=== PATIENT | female | born 1975 | race Caucasian/White ===

== ENCOUNTER 2025-04-11 15:06 | Outpatient (CLI) | payer MEDICAID, SELFPAY ==
--- OUTSIDE RECORDS SUMMARY | 2025-02-14 13:47 | XMS_ITS | Encounter Summary ---
Author Organization [employer] Address [address] [place] [address] Care Team Providers Care Senior Program Manager Name Role Phone Ann Pizano APRN Primary Care Provider [phone]- [phone] Reason for Referral * Other (Routine) - Closed Specialty Diagnoses / Procedures Referred By Contac t Referred To Contact Pulmonology Diagnoses Chronic cough Dyspnea on exertion Procedures Pulmonary Function Testing Adela Watson MD [address] [address] Phone: tel: fax: [facility] [address] [place] [phone] Phone: tel: fax: Referral ID Status Reason Start Date Expiration Date Visits Re quested Visits Authorized [id number] Closed 11/23/2024 11/23/2025 1 1 Reason for Visit * Other (Routine) - Closed Specialty Diagnoses / Procedures Referred By Contac t Referred To Contact Pulmonology Diagnoses Chronic cough Dyspnea on exertion Procedures Pulmonary Function Testing Adela Watson MD [address] [address] Phone: tel: fax: [facility] [address] [place] [phone] Phone: tel: fax: Referral ID Status Reason Start Date Expiration Date Visits Re quested Visits Authorized [id number] Closed 11/23/2024 11/23/2025 1 1 Encounter Details Date Type Department Care Team (Medhat perry Contact Info) Description 02/14/2025 1:47 PM EDT - 02/14/2025 11:59 PM EDT Hospital Encounter [facility] [address] [place] [address] Adela Watson MD [address] [facility] [address] [place] [address] Chronic cough; Dyspnea on exertion Discharge Disposition: Home or Self Care Social History Tobacco Use Types Packs/Day Years Used Date Smoking Tobacco: Every Day Cigarettes 0.5 15 Smokeless Tobacco: Never Alcohol Use Standard Drinks/Week Comments Never 0 (1 standard drink = 0.6 oz pur e alcohol) caffeine use PHQ-2 Answer Date Recorded Patient Health Questionnaire-2 Score 0 01/21/2025 Interpersonal Safety Answer Date Record ed Family or friends hurt you Not on file 11/04 Family or friends insult you Not on file Family or friends threaten you Not on file 0 11/04/2023 Family or friends scream or curse at you Not on file 11/04/2023 Housing Stability Answer Date Recorded Living situation today Not on file Living situation problems Not on file 2023 Family and Community Support Answer Olman e Recorded Help with Day to Day Activities Not on file 11/04/2023 Feeling Lonely or Isolated Not on file 11/04 Educational Attainment Answer Date Cornelius rded Speak language other than Lao at home Not on file 11/04/2023 Want help with school or training Not on file 11/04/2023 Depression Answer Date Recorded PHQ-2 Risk Not on file 11/04/2023 Disabilities Answer Date Recorded Difficulty concentrating Not on file 024 Difficulty doing errands alone Not on file 0 11/04/2023 Substance Use Answer Date Recorded Used prescription meds for non-medical reasons N ot on file 11/04/2023 Used illegal drugs past 12 months Not on file 11/04/2023 Comments No Sex and Gender Information Value Date Recorded Sex Assigned at Not on file Legal Sex Female 1:32 PM CDT Gender Identity Not on file Sexual Orientation Not on file documented as of this encounter Medications at Time of Discharge abatacept (Orencia ClickJect) 125 mg/mL AtIn Inject 125 mg subcutaneously once a week Rheumatoid doctor. 2 cholecalciferol (VITAMIN D3) 125 mcg (5,000 unit) capsuleIndications: Vitamin D deficiency, unspecified TAKE 1 CAPSULE BY MOUTH TWICE A DAY 60 capsule 5 5 cyanocobalamin 1,000 mcg/mL injectionIndication s:Deficiency of other specified B group vitamins INJECT 1 ML DIRECTED ONCE A MONTH 3 mL 5 dilTIAZem (CARDIZEM CD) 180 MG 24 hr capsuleIndications: Essential (primary) hypertension TAKE 1 CAPSULE BY MOUTH EVERY DAY 90 capsule 3 5 fluticasone propionate (FLONASE) 50 mcg/actuation nasal sprayIndications:Ac ekwok pharyngitis, unspecified 1 spray by each nostril route daily. 48 mL 2 5 folic acid (FOLVITE) 1 MG tablet Take 1 tablet (1 mg total) by mouth daily. 90 tablet 5 nitroglycerin (NITROSTAT) 0.4 MG SL tabletIndications:C hest pain, unspecified type PUT 1 PILL UNDER TONGUE EVERY 5MIN NEEDED FOR CHEST PAIN.NO MORE THAN 3 DOSES IN 15MIN.CALL 911 IF PAIN UNRELIEVED 5MIN AFTER 1ST DOSE. 50 tablet 11 5 pantoprazole (PROTONIX) 40 MG tabletIndications:G astroesophageal reflux disease, unspecified whether esophagitis present Take 1 tablet (40 mg total) by mouth daily. 180 tablet 3 4 Senna Plus 8.6-50 mg per tabletIndications:C hronic constipation Take 1 tablet by mouth 2 (two) times daily as needed for Constipation (May reduce dose as needed. Goal to have soft BM at least every other day). 60 tablet 5 4 loratadine (CLARITIN) 10 mg tabletIndications:E ncounter for general adult medical examination without abnormal findings TAKE 1 TABLET BY MOUTH TWICE A DAY 60 tablet 5 4 03/06/20 25 montelukast (SINGULAIR) 10 mg tabletIndications:E ncounter for general adult medical examination without abnormal findings TAKE 1 TABLET BY MOUTH EVERY DAY AT NIGHT 90 tablet 5 03/06/20 25 oxybutynin (DITROPAN-XL) 10 MG 24 hr tabletIndications:S tress incontinence Take 1 tablet (10 mg total) by mouth nightly. 30 tablet 2 5 02/16/20 25 rosuvastatin (CRESTOR) 20 MG tabletIndications:O ther hyperlipidemia TAKE 1 TABLET (20 MG TOTAL) BY MOUTH IN THE MORNING FOR 90 DAYS. 90 tablet 3 4 03/07/20 25 documented as of this encounter Miscellaneous Notes * Result Encounter Note - Adela Watson MD - 02/14/2025 2:00 PM EDT Noted, patient has appointment scheduled and results can be reviewed at the visit. documented in this encounter Plan of Treatment Upcoming Encounters Date Type Department Care Team (Late st Contact Info) Description 07/22/2025 1:00 PM EDT Appointment [facility] CT Imaging [address] [place] [phone] Adela Watson MD [address] [place] [phone] 07/24/2025 10:30 AM EDT Office Visit [facility] - [facility] [address] [place] [address] Ann Pizano APRN [address] [place] [address] 07/26/2025 1:30 PM EDT Office Visit [facility] Pulm & Critical Care Medicine [address] [place] [address] [address] [place] [address] Adela Watson MD [address] [facility] [address] [place] [phone] 07/29/2025 9:00 AM EDT Appointment [facility] Breast Imaging [address] [place] [address] 04/15/2026 9:30 AM EDT Office Visit [facility] Gastroenterology [address] [place] [address] Rex Stoll MD [address] [facility] [address] [place] [address] documented as of this encounter Procedures Procedure Name Priority Date/Time Associated Diagnosis Comments [id number] PFT Routine 02/14/2025 2:41 PM EDT Chronic cough Dyspnea on exertion documented in this encounter Results * Pulmonary Function Testing (02/14/2025 2:41 PM EDT) Anatomical Region Laterality Modality Other Narrative 02/14/2025 6:31 PM EDT Images from the original result were not included. Normal PFT results Adela Watson MD PFT ORDERABLES Final Result documented in this encounter Visit Diagnoses Diagnosis Chronic cough Cough Dyspnea on exertion Other dyspnea and respiratory abnormality documented in this encounter Administered Medications Inactive Administered Medications - up to 3 most recent administrations Medication Order MAR Action Action Date Dose Rate Site albuterol 2.5 mg /3 mL (0.083 %) nebulizer solution 2.5 mg 2.5 mg Once, nebulization, On Tue02/14/25 at 1430, For 1 dose, RESPIRATORY THERAPY TREATMENT , What is the respiratory therapy Modality? Small volume Nebulization Given 02/14/2025 2:15 PM EDT 2.5 mg albuterol 2.5 mg /3 mL (0.083 %) nebulizer solution Starting on Tue02/14/25 at 1356, For 1 dose, Created by cabinet override documented in this encounter Care Teams Senior Program Manager Relationship Specialty Start Date End Date Ann Pizano APRN [address] [place] [address] PCP - General Family Medicine 01/11/25 documented as of this encounter
--- OUTSIDE RECORDS SUMMARY | 2025-02-28 14:30 | XMS_ITS | Encounter Summary ---
Author Organization [employer] Address [address] [place] [address] Care Team Providers Care Patient Support Partner Name Role Phone Ann Pizano APRN Primary Care Provider [phone]- [phone] Reason for Visit * Reason Comments Follow-up Encounter Details Date Type Department Care Team (Late st Contact Info) Description 02/28/2025 2:30 PM EDT Office Visit [facility] Pulm & Critical Care Medicine [address] [place] [address] [place] [address] [place] [address] [place], [place] [phone] Pulmonary nodule (Primary Dx); Chronic cough; Dyspnea on exertion; Abnormal chest CT; DEBORA (obstructive sleep apnea); Overweight; Tobacco dependence due to cigarettes Social History Tobacco Use Types Packs/Day Years [...] Date Cornelius rded Speak language other than Turkish at home Not on file 11/04/2023 Want [...] on file documented as of this encounter Last Filed Vital Signs Vital Sign Reading Time Taken Comments Blood Pressure 126/74 02/28/2025 2:26 PM EDT Pulse 67 02/28/2025 2:26 PM EDT Temperature - - Respiratory Rate - - Oxygen Saturation 97% 02/28/2025 2:26 PM EDT ra Inhaled Oxygen Concentration - - Weight 72.1 kg (159 lb) 02/28/2025 2:26 PM EDT Height 162.6 cm (5' 4 ) 02/28/2025 2:26 PM EDT Body Mass Index 27.29 02/28/2025 2:26 PM EDT documented in this encounter Progress Notes * Adela Watson MD - 02/28/2025 2:30 PM EDT Huong Garcia is 49 y.o. year old female presents today for follow up for Chief Complaint Patient presents with Follow-up Chronic respiratory diseases: -Cough -Lung Nodule -Obstructive sleep apnea using CPAP Smoking history: Active cigarette smoker for over 20 years. She smokes 1/2 to 1 PPD Respiratory medications: None PFTs: PFTs 02/14/2025: Normal spirometry. Normal lung volumes Radiologic studies: CT Chest ordered Other medical problems: HPI: Routine follow up today for PFT results She is complaining of intermittent cough that is rarely productive. No shortness of breath, fever, chills or hemoptysis Current Outpatient Medications Medication Instructions cholecalciferol (VITAMIN D3) 125 mcg (5,000 unit) capsule TAKE 1 CAPSULE BY MOUTH TWICE A DAY cyanocobalamin 1,000 mcg/mL injection INJECT 1 ML DIRECTED ONCE A MONTH dilTIAZem (CARDIZEM CD) 180 MG 24 hr capsule TAKE 1 CAPSULE BY MOUTH EVERY DAY fluticasone propionate (FLONASE) 50 mcg/actuation nasal spray 1 spray, each nostril, Daily folic acid (FOLVITE) 1 mg, oral, Daily loratadine (CLARITIN) 10 mg tablet TAKE 1 TABLET BY MOUTH TWICE A DAY montelukast (SINGULAIR) 10 mg, oral, Every Night nitroglycerin (NITROSTAT) 0.4 MG SL tablet PUT 1 PILL UNDER TONGUE EVERY 5MIN NEEDED FOR CHEST PAIN.NO MORE THAN 3 DOSES IN 15MIN.CALL 911 IF PAIN UNRELIEVED 5MIN AFTER 1ST DOSE. Orencia ClickJect 125 mg, Weekly oxybutynin (DITROPAN-XL) 10 mg, oral, Every Night pantoprazole (PROTONIX) 40 mg, oral, Daily rosuvastatin (CRESTOR) 20 MG tablet TAKE 1 TABLET (20 MG TOTAL) BY MOUTH IN THE MORNING FOR 90 DAYS. Senna Plus 8.6-50 mg per tablet Take 1 tablet by mouth 2 (two) times daily as needed for Constipation (May reduce dose as needed. Goal to have soft BM at least every other day). Allergies Allergen Reactions Propranolol Itching Cephalexin Rash Sulfa (Sulfonamide Antibiotics) Rash Patients medications, allergies, social, medical and surgical history were obtained from medical records. Past Medical History: Diagnosis Date Allergic rhinitis 11/13/2020 CPAP (continuous positive airway pressure) dependence Gastroesophageal reflux disease 05/18/2021 Hyperlipidemia Hypertension RLS (restless legs syndrome) Sleep apnea 08/28/2022 Urinary incontinence Vitamin B12 deficiency Vitamin D deficiency Past Surgical History: Procedure Laterality Date COLONOSCOPY,POLYPECTOMY N/A 03/08/2024 Procedure: COLONOSCOPY, WITH POLYPECTOMY; Surgeon: Rex Stoll MD; Location: [facility]; Service: Gastroenterology; Laterality: N/A; DILATION AND CURETTAGE OF UTERUS KNEE SURGERY Left SINUS SURGERY SPINAL CORD STIMULATOR IMPLANT 04/30/2024 UPPER ENDOSCOPY,BIOPSY N/A 03/08/2024 Procedure: ENDOSCOPY, UPPER GI TRACT, WITH BIOPSY; Surgeon: Rex Stoll MD; Location: [facility]; Service: Gastroenterology; Laterality: N/A; Social History Socioeconomic History Marital status: Single Spouse name: Not on file Number of children: Not on file Years of education: Not on file Highest education level: Not on file Occupational History Not on file Tobacco Use Smoking status: Every Day Current packs/day: 0.50 Average packs/day: 0.5 packs/day for 15.0 years (7.5 ttl pk-yrs) Types: Cigarettes Smokeless tobacco: Never Vaping Use Vaping status: Never Used Substance and Sexual Activity Alcohol use: Never Comment: caffeine use Drug use: Never Sexual activity: Never Other Topics Concern Not on file Social History Narrative Not on file Social Drivers of Health Financial Resource Strain: Not on file Food Insecurity: Not on file Transportation Needs: Not on file Physical Activity: Not on file Stress: Not on file Social Connections: Low Risk (11/04/2023) Family and Community Support Help with Day to Day Activities: Not on file Feeling Lonely or Isolated: Not on file Intimate Partner Violence: Unknown (07/29/2023) Received from [facility] Abuse Screen Unsafe at Home or Work/School: Not on file Feels Threatened by Someone?: Not on file Does Anyone Keep You from Contacting Others or Doint Things Outside the Home?: Not on file Physical Sign of Abuse Present: Not on file Housing Stability: Low Risk (11/04/2023) Housing Stability Living situation today: Not on file Living situation problems: Not on file Family History Problem Relation Name Age of Onset Anemia Mother Sienna Luis Arthritis Mother Sienna Luis Hypertension Mother Sienna Luis Arthritis Father Earl Garcia Jr Hyperlipidemia Father Earl Garcia Jr Hypertension Father Earl Garcia Jr Arthritis Paternal Grandmother Bridget Yazmin Garcia Asthma Paternal Grandmother Bridget Yazmin Garcia Hyperlipidemia Paternal Grandmother Bridget Yazmin Garcia Hypertension Paternal Grandmother Bridget Yazmin Garcia Osteoporosis Paternal Grandmother Bridget Yazmin Garcia Heart attack Paternal Grandmother Bridget Yazmin Garcia Heart disease Paternal Grandmother Bridget Yazmin Garcia Arthritis Paternal Grandfather Earl Garcia Sr Stroke Paternal Grandfather Earl Garcia Sr Hyperlipidemia Paternal Grandfather Earl Garcia Sr Hypertension Paternal Grandfather Earl Garcia Sr Febrile seizures Paternal Grandfather Earl Garcia Sr Heart attack Paternal Grandfather Earl Garcia Sr Heart disease Paternal Grandfather Earl Garcia Sr Arthritis Maternal Grandmother Maxine Au Asthma Maternal Grandmother Maxine Au COPD Maternal Grandmother Maxine Au Hyperlipidemia Maternal Grandmother Maxine Au Hypertension Maternal Grandmother Maxine Au Osteoporosis Maternal Grandmother Maxine Au Heart disease Maternal Grandmother Maxine Au Stroke Maternal Grandfather Daron Au Hypertension Maternal Grandfather Daron Au Heart attack Maternal Grandfather Daron Au Heart disease Maternal Grandfather Daron Au Hyperlipidemia Brother Hypertension Brother Immunization History Administered Date(s) Administered COVID-19 mRNA (PF)(LNP-S BIVALENT) (L[place] Cap) 12YR+ (PFIZER)([id number] 07/23/2021 Covid-19 Vaccine MRNA (PF) 12yr+ ([facility])([id number]) 12/20/2020, 01/13/2021, 07/23/2021 Hepatitis A 11/21/2018, 08/20/2019 Influenza TIV (IM) 06/28/2022 Pneumococcal Conjugate (Prevnar) 13-Valent 08/20/2019 Tdap 05/25/2019 REVIEW OF SYSTEMS: Complete 12 point ROS non-contributory except complaints described in HPI or other sections of thisnote. PHYSICAL EXAM: VITAL SIGNS: BP 126/74 Pulse 67 Ht 1.626 m (5' 4 ) Wt 72.1 kg (159 lb) SpO2 97% Comment: ra BMI 27.29 kg/m?? Physical Exam Constitutional: General: She is not in acute distress. Appearance: Normal appearance. HENT: Head: Normocephalic and atraumatic. Nose: Nose normal. Eyes: Extraocular Movements: Extraocular movements intact. Cardiovascular: Rate and Rhythm: Normal rate. Pulses: Normal pulses. Pulmonary: Effort: Pulmonary effort is normal. No respiratory distress. Breath sounds: Normal breath sounds. No wheezing or rales. Abdominal: General: Bowel sounds are normal. Musculoskeletal: General: Normal range of motion. Cervical back: Normal range of motion. Skin: General: Skin is warm and dry. Neurological: General: No focal deficit present. Mental Status: She is oriented to person, place, and time. Psychiatric: Mood and Affect: Mood normal. Behavior: Behavior normal. Imaging: No results found for this or any previous visit. No results found for this or any previous visit. PFT's: Results for orders placed during the hospital encounter of 02/14/25 Pulmonary Function Testing Narrative Images from the original result were not included. Normal PFT results ECHO: Echo Results (last 7 days) No results found for the last 168 hours. Assessment: Diagnoses and all orders for this visit: Pulmonary nodule Chronic cough Dyspnea on exertion Abnormal chest CT DEBORA (obstructive sleep apnea) Overweight Tobacco dependence due to cigarettes Plan: -Lung nodule Incidental finding of subcentimeter left lung nodule 5 [address] in size on CT scan of abdomen in July 2024. A follow-up CT scan of the chest was ordered and was approved by insurance to be done in July 2025. Pending Discussed with patient at length and she understands the plan -Chronic cough with phlegm could be due to chronic bronchitis/smoking PFTs results were discussed with patient. No evidence of obstructive or restrictive defect. She can use albuterol inhaler as needed for cough Recommend annual influenza and COVID-19 vaccinations Avoid smoking Avoid ill contacts and allergens Regular physical activity -Tobacco use Smoking cessation counseling was done. Patient was counseled on the harms of smoking, including increased risk of lung disease, worsening of respiratory symptoms, cardiovascular disease and cancer. Spent more than 3 minutes discussing risks of smoking and smoking cessation. -Obstructive sleep apnea Using CPAP Advised regular exercises and stay active. The above assessment and plan was discussed in detail with patient. Patient verbalized understanding and agreement of plan. The medical records were reviewed including lab results, reports and imaging studies. Chest imaging were reviewed independent of the radiologist report. Medication side effects reviewed. Return in about 6 months (around 08/31/2025) for CT chest results. or sooner if needed Caraon disclaimer: Part of this encounter note is an electronic rehab nurse/translation of spoken language to printed text. The electronic translation of spoken language may permit erroneous, or at times, nonsensicalwords or phrases to be inadvertently transcribed; Although I have reviewed the note for such errors, some may still exist. Electronically signed by Adela Watson MD, 2:34 PM, 02/28/2025 documented in this encounter Plan of Treatment Upcoming Encounters Date Type Department Care Team (Late st Contact Info) Description 07/22/2025 1:00 PM EDT Appointment [facility] CT Imaging [address] [place] [address] Adela Watson MD [address] [place] [address] [address] 07/24/2025 10:30 AM EDT Office Visit [facility] Primary Care - [facility] [address] [place] [address] Ann Pizano APRN [address] [place] [address] 07/26/2025 1:30 PM EDT Office Visit [facility] Pulm & Critical Care Medicine [address] [place] [address] [address] Adela Watson MD [address] [facility] [place] [address] [address] 07/29/2025 9:00 AM EDT Appointment [facility] Breast Imaging [address] [place] [address] 04/15/2026 9:30 AM EDT Office Visit [facility] Gastroenterology [address] [place] [address] Rex Stoll MD [address] [facility] [address] [place] [address] documented as of this encounter Visit Diagnoses Diagnosis Pulmonary nodule- Primary Other diseases of lung, not elsewhere classified Chronic cough Cough Dyspnea on exertion Other dyspnea and respiratory abnormality Abnormal chest CT Nonspecific (abnormal) findings on radiological and other examination of other intrathoracic organs DEBORA (obstructive sleep apnea) Obstructive sleep apnea (adult) (pediatric) Overweight Tobacco dependence due to cigarettes documented in this encounter Care Teams Patient Support Partner Relationship Specialty Start Date End Date Ann Pizano APRN [address] [place] [address] PCP - General Family Medicine 01/11/25 documented as of this encounter
--- OUTSIDE RECORDS SUMMARY | 2025-04-09 09:15 | XMS_ITS | Encounter Summary ---
Author Organization [employer] Address [address] [place] [address] Care Team Providers Care Director Content Marketing Name Role Phone Ann Pizano APRN Primary Care Provider +1- [phone] Reason for Visit * Reason Comments Follow-up Patient here for a 6 month f/u and doing good Encounter Details Date Type Department Care Team (Late st Contact Info) Description 04/09/2025 9:15 AM EDT Office Visit [facility] Gastroenterology [address] [place] [address] Rex Stoll MD [address] [facility] [address] [place] [address] Fatty liver (Primary Dx); Folate deficiency; Vitamin D deficiency; Lung nodule Social History Tobacco Use Types Packs/Day Years [...] Date Cornelius rded Speak language other than Vietnamese at home Not on file 11/04/2023 Want [...] Sign Reading Time Taken Comments Blood Pressure 123/81 04/09/2025 9:24 AM EDT Pulse 65 04/09/2025 9:24 AM EDT Temperature - - Respiratory Rate - - Oxygen Saturation 93% 04/09/2025 9:24 AM EDT Inhaled Oxygen Concentration - - Weight 71.2 kg (157 lb) 04/09/2025 9:24 AM EDT Height 162.6 cm (5' 4 ) 04/09/2025 9:24 AM EDT Body Mass Index 26.95 04/09/2025 9:24 AM EDT documented in this encounter Progress Notes * Rex Stoll MD - 04/09/2025 9:15 AM EDT Gastroenterology Follow up Subjective: Huong Garcia is a 50 y.o. female. Presents at clinic for follow up. Pt reports she is doing well. No current GI problems. Labs reviewed with pt. Will have pt return in 1 year with LFTs and Fibrosis score prior to visit. Encouraged ptto stop smoking. Pt agrees with POC Chief Complaint Patient presents with Follow-up Patient here for a 6 month f/u and doing good Allergies Allergen Reactions Propranolol Itching Cephalexin Rash Sulfa (Sulfonamide Antibiotics) Rash Current Outpatient Medications: abatacept (Orencia ClickJect) 125 mg/mL AtIn, Inject 125 mg subcutaneously once a week Rheumatoid doctor., Disp: , Rfl: cholecalciferol (VITAMIN D3) 125 mcg (5,000 unit) capsule, TAKE 1 CAPSULE BY MOUTH TWICE A DAY, Disp: 60 capsule, Rfl: 5 cyanocobalamin 1,000 mcg/mL injection, INJECT 1 ML DIRECTED ONCE A MONTH, Disp: 3 mL, Rfl: 0 dilTIAZem (CARDIZEM CD) 180 MG 24 hr capsule, TAKE 1 CAPSULE BY MOUTH EVERY DAY, Disp: 90 capsule, Rfl: 3 fluticasone propionate (FLONASE) 50 mcg/actuation nasal spray, 1 spray by each nostril route daily., Disp: 48 mL, Rfl: 2 folic acid (FOLVITE) 1 MG tablet, Take 1 tablet (1 mg total) by mouth daily., Disp: 90 tablet, Rfl:0 loratadine (CLARITIN) 10 mg tablet, TAKE 1 TABLET BY MOUTH TWICE A DAY, Disp: 60 tablet, Rfl: 5 montelukast (SINGULAIR) 10 mg tablet, TAKE 1 TABLET BY MOUTH EVERY DAY AT NIGHT, Disp: 90 tablet, Rfl: 0 nitroglycerin (NITROSTAT) 0.4 MG SL tablet, PUT 1 PILL UNDER TONGUE EVERY 5MIN NEEDED FOR CHEST PAIN.NO MORE THAN 3 DOSES IN 15MIN.CALL 911 IF PAIN UNRELIEVED 5MIN AFTER 1ST DOSE., Disp: 50 tablet, Rfl: 11 oxybutynin (DITROPAN-XL) 10 MG 24 hr tablet, Take 1 tablet (10 mg total) by mouth nightly., Disp: 30 tablet, Rfl: 6 pantoprazole (PROTONIX) 40 MG tablet, Take 1 tablet (40 mg total) by mouth daily., Disp: 180 tablet, Rfl: 3 rosuvastatin (CRESTOR) 20 MG tablet, TAKE 1 TABLET BY MOUTH EVERY DAY IN THE MORNING, Disp: 90 tablet, Rfl: 3 Senna Plus 8.6-50 mg per tablet, Take 1 tablet by mouth 2 (two) times daily as needed for Constipation (May reduce dose as needed. Goal to have soft BM at least every other day)., Disp: 60 tablet, Rfl: 5 Past Medical History: Diagnosis Date Allergic rhinitis 11/13/2020 CPAP (continuous positive airway pressure) dependence Gastroesophageal reflux disease 05/18/2021 Hyperlipidemia Hypertension RLS (restless legs syndrome) Sleep apnea 08/28/2022 Urinary incontinence Vitamin B12 deficiency Vitamin D deficiency Past Surgical History: Procedure Laterality Date COLONOSCOPY,POLYPECTOMY N/A 03/08/2024 Procedure: COLONOSCOPY, WITH POLYPECTOMY; Surgeon: Rex Stoll MD; Location: [facility]; Service: Gastroenterology; Laterality: N/A; DILATION AND CURETTAGE OF UTERUS KNEE SURGERY Left SINUS SURGERY SPINAL CORD STIMULATOR IMPLANT 04/30/2024 UPPER ENDOSCOPY,BIOPSY N/A 03/08/2024 Procedure: ENDOSCOPY, UPPER GI TRACT, WITH BIOPSY; Surgeon: Rex Stoll MD; Location: [facility]; Service: Gastroenterology; Laterality: N/A; Family History Problem Relation Name Age of Onset Anemia Mother Sienna Sparks [place] Arthritis Mother Sienna Luis Hypertension Mother Sienna Sparks [place] Arthritis Father Earl Garcia Jr Hyperlipidemia Father [...] Grandfather Daron Au Hyperlipidemia Brother Hypertension Brother Social History Tobacco Use Smoking status: Every Day Current packs/day: 0.50 Average packs/day: 0.5 packs/day for 15.0 years (7.5 ttl pk-yrs) Types: Cigarettes Smokeless tobacco: Never Substance Use Topics Alcohol use: Never Comment: caffeine use Review of Systems All other systems reviewed and are negative. Objective: BP 123/81 (BP Location: Right arm, Cuff Size: Adult) Pulse 65 Ht 1.626 m (5' 4 ) Wt 71.2 kg (157 lb) SpO2 93% BMI 26.95 kg/m?? Physical Exam Vitals and nursing note reviewed. Constitutional: Appearance: Normal appearance. Cardiovascular: Rate and Rhythm: Normal rate and regular rhythm. Pulmonary: Effort: Pulmonary effort is normal. Breath sounds: No wheezing. Abdominal: General: Bowel sounds are normal. There is no distension. Palpations: Abdomen is soft. Neurological: Mental Status: She is alert. Assessment 1. Lung nodule 2.Fatty Liver 3. Folate deficiency 4. Vit D deficiency Plan: RTC 1 year with LFT's and Fibrosis score Encouraged smoking cessation Encouraged regular physical activity/ healthy diet Avoid NSAIDS Patient instructions given. By signing my name below, ICarmen LPN attest that this documentation has been prepared under the direction and in the presence of Rex Stoll MD. Electronically Signed: Carmen Hand LPN, Scribe. 04/09/25. 9:41 AM. Carmen Hand LPN Scribing for Rex Stoll MD I, Rex Stoll MD, have read and agree with the documentation that has been completed regardingthis visit. By signing this record, I attest that the documentation was completed in my physical presence and is an accurate record of the encounter documented in this encounter Plan of Treatment Upcoming Encounters Date Type Department Care Team (Late st Contact Info) Description 07/22/2025 1:00 PM EDT Appointment [facility] CT Imaging [address] [place] [address] Adela Watson MD [address] [facility] [address] [place] [address] 07/24/2025 10:30 AM EDT Office Visit [facility] Primary Care - [facility] [address] [place] [address] Ann Pizano APRN [address] [place] [address] 07/26/2025 1:30 PM EDT Office Visit [facility] Pulm & Critical Care Medicine [address] [address] Adela Watson MD [address] [place] [address] [place] [address] 07/29/2025 9:00 AM EDT Appointment [facility] Breast Imaging [address] [place] [address] 04/15/2026 9:30 AM EDT Office Visit [facility] Gastroenterology [address] [place] [address] Rex Stoll MD [address] [facility] [address] [place] [address] Scheduled Orders Name Type Priority Associated Diagnoses Orde r Schedule Hepatic function panel Lab Routine Fatty liver Folate deficiency Vitamin D deficiency Lung nodule Expected: 03/24/2026 (Approximate), Expires: 10/09/2026 GONZALEZ FibroSure(R) Plus Lab Routine Fatty liver Folate deficiency Vitamin D deficiency Lung nodule Expected: 03/24/2026 (Approximate), Expires: 10/09/2026 documented as of this encounter Visit Diagnoses Diagnosis Fatty liver- Primary Other chronic nonalcoholic liver disease Folate deficiency Other B-complex deficiencies Vitamin D deficiency Unspecified vitamin D deficiency Lung nodule Other diseases of lung, not elsewhere classified documented in this encounter Care Teams Director Content Marketing Relationship Specialty Start Date End Date Ann Pizano APRN [address] [place] [address] PCP - General Family Medicine 01/11/25 documented as of this encounter
--- NOTE | 2025-04-11 15:10 | XR_ITS ---
FINAL REPORT CLINICAL HISTORY: pain/swelling left wrist COMPARISON: None FINDINGS: LEFT WRIST THREE VIEW FINDINGS: Three views show a longitudinal lucency in the distal radius extending into the radiocarpal joint which may represent subacute fracture. CT correlation may be helpful. The joint is intact. The carpus is unremarkable. IMPRESSION: Indistinct longitudinal lucency, possible fracture. CT may be helpful. Reviewed, Interpreted and Dictated by Benedict Aguirre MD Transcribed by Kasey Egan Authenticated and [facility]
--- OUTSIDE RECORDS SUMMARY | 2025-04-11 15:10 | XMS_ITS | Encounter Summary ---
Author Organization [employer] Address [address] [place] [address] Care Team Providers Care Convention Worker Name Role Phone Kalin Rob MD Primary Care Provider [phone] Ann Pizano APRN Primary Care Provider [phone]- [phone] Reason for Visit * Reason Onset Date Comments FYI 06/26/2024 Encounter Details Date Type Department Care Team (Late st Contact Info) Description 06/26/2024 Telephone [facility] Primary Care - [facility] [address] [place] [address] Kalin Rob MD [address] [place] [address] I Social History Tobacco Use Types Packs/Day Years Used Date Smoking Tobacco: Former Smokeless Tobacco: Never Alcohol Use Standard Drinks/Week Comments Never 0 (1 standard drink = 0.6 oz pur e alcohol) caffeine use PHQ-2 Answer Date Recorded Patient Health Questionnaire-2 Score 0 03/30/2024 Interpersonal Safety Answer Date Record ed Family [...] Date Cornelius rded Speak language other than Cameroonian at home Not on file 11/04/2023 Want [...] on file documented as of this encounter Miscellaneous Notes * Telephone Encounter - Sukhwinder Lopez - 06/26/2024 1:34 PM EDT Noted and Done. * Telephone Encounter - Luis Fernando Reno - 06/26/2024 1:22 PM EDT Next Visit: 10/18/2024 Last Visit: 03/30/2024 Kalin Rob MD Caller Message (please include as much detail as possible)? Patient called and stated her breast ultrasound Is on 07/25. She wanted to let you all know Is follow up action needed: No Explain: FYI Caller Name: Crystal Relation to patient: self Best Call Back OK to leave message on voicemail: documented in this encounter Plan of Treatment Upcoming Encounters Date Type Department Care Team (Late st Contact Info) Description 07/22/2025 1:00 PM EDT Appointment [facility] CT Imaging [address] [place] [address] Adela Watson MD [address] [place], [place] [address] [place] [address] 07/24/2025 10:30 AM EDT Office Visit [facility] Primary Care - [facility] [address] [place] [address] Ann Pizano APRN [address] [place] [address] 07/26/2025 1:30 PM EDT Office Visit [facility] Pulm & Critical Care Medicine [address] [facility] [address] [address] [place] [address] [place] [address] [place] [address] 07/29/2025 9:00 AM EDT Appointment [facility] Breast Imaging [address] [place] [address] 04/15/2026 9:30 AM EDT Office Visit [facility] Gastroenterology [address] [place] [address] Rex Stoll MD [address] [facility] [address] [place] [address] documented as of this encounter Visit Diagnoses Not on filedocumented in this encounter Care Teams Convention Worker Relationship Specialty Start Date End Date Kalin Rob MD PCP - General Family Medicine 10/27/22 12/28/24 Ann Pizano APRN [address] [place] [address] PCP - General Family Medicine 01/11/25 documented as of this encounter
--- OUTSIDE RECORDS SUMMARY | 2025-04-11 15:11 | XMS_ITS | Encounter Summary ---
Author Organization Healthcare Address [address] [place] [address] Care Team Providers Care Manager Bar Name Role Phone Kalin Rob MD Primary Care Provider [phone] Reason for Visit * Reason Onset Date Comments Med Refill 04/20/2023 Encounter Details Date Type Department Care Team (Late st Contact Info) Description 04/20/2023 Refill [facility] [address] [place] [phone] Agueda Ferrara L, CENTRIFUGAL DRIER OPERATOR [address] [place] [address] Seropositive rheumatoid arthritis of multiple sites (CMS/HCC) Social History Tobacco Use Types Packs/Day Years Used Date Smoking Tobacco: Former Cigarettes 1 25 1 7 - 2021 Smokeless Tobacco: Never Alcohol Use Standard Drinks/Week Comments No 0 (1 standard drink = 0.6 oz pur e alcohol) PHQ-2 Answer Date Recorded Patient Health Questionnaire-2 Score 4 11/23/2022 PHQ-9 Answer Date Recorded Patient Health Questionnaire-9 Score 16 11/23/2022 Comments No Sex and Gender Information Value Date Recorded Sex Assigned at Female 10/20/2021 12:58 PM EST Legal Sex Female 7:46 PM EDT Gender Identity Female 07/08/2021 10:24 PM EDT Sexual Orientation Not on file documented as of this encounter Miscellaneous Notes * Telephone Encounter - Kelsy Barahona - 04/20/2023 10:49 AM EDT Patient had 90 days supply filled on 03/24/2023. She should have enough until her appointment on 05/24/2023 documented in this encounter Plan of Treatment Not on file documented as of this encounter Visit Diagnoses Diagnosis Seropositive rheumatoid arthritis of multiple sites ([facility]) documented in this encounter Additional Health Concerns Assessment Noted Time PHQ-9 Depression Total Score: 16 023 1:39 PM EST A fall risk assessment has been complete d for the patient 11/23/2022 1:43 PM EST A Body Mass Index follow-up plan has been documented for the patient 11/23/2022 2:15 PM EST documented as of this encounter Care Teams Manager Bar Relationship Specialty Start Date End Date Kalin Rob MD [address] [place] [address] PCP - General 02/27/21 documented as of this encounter
--- OUTSIDE RECORDS SUMMARY | 2025-04-11 15:11 | XMS_ITS | Encounter Summary ---
Author Organization [employer] Address [address] [place] [address] Care Team Providers Care Mold Breaker Name Role Phone nAn Pizano APRN Primary Care Provider [phone]- [phone] Reason for Visit * Reason Comments Medication Refill Encounter Details Date Type Department Care Team (Late st Contact Info) Description 03/07/2025 Refill [facility] Cardiology - [place] [address] [place] [address] Jun Taylor MD [address] [facility] [address] [place] [address] Other hyperlipidemia Social History Tobacco Use Types Packs/Day Years [...] Date Cornelius rded Speak language other than Jordanian at home Not on file 11/04/2023 Want [...] on file documented as of this encounter Plan of Treatment Upcoming Encounters Date Type Department Care Team (Late st Contact Info) Description 07/22/2025 1:00 PM EDT Appointment [facility] CT Imaging [address] [place] [address] Adela Watson MD [address] [address] 07/24/2025 10:30 AM EDT Office Visit [facility] Primary Care - [facility] [address] [place] [address] Ann Pizano APRN [address] [place] [address] 07/26/2025 1:30 PM EDT Office Visit [facility] Pulm & Critical Care Medicine [address] [place] [address] [address] Adela Watson MD [address] [address] 07/29/2025 9:00 AM EDT Appointment [facility] Breast Imaging [address] [place] [address] 04/15/2026 9:30 AM EDT Office Visit [facility] Gastroenterology [address] [place] [address] Rex Stoll MD [address] [place] [address] documented as of this encounter Visit Diagnoses Diagnosis Other hyperlipidemia documented in this encounter Care Teams Mold Breaker Relationship Specialty Start Date End Date Ann Pizano APRN [address] [place] [address] PCP - General Family Medicine 01/11/25 documented as of this encounter
--- OUTSIDE RECORDS SUMMARY | 2025-04-11 15:11 | XMS_ITS | Encounter Summary ---
Author Organization [employer] Address [address] [place] [address] Care Team Providers Care Explosive Technician Name Role Phone Kalin Rob MD Primary Care Provider [phone] Ann Pizano APRN Primary Care Provider + [phone] Reason for Visit * Reason Comments Medication Refill Encounter Details Date Type Department Care Team (Late st Contact Info) Description 06/17/2023 Refill [facility] Primary Care - [facility] [address] [place] [address] Kalin Rob MD [address] [place] [address] Personal history of other diseases of the digestive system; Encounter for general adult medical examination without abnormal findings Social History Tobacco Use Types Packs/Day Years Used Date Smoking Tobacco: Some Days Cigarettes Smokeless Tobacco: Never Alcohol Use Standard Drinks/Week Comments Never 0 (1 standard drink = 0.6 oz pur e alcohol) caffeine use Comments Unknown Sex and Gender Information Value Date Recorded Sex Assigned at Not on file Legal Sex Female 1:32 PM CDT Gender Identity Not on file Sexual Orientation Not on file COVID-19 Exposure Response Date Recorded In the last 10 days, have yo u been in contact with someone who was confirmed or suspected to have Coronavirus/COVID-19? No / Unsure 05/23/2023 8:58 AM EDT documented as of this encounter Plan of Treatment Upcoming Encounters Date Type Department Care Team (Late st Contact Info) Description 07/22/2025 1:00 PM EDT Appointment [facility] CT Imaging [address] [place] [address] Adela Watson MD [address] [address] 07/24/2025 10:30 AM EDT Office Visit [facility] Primary Care - [facility] [address] [place] [address] Ann Pizano APRN [address] [place] [address] 07/26/2025 1:30 PM EDT Office Visit [facility] Pulm & Critical Care Medicine [address] [place] [address] Adela Watson MD [address] [address] 07/29/2025 9:00 AM EDT Appointment [facility] Breast Imaging [address] [place] [address] 04/15/2026 9:30 AM EDT Office Visit [facility] Gastroenterology [address] [place] [address] Rex Stoll MD 227 [facility] [address] [place] [address] documented as of this encounter Visit Diagnoses Diagnosis Personal history of other diseases of the digestive system Encounter for general adult medical examination without abnormal findings documented in this encounter Care Teams Explosive Technician Relationship Specialty Start Date End Date Kalin Rob MD PCP - General Family Medicine 10/27/22 12/28/24 Ann Pizano APRN [address] [place] [address] PCP - General Family Medicine 01/11/25 documented as of this encounter
--- OUTSIDE RECORDS SUMMARY | 2025-04-11 15:11 | XMS_ITS | Encounter Summary ---
Author Organization [employer] Address [address] [place] [address] Care Team Providers Care Team Leader Surgery Name Role Phone Ann Pizano APRN Primary Care Provider [phone]- [phone] Encounter Details Date Type Department Care Team (Latest Contact Info) Description 02/28/2025 Travel Social History Tobacco Use Types Packs/Day Years [...] Date Cornelius rded Speak language other than Welsh at home Not on file 11/04/2023 Want [...] Info) Description 07/22/2025 1:00 PM EDT Appointment [facility] CT Imaging [address] [place] [address] Adela Watson MD [address] [address] 07/24/2025 10:30 AM EDT Office Visit [facility] Primary Care - [facility] [address] [place] [address] Ann Pizano APRN [address] [place] [address] 07/26/2025 1:30 PM EDT Office Visit [facility] Pulm & Critical Care Medicine [address] [place] [address] [address] Adela Watson MD [address] [address] 07/29/2025 9:00 AM EDT Appointment [facility] Breast Imaging [address] [place] [address] 04/15/2026 9:30 AM EDT Office Visit [facility] Gastroenterology [address] [place] [address] Rex Stoll MD [address] [facility] [address] [place] [address] documented as of this encounter Visit Diagnoses Not on filedocumented in this encounter Care Teams Team Leader Surgery Relationship Specialty Start Date End Date Ann Pizano APRN [address] [place] [address] PCP - General Family Medicine 01/11/25 documented as of this encounter
--- OUTSIDE RECORDS SUMMARY | 2025-04-11 15:11 | XMS_ITS | Encounter Summary ---
Author Organization [employer] Address [address] [place] [address] Care Team Providers Care Solutions Executive Cloud Sales Name Role Phone Kalin Rob MD Primary Care Provider [phone] Ann Pizano APRN Primary Care Provider [phone]- [phone] Reason for Visit * Reason Onset Date Comments Medication Refill 11/17/2024 Encounter Details Date Type Department Care Team (Late st Contact Info) Description 11/17/2024 Refill [facility] Cardiology - [place] [address] [place] [phone] Jun Taylor MD [address] [facility] [address] [place] [address] Essential (primary) hypertension Social History Tobacco Use Types Packs/Day Years Used Date Smoking Tobacco: Former Smokeless Tobacco: Never Alcohol Use Standard Drinks/Week Comments Never 0 (1 standard drink = 0.6 oz pur e alcohol) caffeine use PHQ-2 Answer Date Recorded Patient Health Questionnaire-2 Score 0 10/18/2024 Interpersonal Safety Answer Date Record ed Family [...] Date Cornelius rded Speak language other than Surinamese at home Not on file 11/04/2023 Want [...] Info) Description 07/22/2025 1:00 PM EDT Appointment [facility] CT Imaging [address] [place] [address] Adela Watson MD [address] [address] 07/24/2025 10:30 AM EDT Office Visit [facility] Primary Care - [facility] [address] [place] [address] Ann Pizano APRN [address] [place] [address] 07/26/2025 1:30 PM EDT Office Visit [facility] Pulm & Critical Care Medicine [address] [place] [address] [address] Adela Watson MD [address] [place] [address] 07/29/2025 9:00 AM EDT Appointment [facility] Breast Imaging [address] [place] [address] 04/15/2026 9:30 AM EDT Office Visit [facility] Gastroenterology [address] [place] [address] Rex Stoll MD [address] [facility] [address] [place] [address] documented as of this encounter Visit Diagnoses Diagnosis Essential (primary) hypertension Unspecified essential hypertension documented in this encounter Care Teams Solutions Executive Cloud Sales Relationship Specialty Start Date End Date Kalin Rob MD PCP - General Family Medicine 10/27/22 12/28/24 Ann Pizano APRN [address] [place] [address] PCP - General Family Medicine 01/11/25 documented as of this encounter
--- OUTSIDE RECORDS SUMMARY | 2025-04-11 15:11 | XMS_ITS | Encounter Summary ---
Author Organization [employer] Address [address] [place] [address] Care Team Providers Care Operational Intelligence Officer Name Role Phone Ann Pizano APRN Primary Care Provider [phone]- [phone] Reason for Visit * Reason Comments Medication Refill Encounter Details Date Type Department Care Team (Late st Contact Info) Description 03/06/2025 Refill [facility] Primary Care - [facility] [address] [place] [address] Kalin Rob MD [address] [place] [address] Encounter for general adult medical examination without [...] Date Cornelius rded Speak language other than Citizen Of [place] at home Not on file 11/04/2023 Want [...] Info) Description 07/22/2025 1:00 PM EDT Appointment [facility] CT Imaging [address] [place] [address] Adela Watson MD [address] [place] [address] [address] 07/24/2025 10:30 AM EDT Office Visit [facility] Primary Care - [facility] [address] [place] [address] Ann Pizano APRN [address] [place] [address] 07/26/2025 1:30 PM EDT Office Visit [facility] Pulm & Critical Care Medicine [address] [place] [address] [address] Adela Watson MD [address] [place] [address] [address] 07/29/2025 9:00 AM EDT Appointment [facility] Breast Imaging [address] [place] [address] 04/15/2026 9:30 AM EDT Office Visit [facility] Gastroenterology [address] [place] [address] Rex Stoll MD [address] [place] [address] documented as of this encounter Visit Diagnoses Diagnosis Encounter for general adult medical examination without abnormal findings documented in this encounter Care Teams Operational Intelligence Officer Relationship Specialty Start Date End Date Ann Pizano, MANAGER MARKETING SALES [address] [place] [address] PCP - General Family Medicine 01/11/25 documented as of this encounter
--- OUTSIDE RECORDS SUMMARY | 2025-04-11 15:11 | XMS_ITS | Clinical Summary ---
Author Organization [facility] Address [address] [place] [address] Care Team Providers Care Pin Drafter Operator Name Role Phone Kalin Rob MD Primary Care Provider [phone] [phone] Allergies Active Allergy Reactions Criticality Noted Date Comments Cephalexin Unknown - Patient st ates they do not know rxn details,Rash Low 02/23/2021 Propranolol Itching Medium 10/27/2022 Sulfa Drugs Rash,Other - please document in the comment field Low 06/08/2021 Sulfacetamide Unknown - Patient st ates they do not know rxn details Low 11/28/2017 Medications Syringe/Needle, Disp, (B-D 3CC LUER-DIPIKA SYR 23GX1 ) 23G X 1 3 ML misc USE DIRECTED ONCE MONTHLY 1 Active cholecalciferol (Vitamin D-3) 125 MCG (5000 UT) capsule 7 Active cyanocobalamin (Vitamin B-12) 1000 MCG/ML injection 7 Active fluticasone (Flonase) 50 MCG/ACT nasal spray USE ONE SPRAY EACH SIDE OF NOSE 7 Active HYDROcodone-edgardo taminophen (Mcgrath) 5-325 MG tablet TAKE 1 TABLET BY MOUTH EVERY DAY NEEDED 1 Active loratadine (Claritin) 10 MG tablet TAKE 1 TABLET BY MOUTH TWICE A DAY 7 Active naloxone (Narcan) 4 mg/0.1 mL nasal spray DIRECTED EMERGENCY USE ONLY FOR OPIOID OVERDOSE NASALLY 1 DAY 0 Active omeprazole (PriLOSEC) [address] capsule TAKE ONE CAPSULE BY MOUTH DAILY 7 Active rosuvastatin (Crestor) 5 MG tablet 7 Active montelukast (Singulair) 10 MG tablet Take 1 tablet (10 mg) by mouth every night. 1 Active hydrOXYzine HCl (Atarax) 10 MG tablet Take 1 tablet (10 mg) by mouth 1 (one) time each day. 1 Active dilTIAZem CD (Cardizem CD) 180 MG 24 hr capsule Take 1 capsule (180 mg) by mouth 1 (one) time each day. 1 Active gabapentin (Neurontin) 800 MG tablet Take 1 tablet (800 mg) by mouth 3 (three) times a day. Active desvenlafaxine (Pristiq) 50 MG 24 hr tablet Take 3 tablets (150 mg) by mouth 1 (one) time each day. 2 Active chlorhexidine (Peridex) 0.12 % solution Use 0.5 mL in the mouth or throat 2 (two) times a day. 3 Active predniSONE (Deltasone) 5 MG tablet Take 3 tablets for 5 days, then take 2 tablets for 5 days, then take 1 tablet for 5 days. For use while on antibiotics 30 tablet 3 Active pyridoxine 50 MG tablet 3 Active leflunomide (Arava) 10 MG tabletIndicatio ns:Seropositive rheumatoid arthritis of multiple sites (CMS/HCC) Take 1 tablet (10 mg) by mouth 1 (one) time each day. 90 tablet 5 4 Active hydroxychloroqu ine (Plaquenil) 200 MG tabletIndicatio ns:Seropositive rheumatoid arthritis of multiple sites (CMS/HCC) Take 1 tablet (200 mg) by mouth 2 (two) times a day. 180 tablet 5 4 Active Abatacept (Orencia ClickJect) 125 MG/ML solution auto-injectorIn dications:Serop ositive rheumatoid arthritis of multiple sites (CMS/HCC) Inject 125 mg under the skin every 7 (seven) days. 4 mL 6 4 Active Active Problems Problem Noted Date Diagnosed Date High risk medication use 12/09/2021 Encounters Date Type Department Care Team Description 2025 Telephone [facility] [address] [place] [address] Batch, Yaniv Schuster, PharmD from Last 3 Months Immunizations Immunization Administration Dates Next Due Hep A, ped/adol, 2 dose 08/20/2019,11/21/2018 Influenza, injectable, MDCK, preservative free, quadrivalent 06/28/2022 Influenza, injectable, quadr ivalent, preservative free 07/23/2021,07/19/2018 Influenza, seasonal, injectable 08/20/2019,07/13 Influenza, seasonal, injecta ble, preservative free 07/14/2016 Pfizer-BioNTech COVID-19 Biv alent (Lamb Cap) 12+ years (coral-sucrose) 07/23/2021 Pfizer-BioNTech COVID-19 Vac cine (Purple Cap) 12+ 07/23/2021,01/13/2021,12/20/2020 Pneumococcal Conjugate PCV 13 08/20/2019 Tdap 05/25/2019 Family History Medical History Relation Name Comments Arthritis Father Earl Garcia Vision loss Father Earl Garcia Arthritis Maternal Grandmother Maxine Au Asthma Maternal Grandmother Maxine Au Hearing loss Maternal Grandmother Maxine Au Heart disease Maternal Grandmother Maxine Au Arthritis Mother Sienna Linvulle Autoimmune disease Mother Sienna Linvulle Diabetes Mother Sienna Linvulle Immunodeficiency Mother Sienna Linvulle Arthritis Other 1 Cardiac disorder Other 2 Other cancer Other 3 Arthritis Paternal Grandfather Earl Garcia Sr Heart disease Paternal Grandfather Earl Garcia Sr Stroke Paternal Grandfather Earl Garcia Sr Arthritis Paternal Grandmother Bridget Yazmin Garcia Heart disease Paternal Grandmother Bridget Garcia Vision loss Paternal Grandmother Bridget Garcia Relation Name Status Comments Father Earl Garcia Maternal Grandmother Maxine Au Mother Sienna Linvulle Other 1 Other 2 Other 3 Paternal Grandfather Earl Garcia Sr Paternal Grandmother Bridget Yazmin Garcia Social History Tobacco Use Types Packs/Day Years Used Date Smoking Tobacco: Former Cigarettes 1 25 0 10/17/1996 - 10/17/2021 Smokeless Tobacco: Never Tobacco Cessation:Counseling Given: Not Answered Alcohol Use Standard Drinks/Week Comments No 0 (1 standard drink = 0.6 oz pur e alcohol) PHQ-2 Answer Date Recorded Patient Health Questionnaire-2 Score 0 05/31/2024 PHQ-9 Answer Date Recorded Patient Health Questionnaire-9 Score 16 11/23/2022 PHQ-2A Answer Date Recorded Patient Health Questionnaire-2 Score 2 05/24/2023 Comments No Sex and Gender Information Value Date Recorded Sex Assigned at Female 10/20/2021 12:58 PM EST Legal Sex Female 7:46 PM EDT Gender Identity Female 07/08/2021 10:24 PM EDT Sexual Orientation Not on file Last Filed Vital Signs Vital Sign Reading Time Taken Comments Blood Pressure 125/82 05/31/2024 2:34 PM EDT Pulse 66 05/31/2024 2:34 PM EDT Temperature 36.6 C (97.9 F) 05/31/2024 2:34 PM EDT Respiratory Rate 16 05/31/2024 2:34 PM EDT Oxygen Saturation 96% 05/31/2024 2:34 PM EDT Inhaled Oxygen Concentration - - Weight 73.4 kg (161 lb 13.1 oz) 05/31/2024 2:34 PM EDT Height 162.6 cm (5' 4 ) 05/31/2024 2:34 PM EDT Body Mass Index 27.78 05/31/2024 2:34 PM EDT Plan of Treatment Health Maintenance Due Date Last Done Comments [facility]-HIV Screening 1975 [facility]-/Child/Adol SDOH Screenings 1975 [facility]- SDOH Screenings 1994 [facility]-Adult SDOH Screenings 1994 [facility]-Hepatitis B Vaccines (1 of 3 - 19+ 3-dose series) 1995 [facility]-Zoster Vaccines (1 of 2) 1995 [facility]-Pap Smear 08/07/2007 08/07/2004, 06/17, 02/16/2002 [facility]-Cervical Cancer Screening 08/07/2009 [facility]-HPV/Cotest 08/07/2009 08/07/2004, 06/17, 02/16/2002 CT Colonography 2021 Colonoscopy 2021 FIT-DNA 2021 FIT 2021 FOBT 2021 Sigmoidoscopy 2021 [facility]-Colorectal Cancer Screening 2021 RIS-YRASL-38 Vaccine ( season) 2024 07/23/2021, 07/23/2021, 01/13/2021, Additional history exists [facility]-Depression Screening 05/31/2025 05/31/2024, 04/2023 [facility]-Influenza Vaccine (Season Ended) 2025 06/28/2022, 07/23/2021, 08/20/2019, Additional history exists [facility]-DTaP,Tdap,and Td Vaccines (2 - Td or Tdap) 05/25/2029 05/25/2019 [facility]-Hepatitis A Vaccines Aged Out 08/20/2019, 02/2019 No longer eligible based on patient's age to complete this topic [facility]-Pneumococcal Vaccine: Pediatrics (0 to 5 Years) and At-Risk Patients (6 to 49 Years) Aged Out 08/20/2019 No longer eligible based on patient's age to complete this topic [facility]-Hepatitis C Screening Completed 04/01/2020, 09/2018 [facility]-Obesity Intervention Completed 024, 12/01/2023, 05/24/2023, Additional history exists HPV Vaccines Aged Out No longer eligi ble based on patient's age to complete this topic [facility]-HIB Vaccines Aged Out No longer e ligible based on patient's age to complete this topic [facility]-IPV Vaccines Aged Out No longer e ligible based on patient's age to complete this topic [facility]-Rotavirus Vaccines Aged Out No lo nger eligible based on patient's age to complete this topic Procedures Procedure Name Priority Date/Time Associated Diagnosis Comments HEPATITIS C ANTIBODY W/REFLEX TO HCV QUANT PCR Routine 04/01/2020 10:38 AM EDT CYTO DATA CONVERSION Routine 08/07/2004 12:00 AM EDT from Last 3 Months or Most Recently Relevant to Health Maintenance Results * Hepatitis C Antibody (04/01/2020 10:38 AM EDT) Hepatitis C Antibody NEGATIVE Reference Range: Negative [facility] 04/01/2020 10:3 8 AM EDT 04/01/2020 11:38 AM EDT Jennifer Loving MD LAB BLOOD ORDERABLES Final Result ROLAND * Cytology (08/07/2004 12:00 AM EDT) 08/07/2004 08/11/2004 1:0 5 PM EDT Narrative [facility]QUEST - 08/13/2004 12:55 PM EDT [facility] MR #: [id number] [facility] [place] [place] [address] 1975 (Age: 29) FW Collect Date: 08/07/2004 00:00 Receipt Date: 08/11/2004 13:05 Page 1 DEPARTMENT OF PATHOLOGY AND LABORATORY MEDICINE CYTOPATHOLOGY REPORT Email: [email or web address] [id number] ATTENDING MD/Practitioner: Jory Franks MD Service: PAT Location: [facility] Reported: 08/13/2004 12:55 Collected: 08/07/2004 00:00 INTERPRETATION THIN PREP (CERVICAL/VAGINAL): NEGATIVE FOR INTRAEPITHELIAL LESION OR MALIGNANCY. SATISFACTORY FOR EVALUATION; ENDOCERVICAL/ TRANSFORMATION ZONE COMPONENT PRESENT. Electronically Signed Out By PATRICK Hdz (ASCP) PATRICK Hdz (ASCP) Cervical cytology is a screening test primarily for squamous cancers and precursors and has associated false negative and positive results. New technologies such as liquid based sampling may decrease but will not eliminate all false negative results. Regular screening and follow-up of unexplained clinical signs and symptoms are recommended to minimize false negative results. Please see the ASCCP website (www.asccp.org) for followup recommendations. If HPV testing was requested, correlation with the results is suggested (please call Microbiology at [phone] for results). CLINICAL INFORMATION: Menstrual History: Cyclic Date of Last Menstrual Period: 07-10-04 SPECIMEN DESCRIPTION: A: THIN PREP (CERVICAL/VAGINAL) THIN PREP PROCESS CELLULAR ENHANCEMENT ICD: V76.2 CERVIX, SPECIAL SCREENING FOR MALIGNANT NEOPLASM F: A; RT IMAGE [id number], RT IMAGE 79464 <CR>, THIN SCRN 27187 SNOMED CODES: A; [id number] In cases where a pathologist has signed out the report, the service has been rendered in part by a resident. The signing pathologist has performed and is responsible for the reported pathologic evaluation. us Historical Provider MD LAB PATHOLOGY ORDERABLES Final Result [facility]QUEST from Last 3 Months or Most Recently Relevant to Health Maintenance [place] [address] [place] [address] MEDICAID Care Teams Pin Drafter Operator Relationship Specialty Start Date End Date Kalin Rob MD [address] [place] [address] PCP - General 02/27/21
--- OUTSIDE RECORDS SUMMARY | 2025-04-11 15:11 | XMS_ITS | Encounter Summary ---
Author Organization [employer] Address [address] [place] [address] Care Team Providers Care Terminal Operations Supervisor Name Role Phone Kalin Rob MD Primary Care Provider [phone] Ann Pizano APRN Primary Care Provider +- [phone] Reason for Visit * Reason Onset Date Comments Medication Refill 06/29/2023 Encounter Details Date Type Department Care Team (Late st Contact Info) Description 06/29/2023 Refill [facility] Primary Care - [facility] [address] [place] [address] Kalin Rob MD [address] [place] [address] Personal history of other diseases of the digestive system Social History Tobacco Use Types Packs/Day Years Used Date Smoking Tobacco: Some Days Cigarettes Smokeless Tobacco: Never Alcohol Use Standard Drinks/Week Comments Never 0 (1 standard drink = 0.6 oz pur e alcohol) caffeine use PHQ-2 Answer Date Recorded Patient Health Questionnaire-2 Score 0 06/30/2023 Comments Unknown Sex and Gender Information Value Date Recorded Sex Assigned at Not on file Legal Sex Female 1:32 PM CDT Gender Identity Not on file Sexual Orientation Not on file documented as of this encounter Plan of Treatment Upcoming Encounters Date Type Department Care Team (Late st Contact Info) Description 07/22/2025 1:00 PM EDT Appointment [facility] CT Imaging [address] [place] [address] Adela Watson MD [address] [place] [address] 07/24/2025 10:30 AM EDT Office Visit [facility] Primary Care - [facility] [address] [place] [address] Ann Pizano APRN [address] [place] [address] 07/26/2025 1:30 PM EDT Office Visit [facility] Pulm & Critical Care Medicine [address] [facility] [address] [address] Adela Watson MD [address] [place] [address] 07/29/2025 9:00 AM EDT Appointment [facility] Breast Imaging [address] [place] [address] 04/15/2026 9:30 AM EDT Office Visit [facility] Gastroenterology [address] [place] [address] Rex Stoll MD [address] [facility] [address] [place] [address] documented as of this encounter Visit Diagnoses Diagnosis Personal history of other diseases of the digestive system documented in this encounter Care Teams Terminal Operations Supervisor Relationship Specialty Start Date End Date Kalin Rob MD PCP - General Family Medicine 10/27/22 12/28/24 Ann Pizano APRN [address] [place] [address] PCP - General Family Medicine 01/11/25 documented as of this encounter
--- OUTSIDE RECORDS SUMMARY | 2025-04-11 15:11 | XMS_ITS | Encounter Summary ---
Author Organization [employer] Address [address] [place] [address] Care Team Providers Care Regional Facilities Manager Name Role Phone Kalin Rob MD Primary Care Provider [phone] Ann Pizano APRN Primary Care Provider + [phone] Reason for Visit * Reason Comments Medication Refill Encounter Details Date Type Department Care Team (Late st Contact Info) Description 05/20/2023 Refill [facility] Primary Care - [facility] [address] [place] [address] Kalin Rob MD [address] [place] [address] Personal history of other diseases [...] Info) Description 07/22/2025 1:[address] Imaging [address] [place] [address] Adela Watson MD [address] [address] 07/24/2025 10:30 AM EDT Office Visit [facility] Primary Care - [facility] [address] [place] [address] Ann Pizano APRN [address] [place] [address] 07/26/2025 1:30 PM EDT Office Visit [facility] Pulm & Critical Care Medicine [address] [place] [address] Adela Watson MD [address] [address] 07/29/2025 9:00 AM EDT Appointment Breast Imaging [address] [place] [address] 04/15/2026 9:30 AM EDT Office Visit [facility] Gastroenterology [address] [place] [address] Rex Stoll MD [address] [facility] [address] [place] [address] documented as of this encounter Visit Diagnoses Diagnosis Personal history of other diseases of the digestive system Encounter for general adult medical examination without abnormal findings documented in this encounter Care Teams Regional Facilities Manager Relationship Specialty Start Date End Date Kalin Rob MD PCP - General Family Medicine 10/27/22 12/28/24 Ann Pizano APRN [address] [place] [address] PCP - General Family Medicine 01/11/25 documented as of this encounter
--- OUTSIDE RECORDS SUMMARY | 2025-04-11 15:11 | XMS_ITS | Encounter Summary ---
Author Organization [employer] Address [address] [place] [address] Care Team Providers Care Library Consultant Name Role Phone Kalin Rob MD Primary Care Provider [phone] Ann Pizano APRN Primary Care Provider [phone]- [phone] Reason for Visit * Reason Onset Date Comments Advice Only 12/12/2024 Encounter Details Date Type Department Care Team (Late st Contact Info) Description 12/12/2024 Telephone [facility] Primary Care - [facility] [address] [place] [address] Kalin Rob MD [address] [place] [address] Advice Only Social History Tobacco Use Types Packs/Day Years [...] Date Cornelius rded Speak language other than Tanzanian at home Not on file 11/04/2023 Want [...] * Telephone Encounter - Sukhwinder Lopez - 12/13/2024 9:52 AM EST Called and advised patient that Dr Rob sent in mediation to pharmacy. ERY AIDE * Telephone Encounter - Sukhwinder Lopez - 12/12/2024 9:28 AM EST Called and spoke with patient. Patient advised that she took 2 home Covid test and both were negative. Patient has had a productive cough x 4 days. Asking for something to be called in to pharmacy. ERY AIDE * Telephone Encounter - Bot EST [employer] Lorene - 12/12/2024 8:54 AM EST FROM: Branden Guy CSN: TO: [facility] 7 CLINICAL STUDENT LIAISON OFFICER [[id number]] SUBJECT: Medical Advice/Question PROVIDER: KALIN ROB [[id number]] DEPARTMENT: [facility] [[id number]] ENCOUNTER REASON FOR CALL: ADVICE ONLY [[id number]] ENCOUNTER TYPE: Telephone PREFERRED PHARMACY? [id number] [place], [place] - [address] [facility] [address] [facility] [phone] REASON FOR CALL: Medical Advice for a non injury WHAT ARE YOUR SYMPTOMS? Cough and not able to eat. LIST SYMPTOMS WITH SIDE AND SITE (EX: SWELLING IN THE RIGHT KNEE): cough and not able to eat. DURATION YOU HAVE BEEN EXPERIENCING THE SYMPTOM: ~4 days IS THE SYMPTOM RELIEVED BY ANYTHING (E.G., NOTHING, REST, MEDICATION)? Not really MEDICATIONS TRIED? None SYMPTOM PREVIOUSLY DISCUSSED WITH PROVIDER? No APPOINTMENT OFFERED? Yes but patient declined appointment IF PATIENT DECLINED APPOINTMENT, EXPLAIN: no appointment available SHOULD THE SELECTED PHARMACY BE PATIENT'S DEFAULT? Yes ANY SCHOOL EXCUSE NOTE/WORK NOTE NEED? No WHAT IS THE PATIENT'S QUESTION FOR THE PROVIDER? Has productive cough yellow in color. No appointments available LAST VISIT: 2024-10-18 NEXT VISIT DATE IS NOT APPLICABLE: Yes MESSAGE PRIORITY: Routine CALLER'S NAME: Huong Garcia RELATION TO PATIENT: Self [1] PREFERRED LANGUAGE: Tanzanian BEST CALL BACK PHONE NUMBER: Mobile Phone: ([phone]) WHAT IS THE BEST WAY FOR THE OFFICE TO CONTACT YOU?: OK to leave message on voicemail ERY AIDE documented in this encounter Plan of Treatment Upcoming Encounters Date Type Department Care Team (Late st Contact Info) Description 07/22/2025 1:00 PM EDT Appointment [facility] CT Imaging [address] [place] [address] Adela Watson MD [address] [facility] [address] [place] [address] 07/24/2025 10:30 AM EDT Office Visit [facility] Primary Care - [facility] [address] [place] [address] Ann Pizano APRN [address] [place] [address] 07/26/2025 1:30 PM EDT Office Visit [facility] Pulm & Critical Care Medicine [address] [facility] [address] [address] Adela Watson MD [address] [facility] [address] [place] [address] 07/29/2025 9:00 AM EDT Appointment [facility] Breast Imaging [address] [place] [address] 04/15/2026 9:30 AM EDT Office Visit [facility] Gastroenterology [address] [place] [address] Rex Stoll MD 227 [facility] [address] [place] [address] documented as of this encounter Visit Diagnoses Not on filedocumented in this encounter Care Teams Library Consultant Relationship Specialty Start Date End Date Kalin Rob MD PCP - General Family Medicine 10/27/22 12/28/24 Ann Pizano APRN [address] [place] [address] PCP - General Family Medicine 01/11/25 documented as of this encounter
--- OUTSIDE RECORDS SUMMARY | 2025-04-11 15:11 | XMS_ITS | Encounter Summary ---
Author Organization [employer] Address [address] [place] [address] Care Team Providers Care Secondary Social Studies Teacher Name Role Phone Kalin Rob MD Primary Care Provider [phone] Ann Pizano APRN Primary Care Provider [phone]- [phone] Reason for Visit * Reason Onset Date Comments Medication Refill 12/17/2024 Encounter Details Date Type Department Care Team (Late st Contact Info) Description 12/17/2024 Telephone [facility] Primary Care - [facility] [address] [place] [address] Kalin Rob MD [address] [place] [address] Medication Refill Social History Tobacco Use Types Packs/Day Years [...] Date Cornelius rded Speak language other than East Timorese at home Not on file 11/04/2023 Want [...] encounter Miscellaneous Notes * Telephone Encounter - Bot EST [employer] Lorene - 12/17/2024 12:23 PM EST FROM: Suzie Barahona CSN: TO: [facility] 7 CLINICAL BANDMILL OPERATOR [[id number]] SUBJECT: Medication Related Request PROVIDER: KALIN ROB [[id number]] DEPARTMENT: [facility] [[id number]] ENCOUNTER REASON FOR CALL: MEDICATION REFILL [[id number]] ENCOUNTER TYPE: Telephone REASON FOR CALL: Refill request APPOINTMENT OFFERED? Yes LAST VISIT: 2024-10-18 NEXT VISIT: 2025-04-18 MESSAGE PRIORITY: Routine MEDICATION 1: MEDICATION TYPE: Controlled RX MEDICATION NAME: Promethazine dextromethorphan (Promethazine-DM) ORDERING PROVIDER: Kalin Rob MEDICATION DETAILS: Take 5 mLs by mouth 4 (four) times daily as needed for Cough for up to 7 days. PREFERRED PHARMACY? [id number] - [place], [place] - [address] [facility] [address] [facility] [phone] CALLER'S NAME: Huong Garcia RELATION TO PATIENT: Self [1] PREFERRED LANGUAGE: East Timorese BEST CALL BACK PHONE NUMBER: Home Phone: ([phone]) WHAT IS THE BEST WAY FOR THE OFFICE TO CONTACT YOU?: OK to leave message on voicemail NER AND PRESSER documented in this encounter Plan of Treatment Upcoming Encounters Date Type Department Care Team (Late st Contact Info) Description 07/22/2025 1:00 PM EDT Appointment [facility] CT Imaging [address] [place] [address] [facility] [address] 07/24/2025 10:30 AM EDT Office Visit [facility] Primary Care - [facility] [address] [place] [address] Ann Pizano APRN [address] [place] [address] 07/26/2025 1:30 PM EDT Office Visit [facility] Pulm & Critical Care Medicine [address] [facility] [address] [address] Adela [facility] [phone] 07/29/2025 9:00 AM EDT Appointment [facility] Breast Imaging [address] [place] [address] 04/15/2026 9:30 AM EDT Office Visit [facility] Gastroenterology [address] [place] [address] Rex Stoll MD [address] [facility] [address] [place] [address] documented as of this encounter Visit Diagnoses Not on filedocumented in this encounter Care Teams Secondary Social Studies Teacher Relationship Specialty Start Date End Date Kalin Rob MD PCP - General Family Medicine 10/27/22 12/28/24 Ann Pizano APRN [address] [place] [address] PCP - General Family Medicine 01/11/25 documented as of this encounter
--- OUTSIDE RECORDS SUMMARY | 2025-04-11 15:11 | XMS_ITS | Encounter Summary ---
Author Organization [facility] Address [address] [place] [address] Care Team Providers Care Technical Solutions Engineer Name Role Phone Ann Pizano APRN Primary Care Provider [phone]- [phone] Reason for Visit * Reason Onset Date Comments Medication Refill 02/15/2025 Encounter Details Date Type Department Care Team (Late st Contact Info) Description 02/15/2025 Refill [facility] Urology - [address] [address] Kevin Pena MD [address] [phone] Stress incontinence Social History Tobacco Use Types Packs/Day Years [...] Date Cornelius rded Speak language other than Syriac at home Not on file 11/04/2023 Want [...] encounter Miscellaneous Notes * Telephone Encounter - Huong Arellano - 02/15/2025 11:13 AM EDT Refill oxybutynin documented in this encounter Plan of Treatment Upcoming Encounters Date Type Department Care Team (Late st Contact Info) Description 07/22/2025 1:00 PM EDT Appointment [facility] CT Imaging [address] [place] [address] Adela Watson MD [address] [place] [address] [address] 07/24/2025 10:30 AM EDT Office Visit [facility] Primary Care - [facility] [address] [place] [address] Ann Pizano APRN [address] [place] [address] 07/26/2025 1:30 PM EDT Office Visit [facility] Pulm & Critical Care Medicine [address] [place] [address] [place] [address] Adela Watson MD [address] [place] [address] [address] [place] [address] 07/29/2025 9:00 AM EDT Appointment [facility] Breast Imaging [address] [place] [address] 04/15/2026 9:30 AM EDT Office Visit [facility] Gastroenterology [address] [place] [address] Rex Stoll MD [address] [facility] [address] [place] [address] documented as of this encounter Visit Diagnoses Diagnosis Stress incontinence Female stress incontinence documented in this encounter Care Teams Technical Solutions Engineer Relationship Specialty Start Date End Date Ann Pizano APRN [address] [place] [address] PCP - General Family Medicine 01/11/25 documented as of this encounter
--- OUTSIDE RECORDS SUMMARY | 2025-04-11 15:11 | XMS_ITS | Encounter Summary ---
Author Organization [facility] [employer] Address [address] [place] [address] Care Team Providers Care Shirt Turner Name Role Phone Kalin Rob MD Primary Care Provider [phone] Ann Pizano APRN Primary Care Provider + [phone] Reason for Visit * Reason Comments Medication Refill Encounter Details Date Type Department Care Team (Late st Contact Info) Description 06/28/2023 Refill [facility] Primary Care - [facility] [address] [place] [address] Kalin Rob MD 40 [place] [address] Personal history of other diseases [...] Info) Description 07/22/2025 1:00 PM EDT Appointment [facility] CT Imaging [address] [place] [address] Adela Watson MD [address] [facility] [address] [address] 07/24/2025 10:30 AM EDT Office Visit [facility] Primary Care - [facility] [address] [place] [address] Ann Pizano APRN [address] [place] [address] 07/26/2025 1:30 PM EDT Office Visit [facility] Pulm & Critical Care Medicine [address] [facility] [address] [address] Adela Watson MD [address] [facility] [address] [address] 07/29/2025 9:00 AM EDT Appointment [facility] Breast Imaging [address] [place] [address] 04/15/2026 9:30 AM EDT Office Visit [facility] Gastroenterology [address] [place] [address] Rex Stoll MD 227 [facility] [address] [place] [address] documented as of this encounter Visit Diagnoses Diagnosis Personal history of other diseases of the digestive system Encounter for general adult medical examination without abnormal findings documented in this encounter Care Teams Shirt Turner Relationship Specialty Start Date End Date Kalin Rob MD PCP - General Family Medicine 10/27/22 12/28/24 Ann Pizano, AMISH [address] [place] [address] PCP - General Family Medicine 01/11/25 documented as of this encounter
--- OUTSIDE RECORDS SUMMARY | 2025-04-11 15:11 | XMS_ITS | Encounter Summary ---
Author Organization [employer] [facility] [employer] Address [address] [place] [address] Care Team Providers Care Dairy Nutrition Consultant Name Role Phone Ann Pziano APRN Primary Care Provider [phone]- [phone] Reason for Visit * Reason Comments Medication Refill Encounter Details Date Type Department Care Team (Late st Contact Info) Description 02/10/2025 Refill [facility] Primary Care - [facility] [address] [place] [address] Kalin Rob MD [address] [place] [address] Vitamin D deficiency, unspecified Social History Tobacco Use Types Packs/Day Years [...] Date Cornelius rded Speak language other than South African at home Not on file 11/04/2023 Want [...] Info) Description 07/22/2025 1:00 PM EDT Appointment [facility] CT Imaging [address] [place] [address] Adela Watson MD [address] [address] 07/24/2025 10:30 AM EDT Office Visit [facility] Primary Care - [facility] [address] [place] [address] Ann Pizano APRN [address] [place] [address] 07/26/2025 1:30 PM EDT Office Visit [facility] Pulm & Critical Care Medicine [address] [place] [address] [place] [address] Adela Watson MD [address] [address] [address] 07/29/2025 9:00 AM EDT Appointment [facility] Breast Imaging [address] [place] [address] 04/15/2026 9:30 AM EDT Office Visit [facility] Gastroenterology [address] [place] [address] Rex Stoll MD [address] [place] [address] documented as of this encounter Visit Diagnoses Diagnosis Vitamin D deficiency, unspecified documented in this encounter Care Teams Dairy Nutrition Consultant Relationship Specialty Start Date End Date Ann Pizano APRN [address] [place] [address] PCP - General Family Medicine 01/11/25 documented as of this encounter
--- OUTSIDE RECORDS SUMMARY | 2025-04-11 15:11 | XMS_ITS | Encounter Summary ---
Author Organization [facility] Address [address] [place] [address] Care Team Providers Care Tumor Registrar Name Role Phone Kalin Rob MD Primary Care Provider [phone] Encounter Details Date Type Department Care Team (Late st Contact Info) Description 2025 Telephone [facility] [address] [place] [address] Yaniv Patel PharmD Social History Tobacco Use Types Packs/Day Years Used Date Smoking Tobacco: Former Cigarettes 1 25 0 10/17/1996 - 10/17/2021 Smokeless Tobacco: Never Alcohol Use Standard Drinks/Week [...] encounter Miscellaneous Notes * Telephone Encounter - Yaniv Patel PharmD - 2025 9:28 AM EDT [facility] Specialty Medication Follow Up Care Plan Huong Garcia is a 50 y.o. female assessed via phone for continuation of drug therapy Orencia for diagnosis RA. Therapeutic Category: Rheumatoid Arthritis Chart Review Allergies: Propranolol, Cephalexin, Sulfa drugs, and Sulfacetamide Current Outpatient Medications Medication Instructions chlorhexidine (Peridex) 0.12 % solution 0.5 mL, Mouth/Throat, 2 times daily cholecalciferol (Vitamin D-3) 125 MCG (5000 UT) capsule No dose, route, or frequency recorded. cyanocobalamin (Vitamin B-12) 1000 MCG/ML injection No dose, route, or frequency recorded. desvenlafaxine (PRISTIQ) 150 mg, Oral, ZZ Daily RT dilTIAZem CD (Cardizem CD) 180 MG 24 hr capsule 1 capsule, Oral, Daily fluticasone (Flonase) 50 MCG/ACT nasal spray USE ONE SPRAY EACH SIDE OF NOSE gabapentin (NEURONTIN) 800 mg, Oral, 3 times daily HYDROcodone-acetaminophen (Jeanerette) 5-325 MG tablet TAKE 1 TABLET BY MOUTH EVERY DAY NEEDED hydroxychloroquine (PLAQUENIL) 200 mg, Oral, 2 times daily hydrOXYzine HCl (Atarax) 10 MG tablet 1 tablet, Oral, Daily leflunomide (ARAVA) 10 mg, Oral, Daily loratadine (Claritin) 10 MG tablet TAKE 1 TABLET BY MOUTH TWICE A DAY montelukast (Singulair) 10 MG tablet 1 tablet, Oral, Nightly naloxone (Narcan) 4 mg/0.1 mL nasal spray DIRECTED EMERGENCY USE ONLY FOR OPIOID OVERDOSE NASALLY 1 DAY omeprazole (PriLOSEC) [address] capsule TAKE ONE CAPSULE BY MOUTH DAILY Orencia ClickJect 125 mg, Subcutaneous, Every 7 days predniSONE (Deltasone) 5 MG tablet Take 3 tablets for 5 days, then take 2 tablets for 5 days, then take 1 tablet for 5 days. For use while on antibiotics pyridoxine 50 MG tablet rosuvastatin (Crestor) 5 MG tablet No dose, route, or frequency recorded. Syringe/Needle, Disp, (B-D 3CC LUER-DIPIKA SYR 23GX1 ) 23G X 1 3 ML misc USE DIRECTED ONCE MONTHLY Problem List[1] Immunization History Administered Date(s) Administered Hep A, ped/adol, 2 dose 11/21/2018, 08/20/2019 Influenza, injectable, MDCK, preservative free, quadrivalent 06/28/2022 Influenza, injectable, quadrivalent, preservative free 07/19/2018, 07/23/2021 Influenza, seasonal, injectable 07/13/2016, 08/20/2019 Influenza, seasonal, injectable, preservative free 07/14/2016 Pfizer-BioNTech COVID-19 Bivalent (Lamb Cap) 12+ years (coral-sucrose) 07/23/2021 Pfizer-BioNTech COVID-19 Vaccine (Purple Cap) 12+ 12/20/2020, 01/13/2021, 07/23/2021 Pneumococcal Conjugate PCV 13 08/20/2019 Tdap 05/25/2019 Selected lab results: Lab Results Component Value Date WBC 5.81 04/15/2022 HGB 15.3 04/15/2022 HCT 45.3 (H) 04/15/2022 PLT 275 04/15/2022 , Lab Results Component Value Date NA 134 (L) 04/15/2022 K 4.4 04/15/2022 CL 97 04/15/2022 CREATININE 0.88 04/15/2022 BUN 10 04/15/2022 GLUCOSE 93 04/15/2022 CALCIUM 10.7 (H) 04/15/2022 CO2 25 04/15/2022 , Lab Results Component Value Date ALBUMIN 5.0 07/20/2022 ALKPHOS 99 07/20/2022 ALT 18 07/20/2022 AST 17 07/20/2022 BILITOT 0.5 07/20/2022 , Lab Results Component Value Date QUANTIFERON Negative 04/15/2022 , Lab Results Component Value Date HEPBCAB NEGATIVE Reference Value: Negative 04/01/2020 HEPBSAG NEGATIVE Reference Value: Negative 04/01/2020 HEPBSAB 11/28/2017 0.06 NEGATIVE Antibodies to HBsAg are less than 8 International Units/L which indicate they are not detected or are below the protective level for immunity. , and Lab Results Component Value Date CRP 2.4 09/26/2020 SEDRATE 29 (H) 09/26/2020 Patient profile review for changes in Medications, Allergies, Conditions, Vaccinations? Reviewed - no changes Medication reconciliation - review all current medications including prescriptions, PTC, herbals, and supplements with the patient? Completed Is this an infusion therapy? No Patient is treatment: Experienced: Previous therapies include Enbrel, Humira, Kevzara, Xeljanz, Hydroxychloroquine, Leflunomide, Methotrexate Reasons for previous treatment failure MTX (12/04-02/01 D/C due to oral sores) ADA (05/03-03/2019; shorten to Q1wk in 12/05) ETN (04/04-11/2019) Xeljanz (12/2019- 01/16) LEF (02/01-current) Plaquenil (07/2020- current) Kevzara (02/04- 04/07) Orencia (04/07-current) Does patient have an active infection? None Drug Review Patient drug therapy initiated: Orencia Is the patient taking concomitant therapy for this disease? No Drug assessment : is this the appropriate drug/dose/route/frequency/duration? Yes Drug utilization review Drug-disease precautions: No clinically significant issues identified Drug-drug interactions: No clinically significant issues identified Drug-patient precautions: No clinically significant issues identified Adherence summary: What percent of doses did the patient miss in the past 4 weeks? One missed dose due to being busy and forgetting. Therapeutic benefit summary: Patient is achieving benefit Patient's therapy is appropriate to: Continue Education and Counseling Medication specific education provided: Patient was offered counseling of their specialty medication and declined education. Monitoring Questions Patient reported outcomes: Do you feel comfortable administering your medication and following the treatment plan as prescribed? Yes If therapy is injectable, does patient require further injection training? No How would you rate your pain on average? (0 = no pain, 10 = worst pain imaginable) 3 On a scale from 1 to 10, with 10 being very well and 1 being very poor, how are you feeling overall? 5 PREVIOUS quality of life: 4 How satisfied are you with the ongoing education and counseling you receive regarding your health condition, on a scale of 1 to 5, with 5 being completely satisfied and 1 being dissatisfied? CURRENT patient management score: 5-Completely Satisfied PREVIOUS patient management score: 5-Completely Satisfied Patient Management Assessment scores must be reviewed by a clinician with each Care Plan. Scores of2 or lower must be documented in a Clinical Intervention Care Plan. Missed doses: Have you missed a dose in the last 4 weeks? Yes: Patient was busy and missed a dose Patient reported response to therapy In regards to your condition, how are you feeling compared to the last time we spoke? Better Disease symptoms assessment Has the patient been seen for planned or unplanned healthcare visit in the last 4 weeks? No Has the patient missed any days from work, school, or planned activities in the past 4 weeks due totheir disease? No Care Plan Questions Goal(s) of therapy: Improving or maintaining quality of life, Control signs and symptoms of disease, Slow or prevent progression of disease, and Reduce disability and/or long-term complications Strategies to achieve goal(s) of therapy: Adhere to plan of care (drug therapy) and Comply to follow up appointments Identified barrier(s) to care/intervention problem type: No problems identified (No barriers to care or risks associated with medication storage and handling identified) Outcome of Clinical Intervention: Intervention not needed Outcomes of previous adverse events/side effects: None Current adverse events/side effects patient is experiencing: No adverse events/side effects Counseled patient on selected side effects: Deferred Summary/Plan Pharmacist reviewed the plan of care in regards to specialty medication Orencia for diagnosis of Rheumatoid Arthritis. Patient will continue therapy.. Anticipated filling pharmacy is: Specialty Pharmacy and location of administration will be patient's home Plan/Patient specific needs: Patient reports doing well on Orencia, appropriate to continue. Patient/caregiver participated in the development and agreed to the plan of care. Patient/caregiverhad no additional questions or concerns for the care team. Patient/caregiver voiced understanding of the goals with the regimen and agreed to attend follow up appointments to assess progress toward their goal. The plan of care will be reviewed at least annually, or more often if there is a need. The patient agrees with all elements of the care plan: Yes Yaniv Patel PharmD 2025 9:28 AM [1] Patient Active Problem List Diagnosis High risk medication use documented in this encounter Plan of Treatment Not on file documented as of this encounter Visit Diagnoses Not on filedocumented in this encounter Additional Health Concerns Assessment Noted Time PHQ-9 Depression Total Score: 16 023 1:39 PM EST A fall risk assessment has been complete d for the patient 05/31/2024 2:37 PM EDT A Body Mass Index follow-up plan has been documented for the patient 05/31/2024 3:02 PM EDT documented as of this encounter Care Teams Tumor Registrar Relationship Specialty Start Date End Date Kalin Rob MD [address] [place] [address] PCP - General 02/27/21 documented as of this encounter
--- OUTSIDE RECORDS SUMMARY | 2025-04-11 15:12 | XMS_ITS | Encounter Summary ---
Author Organization [employer] [facility] [employer] Address [address] [place] [address] Care Team Providers Care Aircraft Engine Mechanic Supervisor Name Role Phone Kalin Rob MD Primary Care Provider [phone] Ann Pizano APRN Primary Care Provider + [phone] Encounter Details Date Type Department Care Team (Late st Contact Info) Description 03/04/2021 Transcribed Document [facility] Family Medicine [address] [place] [address] ProviderJean-Pierre MD [address], [place] [address] Social History Tobacco Use Types Packs/Day Years Used Date Smoking Tobacco: Never Assessed Comments Unknown Sex and Gender Information Value Date Recorded Sex Assigned at Not on file Legal Sex Female 1:32 PM CDT Gender Identity Not on file Sexual Orientation Not on file documented as of this encounter Miscellaneous Notes * Cerner Conversion Note - Jean-Pierre ProviderMD - 03/04/2021 10:03 AM CDT [facility] Summary Primary Physician: KASEY MONROE MD-FERCHO Finalized Date/Time: 03/04/21 13:19:31 Pt. Name: HUONG GARCIA MARU /Sex: 1975 Female Med Rec #: [id number] Physician: KASEY MONROE MD-FERCHO Financial #: [id number] Pt. Type: O Room/Bed: Admit/Disch: 03/04/21 07:25:00 - Institution: [facility] Case Times Entry 1 In PACU II 03/04/21 12:06:00 Ready for PACU II 03/04/21 12:44:00 Discharge Discharge from PACU 03/04/21 12:44:00 II Last Modified By: RAINER WILLINGAHM 03/04/21 13:19:29 Finalized By: RAINER WILLINGHAM Document Signatures Signed By: RAINER WILLINGHAM 03/04/21 13:19 documented in this encounter Plan of Treatment Upcoming Encounters Date Type Department Care Team (Late st Contact Info) Description 07/22/2025 1:00 PM EDT Appointment [facility] CT Imaging [address] [place] [address] Adela Watson MD 1401 [facility] [address] [address] 07/24/2025 10:30 AM EDT Office Visit [facility] Primary Care - [facility] [address] [place] [address] Ann Pizano APRN [address] [place] [address] 07/26/2025 1:30 PM EDT Office Visit [facility] Pulm & Critical Care Medicine [address] [place] [address] [address] [place] [address] [place] [address] [address] 07/29/2025 9:00 AM EDT Appointment [facility] Breast Imaging [address] [place] [address] 04/15/2026 9:30 AM EDT Office Visit [facility] Gastroenterology [address] [place] [address] Rex Stoll MD [address] [facility] [address] [place] [address] documented as of this encounter Visit Diagnoses Not on filedocumented in this encounter Care Teams Aircraft Engine Mechanic Supervisor Relationship Specialty Start Date End Date Kalin Rob MD PCP - General Family Medicine 10/27/22 12/28/24 Ann Pizano APRN [address] [place] [address] PCP - General Family Medicine 01/11/25 documented as of this encounter
--- OUTSIDE RECORDS SUMMARY | 2025-04-11 15:12 | XMS_ITS | Referral Summary ---
Author Organization [employer] Address [address] [place] [address] Care Team Providers Care Field Service Coordinator Name Role Phone Ann Pizano APRN Primary Care Provider [phone]- [phone] Encounters Date Type Department Care Team Description 04/09/2025 9:15 AM EDT Office Visit [facility] Gastroenterology [address] [place] [address] Rex Stoll MD Fatty liver (Primary Dx); Folate deficiency; Vitamin D deficiency; Lung nodule 03/07/2025 Refill [facility] Cardiology - [address] [address] Jun Taylor MD Other hyperlipidemia 03/06/2025 Refill [facility] Primary Care - [address] [address] Kalin Rob MD Encounter for general adult medical examination without abnormal findings 02/28/2025 Travel 02/28/2025 2:30 PM EDT Office Visit [facility] Pulm & Critical Care Medicine [address] [place] [address] [address] Adela Watson MD Pulmonary nodule (Primary Dx); Chronic cough; Dyspnea on exertion; Abnormal chest CT; DEBORA (obstructive sleep apnea); Overweight; Tobacco dependence due to cigarettes 02/15/2025 Refill [facility] Urology - [address], [address] [place] [address] Kevin Pena MD Stress incontinence 02/14/2025 1:47 PM EDT - 02/14/2025 11:59 PM EDT Hospital Encounter [facility] Pulmonary Lab [address] [place] [address] Adela Watson MD Chronic cough; Dyspnea on exertion Discharge Disposition: Home or Self Care 02/13/2025 Travel 02/10/[address] [address] Kalin Rob MD Vitamin D deficiency, unspecified 02/04/2025 Telephone [facility] Pulm & Critical Care Medicine [address] [place] [address] [address] Ruth Aburto CMA Appointment 01/29/2025 Orders Only [address] [address] Sukhwinder Lopez 01/29/2025 Orders Only [address] [address] Sukhwinder Lopez 01/24/[address] [address] Kalin Rob MD Deficiency of other specified B group vitamins 01/23/2025 Travel 01/23/2025 2:45 PM EDT Lab Patient Walk-In [facility] Lab [address] [place] [address] Primary hypertension (Primary Dx) 01/21/2025 10:00 AM EDT Office Visit [address] [address] Ann Pizano APRN Fatty liver (Primary Dx); Vitamin D deficiency, unspecified; Gastroesophageal reflux disease; Deficiency of other specified B group vitamins; Rheumatoid arthritis in remission (HCC); Gastroesophageal reflux disease without esophagitis; DEBORA (obstructive sleep apnea); Fatigue 01/17/2025 8:30 AM EDT Procedure Visit [facility] Urology - [address], [facility] [address] [place] [address] Kevin Pena MD Stress incontinence (Primary Dx); Urethral hypermobility; Mixed incontinence; Urinary frequency; Pulmonary nodule from Last 3 Months Allergies Active Allergy Reactions Criticality Noted Date Comments Cephalexin Rash Low 10/27/2022 Propranolol Itching Medium 10/27/2022 Sulfa (Sulfonamide Antibiotics) Rash Low 05/18 Medications abatacept (Orencia ClickJect) 125 mg/mL AtIn Inject 125 mg subcutaneously once a week Rheumatoid doctor. 04/15/20 22 Active pantoprazole (PROTONIX) 40 MG tabletIndications :Gastroesophageal reflux disease, unspecified whether esophagitis present Take 1 tablet (40 mg total) by mouth daily. 180 tablet 3 04/05/20 24 Active Senna Plus 8.6-50 mg per tabletIndications :Chronic constipation Take 1 tablet by mouth 2 (two) times daily as needed for Constipation (May reduce dose as needed. Goal to have soft BM at least every other day). 60 tablet 5 07/11/20 24 Active dilTIAZem (CARDIZEM CD) 180 MG 24 hr capsuleIndication s:Essential (primary) hypertension TAKE 1 CAPSULE BY MOUTH EVERY DAY 90 capsule 3 11/19/19 25 Active nitroglycerin (NITROSTAT) 0.4 MG SL tabletIndications :Chest pain, unspecified type PUT 1 PILL UNDER TONGUE EVERY 5MIN NEEDED FOR CHEST PAIN.NO MORE THAN 3 DOSES IN 15MIN.CALL 911 IF PAIN UNRELIEVED 5MIN AFTER 1ST DOSE. 50 tablet 11 11/19/19 25 Active fluticasone propionate (FLONASE) 50 mcg/actuation nasal sprayIndications: Acute pharyngitis, unspecified 1 spray by each nostril route daily. 48 mL 2 11/19/19 25 Active cyanocobalamin 1,000 mcg/mL injectionIndicati ons:Deficiency of other specified B group vitamins INJECT 1 ML DIRECTED ONCE A MONTH 3 mL 01/29/20 25 Active folic acid (FOLVITE) 1 MG tablet Take 1 tablet (1 mg total) by mouth daily. 90 tablet 01/30/20 25 Active cholecalciferol (VITAMIN D3) 125 mcg (5,000 unit) capsuleIndication s:Vitamin D deficiency, unspecified TAKE 1 CAPSULE BY MOUTH TWICE A DAY 60 capsule 5 02/12/20 25 Active oxybutynin (DITROPAN-XL) 10 MG 24 hr tabletIndications :Stress incontinence Take 1 tablet (10 mg total) by mouth nightly. 30 tablet 6 02/16/20 25 026 Active loratadine (CLARITIN) 10 mg tabletIndications :Encounter for general adult medical examination without abnormal findings TAKE 1 TABLET BY MOUTH TWICE A DAY 60 tablet 5 03/06/20 25 Active montelukast (SINGULAIR) 10 mg tabletIndications :Encounter for general adult medical examination without abnormal findings TAKE 1 TABLET BY MOUTH EVERY DAY AT NIGHT 90 tablet 03/06/20 25 Active rosuvastatin (CRESTOR) 20 MG tabletIndications :Other hyperlipidemia TAKE 1 TABLET BY MOUTH EVERY DAY IN THE MORNING 90 tablet 3 03/07/20 25 Active albuterol 90 mcg/actuation inhaler Inhale 2 puffs by mouth every 6 (six) hours as needed for wheezing for up to 30 days. 1 Inhaler 5 02/29/20 25 025 Active Problems Problem Noted Date Diagnosed Date Encounter for screening colonoscopy 01/09/2024 CPAP (continuous positive airway pressure) depen dence 03/16/2023 Hypercholesteremia 03/15/2023 Hyperlipidemia 03/15/2023 Hypertension 09/21/2021 Anemia 05/18/2021 Anxiety 05/18/2021 Cobalamin deficiency 05/18/2021 Depressive disorder 05/18/2021 Gastroesophageal reflux disease 05/18/2021 Arthritis 05/18/2021 Vitamin D deficiency 05/18/2021 Hordeolum externum 02/04/2021 Allergic rhinitis 11/13/2020 Syncope 11/13/2020 Chest pain 08/18/2020 Abnormal electrocardiography 08/18/2020 Palpitations 07/16/2020 Tachycardia 07/16/2020 Restless legs syndrome 07/10/2020 Paresthesia 02/29/2020 Pain of lumbar spine 09/19/2019 Acute pharyngitis 09/04/2019 Immunizations Name Administration Dates Next Due COVID-19 mRNA (PF)(LNP-S BIV ALENT) (Lamb Cap) 12YR+ (PFIZER)(FPT514 07/23/2021 Covid-19 Vaccine MRNA (PF) 1 2yr+ (Skeed/ScaleMP)([id number]) 01/13/2021,12/20/2020 Hepatitis A 08/20/2019,11/21/2018 Influenza TIV (IM) 06/28/2022 Pneumococcal Conjugate (Prevnar) 13-Valent 08/20 Tdap 05/25/2019 Social History Tobacco Use Types Packs/Day Years Used Date Smoking Tobacco: Every Day Cigarettes 0.5 15 Smokeless Tobacco: Never Tobacco Cessation:Ready to Q uit: No Alcohol Use Standard Drinks/Week Comments Never 0 [...] Date Cornelius rded Speak language other than Niuean at home Not on file 11/04/2023 Want [...] on file Sexual Orientation Not on file Last Filed Vital Signs Vital Sign Reading Time Taken Comments Blood Pressure 123/81 04/09/2025 9:24 AM EDT Pulse 65 04/09/2025 9:24 AM EDT Temperature 37.1 C (98.7 F) 04/16/2024 1:28 PM EDT Respiratory Rate 16 04/16/2024 1:28 PM EDT Oxygen Saturation 93% 04/09/2025 9:24 AM EDT Inhaled Oxygen Concentration - - Weight 71.2 kg (157 lb) 04/09/2025 9:24 AM EDT Height 162.6 cm (5' 4 ) 04/09/2025 9:24 AM EDT Body Mass Index 26.95 04/09/2025 9:24 AM EDT Plan of Treatment Upcoming Encounters Date Type Department Care Team (Late st Contact Info) Description 07/22/2025 1:00 PM EDT Appointment [facility] CT Imaging [address] [place] [address] Adela Watson MD [address] [address] 07/24/2025 10:30 AM EDT Office Visit [facility] Primary Care - [facility] [address] [place] [address] Ann Pizano APRN [address] [place] [address] 07/26/2025 1:30 PM EDT Office Visit [facility] Pulm & Critical Care Medicine [address] [place] [address] [address] Adela Watson MD [address] [facility] [address] [address] 07/29/2025 9:00 AM EDT Appointment [facility] Breast Imaging [address] [place] [address] 04/15/2026 9:30 AM EDT Office Visit [facility] Gastroenterology [address] [place] [address] Rex Stoll MD [address] [facility] [address] [place] [address] Procedures Procedure Name Priority Date/Time Associated Diagnosis Comments FS_MODEL_IP PFT Routine 02/14/2025 2:41 PM EDT Chronic cough Dyspnea on exertion FOLATE, SERUM Routine 01/23/2025 2:26 PM EDT Primary hypertension VITAMIN B12 Routine 01/23/2025 2:26 PM EDT Primary hypertension CBC W/ AUTO DIFF Routine 01/23/2025 2:26 PM EDT Primary hypertension T4, FREE Routine 01/23/2025 2:26 PM EDT Primary hypertension TSH Routine 01/23/2025 2:26 PM EDT Primary hypertension COMPREHENSIVE METABOLIC PANEL Routine 01/23/2025 2:26 PM EDT Gastroesophageal reflux disease without esophagitis VITAMIN D, 25-HYDROXY Routine 01/23/2025 2:26 PM EDT Vitamin D deficiency, unspecified MAGNESIUM Routine 01/23/2025 2:26 PM EDT Gastroesophageal reflux disease without esophagitis CYSTOSCOPY Routine 01/17/2025 8:20 AM EDT Stress incontinence LIPID PANEL Routine 10/18/2024 11:56 AM EST Fatty liver MM DIGITAL MAMMO SCREEN WITH NIXON BILATERAL Routine 06/19/2024 1:17 PM EDT Breast screening Encounter for screening mammogram for malignant neoplasm of breast HEPATITIS PANEL, ACUTE Routine 07/07/2023 12:10 PM EDT Hypertension, unspecified type HM COLONOSCOPY Routine 10/16/2019 from Last 3 Months or Most Recently Relevant to Health Maintenance Results * Pulmonary Function Testing (02/14/2025 2:41 PM EDT) Anatomical Region Laterality Modality Other Narrative 02/14/2025 6:31 PM EDT Images from the original result were not included. Normal PFT results Adela Watson MD PFT ORDERABLES Final Result * (ABNORMAL) CBC with automated diff (01/23/2025 2:26 PM EDT) WBC 7.8 4.8 - 10.8 K/ L 01/23/2025 2:40 PM EDT [facility] RBC 4.78 3.50 - 5.20 M/ L 01/23/2025 2:40 PM EDT [facility] Hemoglobin 15.4 11.7 - 15.8 GM/DL 01/23/2025 2:40 PM EDT [facility] Hematocrit 44.7 35.0 - 47.0 % 01/23/2025 2:40 PM EDT [facility] MCV 94 81 - 101 fL 01/23/2025 2:40 PM EDT [facility] MCH 32.2 27.0 - 34.0 pg 01/23/2025 2:40 PM EDT [facility] MCHC 34.5 32.0 - 36.0 GM/DL 01/23/2025 2:40 PM EDT [facility] RDW 13.1 11.5 - 14.5 % 01/23/2025 2:40 PM EDT [facility] Platelets 281 150 - 400 K/CU MM 01/23/2025 2:40 PM EDT [facility] MPV 9.8 9.4 - 12.4 fL 01/23/2025 2:40 PM EDT [facility] Nucleated Red Blood Cell 0.0 0 - 0.2 % 01/23/2025 2:40 PM EDT [facility] % Neutros 56 37 - 80 % 01/23/2025 2:40 PM EDT [facility] % Lymphs 37 10 - 50 % 01/23/2025 2:40 PM EDT [facility] % Monos 4(L) 5 - 13 % 01/23/2025 2:40 PM EDT [facility] % Eos 3 0 - 7 % 01/23/2025 2:40 PM EDT [facility] % Baso 1 0 - 3 % 01/23/2025 2:40 PM EDT [facility] NRBC Absolute <0.01 0 - 0.012 K/ul 01/23/2025 2:40 PM EDT [facility] # Neutros 4.35 2.00 - 6.90 K/ L 01/23/2025 2:40 PM EDT [facility] # Lymphs 2.85 0.60 - 3.40 K/ L 01/23/2025 2:40 PM EDT [facility] # Monos 0.29 0.00 - 0.90 K/ L 01/23/2025 2:40 PM EDT [facility] # Eos 0.21 0.00 - 0.70 K/ L 01/23/2025 2:40 PM EDT [facility] # Baso 0.04 0.00 - 0.20 K/ L 01/23/2025 2:40 PM EDT [facility] Immature Granulocytes-Re lative 0.10 % 01/23/2025 2:40 PM EDT [facility] # IG 0.01(H) 0.00 - 0.00 K/uL 01/23/2025 2:40 PM EDT [facility] Blood Venipuncture / Unknown 01/23/2025 2:26 PM EDT 01/23/2025 2:30 PM EDT Narrative [facility] - 01/23/2025 2:40 PM EDT When CBC w/ Auto Diff is ordered the lab will add a Manual Differential as a quality check at no additional charge if: Lymphocytes greater than seventy five percent with normal or increased WBC Monocytes greater than Fifteen percent Basophil greater than four percent Bands >10% or several immature myeloids are seen on scan Blast? Flag noted Atypical Lymph flag noted Ann Pizano APRN LAB BLOOD ORDERABLES Final Result [facility] [address] [place] [address] * (ABNORMAL) Vitamin D, 25-Hydroxy (01/23/2025 2:26 PM EDT) [facility] Vitamin D 25-Hydroxy 29.5(L) 30 - 100, >100 Toxic ng/mL 01/23/2025 4:13 PM EDT [facility] Blood Venipuncture / Unknown 01/23/2025 2:26 PM EDT 01/23/2025 2:30 PM EDT Ann Pizano APRN LAB BLOOD ORDERABLES Final Result Performing Organization Address [facility]/ZIP Co de Phone Number [facility] [address] [place] [address] * TSH (01/23/2025 2:26 PM EDT) [facility] TSH 1.349 0.360 - 3.740 uIU/mL 01/23/2025 3:26 PM EDT [facility] Blood Venipuncture / Unknown 01/23/2025 2:26 PM EDT 01/23/2025 2:30 PM EDT Ann Harinder [employer]INTER OPERATOR LAB BLOOD ORDERABLES Final Result Performing Organization Address City/[facility]/ZIP Co de Phone Number [facility] [address] [place] [address] * T4, free (01/23/2025 2:26 PM EDT) [facility] Free T4 0.88 0.76 - 1.46 ng/dL 01/23/2025 3:26 PM EDT [facility] Blood Venipuncture / Unknown 01/23/2025 2:26 PM EDT 01/23/2025 2:30 PM EDT Ann Pizano APRN LAB BLOOD ORDERABLES Final Result [facility] [address] [place] [address] * Magnesium (01/23/2025 2:26 PM EDT) Magnesium 2.2 1.8 - 2.4 mg/dL 01/23/2025 3:26 PM EDT [facility] Blood Venipuncture / Unknown 01/23/2025 2:26 PM EDT 01/23/2025 2:30 PM EDT Ann Pizano APRN LAB BLOOD ORDERABLES Final Result Performing Organization Address [facility]/ZIP Co de Phone Number [facility] [address] [place] [address] * (ABNORMAL) Folate, Serum (01/23/2025 2:26 PM EDT) Folate 6.5(L) 8.6 - 58.9 ng/mL 01/23/2025 4:24 PM EDT [facility] Blood Venipuncture / Unknown 01/23/2025 2:26 PM EDT 01/23/2025 2:30 PM EDT Ann Harinder [employer] PRINTER OPERATOR LAB BLOOD ORDERABLES Final Result Performing Organization Address City/[facility]/ZIP Co de Phone Number [facility] [address] [place] [address] * Vitamin B12 (01/23/2025 2:26 PM EDT) Vitamin B12 372 193 - 986 pg/mL 01/23/2025 4:24 PM EDT [facility] Blood Venipuncture / Unknown 01/23/2025 2:26 PM EDT 01/23/2025 2:30 PM EDT Ann Pizano APRN LAB BLOOD ORDERABLES Final Result [facility] [address] [place] [address], [facility] [phone] * (ABNORMAL) Comprehensive metabolic panel (01/23/2025 2:26 PM EDT) Sodium 135(L) 136 - 145 meq/L 01/23/2025 3:26 PM EDT [facility] Potassium 3.7 3.5 - 5.1 meq/L 01/23/2025 3:26 PM EDT [facility] Chloride 102 98 - 107 meq/L 01/23/2025 3:26 PM EDT [facility] CO2 27 21 - 32 meq/L 01/23/2025 3:26 PM EDT [facility] Calcium 9.4 8.5 - 10.1 mg/dL 01/23/2025 3:26 PM EDT [facility] Glucose 149(H) 70 - 99 mg/dL 01/23/2025 3:26 PM EDT [facility] BUN 9 7 - 18 mg/dL 01/23/2025 3:26 PM EDT [facility] Creatinine 0.98 0.55 - 1.10 mg/dL 01/23/2025 3:26 PM EDT [facility] BUN/Creatinine 9 01/23/2025 3:26 PM EDT [facility] Albumin 4.4 3.4 - 5.0 g/dL 01/23/2025 3:26 PM EDT [facility] Alkaline Phosphatase 102 46 - 116 U/L 01/23/2025 3:26 PM EDT [facility] ALT 48 12 - 78 U/L 01/23/2025 3:26 PM EDT [facility] AST 30 15 - 37 U/L 01/23/2025 3:26 PM EDT [facility] Total Bilirubin 0.9 0.2 - 1.0 mg/dL 01/23/2025 3:26 PM EDT [facility] Protein, Total 8.3(H) 6.4 - 8.2 gm/dL 01/23/2025 3:26 PM EDT [facility] Anion Gap 10(L) 11 - 22 01/23/2025 3:26 PM EDT [facility] A/G Ratio 1.1 01/23/2025 3:26 PM EDT [facility] Globulin 3.9 g/dL 01/23/2025 3:26 PM EDT [facility] Osmolality Calc 271.6 mOsm/kg 3:26 PM EDT [facility] eGFR (mL/min/1.73m2) >60 >=60 mL/min/1.7 3m2 01/23/2025 3:26 PM EDT [facility] Comment:ESTIMATED GFR IS NOT ACCURATE CREATININE CLEARANCE IN PREDICTING GLOMERULAR FILTRATION RATE. ESTIMATED GFR IS NOT APPLICABLE FOR DIALYSIS PATIENTS. Blood Venipuncture / Unknown 01/23/2025 2:26 PM EDT 01/23/2025 2:30 PM EDT us Ann Pizano [employer] WHITE PRINTER OPERATOR LAB BLOOD ORDERABLES Final Result [facility] [address] [place] [address] * CYSTOSCOPY (01/17/2025 8:20 AM EDT) Narrative Kevin Pena MD - 01/17/2025 8:20 AM EDT Kevin Pena MD 01/17/2025 9:16 AM Cystoscopy Date/Time: 01/17/2025 8:20 AM Performed by: Kevin Pena MD Authorized by: Kevin Pena MD Preparation: Patient was prepped and draped in the usual sterile fashion. Local anesthesia used: yes Anesthesia: Local anesthesia used: yes Sedation: Patient sedated: no Patient tolerance: patient tolerated the procedure well with no immediate complications Kevin Pena MD PROCEDURE ORDERABLES Final Re sult * (ABNORMAL) Lipid panel (10/18/2024 11:56 AM EST) Triglycerides 398(H) 15 - 150 mg/dL 10/18/2024 12:51 PM EST [facility] Cholesterol 303(H) 50 - 200 mg/dL 10/18/2024 12:51 PM EST [facility] Comment: 200 to 239 mg/dL = Moderate (borderline) >239 mg/dL = High HDL Cholesterol 34(L) 40 - 60 mg/dL 10/18/2024 12:51 PM [facility] Comment: >=60 mg/dL = Desirable <40 mg/dL = Increased Risk All other components are listed individually or are calculations VLDL Cholesterol 79.6 mg/dL 10/18/19 25 12:51 PM [facility] Cholesterol/HDL ratio 8.9 10/18/2024 12:51 PM [facility] LDl/HDL Ratio 6 10/18/2024 12:51 PM [facility] RISK COMP 9 10/18/2024 12:51 PM [facility] LDL Cholesterol, Calculated 189 mg/dL 10/18/2024 12:51 PM [facility] Blood Venipuncture / Unknown 10/18/2024 11:56 AM EST 10/18/2024 12:05 PM EST us Kalin Rob MD LAB BLOOD ORDERABLES Final Result [facility] [address] [phone] * (ABNORMAL) MM digital mammo screen with nixon bilateral (06/19/2024 1:17 PM EDT) Anatomical Region Laterality Modality Breast Bilateral Mammography 06/23/2024 10:4 2 AM EDT Impressions 06/23/2024 10:50 AM EDT FINAL IMPRESSION: ACR BI-RADS 0: Incomplete: Needs additional imaging evaluation. This report will serve as the order for the imaging studies. RECOMMENDATIONS: Bilateral Limited breast ultrasound. A letter including results and recommendations was sent to the patient. Density notification was provided to patients with type 3 or 4 breast tissue pattern. Patient information entered into a reminder system with a target due date for the next mammogram. At our facility, a citizen [place] marker is positioned over a visible skin lesion and a linear marker is used to indicate a scar. A triangular marker is placed on a self reported palpable finding. Note: Mammography does not detect approximately 10-15% of breast cancers. An annual clinical breast exam by the patient's breast care physician and regular monthly self breast exams by the patient are integral parts of breast cancer screening, in addition to annual mammography. A normal mammogram does not completely exclude the presence of breast cancer, especially if there is an abnormal finding on physical exam. When clinically indicated, a biopsy should not be deferred because of a normal mammogram report. cc: Narrative 06/23/2024 10:50 AM EDT PROCEDURE: Bilateral digital screening mammogram with tomosynthesis. REASON FOR EXAM: Routine screening. FAMILY HISTORY: There is no family history of breast cancer. COMPARISON STUDY: [id number] from [facility] FINDINGS: Craniocaudal and mediolateral oblique images of both breasts were obtained in 2D, C-view, and 3D modes. The breast tissue is heterogeneously dense, which may obscure small masses. Low density circumscribed masses measuring up to 5 mm developed in both breasts. Two are located in the right upper outer quadrant, one in the left upper outer quadrant and the last in the left lower inner quadrant. Fibrocystic changes are suspected. Ultrasound is needed for confirmation. There is no evidence of a spiculated mass, architectural distortion, or suspicious calcifications on either side. This examination was reviewed with the benefit of computer-aided detection (CAD). Ann Pizano APRN [facility] ORDERABLES Final Result * Hepatitis panel, acute (07/07/2023 12:10 PM EDT) Hep A IgM Nonreactive Nonreactive, Equivocal 07/08/2023 1:[address] [facility] Hep B C IgM Nonreactive Nonreactive 07/08/2023 1:[address] [facility] Hepatitis B surface antigen Nonreactive Nonreactive, Equivocal 07/08/2023 1:[address] [facility] Hepatitis C Ab Nonreactive Nonreactive, Equivocal 07/08/2023 1:[address] [facility] Blood Venipuncture / Unknown 07/07/2023 12:10 PM EDT 07/07/2023 12:38 PM EDT [facility] - 07/08/2023 1:50 AM EDT Hepatitis A Antibody IgM: (a) A negative test result does not exclude the possibility of exposure to the hepatitis A virus. (b) This test can be used to determine if a patient has or recently had an acute or asymptomatic hepatitis A infection. (c) A reactive result does not exclude co-infection by another hepatitis virus. Biotin supplements can cause clinically significant incorrect lab results. The FDA has seen an increase in the number of adverse events related to biotin interference with lab tests. Hepatitis B Core Antibody IgM: A reactive anti-HBc IgM result does not exclude co-infection by another hepatitis virus. Biotin supplements can cause clinically significant incorrect lab results. The FDA has seen an increase in the number of adverse events related to biotin interference with lab tests. Hepatitis B Surface Antibody Qual: This test does not differentiate between a vaccine induced immune response and an immune response induced by infection with HBV. Individuals that have received blood component therapies, (e.g. whole blood, plasma, immunoglobulin) administered during the previous 3 to 6 months may have a false reactive anti HBs due to passive transfer of anti HBs. A positive anti HBs result does not exclude co infection by another hepatitis virus. Biotin supplements can cause clinically significant incorrect lab results. The FDA has seen an increase in the number of adverse events related to biotin interference with lab tests. Hepatitis B Surface Antigen: This test may not detect all HBV mutants. If acute or chronic HBV infection is suspected and this test is non-reactive other HBV markers should be tested. Biotin supplements can cause clinically significant incorrect lab results. The FDA has seen an increase in the number of adverse events related to biotin interference with lab tests. Hepatitis C Antibody: A negative test result does not exclude the possibility of exposure to the hepatitis C virus and a reactive result does not exclude co-infection by another hepatitis virus. Biotin supplements can cause clinically significant incorrect lab results. The FDA has seen an increase in the number of adverse events related to biotin interference with lab tests. Kalin Rob MD LAB BLOOD ORDERABLES Final Result [facility] [address] [place] [address], [facility] [phone] * HM COLONOSCOPY (10/16/2019) us Historical Provider HEALTH MAINTENANCE Final Result from Last 3 Months or Most Recently Relevant to Health Maintenance Insurance [facility] Care Teams Field Service Coordinator Relationship Specialty Start Date End Date Ann Pizano APRN [address] [place] [address] PCP - General Family Medicine 01/11/25
--- OUTSIDE RECORDS SUMMARY | 2025-04-11 15:12 | XMS_ITS | Encounter Summary ---
Author Organization [employer] Address [address] [place] [address] Care Team Providers Care Flexographic Press Set Up Operator Name Role Phone Kalin Rob MD Primary Care Provider [phone] Ann Pizano APRN Primary Care Provider + [phone] Encounter Details Date Type Department Care Team (Late st Contact Info) Description 03/04/2021 Transcribed Document [facility] [address] [place] [address] ProviderJean-Pierre MD [address], [place] [id number] Social History Tobacco Use Types Packs/Day Years [...] 03/04/2021 10:03 AM CDT [facility] Main OR PreOp Summary Primary Physician: KASEY MONROE MD-FERCHO Finalized Date/Time: 03/04/21 11:56:38 Pt. Name: HUONG GARCIA MARU /Sex: 1975 Female Med Rec #: [id number] Physician: KASEY MONROE MD-FERCHO Financial #: [id number] Pt. 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: [id number] Modifier: [email or web address] <+> 1 Patient Out of Preop Finalized By: CHARLEY HAMM Document Signatures Signed By: CHARLEY HAMM 03/04/21 11:56 Electronically signed by Babatunde [place] [employer]version Ict Customer Support Officer Cerner at 02/04/2023 8:34 AM CDT documented in this encounter Plan of Treatment Upcoming Encounters Date Type Department Care Team (Late st Contact Info) Description 07/22/2025 1:00 PM EDT Appointment [facility] CT Imaging [address] [place] [address] Adela Watson MD [address] [place] [address] [address] 07/24/2025 10:30 AM EDT Office Visit [facility] Primary Care - [facility] [address] [place] [address] Ann Pizano APRN [address] [place] [address] 07/26/2025 1:30 PM EDT Office Visit [facility] Pulm & Critical Care Medicine [address] [place] [address] [address] Adela Watson MD [address] [place] [address] [address] 07/29/2025 9:00 AM EDT Appointment [facility] Breast Imaging [address] [place] [address] 04/15/2026 9:30 AM EDT Office Visit [facility] Gastroenterology [address] [place] [address] Rex Stoll MD [address] [place] [address] documented as of this encounter Visit Diagnoses Not on filedocumented in this encounter Care Teams Flexographic Press Set Up Operator Relationship Specialty Start Date End Date Kalin Rob MD PCP - General Family Medicine 10/27/22 12/28/24 Ann Pizano APRN [address] [place] [id number] PCP - General Family Medicine 01/11/25 documented as of this encounter
--- OUTSIDE RECORDS SUMMARY | 2025-04-11 15:12 | XMS_ITS | Encounter Summary ---
Author Organization [employer] Address [address] [place] [address] Care Team Providers Care Electrophonic Engineer Name Role Phone Kalin Rob MD Primary Care Provider [phone] Ann Pizano APRN Primary Care Provider [phone] Encounter Details Date Type Department Care Team (Late st Contact Info) Description 03/04/2021 Transcribed Document [facility] [place] [address] [place] [address] ProviderJean-Pierre MD [address], [place] [id number] Social History Tobacco Use Types Packs/Day Years Used Date Smoking Tobacco: Never Assessed Comments Unknown Sex and Gender Information Value Date Recorded Sex Assigned at Not on file Legal Sex Female 1:32 PM CDT Gender Identity Not on file Sexual Orientation Not on file documented as of this encounter Miscellaneous Notes * Cerner Conversion Note - Jean-Pierre ProviderMD - 03/04/2021 12:17 [place] [address] ANDREAS GARCIA :1975 Visit Time:03/04/2021 What to do next Your Diagnosis Chronic sinusitis, unspecified, Chronic sinusitis, unspecified Instructions From Your Care Team Begin saline nasal rinses on Tuesday in the morning, do this 3 times a day. use a nettipot or [facility] Sinus Rinse Complete current course of Clindamycin resume tomorrow Hydrocodone has been escribed to your pharmacy of choice, you may take this at 4:15 PM Keep head of bed elevated for 1 week use Ice pack to face/eyes as needed for pain Use Afrin soaked cottonball as needed for bleeding Do not blow nose for 1 week, then may gently blow nose the next week Sneeze with mouth open Place a small amount of antibiotic ointment to both nostrils twice a day for one week(bacitracin, polysporin, or neosporin) Discharge Follow Up Instructions: F/U in office next Tue or .Discharge home per routine anesthesia protocol. Diet: Begin with clears, then advance as tolerated., Discharge Diet: Resume usual diet as tolerated Follow-Up Appointments Follow Up with KASEY MONROE MD-FERCHO When Comments Call for an appointment for Tuesday or of next week Where: [address] [place] [address]- Medications What How Much When Instructions Next Dose acetaminophen-hydrocodone (acetaminophen-HYDROcodone 325 mg-5 mg oral tablet) 1 Tablet(s) Oral Two Times A Day as needed for for pain acetaminophen-hydrocodone (Blue 5 mg-325 mg oral tablet) 1 Tablet(s) Oral Every 4 Hours as needed for for pain Pickup at [facility]/pharmacy #[id number] cholecalciferol (Vitamin D3 5000 units oral capsule) 1 Capsule(s) Oral Two Times A Day with food clindamycin 300 Milligram(s) Oral Three Times A Day cyanocobalamin (cyanocobalamin 1000 mcg/ mL injectable solution) 1 Milliliter(s) IntraMuscular Once a month DULoxetine 60 Milligram(s) Oral Two Times A Day fluticasone nasal (fluticasone 50 mcg/ inh nasal spray) 1 [place](s) Nasal Two Times A Day gabapentin (gabapentin 800 mg oral tablet) 1 Tablet(s) Oral Every Day hydroxychloroquine (hydroxychloroquine 200 mg oral tablet) 1 Tablet(s) Oral Two Times A Day hydrOXYzine (hydrOXYzine hydrochloride 25 mg oral tablet) 1 Tablet(s) Oral Two Times A Day as needed for as needed for anxiety leflunomide (leflunomide 20 mg oral tablet) 1 Tablet(s) Oral Every Day loratadine (Claritin) 10 Milligram(s) Oral Two Times A Day montelukast (montelukast 10 mg oral tablet) 1 Tablet(s) Oral Every Day omeprazole 20 Milligram(s) Oral Every Day predniSONE (predniSONE 20 mg oral tablet) 1 Tablet(s) Oral Every Day rosuvastatin (rosuvastatin 5 mg oral tablet) 1 Tablet(s) Oral Every Day sarilumab (Kevzara 200 mg/ 1.14 mL subcutaneous solution) 200 Milligram(s) SubCutaneous Every Two Weeks Pharmacy Information [facility]/pharmacy #[id number]: [address] [place] [id number] [phone] Take your medications faithfully. Do NOT skip medication. Do NOT stop taking medications without the direction of a physician. Carry a list of your medications with you at all times, and take this medication list with you to your first follow up visit. Report any side effects. Avoid herbal remedies unless discussed with your physician. As part of your treatment plan, your physician may have prescribed a limited course of a controlled substance. This medication may be given to help people with moderate or severe pain or for other medical conditions, but there are risks involved with treatment. Common side effects may include nausea, constipation, drowsiness, sweating, itching, dry mouth, and rash. More serious side effects may include cognitive and motor impairment, like problems with thinking, concentrating, alertness, and movement (e.g. slowed reflexes), and driving and operating heavy machinery can be dangerous. It is important for you to talk to your physician if you have these side effects or questions. These controlled substances can produce physical dependence and be habit-forming if taken for an extended period of time, which means that the body has gotten used to them and may experience withdrawal symptoms if they are abruptly stopped. Withdrawal symptoms can include runny nose, sweating, goose bumps, diarrhea, abdominal cramping, rapid heartbeat, difficulty sleeping, and nervousness. Please dispose of unused and medications per pharmacy guidance. Education Materials General Anesthesia, Adult, Care After This sheet gives you information about how to care for yourself after your procedure. Your health care provider may also give you more specific instructions. If you have problems or questions, contact your health care provider. What can I expect after the procedure? After the procedure, the following side effects are common: ??? Pain or discomfort at the IV site. ??? Nausea. ??? Vomiting. ??? Sore throat. ??? Trouble concentrating. ??? Feeling cold or chills. ??? Weak or tired. ??? Sleepiness and fatigue. ??? Soreness and body aches. These side effects can affect parts of the body that were not involved in surgery. Follow these instructions at home: For at least 24 hours after the procedure: ??? Have a responsible adult stay with you. It is important to have someone help care for you until you are awake and alert. ??? Rest as needed. ??? Do not: ? Participate in activities in which you could fall or become injured. ? Drive. ? Use heavy machinery. ? Drink alcohol. ? Take sleeping pills or medicines that cause drowsiness. ? Make important decisions or sign legal documents. ? Take care of children on your own. Eating and drinking ??? Follow any instructions from your health care provider about eating or drinking restrictions. ??? When you feel hungry, start by eating small amounts of foods that are soft and easy to digest (bland), such as toast. Gradually return to your regular diet. ??? Drink enough fluid to keep your urine pale yellow. ??? If you vomit, rehydrate by drinking water, juice, or clear broth. General instructions ??? If you have sleep apnea, surgery and certain medicines can increase your risk for breathing problems. Follow instructions from your health care provider about wearing your sleep device: ? Anytime you are sleeping, including during daytime naps. ? While taking prescription pain medicines, sleeping medicines, or medicines that make you drowsy. ??? Return to your normal activities as told by your health care provider. Ask your health care provider what activities are safe for you. ??? Take hxtr-qwy-sfokqlm and prescription medicines only as told by your health care provider. ??? If you smoke, do not smoke without supervision. ??? Keep all follow-up visits as told by your health care provider. This is important. Contact a health care provider if: ??? You have nausea or vomiting that does not get better with medicine. ??? You cannot eat or drink without vomiting. ??? You have pain that does not get better with medicine. ??? You are unable to pass urine. ??? You develop a skin rash. ??? You have a fever. ??? You have redness around your IV site that gets worse. Get help right away if: ??? You have difficulty breathing. ??? You have chest pain. ??? You have blood in your urine or stool, or you vomit blood. Summary ??? After the procedure, it is common to have a sore throat or nausea. It is also common to feel tired. ??? Have a responsible adult stay with you for the first 24 hours after general anesthesia. It is important to have someone help care for you until you are awake and alert. ??? When you feel hungry, start by eating small amounts of foods that are soft and easy to digest (bland), such as toast. Gradually return to your regular diet. ??? Drink enough fluid to keep your urine pale yellow. ??? Return to your normal activities as told by your health care provider. Ask your health care provider what activities are safe for you. This information is not intended to replace advice given to you by your health care provider. Make sure you discuss any questions you have with your health care provider. Document Revised: 10/06/2018 Document Reviewed: 05/19/2018 [employer] Patient Education ?? 2020 [employer]. Sinus Endoscopy, Care After This sheet gives you information about how to care for yourself after your procedure. Your health care provider may also give you more specific instructions. If you have problems or questions, contact your health care provider. What can I expect after the procedure? After the procedure, it is common to have: ??? Temporary discomfort in the sinus area. ??? Minor bleeding. ??? Minor irritation or damage to the lining of the nose, mouth, and throat (mucous membranes). Depending on any treatments performed during your procedure, you may also have: ??? Sinus discomfort. ??? Headache. ??? Nasal stuffiness (congestion). ??? Nasal drainage. ??? Dry nasal passages. Follow these instructions at home: Medicines ??? Take or use zlag-wfd-htohijq and prescription medicines only as told by your health care provider. ??? If you were prescribed an antibiotic medicine, use it as told by your health care provider. Do not stop using the antibiotic even if your condition improves. ??? Use nasal sprays and nasal rinses as told by your health care provider. General instructions ??? Avoid blowing your nose and sneezing. ??? Do not use any products that contain nicotine or tobacco, such as cigarettes and e-cigarettes. If you need help quitting, ask your health care provider. ??? Keep your head raised (elevated) for the first few nights after surgery, or as directed by your healthcare provider. This helps to decrease inflammation. ??? Return to your normal activities as told by your health care provider. Ask your health care provider what activities are safe for you. ??? Keep all follow-up visits as told by your health care provider. This is important. Contact a health care provider if: ??? You have pain or discomfort that does not get better with qwzm-yzb-wpbeocw medicine. ??? You have a fever. ??? You have more clear fluid or blood coming from your nose. ??? You have pus or a bad smell coming from your nose. ??? You have nausea and vomiting. Get help right away if: ??? You have bleeding from the nose that does not stop. ??? You have changes in your vision. ??? You cannot stop vomiting. Summary ??? After a sinus endoscopy, it is common to have temporary discomfort in the sinus area. ??? If you were prescribed an antibiotic medicine, use it as told by your health care provider. Do not stop using the antibiotic even if you start to feel better. ??? Do not use any products that contain nicotine or tobacco, such as cigarettes and e-cigarettes. If you need help quitting, ask your health care provider. This information is not intended to replace advice given to you by your health care provider. Make sure you discuss any questions you have with your health care provider. Document Revised: 01/25/2020 Document Reviewed: 02/17/2018 [employer] Patient Education ?? 2020 [employer] acetaminophen and hydrocodone (a SEET a MIN oh fen and lulu droe KOE done) Hycet, Lorcet, Blue, Verdrocet, Vicodin, Xodol, Zamicet What is the most important information I should know about acetaminophen and hydrocodone? MISUSE OF OPIOID MEDICINE CAN CAUSE ADDICTION, OVERDOSE, OR . Keep the medication in a place where others cannot get to it. Taking opioid medicine during may cause life-threatening withdrawal symptoms in the . Fatal side effects can occur if you use opioid medicine with alcohol, or with other drugs that cause drowsiness or slow your breathing. Stop taking this medicine and call your doctor right away if you have skin redness or a rash that spreads and causes blistering and peeling. What is acetaminophen and hydrocodone? Acetaminophen and hydrocodone is a combination medicine used to relieve moderate to severe pain. Acetaminophen and hydrocodone contains an opioid medicine, and may be habit-forming. Acetaminophen and hydrocodone may also be used for purposes not listed in this medication guide. What should I discuss with my healthcare provider before taking acetaminophen and hydrocodone? You should not use this medicine if you are allergic to acetaminophen or hydrocodone, or if you have: ?? severe asthma or breathing problems; or ?? a blockage in your stomach or intestines. Tell your doctor if you have ever had: ?? breathing problems, sleep apnea (breathing stops during sleep); ?? liver disease; ?? a drug or alcohol addiction; ?? kidney disease; ?? a head injury or seizures; ?? urination problems; or ?? problems with your thyroid, pancreas, or gallbladder. If you use opioid medicine while you are , your baby could become dependent on the drug. This can cause life-threatening withdrawal symptoms in the baby after it is born. Babies born dependent on opioids may need medical treatment for several weeks. Ask a doctor before using opioid medicine if you are . Tell your doctor if you notice severe drowsiness or slow breathing in the nursing baby. How should I take acetaminophen and hydrocodone? Follow all directions on your prescription label. Never take this medicine in larger amounts, or for longer than prescribed. An overdose can damage your liver or cause . Tell your doctor if you feel an increased urge to use more of this medicine. Never share this medicine with another person, especially someone with a history of drug abuse or addiction. MISUSE CAN CAUSE ADDICTION, OVERDOSE, OR . Keep the medicine in a place where others cannot get to it. Selling or giving away this medicine is against the law. Measure liquid medicine carefully. Use the dosing syringe provided, or use a medicine dose-measuring device (not a kitchen spoon). If you need surgery or medical tests, tell the doctor ahead of time that you are using this medicine. You should not stop using this medicine suddenly. Follow your doctor's instructions about tapering your dose. Store at room temperature away from moisture and heat. Keep track of your medicine. You should be aware if anyone is using it improperly or without a prescription. Do not keep leftover opioid medication. Just one dose can cause in someone using this medicine accidentally or improperly. Ask your pharmacist where to locate a drug take-back disposal program. If there is no take-back program, flush the unused medicine down the toilet. What happens if I miss a dose? Since this medicine is used for pain, you are not likely to miss a dose. Skip any missed dose if it is almost time for your next dose. Do not use two doses at one time. What happens if I overdose? Seek emergency medical attention or call the Poison Help line at . An overdose of this medicine can be fatal, especially in a child or other person using the medicine without a prescription. Overdose symptoms may include nausea, vomiting, sweating, severe drowsiness, pinpoint pupils, slow breathing, or no breathing. Your doctor may recommend you get naloxone (a medicine to reverse an opioid overdose) and keep it with you at all times. A person caring for you can give the naloxone if you stop breathing or don't wake up. Your caregiver must still get emergency medical help and may need to perform CPR (cardiopulmonary resuscitation) on you while waiting for help to arrive. Anyone can buy naloxone from a pharmacy or local health department. Make sure any person caring for you knows where you keep naloxone and how to use it. What should I avoid while taking acetaminophen and hydrocodone? Avoid driving or operating machinery until you know how this medicine will affect you. Dizziness or drowsiness can cause falls, accidents, or severe injuries. Do not drink alcohol. Dangerous side effects or could occur. Ask a doctor or pharmacist before using any other medicine that may contain acetaminophen (sometimes abbreviated as APAP). Taking certain medications together can lead to a fatal overdose. What are the possible side effects of acetaminophen and hydrocodone? Get emergency medical help if you have signs of an allergic reaction: hives; difficulty breathing; swelling of your face, lips, tongue, or throat. Opioid medicine can slow or stop your breathing, and may occur. A person caring for you should give naloxone and/or seek emergency medical attention if you have slow breathing with long pauses, blue colored lips, or if you are hard to wake up. In rare cases, acetaminophen may cause a severe skin reaction that can be fatal. This could occur even if you have taken acetaminophen in the past and had no reaction. Stop taking this medicine and call your doctor right away if you have skin redness or a rash that spreads and causes blistering and peeling. Call your doctor at once if you have: ?? noisy breathing, sighing, shallow breathing, breathing that stops; ?? a light-headed feeling, like you might pass out; ?? liver problems--nausea, upper stomach pain, tiredness, loss of appetite, dark urine, maura-colored stools, jaundice (yellowing of the skin or eyes); ?? low cortisol levels-- nausea, vomiting, loss of appetite, dizziness, worsening tiredness or weakness; o ?? high levels of serotonin in the body--agitation, hallucinations, fever, sweating, shivering, fast heart rate, muscle stiffness, twitching, loss of coordination, nausea, vomiting, diarrhea. Serious breathing problems may be more likely in older adults and in those who are debilitated or have wasting syndrome or chronic breathing disorders. Common side effects include: ?? dizziness, drowsiness, feeling tired; ?? nausea, vomiting, stomach pain; ?? constipation; or ?? headache. This is not a complete list of side effects and others may occur. Call your doctor for medical advice about side effects. You may report side effects to FDA at 6-383-LCQ-8256. What other drugs will affect acetaminophen and hydrocodone? You may have breathing problems or withdrawal symptoms if you start or stop taking certain other medicines. Tell your doctor if you also use an antibiotic, antifungal medication, heart or blood pressure medication, seizure medication, or medicine to treat HIV or hepatitis C. Opioid medication can interact with many other drugs and cause dangerous side effects or . Be sure your doctor knows if you also use: ?? cold or allergy medicines, bronchodilator asthma/COPD medication, or a diuretic ('water pill'); ?? medicines for motion sickness, irritable bowel syndrome, or overactive bladder; ?? other opioids--opioid pain medicine or prescription cough medicine; ?? a sedative like Valium--diazepam, alprazolam, lorazepam, Xanax, Klonopin, Versed, and others; ?? drugs that make you sleepy or slow your breathing--a sleeping pill, muscle relaxer, medicine to treat mood disorders or mental illness; ?? drugs that affect serotonin levels in your body--a stimulant, or medicine for depression, Parkinson's disease, migraine headaches, serious infections, or nausea and vomiting. This list is not complete. Other drugs may affect acetaminophen and hydrocodone, including prescription and nier-phx-delypof medicines, vitamins, and herbal products. Not all possible interactions are listed here. Where can I get more information? Your doctor or pharmacist can provide more information about acetaminophen and hydrocodone. Remember, keep this and all other medicines out of the reach of children, never share your medicines with others, and use this medication only for the indication prescribed. Every effort has been made to ensure that the information provided by [employer] is accurate, up-to-date, and complete, but no guarantee is made to that effect. Drug information contained herein may be time sensitive. [employer] information has been compiled for use by healthcare practitioners and consumers in the [place] and therefore [employer] does not warrant that uses outside of the [place] are appropriate, unless specifically indicated otherwise. [employer] drug information does not endorse drugs, diagnose patients or recommend therapy. [employer] drug information is an informational resource designed to assist licensed healthcare practitioners in caring for their patients and/or to serve consumers viewing this service as a supplement to, and not a substitute for, the expertise, skill, knowledge and judgment of healthcare practitioners. The absence of a warning for a given drug or drug combination in no way should be construed to indicate that the drug or drug combination is safe, effective or appropriate for any given patient. [employer] does not assume any responsibility for any aspect of healthcare administered with the aid of information [employer] provides. The information contained herein is not intended to cover all possible uses, directions, precautions, warnings, drug interactions, allergic reactions, or adverse effects. If you have questions about the drugs you are taking, check with your doctor, nurse or pharmacist. Copyright 4110-2531 [employer] Version: 16.03. Revision Date: 11/18/2020. Emergency Awareness and Preventative Care STROKE is an EMERGENCY Every Minute Counts Act FAST and Check for these signs: FACE Does the face look uneven? ARM Does one arm drift down? SPEECH Does their speech sound strange? TIME Call at any sign of stroke Stroke Risk Factors Atrial Fibrillation (irregular heartbeat) Diabetes Family history of stroke Heart Disease Heavy alcohol use High Blood Pressure High Cholesterol Physical inactivity and obesity Smoking Cigarette Smoking The facts are clear, cigarette smoking will shorten your life. Smoking can cause many illnesses along the way. As a healthcare provider, we recommend that you stop smoking. Assistance with quitting is available by contacting 3-120-DSJR-NOW. This is a free resource providing counseling, support, and referral. Or you may contact your personal physician. [employer] Suicide Prevention Lifeline: The National Suicide Prevention Lifeline is a national network of local crisis centers that provides free and confidential emotional support to people in suicidal crisis or emotional distress 24 hours a day, 7 days a week. Don't Wait! Stop a Heart Attack Before it Starts What is a heart attack? A heart attack is damage or to a part of the heart from severely decreased or lack of blood flow to the heart. Over time, arteries can become narrow from the buildup of fat and cholesterol, which is called plaque. The plaque can rupture causing a blood clot to form. When the blood clot forms, the artery can become severely narrowed or completely blocked, causing a heart attack. Heart attack is the leading cause of in the [place]. 85% of muscle damage occurs within the first 2 hours. Delay in the recognition of heart attack symptoms increases the chances of . Know the early symptoms of a heart attack: Nausea Feeling of fullness in chest Jaw Pain Pain that travels down one or both arms Fatigue/being tired Anxiety Back Pain Chest pressure, squeezing, or discomfort Shortness of breath Sweating, or a cold sweat Feeling of impending doom There are unusual signs of a heart attack, too! Women, the elderly, and diabetics may present with atypical symptoms: Fainting/dizziness Weakness Confusion Risk Factors for a Heart Attack Some heart disease risk factors, such as age and family history, cannot be changed. Others, like smoking and lack of exercise, can be changed. Smoking High Cholesterol High Blood Pressure Family History Obesity Age Gender (Males are at higher risk) Lack of Exercise Diabetes Diet Stress Excessive Alcohol Intake If you or someone you know is experiencing the signs and symptoms of a heart attack, DON???T DELAY. Call immediately and seek help. If someone collapses, perform CPR! Do not attempt to drive if you are having symptoms of heart attack. Hands-Only CPR Why Hands-Only CPR? Hands-Only CPR has been shown to be as effective as conventional CPR for cardiac arrests that occur outside of a hospital. Survival depends on immediately receiving CPR from someone nearby. How do you perform Hands-Only CPR? There are two easy steps: Call if you see a teen or adult collapse Push hard and fast in the center of the chest at a beat of 100 beats per minute. Save a life! 4 WAYS TO GET AHEAD OF SEPSIS SEPSIS is a MEDICAL EMERGENCY. Time matters! Infections put you and your family at risk for a life-threatening condition called sepsis. Sepsis is the body's extreme response to an infection. It is life-threatening, and without timely treatment, sepsis can rapidly lead to tissue damage, organ failure, and . Sepsis happens when an infection you already have-in your skin, lungs, urinary tract or somewhere else-triggers a chain reaction throughout your body. 1 PREVENT INFECTIONS Take good care of chronic conditions. Talk to your doctor about getting the recommended vaccines. 2 PRACTICE GOOD HYGIENE Wash your hands frequently. Keep cuts or open sores clean and covered until they are healed. 3 KNOW THE SYMPTOMS Confusion or disorientation Shortness of breath High heart rate Fever, shivering, or feeling very cold Extreme pain or discomfort Clammy or sweaty skin 4 ACT FAST Get medical care IMMEDIATELY if you suspect sepsis or if you have an infection that is not getting better or is getting worse. To learn more about sepsis and how to prevent infections, visit www.cdc.gov/sepsis. Test Results Laboratory or Other Results This Visit (last charted value for your 03/04/2021 visit) Microbiology 03/02/2021 3:00 PM SARS-CoV-2 (COVID19 PCR): Negative Endocrinology 03/04/2021 8:50 AM HCG Urine Qualitative: Negative Patient Name:ANDREAS GARCIA I have received this information and was given the opportunity to ask questions. Patient/Creative Perfumer Name: Patient/Creative Perfumer Signature: Relationship to Patient: Clinician/Hospital Creative Perfumer Signature: Date: documented in this encounter Plan of Treatment Upcoming Encounters Date Type Department Care Team (Late st Contact Info) Description 07/22/2025 1:00 PM EDT Appointment [facility] CT Imaging [address] [place] [address] Adela Watson MD [address] [place] [address] 07/24/2025 10:30 AM EDT Office Visit [facility] Primary Care - [facility] [address] [place] [address] Ann Pizano APRN [address] [place] [address] 07/26/2025 1:30 PM EDT Office Visit [facility] Pulm & Critical Care Medicine [address] [place] [address] [address] Adela Watson MD [address] [facility] [address] [place] [address] 07/29/2025 9:00 AM EDT Appointment [facility] Breast Imaging [address] [place] [address] 04/15/2026 9:30 AM EDT Office Visit [facility] Gastroenterology [address] [place] [address] Rex Stoll MD [address] [facility] [address] [place] [address] documented as of this encounter Visit Diagnoses Not on filedocumented in this encounter Care Teams Electrophonic Engineer Relationship Specialty Start Date End Date Kalin Rob MD PCP - General Family Medicine 10/27/22 12/28/24 Ann Pizano APRN [address] [place] [address] PCP - General Family Medicine 01/11/25 documented as of this encounter
--- OUTSIDE RECORDS SUMMARY | 2025-04-11 15:12 | XMS_ITS | Encounter Summary ---
Author Organization [employer] Address [address] [place] [address] Care Team Providers Care Outbound Sales Agent Name Role Phone Kalin Rob MD Primary Care Provider [phone] Ann Pizano APRN Primary Care Provider + [phone] Encounter Details Date Type Department Care Team (Late st Contact Info) Description 03/04/2021 Transcribed Document [facility] Family Medicine [address] [place] [address] ProviderJean-Pierre MD [address], [place] [id number] Social History Tobacco Use Types Packs/Day Years [...] 03/04/2021 10:03 AM CDT [facility] Main OR IntraOp Summary Primary Physician: KASEY MONROE MD-FERCHO Finalized Date/Time: 03/04/21 11:30:06 Pt. Name: ANDREAS GARCIA MARU /Sex: 1975 Female Med Rec #: [id number] Physician: KASEY MONROE MD-FERCHO Financial #: [id number] Pt. Type: O Room/Bed: Admit/Disch: 03/04/21 07:25:00 - Institution: [facility] Case Attendance Entry 1 Entry 2 Entry 3 Case Attendee KASEY MONROE MD-GERARD DUMONT NA Bruner, Kristen D, RN Role Performed Surgeon/Proceduralist, BLUE LEATHER SETTER/Nurse Account Coordinator Tail Edger, First First Time In 03/04/21 09:49:00 03/04/21 09:49:00 03/04/21 09:49:00 Time Out 03/04/21 11:29:00 03/04/21 11:29:00 03/04/21 11:29:00 Procedure Sinus Surgery Sinus Surgery Sinus Surgery Endoscopic Septoplasty Endoscopic Septoplasty Endoscopic Septoplasty Tur(Bilateral) Tur(Bilateral) Tur(Bilateral) Other Attendee Superficial Wound Closed By: Last Modified By: Promise Trevino, RN Promise Trevino, RN Promise Trevino, RN 03/04/21 11:30:01 03/04/21 11:30:01 03/04/21 11:30:01 Entry 4 Entry 5 Case Attendee Marian Peoples, OTHER, ATTENDEE Skidder Role Performed Scrub, First Student Time In 03/04/21 09:49:00 03/04/21 09:49:00 Time Out 03/04/21 11:29:00 03/04/21 11:29:00 Procedure Sinus Surgery Sinus Surgery Endoscopic Septoplasty Endoscopic Septoplasty Tur(Bilateral) Tur(Bilateral) Other Attendee [facility] STUDENT Superficial Wound Closed By: Last Modified By: Promise Trevino, Promise Beebe, RN 03/04/21 11:30:01 03/04/21 11:30:01 [facility] IntraOp Case Attendance Audit 03/04/21 11:30:01 Security Agent: [id number] Modifier: [id number] <+> Time Out 1 <*> Procedure Sinus Surgery Endoscopic Septoplasty Tur(Bilateral) 2 <+> Time In 2 <+> Time Out 2 <*> Procedure Sinus Surgery Endoscopic Septoplasty Tur(Bilateral) 3 <+> Time In 3 <+> Time Out 3 <*> Procedure Sinus Surgery Endoscopic Septoplasty Tur(Bilateral) 4 <+> Time In 4 <+> Time Out 4 <*> Procedure Sinus Surgery Endoscopic Septoplasty Tur(Bilateral) 5 <+> Time In 5 <+> Time Out 5 <*> Procedure Sinus Surgery Endoscopic Septoplasty Tur(Bilateral) [facility] IntraOp Case Times Entry 1 Patient In Room Time 03/04/21 09:49:00 Out Room Time 03/04/21 11:29:00 Anesthesia Start Time 03/04/21 09:49:00 Stop Time 03/04/21 11:29:00 Anesthesia Ready 03/04/21 09:49:00 Surgery / Procedure Times Start Time 03/04/21 10:03:00 Stop Time 03/04/21 11:23:00 Last Modified By: Promise Trevino RN 03/04/21 11:30:00 [facility] IntraOp Case Times Audit 03/04/21 11:30:00 Security Agent: [id number] Modifier: [id number] <+> 1 Out Room Time <+> 1 Stop Time 03/04/21 11:29:35 Security Agent: [id number] Modifier: [id number] <+> 1 Stop Time 03/04/21 10:44:43 Security Agent: [id number] Modifier: [id number] <+> 1 Start Time [facility] IntraOp Communication Entry 1 Communication To Family/Significant other Comment ATTEMPTED TO CALL START- PHONE WENT STRAIGHT TO VOICEMAIL Communication By Promise Trevino RN Date and Time 03/04/21 10:17:00 Last Modified By: Promise Trevino RN 03/04/21 10:17:54 [facility] IntraOp Counts Verification Entry 1 Procedure Sinus Surgery Endoscopic Septoplasty Tur(Bilateral) Count Info Count Type Sponge, Sharps, Miscellaneous Counts Verification Baseline/pre-procedure Sequence Count Results Not Applicable Counts Performed By Count Performed By Marian Peoples, (Scrub) Skidder Count Performed By Promise Trevino, RN (RN) Last Modified By: Promise Trevino RN 03/04/21 10:16:51 [facility] IntraOp Counts Final Entry 1 Procedure Sinus Surgery Endoscopic Septoplasty Tur(Bilateral) Final Count Info Count Type Sponge, Sharps, Miscellaneous Counts Verification Skin Closure/end of Sequence procedure Count Results Correct, surgeon notified Counts Performed By Count Performed By Marian Peoples, (Scrub) Skidder Count Performed By Promise Trevino, RN (RN) Last Modified By: Promise Trevino RN 03/04/21 11:23:37 [facility] IntraOp Cultures and Spec Summary Entry 1 Cultrures and Specimens Specimen Ordered: Yes Test(s) Routine/Path-Lab Requested/Final Disposition Last Modified By: Promise Trevino RN 03/04/21 10:17:31 [facility] IntraOp Departure from OR Entry 1 Integumentary Assessment Integumentary WDL Assessment WDL Transfer/Handoff Transfer to PACU Phase I Handoff Method Bedside/Face to face Post-op Transport Stretcher/Gurney Via Patient Transport Promise Trevino, RN Accompanied by Last Modified By: Promise Trevino RN 03/04/21 10:17:59 [facility] IntraOp Dressing and Packing Entry 1 Type Dressing Location BILATERAL SINUS Wound Packing Type Other Applied By KASEY MONROE MD-FERCHO Other Comments BACITRACIN OINTMENT ON NASOPORE; XEROGEL Last Modified By: Promise Trevino RN 03/04/21 10:18:05 [facility] IntraOp Fire Risk Assessment Entry 1 Fire Info Surgical Site or 1- Yes Incision Above the Xyphoid Open O2 Source 0- No (Mask or Cannula) Available Ignition 1- Yes (ESU, Laser, Light Source) Fire Risk 2 Assessment Score Fire Score Fire Risk Yes Assessment Complete Fire Risk Promise Trevino interviewing clerk Verified By Fire Risk 03/04/21 09:49:00 Assessment Verified Date/Time Fire Risk High Risk Protocol Yes Implemented Standard Fire Yes Safety Precautions Followed Last Modified By: Promise Trevino RN 03/04/21 10:18:10 [facility] IntraOp General Case Seed Trucker 1 Case Information OR OR 10 [facility] Case Level 1 Room Verified Yes Wound Class II - Clean-Contaminated Specialty ENT Surgery Anesthesia Type General ASA Class 2 Diagnosis Preop Diagnosis CHRONIC SINUSITIS; HYPERTROPHY OF NASAL TURBINATES Postop Same As Preop No Postop Diagnosis SEE MD POSTOP NOTE Last Modified By: Promies Trevino RN 03/04/21 10:19:02 [facility] IntraOp Intraoperative Assessment Entry 1 Handoff Method Bedside/Face to face Valid History / Yes Physical in Chart Preoperative Yes Checklist Reviewed/Evaluated Allergies Reviewed Yes Patient is Latex No Sensitive Isolation Not applicable Precautions Noted Level of WDL Consciousness (WDL = Alert, Oriented to Person, Place, and Time) Skin Assessment Yes Verified Present Upon IVs Arrival to OR Last Modified By: Promise Trevino RN 03/04/21 10:19:57 [facility] IntraOp Intraoperative Equipment Entry 1 Type Monitoring Equipment Equipment Goldie Suction System ID Number [id number] Setting HIGH Intraop Monitoring Electrocardiogram Three lead placement (ECG) Electrode Placement Blood Pressure Non-Invasive BP Device Source Blood Pressure Arm, right upper Location Pulse Oximeter Hand, left Probe Site Antiembolic Devices Antiembolic Devices Sequential compression device, knee high Antiembolic Device Bilateral Location Scopes Photo/Video Documentation Photo Yes Video No Last Modified By: Promise Trevino, MIRA 03/04/21 10:20:16 [facility] IntraOp Medication Admin Entry 1 Entry 2 Entry 3 Medication/Irrigant lidocaine 1% w/ epinephrine 1mg/ml amp Afrin 0.05% nasal spray epinephrine 1:100,000 - [id number] 15ml - [id number] 30ml vial - [id number] Combo Med List Time Administered Route of LOCAL TOPICAL ON SPONGES TOPICAL Administration Dose Dose 5 15 Unit of Measure ml ml ml Volume Administered By KASEY MONROE MD-FRECHOKASEY ORTEZ MD-FERCHOKASEY ORTEZ MD-FERCHO Procedure Irrigation Irrigant Volume In Irrigant Volume Out Last Modified By: Promise Trevino, RN Promise Trevino, RN Promise Trevino RN 03/04/21 10:22:19 03/04/21 10:22:19 03/04/21 10:22:19 Entry 4 Medication/Irrigant Bacitracin 15Gm ointment - [id number] Combo Med List Time Administered Route of TOPICAL Administration Dose Dose 15 Unit of Measure gram Volume Administered By KASEY MONROE MD-FERCHO Procedure Irrigation Irrigant Volume In Irrigant Volume Out Last Modified By: Promise Trevino, MIRA 03/04/21 10:22:19 [facility] IntraOp Patient Positioning Entry 1 Procedure Sinus Surgery Endoscopic Septoplasty Tur(Bilateral) Body Position Supine Left Arm Position Resting at side Right Arm Position Resting at side Left Leg Position Uncrossed, parallel Right Leg Position Uncrossed, parallel Feet Uncrossed Yes Pressure Points Yes Checked Positioning Devices Head Rest, Pillows, Safety Strap, Thighs Device Position HEAD ON ANNA HEADREST. ARMS ADDUCTED TO SIDES PILLOW UNDER KNEES Positioned By Promise Trevino, RN, GERARD HARRIS NA, KASEY MONROE MD-FERCHO Position Verified Positioning Yes Verified by Anesthesia Positioning Yes Verified by Surgeon Last Modified By: Promise Trevino RN 03/04/21 10:22:29 [facility] IntraOp Sign In Entry 1 Patient, Site, Yes Procedure Identified Surgical Consent Yes Confirmed Relevant Surgical Yes Documents Available Surgical Site N/A Marked by person performing procedure Anesthesia Machine Yes Check Completed Medication Checks Yes Completed Allergies Yes Airway Difficult Yes Airway/Aspiration Risk Difficult Yes Airway/Aspiration Intervention Equipment Available Blood Loss Risk No Blood Loss Yes Intervention Equipment Prepared and Ready Blood Identifiers Not applicable Verified Per Policy Hypothermia Risk Yes Warming Measures Yes Taken Last Modified By: Promise Trevino RN 03/04/21 10:22:34 [facility] Intra Op Sign Out Entry 1 RN Confirmation Surgical Yes Procedure(s) Identified Instrument, Sponge Yes and Sharps Counts Correct/Documented Equipment Problems N/A Documented Specimen Labeled Yes Correctly Urinary Catheter N/A Documented in IView Rivers Patient Yes Recovery Concerns Reviewed with Anesthesia Provider, Surgeon and RN Rivers Patient Yes Management Concerns Reviewed with Anesthesia Provider, Surgeon and RN Safety Checklist Yes Elements Complete? RN Sign Out Promise Trevino RN Signature RN Sign Out 03/04/21 11:29:00 Signature Date/Time Plan of Care Outcome - Fire Risk OUTCOME STATEMENT: Goal met Patient is free from injury related to surgical fire Plan of Care Outcome - Pt Positioning OUTCOME STATEMENT: Goal met Absence of signs and symptoms of positioning injury. Plan of Care Outcome - Skin Prep OUTCOME STATEMENT: Goal met Intraoperative care is consistent with measures to prevent infection Plan of Care Outcome - Xray/Images OUTCOME STATEMENT: N/A Absence of observable signs or symptoms of radiation injury Plan of Care Outcome - Counts OUTCOME STATEMENT: Goal met Absence of signs and symptoms of injury related to extraneous objects Last Modified By: Promise Trevino RN 03/04/21 11:29:41 [facility] Intra Op Sign Out Audit 03/04/21 11:29:41 Security Agent: [id number] Modifier: [id number] <+> 1 RN Sign Out Signature Date/Time [facility] IntraOp Surgical Procedures Entry 1 Procedure Sinus Surgery Endoscopic Septoplasty Turbinectomy Modifiers Bilateral Additional FUNCTIONAL ENDOSCOPIC Procedure SINUS SURGERY WITH Description SEPTOPLASTY AND BILATERAL INFERIOR TURBINATE REDUCTION Primary Procedure Yes Primary Surgeon KASEY MONROE MD-FERCHO Start 03/04/21 10:03:00 Stop 03/04/21 11:23:00 Anesthesia Type General Specialty ENT Surgery Wound Class II - Clean-Contaminated Last Modified By: Promise Trevino RN 03/04/21 11:29:36 [facility] IntraOp Surgical Procedures Audit 03/04/21 11:29:36 Security Agent: [id number] Modifier: [id number] <+> 1 Start <+> 1 Stop [facility] IntraOp Time Out Entry 1 Procedure to be Sinus Surgery Performed Endoscopic Septoplasty Tur(Bilateral) Time Out Time Out Pause Time 03/04/21 10:02:00 All activity Yes suspended (unless life threatening emergency) Team Verbally Correct patient Confirms Information identity, Correct side and site are marked, Consent form is present and accurate, Agreement on the procedure to be done, Correct patient position, Relevant images/results properly labeled/appropriately displayed, Confirm antibiotics have been administered, Confirm prosthesis/implant/devic e is present, Performed in location of procedure after prepped/draped Antibiotic Yes Prophylaxis Administered Or In Progress Within the Last 60 Minutes Beta Lester N/A Administered Venous Yes Thromboembolism Prophylaxis Required Anticipated Critical Events Surgeon None expected Anesthesia Provider None expected Nursing Assures Sterility of instruments, Implant Availability Essential Imaging Yes Labeled and Displayed Last Modified By: Promise Trevino RN 03/04/21 10:23:23 Case Comments <None> Finalized By: Promise Trevino, RN Document Signatures Signed By: Promise Trevino RN 03/04/21 11:30 Electronically signed by [facility] Conversion Power Mule Operator Cerner at 02/04/2023 8:34 AM CDT documented in this encounter Plan of Treatment Upcoming Encounters Date Type Department Care Team (Late st Contact Info) Description 07/22/2025 1:00 PM EDT Appointment [facility] CT Imaging [address] [place] [address] Adela Watson MD [address] [address] [place] [address] 07/24/2025 10:30 AM EDT Office Visit [facility] Primary Care - [facility] [address] [place] [address] Ann Pizano APRN [address] [place] [address] 07/26/2025 1:30 PM EDT Office Visit [facility] Pulm & Critical Care Medicine [address] [facility] [address] [place] [address] Adela Watson MD [address] [facility] [address] [place] [address] 07/29/2025 9:00 AM EDT Appointment [facility] Breast Imaging [address] [place] [address] 04/15/2026 9:30 AM EDT Office Visit [facility] Gastroenterology [address] [place] [address] Rex Stoll MD [address] [place] [address] documented as of this encounter Visit Diagnoses Not on filedocumented in this encounter Care Teams Outbound Sales Agent Relationship Specialty Start Date End Date Kalin Rob MD PCP - General Family Medicine 10/27/22 12/28/24 Ann Pizano APRN [address] [place] [address] PCP - General Family Medicine 01/11/25 documented as of this encounter
--- OUTSIDE RECORDS SUMMARY | 2025-04-11 15:12 | XMS_ITS | Encounter Summary ---
Author Organization [email or web address] Address [address] [place] [address] Care Team Providers Care Armhole Baster Jumpbasting Name Role Phone Kalin Rob MD Primary Care Provider [phone] Ann Pizano APRN Primary Care Provider + [phone] Encounter Details Date Type Department Care Team (Late st Contact Info) Description 03/04/2021 Transcribed Document [facility] [place] [facility] [place] [address] Jean-Pierre Lovett MD [address], [place] [id number] Social History Tobacco Use Types Packs/Day Years Used Date Smoking Tobacco: Never Assessed Comments Unknown Sex and Gender Information Value Date Recorded Sex Assigned at Not on file Legal Sex Female 1:32 PM CDT Gender Identity Not on file Sexual Orientation Not on file documented as of this encounter Miscellaneous Notes * Cerner Conversion Note - Jean-Pierre Lovett MD - 03/04/2021 11:52 AM CDT Patient Education Materials Follows: Sinus Endoscopy, Care After This sheet gives [...] at home: Medicines ??? Take or use skeb-mal-obwrtcj and prescription medicines only as told by [...] discomfort that does not get better with xtuc-pga-myvonvy medicine. ??? You have a fever. ??? [...] provider. Document Revised: 01/25/2020 Document Reviewed: 02/17/2018 [employer] Patient Education ? 2019 [employer]. Pharmacology General Anesthesia, Adult, Care After This sheet [...] activities are safe for you. ??? Take mlhl-rmk-khocszj and prescription medicines only as told by [...] provider. Document Revised: 10/06/2018 Document Reviewed: 05/19/2018 [employer] Patient Education ? 2019 [employer] documented in this encounter Plan of Treatment Upcoming Encounters Date Type Department Care Team (Late st Contact Info) Description 07/22/2025 1:00 PM EDT Appointment [facility] CT Imaging [address] [place] [address] Adela Watson MD [address] [facility] [address] [place] [address] 07/24/2025 10:30 AM EDT Office Visit [facility] Primary Care - [facility] [address] [place] [address] Ann Pizano APRN [address] [place] [address] 07/26/2025 1:30 PM EDT Office Visit [facility] Pulm & Critical Care Medicine [address] [facility] [address] [place] [address] Adela Watson MD [address] [facility] [address] [place] [address] 07/29/2025 9:00 AM EDT Appointment [facility] Breast Imaging [address] [place] [address] 04/15/2026 9:30 AM EDT Office Visit [facility] Gastroenterology [address] [place] [address] Rex Stoll MD [address] [place] [address] documented as of this encounter Visit Diagnoses Not on filedocumented in this encounter Care Teams Armhole Baster Jumpbasting Relationship Specialty Start Date End Date Kalin Rob MD PCP - General Family Medicine 10/27/22 12/28/24 Ann Pizano, AMISH [address] [place] [address] PCP - General Family Medicine 01/11/25 documented as of this encounter
--- OUTSIDE RECORDS SUMMARY | 2025-04-11 15:12 | XMS_ITS | Encounter Summary ---
Author Organization [employer] Address [address] [place] [address] Care Team Providers Care Historical Society Director Name Role Phone Ann Pizano APRN Primary Care Provider [phone] Encounter Details Date Type Department Care Team (Latest Contact Info) Description 02/13/2025 Travel Social History Tobacco Use Types Packs/Day [...] Date Cornelius rded Speak language other than Faroese at home Not on file 11/04/2023 Want [...] Appointment [facility] CT Imaging [address] [place] [address] Adela Watson MD [address] [address] 07/24/2025 10:30 AM EDT Office Visit [facility] Primary Care - [facility] [address] [place] [address] Ann Pizano APRN [address] [place] [address] 07/26/2025 1:30 PM EDT Office Visit [facility] Pulm & Critical Care Medicine [address] [place] [address] [address] Adela Watson MD [address] [address] 07/29/2025 9:00 AM EDT Appointment [facility] Breast Imaging [address] [place] [address] 04/15/2026 9:30 AM EDT Office Visit [facility] Gastroenterology [address] [place] [address] Rex Stoll MD [address] [facility] [address] [place] [address] documented as of this encounter Visit Diagnoses Not on filedocumented in this encounter Care Teams Historical Society Director Relationship Specialty Start Date End Date Ann Pizano APRN [address] [place] [address] PCP - General Family Medicine 01/11/25 documented as of this encounter
--- OUTSIDE RECORDS SUMMARY | 2025-04-11 15:14 | XMS_ITS | Encounter Summary ---
Author Organization [employer] Address [address] [place] [address] Care Team Providers Care Soa Engineer Name Role Phone Kalin Rob MD Primary Care Provider [phone] Ann Pizano APRN Primary Care Provider [phone] Reason for Visit * Reason Comments Med Change Request Encounter Details Date Type Department Care Team (Late st Contact Info) Description 04/05/2024 [facility] Gastroenterology [address] [place] [address] Rex Stoll MD [address] [place] [address] Gastroesophageal reflux disease, unspecified whether esophagitis present Social History Tobacco Use Types Packs/Day Years [...] Date Cornelius rded Speak language other than Slovenian at home Not on file 11/04/2023 Want [...] Info) Description 07/22/2025 1:00 PM EDT Appointment [facility] CT Imaging [address] [place] [address] [place] [address] [place] [address] [address] 07/24/2025 10:30 AM EDT Office Visit [facility] Primary Care - [facility] [address] [place] [address] Ann Pizano APRN [address] [place] [address] 07/26/2025 1:30 PM EDT Office Visit [facility] Pulm & Critical Care Medicine [address] [facility] [address] [place] [address] [place] [address] [place] [address] Rd [address] [address] 07/29/2025 9:00 AM EDT Appointment [facility] Breast Imaging [address] [place] [address] 04/15/2026 9:30 AM EDT Office Visit [facility] Gastroenterology [address] [place] [address] Rex Stoll MD [address] [facility] [address] [place] [address] documented as of this encounter Visit Diagnoses Diagnosis Gastroesophageal reflux disease, unspecified whether esophagitis present documented in this encounter Care Teams Soa Engineer Relationship Specialty Start Date End Date Kalin Rob MD PCP - General Family Medicine 10/27/22 12/28/24 Ann Pizano APRN [address] [place] [address] PCP - General Family Medicine 01/11/25 documented as of this encounter
--- OUTSIDE RECORDS SUMMARY | 2025-04-11 15:14 | XMS_ITS | Encounter Summary ---
Author Organization [employer] Address [address] [place] [address] Care Team Providers Care Teaseler Name Role Phone Kalin Rob MD Primary Care Provider [phone] Ann Pizano APRN Primary Care Provider +- [phone] Encounter Details Date Type Department Care Team (Late st Contact Info) Description 03/04/[address] [facility] Family Medicine [facility] [place] [address] Jean-Pierre Lovett MD [address] [place], [place] [address] Social History Tobacco Use Types Packs/Day Years Used Date Smoking Tobacco: Never Assessed Comments Unknown Sex and Gender Information Value Date Recorded Sex Assigned at Not on file Legal Sex Female 1:32 PM CDT Gender Identity Not on file Sexual Orientation Not on file documented as of this encounter Miscellaneous Notes * Cerner Conversion Note - Jean-Pierre Lovett MD - 03/04/2021 11:46 AM CDT DATE OF PROCEDURE: 03/04/2021 SURGEON: Chandana Bah MD PREOPERATIVE DIAGNOSES: 1. Recurrent/chronic rhinosinusitis, bilateral. 2. Nasal septal deviation. 3. Bilateral inferior turbinate hypertrophy. POSTOPERATIVE DIAGNOSES: 1. Recurrent/chronic rhinosinusitis, bilateral. 2. Nasal septal deviation. 3. Bilateral inferior turbinate hypertrophy. PROCEDURES PERFORMED: 1. Bilateral endoscopic frontal sinus surgery and total ethmoidectomy, CPT code #95222-90. 2. Nasal septoplasty, CPT code #87393-63. 3. Bilateral endoscopic maxillary antrostomy with removal of tissue, CPT code #80285-97, 51. 4. Bilateral endoscopic sphenoid sinus surgery, CPT code #11880-38, 51. 5. Bilateral inferior turbinate reduction, CPT code #83284-57, 51. 6. Image-guided, navigation-assisted surgery, CPT code #12022-65. ANESTHESIA: General. COMPLICATIONS: None immediate. ESTIMATED BLOOD LOSS: 25 to 50 mL. SPECIMENS: Bilateral sinus contents and septal contents sent to pathology. OPERATIVE FINDINGS: A septal spur on the left posteriorly causing over 90% obstruction. A high septal deflection on the right causing 50% obstruction at the level of the middle turbinate. Moderate bilateral inferior turbinate hypertrophy. Litq-hb-ktgqinbw diffuse sinus inflammation with thick mucosal inflammation and mucoid secretions, particularly worse in the anterior ethmoids and frontal recess. No spinal fluid leak or orbital injury. INDICATIONS: The patient is a 45-year-old female, who has had chronic and recurrent sinus infections and disease for many years. She has been treated with repeated courses of antibiotics as well as allergy treatments with no benefit. She was seen and evaluated in the ENT office and had a complete examination including a nasal endoscopy. CT scan of the sinuses was obtained, which showed diffuse sinus inflammation as well as an NSD and BITH. It was felt that sinonasal surgery was indicated. Due to the significant disease, it was felt that image guidance was also indicated. Risks and benefits explained and informed consent obtained. BRIEF OPERATIVE REPORT: Once informed consent was obtained, the patient was taken to the operating room by Anesthesia, maintained supine position, underwent general endotracheal anesthesia without complication. Following standard time-out, I began the procedure. She was prepped and draped in standard fashion. Afrin-coated cottonoid pledgets placed in left and right nasal cavity for 5 minutes. I then removed the pledgets and injected 6 mL of 1% lidocaine with 1:100,000 epinephrine into the lateral nasal wall and into the septum. I replaced the Afrin pledgets for another 5 minutes. I removed the pledgets and began the procedure. Prior to starting, I calibrated the patient to the recent CT scan of the sinuses using the [employer] navigation system. This was calibrated to 1 mm accuracy and confirmed at the level of the nasal tip in the middle turbinate on each side. It was used during the entirety of the case due to significant sinonasal inflammation and obstruction. I 1st performed a nasal septoplasty. A standard ki transfixation incision was placed in the left side of the septum with a 15 blade. I then elevated the mucoperichondrial flap from an anterior to posterior direction as well as inferiorly onto the nasal floor. I disarticulated the bone-cartilage junction and elevated the mucosa off the right side of the septum. I took down the deviated portions of bone and cartilage with Alvarez forceps. The bone spur in the posterior side on the left extended to space of the sphenoid sinus and this was taken down with thru-cutting instruments. I then repositioned the mucosal flaps, and the septum was in a good midline position. There was still some deflection on the right side, but the cartilage was very weak, and it was felt that further removal would cause an external deformity. I closed the incision with bacitracin-coated chromic suture and a quilting stitch was placed in the anterior septum with bacitracin-coated fast absorbable suture. I next performed bilateral endoscopic frontal sinus surgery and total ethmoidectomy. The left side was 1st addressed with a 0 degree telescope. The frontal sinus tract was evaluated using a 30-degree telescope. A [employer] 6 mm balloon was used to dilate the frontal recess with good confirmation in the frontal sinus cavity using image guidance. I then opened the frontal recess using frontal sinus forceps. I performed this on the right side as well. A total ethmoidectomy was then performed using the microdebrider. I opened the anterior ethmoids from an inferior to superior direction. The medial orbital wall was intact with no injury. The posterior ethmoids were then opened in an inferior to superior direction as well. Skull base was intact, where there was no spinal fluid leak. There was lhjj-ol-yvvinwmq mucosal inflammation, which was noted to be worse in the anterior ethmoid region. Mild bleeding controlled with Afrin-coated pledgets. I performed this on the opposite side with similar findings and results. I next performed bilateral endoscopic maxillary antrostomy with removal of tissue. The left side was 1st addressed with a 0 degree telescope. The uncinate process was taken down using the microdebrider from an inferior to superior direction. The natural maxillary antrum was then widely opened in all directions with the microdebrider. There were some thick mucoid secretions and polypoid mucosa removed with the microdebrider. I performed this on the right side with similar findings and results. I next performed bilateral endoscopic sphenoid sinus surgery. Using the 0 degree telescope, the natural sphenoid ostium was well visualized on the left. This was widely opened using the microdebrider in the medial and inferior direction. There were some minimal mucoid secretions, but no infection or polyp. I performed this on the right side with similar findings and results. Lastly, I performed bilateral inferior turbinate reduction. The left inferior turbinate was medialized with a Dermott elevator. Thru-cutting instruments were used to resect the inferior margin from anterior to posterior direction. The remaining turbinate was lateralized with the elevator. There was mild bleeding controlled with Afrin-coated pledgets. I performed this on the right side as well. At this point, this concluded the procedure. I used copious amounts of normal saline irrigation and suctioned the sinonasal cavities. I packed the ethmoid recess and the frontal recess with Xerogel. NasoPore was also placed in the ethmoid recess. NasoPore was placed along the septum on each side. Gastroesophageal contents were evacuated with an OG tube. The patient was turned to Anesthesia, where she was awakened and extubated. /[id number] Chandana Bah MD REW/AQ / REW / MODL /[id number] Electronically signed by Hugh Vegas Conversion Office Machine Service Supervisor Cerner at 02/04/2023 8:38 AM CDT documented in this encounter Plan of Treatment Upcoming Encounters Date Type Department Care Team (Late st Contact Info) Description 07/22/2025 1:00 PM EDT Appointment [facility] CT Imaging [address] [place] [address] Adela Watson MD [address] [facility] [address] [place] [address] 07/24/2025 10:30 AM EDT Office Visit [facility] Primary Care - [facility] [address] [place] [address] Ann Pizano APRN [address] [place] [address] 07/26/2025 1:30 PM EDT Office Visit [facility] Pulm & Critical Care Medicine [address] [facility] [address] [place] [address] Adela Watson MD [address] [facility] [address] [place] [address] 07/29/2025 9:00 AM EDT Appointment [facility] Breast Imaging [address] [place] [address] 04/15/2026 9:30 AM EDT Office Visit [facility] Gastroenterology [address] [place] [address] Rex Stoll MD [address] [place] [address] documented as of this encounter Visit Diagnoses Not on filedocumented in this encounter Care Teams Teaseler Relationship Specialty Start Date End Date Kalin Rob MD PCP - General Family Medicine 10/27/22 12/28/24 Ann Pizano APRN [address] [place] [address] PCP - General Family Medicine 01/11/25 documented as of this encounter
--- OUTSIDE RECORDS SUMMARY | 2025-04-11 15:14 | XMS_ITS | Encounter Summary ---
Author Organization [employer] Address [address] [place] [address] Care Team Providers Care Conservation Coordinator Name Role Phone Kalin Rob MD Primary Care Provider [phone] Ann Pizano APRN Primary Care Provider + [phone] Encounter Details Date Type Department Care Team (Late st Contact Info) Description 03/04/2021 Transcribed Document [facility] [place] [address] [place] [address] ProviderJean-Pierre MD [address] [place], [place] [address] Social History Tobacco Use Types Packs/Day Years Used Date Smoking Tobacco: Never Assessed Comments Unknown Sex and Gender Information Value Date Recorded Sex Assigned at Not on file Legal Sex Female 1:32 PM CDT Gender Identity Not on file Sexual Orientation Not on file documented as of this encounter Miscellaneous Notes * Cerner Conversion Note - Jean-Pierre ProviderMD - 03/04/2021 10:03 AM CDT [facility] [place] PAC[place] Summary Primary Physician: KASEY MONROE MD-FERCHO Finalized Date/Time: 03/04/21 12:02:45 Pt. Name: HUONG GARCIA MARU /Sex: 1975 Female Med Rec #: [id number] Physician: KASEY MONROE MD-FERCHO Financial #: [id number] Pt. Type: O Room/Bed: Admit/Disch: 03/04/21 07:25:00 - Institution: [facility] Main OR PACU Case Times Entry 1 In PACU I 03/04/21 11:32:00 Ready for PACU 03/04/21 12:02:00 Discharge Discharge from PACU 03/04/21 12:02:00 I Last Modified By: Kat Haley RN 03/04/21 12:02:41 [facility] Main OR PACU Case Times Audit 03/04/21 12:02:41 Merchandise Planning Manager: [email or web address] Modifier: [email or web address] <+> 1 Ready for PACU Discharge <+> 1 Discharge from PACU I Finalized By: Kat Haley, RN Document Signatures Signed By: Kat aHley RN 03/04/21 12:02 documented in this encounter Plan of Treatment Upcoming Encounters Date Type Department Care Team (Late st Contact Info) Description 07/22/2025 1:00 PM EDT Appointment [facility] CT Imaging [address] [place] [address] Adela Watson MD [address] [place] [address] [address] 07/24/2025 10:30 AM EDT Office Visit [facility] Primary Care - [facility] [address] [place] [address] Ann Pizano APRN [address] [place] [address] 07/26/2025 1:30 PM EDT Office Visit [facility] Pulm & Critical Care Medicine [address] [place] [address] [address] Adela Watson MD [address] [place] [address] [address] 07/29/2025 9:00 AM EDT Appointment [facility] Breast Imaging [address] [place] [address] 04/15/2026 9:30 AM EDT Office Visit [facility] Gastroenterology [address] [place] [address] Rex Stoll MD [address] [facility] [address] [place] [address] documented as of this encounter Visit Diagnoses Not on filedocumented in this encounter Care Teams Conservation Coordinator Relationship Specialty Start Date End Date Kalin Rob MD PCP - General Family Medicine 10/27/22 12/28/24 Ann Pizano APRN [address] [place] [id number] PCP - General Family Medicine 01/11/25 documented as of this encounter
--- OUTSIDE RECORDS SUMMARY | 2025-04-11 15:14 | XMS_ITS | Encounter Summary ---
Author Organization [employer] Address [address] [place] [address] Care Team Providers Care Weight Calculator Name Role Phone Kalin Rob MD Primary Care Provider [phone] Ann Pizano APRN Primary Care Provider + [phone] Encounter Details Date Type Department Care Team (Late st Contact Info) Description 03/04/2021 Transcribed Document [facility] Family Medicine [address] [place] [address] ProviderJean-Pierre MD [address] [place], [place] [address] Social History Tobacco Use Types Packs/Day Years Used Date Smoking Tobacco: Never Assessed Comments Unknown Sex and Gender Information Value Date Recorded Sex Assigned at Not on file Legal Sex Female 1:32 PM CDT Gender Identity Not on file Sexual Orientation Not on file documented as of this encounter Miscellaneous Notes * Cerner Conversion Note - Jean-Pierre ProviderMD - 03/04/2021 8:34 AM CDT PAT Adult Entered On: 03/04/2021 8:36 EDT Performed On: 03/04/2021 8:34 EDT by Lorena Rob RN Vital Measurements Temperature Source : Temporal artery scanning Temperature Mode : Fahrenheit Temperature, Fahrenheit : 97.8 Deg F Clinical Temperature, C : 36.6 Deg C Pulse Method : Pulse Oximetry Peripheral Pulse Rate : 76 bpm Pulse Rhythm : Regular Respiratory Rate : 16 Breaths/Min Blood Pressure Location : Arm, right upper Blood Pressure Source : Non-Invasive BP Device Blood Pressure Position : Sitting Systolic Blood Pressure : 151 mmHg (HI) Diastolic Blood Pressure : 71 mmHg Oxygen Saturation : 97 % Oxygen Therapy Mode : Room air Lorena Rob RN - 03/04/2021 9:08 EDT Pain Assessment Pain Assessment : Initial assessment Pain Scale Goal : 4 Pain Scale Used : 0-10 Scale Lorena Rob RN - 03/04/2021 9:08 EDT Height and Weight, Clinical Dosing Height Source : Stated Height Entry Format : [place] Height, Feet : 5 ft(Converted to: 152 cm, 60 Inch) Height, Inches : 4 Inch(Converted to: 0 ft 4 Inch, 10.16 cm) Clinical Height : 162.56 cm Weight Source : Standing scale Weight Entry Format : [place] Clinical Dosing Weight : 69.55 kg Weight, Pounds : 153 lb Body Surface Area (BSA) : 1.75 m2 Body Mass Index : 26.3 kg/m2 (HI) [place] Body Weight : 54 kg Lorena Rob RN - 03/04/2021 8:34 EDT Health Histories Smoking Status : 4 or less cigarettes(less than 1/4 pack)/day in last 30 days Smokeless Tobacco Status : Never Desires Tobacco Cessation Medication : No Reason for No Tobacco Cessation Medication : Refuses FDA approved medications Lorena Rob RN - 03/04/2021 8:34 EDT Social History (As Of: 03/04/2021 09:11:45 EDT) Tobacco: 4 or less cigarettes(less than 1/4 pack)/day in last 30 days Smoking Status. Never Smokeless Tobacco Status. None Smokeless Tobacco Use History. Years of Use: 20. Packs/Tins Daily: .25. Second Hand Smoke Exposure: No. (Last Updated: 03/04/2021 08:35:31 EDT by Lorena Rob RN) Alcohol: Alcohol Use History No. Use in Last 12 Months: No. (Last Updated: 03/04/2021 08:35:31 EDT by Lorena Rob RN) Substance Abuse: Drug Use Hx: No. Use in Last 12 Months: No. (Last Updated: 03/04/2021 08:35:31 EDT by Lorena Rob RN) Infectious Disease History Where are the test results? : In EMR Results Does patient have symptoms of COVID-19? : No COVID19 Screening : No Experiencing Infectious Disease Symptoms : No symptoms Physical contact outside [place] in the last 30 days : No Active Surveillance Screen Assessment : Patient does not meet any of above criteria Childhood Vaccinations Up to Date : N/A Exposure to Contagious Illness : No Tuberculosis Symptoms : None Lorena Rob RN - 03/04/2021 9:08 EDT Has the patient ever been tested for COVID-19? : Yes, Patient stated results Negative Where was the COVID-19 Testing completed? : [facility] Date of COVID-19 test known? : Yes Date of COVID-19 Test : 03/02/2021 EDT Infectious Disease History : Chicken pox/Shingles Lorena Rob RN - 03/04/2021 8:34 EDT COVID19 PreProcedure Screening Is this an Emergent or Add on Procedure? : No Date PreProcedure COVID-19 test known? : Yes Date of PreProcedure COVID-19 : 03/02/2021 EDT Has patient been isolated since the test : Yes Exposed to COVID19 symptoms since test? : No Lorena Rob RN - 03/04/2021 9:08 EDT Anesthesia/Transfusion History Family History of Anesthesia Reaction : No prior transfusion(s) Transfusion History : Prior anesthesia without reaction Family History of Anesthesia Reaction : None Lorena Rob RN - 03/04/2021 8:34 EDT Functional Assessment Functional ADL Evaluation Index EBN Bathing : Independent (2) Dressing : Independent (2) Toileting : Independent (2) Transferring Bed or Chair : Independent (2) Continence : Independent (2) Feeding : Independent (2) Lorena Rob RN - 03/04/2021 9:08 EDT ADL Index Score : 12 Lorena Rob RN - 03/04/2021 9:08 EDT Advance Directive Patient has Advance Directive *Q : No, patient refuses Advance Directive information Lorena Rob RN - 03/04/2021 9:08 EDT Spiritual/Cultural Needs Any Spiritual/Cultural Needs or Requests : No Lorena Rob RN - 03/04/2021 9:08 EDT [place] Suicide Severity Rating Scale (C-SSRS) CSSRS Past Month Wish to be : No CSSRS Past Month Suicidal Thoughts : No CSSRS Lifetime Suicide Behavior : No Suicide Severity Rating Score : 0 Suicide Severity Rating : No Additional Care Required at this time Thoughts of Harming/Killing Others : No Lorena Rob RN - 03/04/2021 9:08 EDT Psychosocial History Do You Have a History of the Following? : Anxiety, Depression Currently in Unsafe Situation : No Lorena Rob RN - 03/04/2021 9:08 EDT Teaching/Learning Assessment Barriers To Learning : None evident Individuals Taught : Patient, Parent Readiness to Learn : Cooperative Baseline Knowledge of Topic : Good Readiness to Learn : Explanation Learning Style Preferences Patient : Printed materials, Verbal explanation Learning Style Preferences Family : Printed materials, Verbal explanation Lorena Rob RN - 03/04/2021 9:08 EDT General Info Preferred Name : Huong Arrived From : Home Mode of Arrival on Unit : Ambulatory Patient Arrival Date/Time : 03/04/2021 7:45 EDT Legal Guardian : Mother Want Family/Rep/Phys Notified of Admit : No Emergency Contact #2 : . Emergency Contact #2 Phone Number : . Emergency Contact #2 Relationship : . Information Obtained From : Patient Preferred Communication Mode : Verbal Hydro Operator Needed : No Objects to Sharing Info w Family : No Currently Lactating : No Status : Patient denies Clinical Trials Participant *Q : None Lorena Rob RN - 03/04/2021 9:08 EDT Emergency Contact #1 : Sienna Smith Emergency Contact #1 Emergency Contact #1 Relationship : Mother Primary Language : Sinhala Communication Barrier : None Lorena Rob RN - 03/04/2021 8:34 EDT Gonzalo Scale Gonzalo Sensory Perception : No impairment Gonzalo Moisture : Rarely moist Gonzalo Activity : Walks frequently Gonzalo Mobility : No limitation Gonzalo Nutrition : Adequate Gonzalo Friction and Shear : No apparent problem Gonzalo Score : 22 Lorena Rob RN - 03/04/2021 9:08 EDT Sleep Apnea Risk Assmt Hx of Obstructive Sleep Apnea Diagnosis : No Snore Loudly : Yes Tired, Fatigued, or Sleepy During Day : No Observed Stopping Breathing During Sleep : No Have/Are Being Treated for Hypertension : No BMI Greater Than 35 kg/m2 : No Age over 50 Years Old : No Neck Circumference Greater Than 40 cm : No Gender Male : No STOP-BANG Sleep Apnea Risk Level Score : 1 Lorena Rob RN - 03/04/2021 9:08 EDT Pain Scale Intensity : 0 Lorena Rob RN - 03/04/2021 9:08 EDT Image 4 - Images currently included in the form version of this document have not been included in the text rendition version of the form. documented in this encounter Plan of Treatment Upcoming Encounters Date Type Department Care Team (Late st Contact Info) Description 07/22/2025 1:00 PM EDT Appointment [facility] CT Imaging [address] [place] [address] Adela Watson MD [address] [place] [address] 07/24/2025 10:30 AM EDT Office Visit [facility] Primary Care - [facility] [address] [place] [address] Ann Pizano APRN [address] [place] [address] 07/26/2025 1:30 PM EDT Office Visit [facility] Pulm & Critical Care Medicine [address] [place] [address] [address] Adela Watson MD [address] [place] [address] [address] 07/29/2025 9:00 AM EDT Appointment [facility] Breast Imaging [address] [place] [address] 04/15/2026 9:30 AM EDT Office Visit [facility] Gastroenterology [address] [place] [address] Rex Stoll MD [address] [place] [address] documented as of this encounter Visit Diagnoses Not on filedocumented in this encounter Care Teams Weight Calculator Relationship Specialty Start Date End Date Kalin Rob MD PCP - General Family Medicine 10/27/22 12/28/24 Ann Pizano APRN [address] [place] [address] PCP - General Family Medicine 01/11/25 documented as of this encounter
--- OUTSIDE RECORDS SUMMARY | 2025-04-11 15:14 | XMS_ITS | Encounter Summary ---
Author Organization [employer] Address [address] [place] [address] Care Team Providers Care Sports Attorney Name Role Phone Kalin Rob MD Primary Care Provider [phone] Ann Pizano APRN Primary Care Provider [phone]- [phone] Reason for Referral * Mammography (Routine) - Closed Specialty Diagnoses / Procedures Referred By Contjeffery t Referred To Contact Diagnoses Encounter for screening mammogram for malignant neoplasm of breast Procedures MM digital mammo screen bilateral Kalin Rob MD Phone: tel: fax: Referral ID Status Reason Start Date Expiration Date Visits Re quested Visits Authorized [id number] Closed 07/06/2022 01/02/2023 1 1 Encounter Details Date Type Department Care Team (Late st Contact Info) Description 07/06/2022 Outside Orders [facility] Central Scheduling [address] [place] [address] Kalin Rob MD [address] [place] [address] Encounter for screening mammogram for malignant neoplasm of breast (Primary Dx) Social History Tobacco Use Types Packs/Day Years [...] Info) Description 07/22/2025 1:00 PM EDT Appointment [facility] CT Imaging [address] [place] [address] Adela Watson MD [address] [address] 07/24/2025 10:30 AM EDT Office Visit [facility] Primary Care - [facility] [address] [place] [address] Ann Pizano APRN [address] [place] [address] 07/26/2025 1:30 PM EDT Office Visit [facility] Pulm & Critical Care Medicine 1401 [facility] [address] [address] Adela Watson MD 1401 [facility] [address] [address] 07/29/2025 9:00 AM EDT Appointment [facility] Breast Imaging [address] [place] [address] 04/15/2026 9:30 AM EDT Office Visit [facility] Gastroenterology [address] [place] [address] Rex Stoll MD 227 [facility] [address] [place] [address] Scheduled Orders Name Type Priority Associated Diagnoses Orde r Schedule MM digital mammo screen bilateral Imaging Routine Encounter for screening mammogram for malignant neoplasm of breast Expected: 07/06/2022, Expires: 07/06/2023 documented as of this encounter Visit Diagnoses Diagnosis Encounter for screening mammogram for malignant neoplasm of breast- Primary documented in this encounter Care Teams Sports Attorney Relationship Specialty Start Date End Date Kalin Rob MD PCP - General Family Medicine 10/27/22 12/28/24 Ann Pizano APRN [address] [place] [address] PCP - General Family Medicine 01/11/25 documented as of this encounter
== END 2025-04-11 23:59 | disposition home or self-care (01) ==
LOC: RAD 15:08
PROVIDERS: Visit Provider Nurse Practitioner
DX: R93.6 Abnormal findings on diagnostic imaging of limbs (principal); M79.89 Other specified soft tissue disorders; M25.532 Pain in left wrist
CPT/HCPCS: 73110

== ENCOUNTER 2025-04-30 14:37 | Outpatient (CLI) | payer MEDICAID, SELFPAY ==
--- OUTSIDE RECORDS SUMMARY | 2025-04-09 09:15 | XMS_ITS | Encounter Summary ---
Author Organization [employer] ([place], [place], [place], [place]) Address [address] [place] [address] Care Team Providers Care Corrugator Operator Name Role Phone Ann Pizano APRN Primary Care Provider [phone]- [phone] Reason for Visit * Reason Comments Follow-up Patient here for a 6 month f/u and doing good Encounter Details Date Type Department Care Team (Late st Contact Info) Description 04/09/2025 9:15 AM EDT Office Visit [facility] Gastroenterology [address] [place] [address] Rex Stoll MD [address] [place] [address] Fatty liver (Primary Dx); Folate deficiency; Vitamin D deficiency; Lung nodule Social History Tobacco Use Types Packs/Day Years Used Date Smoking Tobacco: Every Day Cigarettes 0.5 15 Smokeless Tobacco: Never Alcohol Use Standard Drinks/Week Comments Never 0 (1 standard drink = 0.6 oz pur e alcohol) caffeine use [facility] - Mental Health Answer Date Recorde d Little interest or pleasure in doing things Not at all 01/21/2025 Feeling down, depressed, or hopeless Not at all 01/21/2025 Feeling of Stress Not on file 01/21/2025 Family and Community Support Answer Olman e Recorded Help with Day to Day Activities Not on file 11/04/2023 Feeling Lonely or Isolated Not on file 11/04 Educational Attainment Answer Date Cornelius rded Speak language other than Emirati at home Not on file 11/04/2023 Want help with school or training Not on file 11/04/2023 Substance Use Answer Date Recorded Used [...] WITH POLYPECTOMY; Surgeon: Rex Stoll MD; Location: [facility]; Service: Gastroenterology; Laterality: N/A; DILATION AND CURETTAGE OF UTERUS KNEE SURGERY Left SINUS SURGERY SPINAL CORD STIMULATOR IMPLANT 04/30/2024 UPPER ENDOSCOPY,BIOPSY N/A 03/08/2024 Procedure: ENDOSCOPY, UPPER GI TRACT, WITH BIOPSY; Surgeon: Rex Stoll MD; Location: [facility]; Service: Gastroenterology; Laterality: N/A; Family History Problem Relation Name Age of Onset Anemia Mother Sienna [place] Arthritis Mother Sienna [place] Hypertension Mother Sienna [place] Arthritis Father Earl Garcia Jr Hyperlipidemia Father [...] instructions given. By signing my name below, I, Carmen Hand LPN attest that this documentation has been [...] Info) Description 07/22/2025 1:00 PM EDT Appointment [facility] CT Imaging [address] [place] [address] [facility] [id number] 07/24/2025 10:30 AM EDT Office Visit [facility] Primary Care - [facility] [address] [place] [address] Ann Pizano APRN [address] [place] [address] 07/26/2025 1:30 PM EDT Office Visit [facility] Pulm & Critical Care Medicine [address] [place] [address] [address] Adela Watson MD [address] [place] [address] 07/29/2025 9:00 AM EDT Appointment [facility] Breast Imaging [address] [place] [address] 04/15/2026 9:30 AM EDT Office Visit [facility] Gastroenterology [address] [place] [address] Rex Stoll MD [address] [place] [address] Scheduled Orders Name Type Priority Associated Diagnoses [...] classified documented in this encounter Care Teams Corrugator Operator Relationship Specialty Start Date End Date Ann Pizano APRN [address] [place] [address] PCP - General Family Medicine 01/11/25 documented as of this encounter
--- OUTSIDE RECORDS SUMMARY | 2025-04-30 14:39 | XMS_ITS | Encounter Summary ---
Author Organization [employer] ([place], [place], [place], [place]) Address [address] [place] [address] Care Team Providers Care Smog Technician Name Role Phone Kalin Rob MD Primary Care Provider [phone] Ann Pizano APRN Primary Care Provider +1- [phone] Reason for Visit * Reason Onset Date Comments FYI 06/26/2024 Encounter Details Date Type Department Care Team (Late st Contact Info) Description 06/26/2024 Telephone [facility] Primary Care - [facility] [address] [place] [address] Kalin Rob MD 40 [place] [address] FYI Social History Tobacco Use Types Packs/Day Years Used Date Smoking Tobacco: Former Smokeless Tobacco: Never Alcohol Use Standard Drinks/Week Comments Never 0 (1 standard drink = 0.6 oz pur e alcohol) caffeine use Family and Community Support Answer Olman e Recorded Help with Day to Day Activities Not on file 11/04/2023 Feeling Lonely or Isolated Not on file 11/04 Educational Attainment Answer Date Cornelius rded Speak language other than Swedish at home Not on file 11/04/2023 Want [...] Noted and Done. * Telephone Encounter - Corysilvano Rowdy - 06/26/2024 1:22 PM EDT Next Visit: [...] EDT Appointment [facility] CT Imaging [address] [place] [address] Adela Watson MD [address] [place] [address] 07/24/2025 10:30 AM EDT Office Visit [facility] Primary Care - [facility] [address] [place] [address] Ann Pizano APRN [address] [place] [address] 07/26/2025 1:30 PM EDT Office Visit [facility] Pulm & Critical Care Medicine [address] [place] [address] [address] Adela Watson MD 1401 [facility] [address] [place] [address] 07/29/2025 9:00 AM EDT Appointment [facility] Breast Imaging [address] [place] [address] 04/15/2026 9:30 AM EDT Office Visit [facility] Gastroenterology [address] [place] [address] eRx Stoll MD [address] [place] [address] documented as of this encounter Visit Diagnoses Not on filedocumented in this encounter Care Teams Smog Technician Relationship Specialty Start Date End Date Kalin Rob MD PCP - General Family Medicine 10/27/22 12/28/24 Ann Pizano APRN [address] [place] [address] PCP - General Family Medicine 01/11/25 documented as of this encounter
--- OUTSIDE RECORDS SUMMARY | 2025-04-30 14:39 | XMS_ITS | Encounter Summary ---
Author Organization [employer] ([place], [place], [place]) Address [address] [place] [address] Care Team Providers Care Roofing Contractor Name Role Phone Kalin Rob MD Primary Care Provider [phone] Ann Pizano APRN Primary Care Provider Reason for Visit * Reason Comments Medication Refill Encounter Details Date Type Department Care Team (Late st Contact Info) Description 05/20/2023 Refill [facility] Primary Care - [facility] 40 [place] [address] Kalin Rob MD 40 [place] [address] Personal history of other diseases [...] Info) Description 07/22/2025 1:00 PM EDT Appointment [facility] CT Imaging [address] [place] [address] Adela Watson MD [address] [address] 07/24/2025 10:30 AM EDT Office Visit [facility] Primary Care - [facility] [address] [place] [address] Ann Pizano APRN [address] [place] [address] 07/26/2025 1:30 PM EDT Office Visit [facility] Pulm & Critical Care Medicine [address] [place] [address] Adela Watson MD [address] [address] 07/29/2025 9:00 AM EDT Appointment [facility] Breast Imaging [address] [place] [address] 04/15/2026 9:30 AM EDT Office Visit [facility] Gastroenterology [address] [place] [address] Rex Stoll MD 227 [facility] [address] [place] [address] documented as of this encounter Visit Diagnoses Diagnosis Personal history of other diseases of the digestive system Encounter for general adult medical examination without abnormal findings documented in this encounter Care Teams Roofing Contractor Relationship Specialty Start Date End Date Kalin Rob MD PCP - General Family Medicine 10/27/22 12/28/24 Ann Pizano APRN [address] [place] [address] PCP - General Family Medicine 01/11/25 documented as of this encounter
--- OUTSIDE RECORDS SUMMARY | 2025-04-30 14:40 | XMS_ITS | Encounter Summary ---
Author Organization [employer] ([place], [place]) Address [address] [place] [address] Care Team Providers Care Ager Tender Name Role Phone Kalin Rob MD Primary Care Provider [phone] Ann Pizano APRN Primary Care Provider [phone]- [phone] Reason for Visit * Reason Onset Date Comments Medication Refill 11/17/2024 Encounter Details Date Type Department Care Team (Late st Contact Info) Description 11/17/2024 Refill [facility] Cardiology - [place] [address] [place] [address] Jun Taylor MD 227 [facility] [address] [place] [address] Essential (primary) hypertension Social History [...] Date Cornelius rded Speak language other than Bulgarian at home Not on file 11/04/2023 Want [...] Info) Description 07/22/2025 1:00 PM EDT Appointment [facility] CT Imaging [address] [place] [address] Adela Watson MD [address] [address] 07/24/2025 10:30 AM EDT Office Visit [facility] Primary Care - [facility] 40 [place] [address] Ann Pizano APRN [address] [place] [address] 07/26/2025 1:30 PM EDT Office Visit [facility] Pulm & Critical Care Medicine [address] [facility] [address] [address] Adela Watson MD [address] [address] 07/29/2025 9:00 AM EDT Appointment [facility] Breast Imaging [address] [place] [address] 04/15/2026 9:30 AM EDT Office Visit [facility] Gastroenterology [address] [place] [address] Rex Stoll MD 227 [facility] [address] [place] [address] documented as of this encounter Visit Diagnoses Diagnosis Essential (primary) hypertension Unspecified essential hypertension documented in this encounter Care Teams Ager Tender Relationship Specialty Start Date End Date Kalin Rob MD PCP - General Family Medicine 10/27/22 12/28/24 Ann Pizano, AMISH [address] [place] [address] PCP - General Family Medicine 01/11/25 documented as of this encounter
--- OUTSIDE RECORDS SUMMARY | 2025-04-30 14:40 | XMS_ITS | Encounter Summary ---
Author Organization [employer] ([place], [place], [place], [place]) Address [address] [place] [address] Care Team Providers Care Mud Tank Operator Name Role Phone Kalin Rob MD Primary Care Provider [phone] Ann Pizano APRN Primary Care Provider [phone]- [phone] Reason for Visit * Reason Onset Date Comments Advice Only 12/12/2024 Encounter Details Date Type Department Care Team (Late st Contact Info) Description 12/12/2024 Telephone [facility] Primary Care - [facility] [address] [place] [address] Kalin Rob MD [address] [place] [address] Advice Only Social History Tobacco [...] Date Cornelius rded Speak language other than Macanese at home Not on file 11/04/2023 Want [...] Miscellaneous Notes * Telephone Encounter - Sukhwinder Jessica - 12/13/2024 9:52 AM EST Called and advised patient that Dr Rob sent in mediation to pharmacy. E DRESSER * Telephone Encounter - Sukhwinder Jessica - 12/12/2024 9:28 AM EST Called and spoke with patient. Patient advised that she took 2 home Covid test and both were negative. Patient has had a productive cough x 4 days. Asking for something to be called in to pharmacy. E DRESSER * Telephone Encounter - Bot EST Oneconbecky Paulson - 12/12/2024 8:54 AM EST FROM: Branden Guy CSN: TO: [facility] [place] WELLNESS COORDINATOR [[id number]] SUBJECT: Medical Advice/Question PROVIDER: KALIN ROB [[id number]] DEPARTMENT: [facility] [[id number]] ENCOUNTER REASON FOR CALL: ADVICE ONLY [[id number]] ENCOUNTER TYPE: Telephone PREFERRED PHARMACY? [id number] - [place], [place] - [address] [place] [address] REASON FOR CALL: Medical Advice for a [...] RELATION TO PATIENT: Self [1] PREFERRED LANGUAGE: Macanese BEST CALL BACK PHONE NUMBER: Mobile Phone: ([phone]) WHAT IS THE BEST WAY FOR THE OFFICE TO CONTACT YOU?: OK to leave message on voicemail E DRESSER documented in this encounter Plan of Treatment Upcoming Encounters Date Type Department Care Team (Late st Contact Info) Description 07/22/2025 1:00 PM EDT Appointment [facility] CT Imaging [address] [place] [address] Adela Watson MD [address] [place] [address] 07/24/2025 10:30 AM EDT Office Visit [facility] Primary Care - [facility] [address] [place] [address] Ann Pizano APRN [address] [place] [address] 07/26/2025 1:30 PM EDT Office Visit [facility] Pulm & Critical Care Medicine [address] [place] [address] [place] [address] Adela Watson MD 1401 [facility] [address] [place] [address] 07/29/2025 9:00 AM EDT Appointment [facility] Breast Imaging [address] [place] [address] 04/15/2026 9:30 AM EDT Office Visit [facility] Gastroenterology [address] [place] [address] Rex Stoll MD [address] [facility] [address] [place] [address] documented as of this encounter Visit Diagnoses Not on filedocumented in this encounter Care Teams Mud Tank Operator Relationship Specialty Start Date End Date Kalin Rob MD PCP - General Family Medicine 10/27/22 12/28/24 Ann Pizano APRN [address] [place] [address] PCP - General Family Medicine 01/11/25 documented as of this encounter
--- OUTSIDE RECORDS SUMMARY | 2025-04-30 14:40 | XMS_ITS | Encounter Summary ---
Author Organization [employer] ([place], [place], [place], [place]) Address [address] [place] [address] Care Team Providers Care Hand Binder Cutter Name Role Phone Ann Pizano AMISH Primary Care Provider [phone]- [phone] Reason for Visit * Reason Comments Medication Refill Encounter Details Date Type Department Care Team (Late st Contact Info) Description 03/06/2025 Refill [facility] Primary Care - [employer] [address] [place] [address] Kalin Rob MD [address] [place] [address] Encounter for general adult medical examination without abnormal findings Social History Tobacco Use Types Packs/Day Years Used Date Smoking Tobacco: Every Day Cigarettes 0.5 15 Smokeless Tobacco: Never Alcohol Use Standard Drinks/Week Comments Never 0 (1 standard drink = 0.6 oz pur e alcohol) caffeine use [facility] - Mental Health Answer Date Recorde d [...] Date Cornelius rded Speak language other than Botswanan at home Not on file 11/04/2023 Want [...] Info) Description 07/22/2025 1:00 PM EDT Appointment [facility] CT Imaging [address] [place] [address] Adela Watson MD [address] [address] 07/24/2025 10:30 AM EDT Office Visit [facility] Primary Care - [facility] [address] [place] [address] Ann Pizano APRN [address] [place] [address] 07/26/2025 1:30 PM EDT Office Visit [facility] Pulm & Critical Care Medicine 1401 [facility] [address] [address] Adela Watson MD [address] [address] 07/29/2025 9:00 AM EDT Appointment [facility] Breast Imaging [address] [place] [address] 04/15/2026 9:30 AM EDT Office Visit [facility] Gastroenterology [address] [place] [address] Rex Stoll MD 227 [facility] [address] [place] [address] documented as of this encounter Visit Diagnoses Diagnosis Encounter for general adult medical examination without abnormal findings documented in this encounter Care Teams Hand Binder Cutter Relationship Specialty Start Date End Date Ann Pizano, AIR CONDITIONING UNIT ASSEMBLER [address] [place] [address] PCP - General Family Medicine 01/11/25 documented as of this encounter
--- OUTSIDE RECORDS SUMMARY | 2025-04-30 14:40 | XMS_ITS | Encounter Summary ---
Author Organization [employer] ([place], [place], [place], [place]) Address [address] [place] [address] Care Team Providers Care Rectification Printer Name Role Phone Kalin Rob MD Primary Care Provider [phone] Ann Pizano APRN Primary Care Provider Reason for Visit * Reason Comments Medication Refill Encounter Details Date Type Department Care Team (Late st Contact Info) Description 06/17/2023 Refill [facility] Primary Care - [facility] [address] [place] [address] Kalin Rob MD [address] [place] [address] Personal history of other diseases [...] Info) Description 07/22/2025 1:00 PM EDT Appointment [facility] CT Imaging [address] [place] [address] Adela Watson MD [address] [address] 07/24/2025 10:30 AM EDT Office Visit [facility] Primary Care - [facility] [address] [place] [address] Ann Pizano APRN [address] [place] [address] 07/26/2025 1:30 PM EDT Office Visit [facility] Pulm & Critical Care Medicine [address] [place] [address] Adela Watson MD [address] [address] 07/29/2025 9:00 AM EDT Appointment [facility] Breast Imaging [address] [place] [address] 04/15/2026 9:30 AM EDT Office Visit [facility] Gastroenterology [address] [place] [address] Rex Stoll MD 227 [facility] [address] [place] [address] documented as of this encounter Visit Diagnoses Diagnosis Personal history of other diseases of the digestive system Encounter for general adult medical examination without abnormal findings documented in this encounter Care Teams Rectification Printer Relationship Specialty Start Date End Date Kalin Rob MD PCP - General Family Medicine 10/27/22 12/28/24 Ann Pizano APRN [address] [place] [address] PCP - General Family Medicine 01/11/25 documented as of this encounter
--- OUTSIDE RECORDS SUMMARY | 2025-04-30 14:40 | XMS_ITS | Encounter Summary ---
Author Organization [employer] ([place], [place], [place], [place]) Address [address] [place] [address] Care Team Providers Care Platform Consultant Name Role Phone Ann Pizano APRN Primary Care Provider [phone]- [phone] Reason for Visit * Reason Comments Medication Refill Encounter Details Date Type Department Care Team (Late st Contact Info) Description 04/20/2025 Refill [facility] Primary Care - [employer] [address] [place] [address] Ann Pizano APRN [address] [place] [address] Deficiency of other specified B group vitamins Social History Tobacco Use Types Packs/Day Years Used Date Smoking Tobacco: Every Day Cigarettes 0.5 15 Smokeless Tobacco: Never Alcohol Use Standard Drinks/Week Comments Never 0 (1 standard drink = 0.6 oz pur e alcohol) caffeine use [facility] - Mental Health Answer Date Recorde d [...] rded Speak language other than Citizen [place] at home Not on file 11/04/2023 Want [...] Appointment [facility] CT Imaging [address] [place] [address] Adela Watson MD [address] [address] 07/24/2025 10:30 AM EDT Office Visit [facility] Primary Care - [facility] [address] [place] [address] Ann Pizano APRN [address] [place] [address] 07/26/2025 1:30 PM EDT Office Visit [facility] Pulm & Critical Care Medicine 1401 [facility] [address] [address] Adela Watson MD [address] [address] 07/29/2025 9:00 AM EDT Appointment [facility] Breast Imaging [address] [place] [address] 04/15/2026 9:30 AM EDT Office Visit [facility] Gastroenterology [address] [place] [address] Rex Stoll MD 227 [facility] [address] [place] [id number] documented as of this encounter Visit Diagnoses Diagnosis Deficiency of other specified B group vitamins documented in this encounter Care Teams Platform Consultant Relationship Specialty Start Date End Date Ann Pizano APRN [address] [place] [address] PCP - General Family Medicine 01/11/25 documented as of this encounter
--- OUTSIDE RECORDS SUMMARY | 2025-04-30 14:40 | XMS_ITS | Clinical Summary ---
Author Organization Healthcare Address [address] [place] [address] Care Team Providers Care Burglar Alarm Assembler Name Role Phone Kalin Rob MD Primary Care Provider [phone] [phone] Allergies Active Allergy Reactions Criticality Noted Date [...] SIDE OF NOSE 7 Active HYDROcodone-edgardo taminophen ([place]) 5-325 MG tablet TAKE 1 TABLET BY [...] Type Department Care Team Description 2025 Telephone [facility] [address] [place] [address] Batch, Yaniv Schuster, PharmD from [...] 2021 Sigmoidoscopy 2021 [facility]-Colorectal Cancer Screening 2021 OEN-AMFOW-60 Vaccine ( season) 2024 07/23/2021, 07/23/2021, 01/13/2021, Additional history exists [facility]-Depression Screening 05/31/2025 05/31/2024, 04/2023 [facility]-Influenza Vaccine (#1) 06/17/202506/28, 07/23/2021, 08/20/2019, Additional history exists [facility]-DTaP,Tdap,and Td [...] Narrative SUNQUEST - 08/13/2004 12:55 PM EDT [facility] MR #: [id number] [facility] [place] [address] 1975 (Age: 29) FW Collect Date: 08/07/2004 00:00 Receipt Date: 08/11/2004 13:05 Page 1 DEPARTMENT OF PATHOLOGY AND LABORATORY MEDICINE CYTOPATHOLOGY REPORT Email: [email or web address] ATTENDING MD/Practitioner: Jory Franks MD Service: PAT Location: [facility] Reported: 08/13/2004 12:55 Collected: 08/07/2004 00:00 [...] results is suggested (please call Microbiology at [phone] for results). CLINICAL INFORMATION: Menstrual History: Cyclic Date of Last Menstrual Period: 07-10-04 SPECIMEN DESCRIPTION: A: THIN PREP (CERVICAL/VAGINAL) THIN PREP PROCESS CELLULAR ENHANCEMENT ICD: V76.2 CERVIX, SPECIAL SCREENING FOR MALIGNANT NEOPLASM F: A; RT IMAGE [id number], RT IMAGE [id number] <CR>, THIN SCRN [id number] SNOMED CODES: A; [id number] In cases where a pathologist has signed out the report, the service has been rendered in part by a resident. The signing pathologist has performed and is responsible for the reported pathologic evaluation. us Historical Provider MD LAB PATHOLOGY ORDERABLES Final Result SUNQUEST from Last 3 Months or Most Recently Relevant to Health Maintenance [place] [address] [place] [address] MEDICAID Care Teams Burglar Alarm Assembler Relationship Specialty Start Date End Date Kalin Rob MD [address] [place] [address] PCP - General 02/27/21
--- OUTSIDE RECORDS SUMMARY | 2025-04-30 14:40 | XMS_ITS | Encounter Summary ---
Author Organization [facility] Address [address] [place] [address] Care Team Providers Care Experimental Machinist Name Role Phone Kalin Rob MD Primary Care Provider [phone] [phone] Encounter Details Date Type Department Care Team (Late st Contact Info) Description 2025 Telephone [facility] [address] [place] [address] Yaniv Patel PharmD Social History [...] Patel PharmD - 2025 9:28 AM EDT [facility] Specialty Medication Follow Up Care Plan Huong [...] 800 mg, Oral, 3 times daily HYDROcodone-acetaminophen ([place]) 5-325 MG tablet TAKE 1 TABLET BY [...] documented as of this encounter Care Teams Experimental Machinist Relationship Specialty Start Date End Date Kalin Rob MD [address] [place] [address] PCP - General 02/27/21 documented as of this encounter
--- OUTSIDE RECORDS SUMMARY | 2025-04-30 14:40 | XMS_ITS | Encounter Summary ---
Author Organization [employer] ([place], [place], [place], [place]) Address [address] [place] [address] Care Team Providers Care Education Department Chair Name Role Phone Ann Pizano APRN Primary Care Provider [phone] Reason for Visit * Reason Comments Medication Refill Encounter Details Date Type Department Care Team (Late st Contact Info) Description 04/27/2025 Refill [facility] Primary Care - [facility] [address] [place] [address] Ann Pizano APRN [address] [place] [address] Social History Tobacco Use Types Packs/Day Years Used Date Smoking Tobacco: Every Day Cigarettes 0.5 15 Smokeless Tobacco: Never Alcohol Use Standard Drinks/Week Comments Never 0 (1 standard drink = 0.6 oz pur e alcohol) caffeine use [facility] - [facility] Answer Date Recorde [...] Date Cornelius rded Speak language other than Solomon Islander at home Not on file 11/04/2023 Want [...] EDT Appointment [facility] CT Imaging [address] [place] [address] Adela Watson MD [address] [address] 07/24/2025 10:30 AM EDT Office Visit [facility] Primary Care - [facility] [address] [place] [address] Ann Pizano APRN [address] [place] [address] 07/26/2025 1:30 PM EDT Office Visit [facility] Pulm & Critical Care Medicine [address] [facility] [address] [address] Adela Watson MD [address] [address] 07/29/2025 9:00 AM EDT Appointment [facility] Breast Imaging [address] [place] [address] 04/15/2026 9:30 AM EDT Office Visit [facility] Gastroenterology [address] [place] [address] Rex Stoll MD 227 [facility] [address] [place], [place] [id number] documented as of this encounter Visit Diagnoses Not on filedocumented in this encounter Care Teams Education Department Chair Relationship Specialty Start Date End Date Ann Pizano, EMERGENCY ROOM TECHNICIAN [address] [place] [address] PCP - General Family Medicine 01/11/25 documented as of this encounter
--- OUTSIDE RECORDS SUMMARY | 2025-04-30 14:40 | XMS_ITS | Patient Health Record ---
Author Organization [facility] [place] Address [address] [place] [address] Care Team Providers Care Fan Mail Clerk Name Role Phone [facility] Primary Care Provider Reason For Referral No Information Plan Of Treatment No Information Insurance Providers Payer Name Payer Address Payer Phone Subscriber Number Group Number Insured Name Patient Relationship to Insured Coverage Start Date Coverage End Date [employer] Encounters [address] [facility] [place], [place] [address] [id number] Huong Garcia Self - patient is the insured
--- OUTSIDE RECORDS SUMMARY | 2025-04-30 14:40 | XMS_ITS | Encounter Summary ---
Author Organization Healthcare Address [address] [place] [address] Care Team Providers Care Line Person Name Role Phone Kalin Rob MD Primary Care Provider [phone] Reason for Visit * Reason Onset Date Comments Med Refill 04/20/2023 Encounter Details Date Type Department Care Team (Late st Contact Info) Description 04/20/2023 Refill [facility] [address] [place] [id number] Agueda Ferrara L, FIELD SUPPORT REP [address] [place] [address] Seropositive rheumatoid arthritis of multiple [...] Diagnosis Seropositive rheumatoid arthritis of multiple sites ([facility]) documented in this encounter Additional Health Concerns Assessment Noted Time PHQ-9 Depression Total Score: 16 023 1:39 PM EST A fall risk assessment has been complete d for the patient 11/23/2022 1:43 PM EST A Body Mass Index follow-up plan has been documented for the patient 11/23/2022 2:15 PM EST documented as of this encounter Care Teams Line Person Relationship Specialty Start Date End Date Kalin Rob MD [address] [place] [address] PCP - General 02/27/21 documented as of this encounter
--- OUTSIDE RECORDS SUMMARY | 2025-04-30 14:40 | XMS_ITS | Encounter Summary ---
Author Organization [employer] ([place], [place], [place], [place]) Address [address] [place] [address] Care Team Providers Care Imaging Administrator Name Role Phone Kalin Rob MD Primary Care Provider [phone] Ann Pizano APRN Primary Care Provider + [phone] Reason for Visit * Reason Comments Medication Refill Encounter Details Date Type Department Care Team (Late st Contact Info) Description 06/28/2023 Refill [facility] Primary Care - [facility] [address] [place] [address] Kalin Rob MD [address] [place] [address] Personal history of other diseases [...] Appointment [facility] CT Imaging [address] [place] [address] Adela Watson MD [address] [place] [address] 07/24/2025 10:30 AM EDT Office Visit [facility] Primary Care - [facility] [address] [place] [phone] Ann Pizano APRN [address] [place] [address] 07/26/2025 1:30 PM EDT Office Visit [facility] Pulm & Critical Care Medicine [address] [facility] [address] [address] Adela Watson MD [address] [facility] [address] [place] [address] 07/29/2025 9:00 AM EDT Appointment [facility] Breast Imaging [address] [place] [address] 04/15/2026 9:30 AM EDT Office Visit [facility] Gastroenterology [address] [place] [address] Rex Stoll MD [address] [facility] [address] [place] [address] documented as of this encounter Visit Diagnoses Diagnosis Personal history of other diseases of the digestive system Encounter for general adult medical examination without abnormal findings documented in this encounter Care Teams Imaging Administrator Relationship Specialty Start Date End Date Kalin Rob MD PCP - General Family Medicine 10/27/22 12/28/24 Ann Pizano, AMISH [address] [place] [address] PCP - General Family Medicine 01/11/25 documented as of this encounter
--- OUTSIDE RECORDS SUMMARY | 2025-04-30 14:40 | XMS_ITS | Encounter Summary ---
Author Organization [employer] ([place], [place], [place], [place]) Address [address] [place] [address] Care Team Providers Care Food Photographer Name Role Phone Kalin Rob MD Primary Care Provider [phone] Ann Pizano APRN Primary Care Provider [phone]- [phone] Reason for Visit * Reason Onset Date Comments Medication Refill 12/17/2024 Encounter Details Date Type Department Care Team (Late st Contact Info) Description 12/17/2024 Telephone [facility] Primary Care - [facility] [address] [place] [address] Kalin Rob MD [address] [place] [address] Medication Refill Social History Tobacco [...] Date Cornelius rded Speak language other than Cypriot at home Not on file 11/04/2023 Want [...] encounter Miscellaneous Notes * Telephone Encounter - Percy MOORE Olejose Paulson - 12/17/2024 12:23 PM EST FROM: Suzie Barahona CSN: TO: [facility] 7 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 Yes LAST VISIT: 2024-10-18 NEXT VISIT: 2025-04-18 MESSAGE PRIORITY: Routine MEDICATION 1: MEDICATION TYPE: Controlled RX MEDICATION NAME: Promethazine dextromethorphan (Promethazine-DM) ORDERING PROVIDER: Kalin Rob MEDICATION DETAILS: Take 5 mLs by mouth 4 (four) times daily as needed for Cough for up to 7 days. PREFERRED PHARMACY? 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 encounter Plan of Treatment Upcoming Encounters Date Type Department Care Team (Late st Contact Info) Description 07/22/2025 1:00 PM EDT Appointment [facility] CT Imaging [address] [place] [address] Adela Watson MD [address] [address] 07/24/2025 10:30 AM EDT Office Visit [facility] Primary Care - [facility] [address] [place] [address] Ann Pizano APRN [address] [place] [address] 07/26/2025 1:30 PM EDT Office Visit [facility] Pulm & Critical Care Medicine [address] [place] [address] [address] Adela Watson MD [address] [address] 07/29/2025 9:00 AM EDT Appointment [facility] Breast Imaging [address] [place] [address] 04/15/2026 9:30 AM EDT Office Visit [facility] Gastroenterology [address] [place] [address] Rex Stoll MD 227 [facility] [address] [place] [address] documented as of this encounter Visit Diagnoses Not on filedocumented in this encounter Care Teams Food Photographer Relationship Specialty Start Date End Date Kalin Rob MD PCP - General Family Medicine 10/27/22 12/28/24 Ann Pizano, AMISH [address] [place] [address] PCP - General Family Medicine 01/11/25 documented as of this encounter
--- OUTSIDE RECORDS SUMMARY | 2025-04-30 14:40 | XMS_ITS | Encounter Summary ---
Author Organization [employer] ([place], [place], [place], [place]) Address [address] [place] [address] Care Team Providers Care Entry Level Business Analyst Name Role Phone Ann Pizano APRN Primary Care Provider [phone]- [phone] Reason for Visit * Reason Comments Medication Refill Encounter Details Date Type Department Care Team (Late st Contact Info) Description 03/07/2025 Refill [facility] Cardiology - [facility] [address] [place] [address] Jun Taylor MD [address] [facility] [address] [place] [address] Other hyperlipidemia Social History Tobacco Use Types Packs/Day Years Used Date Smoking Tobacco: Every Day Cigarettes 0.5 15 Smokeless Tobacco: Never Alcohol Use Standard Drinks/Week Comments Never 0 (1 standard drink = 0.6 oz pur e alcohol) caffeine use [facility] - Mental Health Answer Date Recorde [...] Date Cornelius rded Speak language other than Maltese at home Not on file 11/04/2023 Want [...] 1:[address] Imaging [address] [place] [address] Adela Watson MD [address] [address] 07/24/2025 10:30 AM EDT Office Visit [facility] Primary Care - [facility] [address] [place] [address] Ann Pizano APRN [address] [place] [address] 07/26/2025 1:30 PM EDT Office Visit [facility] Pulm & Critical Care Medicine [address] [facility] [address] [address] Adela Watson MD [address] [address] 07/29/2025 9:00 AM EDT Appointment Breast Imaging [address] [place] [address] 04/15/2026 9:30 AM EDT Office Visit [facility] Gastroenterology [address] [place] [address] Rex Stoll MD [address] [facility] [address] [place], [place] [id number] documented as of this encounter Visit Diagnoses Diagnosis Other hyperlipidemia documented in this encounter Care Teams Entry Level Business Analyst Relationship Specialty Start Date End Date Ann Pizano, AUTOMOTIVE PARTS COUNTER ASSISTANT [address] [place] [address] PCP - General Family Medicine 01/11/25 documented as of this encounter
--- OUTSIDE RECORDS SUMMARY | 2025-04-30 14:40 | XMS_ITS | Data Portability ---
Author Organization [facility] [place] Address [address] [place] [address] Care Team Providers Care Operating Room Technician Name Role Phone JASIEL DAS Primary Care Provider Assessment No assessment recorded. Plan of Treatment Reminders Order Date Submit Date Provider Last Modified By Organization Details Last Modified Time Details Appointments None recorded. Lab drug confirmatio n, urine [address] [facility] (Lab Registration) , [address] [place] [address] [place], [address], 5 11:25:07 drug confirmatio n, urine [address] [facility] [address] [facility] (Lab Registration) , [address] [place] [address] [place], [address], 4 12:06:42 Referral None recorded. Procedures None recorded. Surgeries None recorded. Imaging None recorded. Medication Orders hydrocodone 7.5 mg-acetamin ophen 325 mg tablet [address] [facility] [id number], [address], [place], [address], 4 13:30:13 Movantik 25 mg tablet [address] [facility] [address] [facility] [id number], [address], [place], [address], 4 15:41:30 hydrocodone 7.5 mg-acetamin ophen 325 mg tablet 2023 024 [facility] [id number], [address], [place], [address], 4 15:28:12 hydrocodone 7.5 mg-acetamin ophen 325 mg tablet 2023 024 [facility] [id number], [address], [place], [address], 15:28:15 Patient TargetsNo targets recorded. Patient Instructions Encounter Date Encounter Id Patient Instructions Last Modified By Organization Details Last Modified Time 05/04/2024 [id number] Treatment plan: Interventions: As detailed above Rehabilitation: Encouraged activity, home exercise and stretching as tolerated Screenings/Behavio ral: ORT Score: Low Risk Score: 1 Date of ORT: 06/29/2022. UDS deferred today. Medications: Byron report was reviewed and appropriate prior to prescribing any controlled substances. Medications refilled for 0 months. We discussed safe use and storage of medications. Counseled patient to only take medications as prescribed, never to combine medications with other substances including sedatives and alcohol. Advised patient to never use pain medications from other sources without prior notification or approval and not to drive or operate equipment or machinery while taking medications. I have educated the patient on utilizing non-pharmacologic measures to alleviate pain such as heat, ice, rest, relaxation, repositioning, exercise, stretches, TENS unit and/or massage. Follow up in 1 week. An electronic signature was used to sign this document. Diego Segal PA-C A total of 25 minutes was spent on this encounter. In addition to the time spent examining, evaluating and counseling the patient, this includes time spent reviewing labs, previous notes/documentatio n and Byron reports, interpreting results, placing orders/referrals and documenting the encounter. Not available 05/04/2024 11:15:45 05/11/2024 [id number] Treatment plan: Interventions: As detailed above Rehabilitation: Encouraged activity, home exercise and stretching as tolerated Screenings/Behavio ral: ORT Score: Low Risk Score: 1 Date of ORT: 06/29/2022. UDS deferred today. Medications: Byron report was reviewed and appropriate prior to prescribing any controlled substances. Medications refilled for 0 months. We discussed safe use and storage of medications. Counseled patient to only take medications as prescribed, never to combine medications with other substances including sedatives and alcohol. Advised patient to never use pain medications from other sources without prior notification or approval and not to drive or operate equipment or machinery while taking medications. I have educated the patient on utilizing non-pharmacologic measures to alleviate pain such as heat, ice, rest, relaxation, repositioning, exercise, stretches, TENS unit and/or massage. Follow up in 1 month. An electronic signature was used to sign this document. Diego Segal PA-C A total of 25 minutes was spent on this encounter. In addition to the time spent examining, evaluating and counseling the patient, this includes time spent reviewing labs, previous notes/documentatio n and Byron reports, interpreting results, placing orders/referrals and documenting the encounter. Not available 05/11/2024 11:00:30 06/15/2024 [id number] Treatment plan: Interventions: As detailed above Rehabilitation: Encouraged activity, home exercise and stretching as tolerated Screenings/Behavio ral: ORT Score: Low Risk Score: 1 Date of ORT: 06/29/2022. UDS performed today to monitor compliance and deter misuse and diversion. Medications: Byron report was reviewed and appropriate prior to prescribing any controlled substances. Medications refilled for 2 months. We discussed safe use and storage of medications. Counseled patient to only take medications as prescribed, never to combine medications with other substances including sedatives and alcohol. Advised patient to never use pain medications from other sources without prior notification or approval and not to drive or operate equipment or machinery while taking medications. I have educated the patient on utilizing non-pharmacologic measures to alleviate pain such as heat, ice, rest, relaxation, repositioning, exercise, stretches, TENS unit and/or massage. Follow up in 2 months. An electronic signature was used to sign this document. Diego Segal PA-C A total of 35 minutes was spent on this encounter. In addition to the time spent examining, evaluating and counseling the patient, this includes time spent reviewing labs, previous notes/documentatio n and Byron reports, interpreting results, placing orders/referrals and documenting the encounter. Not available 06/15/2024 11:16:18 08/10/2024 [id number] Treatment plan: Interventions: As detailed above Rehabilitation: Encouraged activity, home exercise and stretching as tolerated Screenings/Behavio ral: ORT Score: Low Risk Score: 1 Date of ORT: 06/29/2022. UDS from previous visit was reviewed and appropriate. Medications: Byron report was reviewed and appropriate prior to prescribing any controlled substances. Medications refilled for 1 months. We discussed safe use and storage of medications. Counseled patient to only take medications as prescribed, never to combine medications with other substances including sedatives and alcohol. Advised patient to never use pain medications from other sources without prior notification or approval and not to drive or operate equipment or machinery while taking medications. I have educated the patient on utilizing non-pharmacologic measures to alleviate pain such as heat, ice, rest, relaxation, repositioning, exercise, stretches, TENS unit and/or massage. Follow up in 3 months. An electronic signature was used to sign this document. Diego Segal PA-C A total of 35 minutes was spent on this encounter. In addition to the time spent examining, evaluating and counseling the patient, this includes time spent reviewing labs, previous notes/documentatio n and Byron reports, interpreting results, placing orders/referrals and documenting the encounter. Not available 08/10/2024 10:42:50 11/01/2024 [id number] Treatment plan: Interventions: As detailed above Rehabilitation: Encouraged activity, home exercise and stretching as tolerated Screenings/Behavio ral: ORT Score: Low Risk Score: 1 Date of ORT: 06/29/2022. UDS performed today to monitor compliance and deter misuse and diversion. Medications: Byron report was reviewed and appropriate prior to prescribing any controlled substances. Medications refilled for 0 months. We discussed safe use and storage of medications. Counseled patient to only take medications as prescribed, never to combine medications with other substances including sedatives and alcohol. Advised patient to never use pain medications from other sources without prior notification or approval and not to drive or operate equipment or machinery while taking medications. I have educated the patient on utilizing non-pharmacologic measures to alleviate pain such as heat, ice, rest, relaxation, repositioning, exercise, stretches, TENS unit and/or massage. Follow up as needed. An electronic signature was used to sign this document. Diego Segal PA-C A total of 25 minutes was spent on this encounter. In addition to the time spent examining, evaluating and counseling the patient, this includes time spent reviewing labs, previous notes/documentatio marcus and Byron reports, interpreting results, placing orders/referrals and documenting the encounter. Not available 11/01/2024 11:16:05 Reason for Referral None Reported. Results Created Date Observation Date Name Description Value Unit Range Abnormal Flag Note LastModifiedBy Organization Detail LastModifiedTime 04/23/20 24 04/23/2024 CBC W/ AUTO DIFF WBC 6.21 K/uL 4.5-11 .5 Not Available [facility] ([facility]) [address] [place] [address] [place], [address], 04/23/2024 12:23:08 04/23/20 24 04/23/2024 CBC W/ AUTO DIFF RBC 4.70 M/uL 4.0-5. 4 Not Available [facility] ([facility]) [address] [place] [address] [place], [address], 04/23/2024 12:23:08 04/23/20 24 04/23/2024 CBC W/ AUTO DIFF HGB 15.1 g/dL 12.0-1 5.0 high Not Available [facility] ([facility]) [address] [place] [address] [place], [address], 04/23/2024 12:23:08 04/23/20 24 04/23/2024 CBC W/ AUTO DIFF HCT 44.3 % 35-49 Not Available [facility] ([facility]) [address] [place] [address] [place], [address], 04/23/2024 12:23:08 04/23/20 24 04/23/2024 CBC W/ AUTO DIFF MCV 94.3 fL 80.0-1 00.0 Not Available [facility] ([facility]) [address] [place] [address] [place], [address], 04/23/2024 12:23:08 04/23/20 24 04/23/2024 CBC W/ AUTO DIFF MCH 32.1 pg 26.0-3 2.0 high Not Available [facility] ([facility]) [address] [place] [address] [place], [address], 04/23/2024 12:23:08 04/23/20 24 04/23/2024 CBC W/ AUTO DIFF MCHC 34.1 g/dL 32.0-3 6.0 Not Available [facility] ([facility]) [address] [place] [address] [place], [address], 04/23/2024 12:23:08 04/23/20 24 04/23/2024 CBC W/ AUTO DIFF RDW 12.9 % 11.5-1 4.5 Not Available [facility] ([facility]) [address] [place] [address] [place], [address], 04/23/2024 12:23:08 04/23/20 24 04/23/2024 CBC W/ AUTO DIFF platelet count 271 K/uL 142-42 4 Not Available [facility] ([facility]) [address] [place] [address] [place], [address], 04/23/2024 12:23:08 04/23/20 24 04/23/2024 CBC W/ AUTO DIFF MPV 10.5 fL 6.8-10 .2 high Not Available [facility] ([facility]) [address] [place] [address] [place], [address], 04/23/2024 12:23:08 04/23/20 24 04/23/2024 CBC W/ AUTO DIFF neutrophil % 47.5 % 50-70 low Not Available [facility] ([facility]) [address] [place] [address] [place], [address], 04/23/2024 12:23:08 04/23/20 24 04/23/2024 CBC W/ AUTO DIFF lymphocyte % 40.4 % 18.0-4 2.0 Not Available [facility] ([facility]) [address] [place] [address] [place], [address], 04/23/2024 12:23:08 04/23/20 24 04/23/2024 CBC W/ AUTO DIFF monocyte % 9.5 % 2.0-11 .0 Not Available [facility] ([facility]) [address] [place] [address] [place], [address], 04/23/2024 12:23:08 04/23/20 24 04/23/2024 CBC W/ AUTO DIFF eosinophil % 1.6 % 1.0-3. 0 Not Available [facility] ([facility]) [address] [place] [address] [place], [address], 04/23/2024 12:23:08 04/23/20 24 04/23/2024 CBC W/ AUTO DIFF basophil % 0.8 % 0.0-2. 0 Not Available [facility] ([facility]) [address] [place] [address] [place], [address], 04/23/2024 12:23:08 04/23/20 24 04/23/2024 CBC W/ AUTO DIFF immature granulocytes % 0.2 % 0.0-0. 8 Not Available [facility] ([facility]) [address] [place] [address] [place], [address], 04/23/2024 12:23:08 04/23/20 24 04/23/2024 CBC W/ AUTO DIFF nucleated red blood cells % 0.0 % Not Available [facility] ([facility]) [address] [place] [address] [place], [address], 04/23/2024 12:23:08 04/23/20 24 04/23/2024 CBC W/ AUTO DIFF neutrophil # 2.95 K/uL Not Available [facility] ([facility]) [address] [place] [address] [place], [address], 04/23/2024 12:23:08 04/23/20 24 04/23/2024 CBC W/ AUTO DIFF lymphocyte # 2.51 K/uL Not Available [facility] ([facility]) [address] [place] [address] [place], [address], 04/23/2024 12:23:08 04/23/20 24 04/23/2024 CBC W/ AUTO DIFF monocyte # 0.59 K/uL Not Available [facility] ([facility]) [address] [facility] [place], [address], 04/23/2024 12:23:08 04/23/20 24 04/23/2024 CBC W/ AUTO DIFF eosinophil # 0.10 K/uL Not Available [facility] ([facility]) [address] [place] [address] [place], [address], 04/23/2024 12:23:08 04/23/20 24 04/23/2024 CBC W/ AUTO DIFF basophil # 0.05 K/uL Not Available [facility] ([facility]) [address] [place] [address] [place], [address], 04/23/2024 12:23:08 04/23/20 24 04/23/2024 CBC W/ AUTO DIFF immature gramulocytes # 0.01 K/uL Not Available [facility] ([facility]) [address] [place] [address] [place], [address], 04/23/2024 12:23:08 04/23/20 24 04/23/2024 CBC W/ AUTO DIFF nucleated red blood cells # 0.00 k/uL Not Available [facility] ([facility]) [address] [place] [address] [place], [address], 04/23/2024 12:23:08 04/23/20 24 04/23/2024 CBC W/ AUTO DIFF manual differential NO Not Available [facility] ([facility]) [address] [place] [address] [place], [address], 04/23/2024 12:23:08 04/23/20 24 04/23/2024 CBC W/ AUTO DIFF note Unles s other belle noted testi ng perfo [facility]med at: [facility] [address] [place] [address] Weston mireles MD Not Available [facility] ([facility]) [address] [place] [address] [place], [address], 04/23/2024 12:23:08 04/23/20 24 04/23/2024 HEMOG LOBIN A1C HGB A1C 5.5 % 4.3-6. 1 HEMOG LOBIN LEVEL S ARE RELAT ED TO MEAN BLOOD GLUCO SE LEVEL S DURIN G THE PRECE DING 2-3 MONTH S. REFER ENCE RANGE NON-D IABET IC PATIE NTS: 4.3 - 6.1 % DIABE TIC PATIE NTS: 6.2 % AND ABOVE Not Available [facility] ([facility]) [address] [place] [address] [place], [address], 04/23/2024 13:36:13 04/23/20 24 04/23/2024 HEMOG LOBIN A1C estimated average glucose(EAG) 111 mg/dL 77-128 Not Available [facility] ([facility]) [address] [place] [address] [place], [address], 04/23/2024 13:36:13 04/23/20 24 04/23/2024 HEMOG LOBIN A1C note Unles s other belle noted testi ng perfo rmed at: [facility] [address] [place] [address] Weston mireles MD Not Available [facility] ([facility]) [address] [place] [address] [place], [address], 04/23/2024 13:36:13 04/23/20 24 04/23/2024 COMP METAB OLIC PANEL sodium 140 mmol/ L 137-14 7 Not Available [facility] ([facility]) [address] [facility] [place], [address], 04/23/2024 14:49:46 04/23/20 24 04/23/2024 COMP METAB OLIC PANEL potassium 4.5 mmol/ L 3.5-5. 1 Not Available [facility]) [address] [facility] [place], [address], 04/23/2024 14:49:46 04/23/20 24 04/23/2024 COMP METAB OLIC PANEL chloride 100 mmol/ L 98-110 Not Available [facility]) [address] [place] [address] [place], [address], 04/23/2024 14:49:46 04/23/20 24 04/23/2024 COMP METAB OLIC PANEL carbon dioxide 28 mmol/ L 21-30 Not Available [facility] ([facility]) [address] [place] [address] [place], [address], 04/23/2024 14:49:46 04/23/20 24 04/23/2024 COMP METAB OLIC PANEL anion gap 12 mmol/ L 6-14 Not Available [facility] ([facility]) [address] [place] [address] [place], [address], 04/23/2024 14:49:46 04/23/20 24 04/23/2024 COMP METAB OLIC PANEL glucose 90 mg/dL 70-115 Not Available [facility] ([facility]) [address] [place] [address] [place], [address], 04/23/2024 14:49:46 04/23/20 24 04/23/2024 COMP METAB OLIC PANEL BUN 8 mg/dL 7-17 Not Available [facility] ([facility]) [address] [place] [address] [place], [address], 04/23/2024 14:49:46 04/23/20 24 04/23/2024 COMP METAB OLIC PANEL creatinine 0.8 mg/dL 0.5-1. 5 Not Available [facility] ([facility]) [address] [place] [address] [place], [address], 04/23/2024 14:49:46 04/23/20 24 04/23/2024 COMP METAB OLIC PANEL BUN/creatini ne ratio 10 ratio 10-20 Not Available [facility] ([facility]) [address] [place] [address] [place], [address], 04/23/2024 14:49:46 04/23/20 24 04/23/2024 COMP METAB OLIC PANEL glom filtration rate 91 mL/mi n >60- Not Available [facility] ([facility]) [address] [place] [address] [place], [address], 04/23/2024 14:49:46 04/23/20 24 04/23/2024 COMP METAB OLIC PANEL osmolality (calculated) 289 mosmo l/kg 275-30 1 OSMOL ALITY IS A CALCU LATIO N UTILI ZING THE SERUM /PLAS MA SODIU M, GLUCO SE AND UREA NITRO GEN (BUN) LEVEL S. FOR THE MOST ACCUR ATE RESUL T A MEASU RED SERUM OSMOL ALITY IS SUGGE STED. Not Available [facility] ([facility]) [address] [place] [address] [place], [address], 04/23/2024 14:49:46 04/23/20 24 04/23/2024 COMP METAB OLIC PANEL total protein 7.9 g/dL 6.2-8. 2 Not Available [facility] ([facility]) [address] [place] [address] [place], [address], 04/23/2024 14:49:46 04/23/20 24 04/23/2024 COMP METAB OLIC PANEL albumin 5.1 g/dL 3.5-5. 0 high Not Available [facility] ([facility]) [address] [place] [address] [place], [address], 04/23/2024 14:49:46 04/23/20 24 04/23/2024 COMP METAB OLIC PANEL calcium 10.1 mg/dL 8.5-10 .8 Not Available [facility]) [address] [place] [address] [place], [address], 04/23/2024 14:49:46 04/23/20 24 04/23/2024 COMP METAB OLIC PANEL bilirubin total 0.9 mg/dL 0.2-1. 3 Not Available [facility] ([facility]) [address] [place] [address] [place], [address], 04/23/2024 14:49:46 04/23/20 24 04/23/2024 COMP METAB OLIC PANEL AST (SGOT) 40 IU/L 14-36 high Not Available [facility] ([facility]) [address] [place] [address] [place], [address], 04/23/2024 14:49:46 04/23/20 24 04/23/2024 COMP METAB OLIC PANEL ALT (SGPT) 40 IU/L 0-35 high Pleas e note new refer ence inter elier for ALT. Due to a recen t manuf actur er metho dolog y mg e, the refer ence inter elier for ALT is lower effec tive February 05, 2021. Not Available [facility] ([facility]) [address] [place] [address] [place], [address], 04/23/2024 14:49:46 04/23/20 24 04/23/2024 COMP METAB OLIC PANEL alk phosphatase 101 IU/L 38-126 Not Available [facility] ([facility]) [address] [place] [address] [place], [address], 04/23/2024 14:49:46 04/23/20 24 04/23/2024 COMP METAB OLIC PANEL note Unles s other belle noted testi ng perfo rmed at: [facility] [address] [place] [address] Weston mireles MD Not Available [facility] ([facility]) [address] [place] [address] [place], [address], 04/23/2024 14:49:46 06/15/20 24 06/15/2024 COMPL IANCE DRUG FRANCES SIS, UR note Unles s other belle noted testi ng perfo rmed at: [facility] [address] [place] [address] Weston mireles MD Not Available [facility]) [address] [facility] [place], [address], 06/23/2024 16:15:30 06/15/20 24 06/23/2024 COMPL IANCE DRUG FRANCES SIS, UR summary FINAL ===== ===== ===== ===== ===== ===== ===== ===== ===== ===== ===== ===== ===== === TOXAS SURE COMP DRUG FRANCES SIS,U R ===== ===== ===== ===== ===== ===== ===== ===== ===== ===== ===== ===== ===== === Test Resul t Flag Uni ts Drug Prese nt [place] codon e 3273 ng/ mg creat [place] morph one 415 ng/ mg creat Dihyd rocod eine 388 ng/ mg creat Norhy droco done 1635 ng/ mg creat Sourc es of hydro codon e inclu de sched uled presc ripti on medic ation s. [place] morph one, dihyd rocod eine and norhy droco done are expec tha metab olite s of hydro codon e. [place] morph one and dihyd rocod eine are also avail able as sched uled presc ripti on medic ation s. Aceta minop hen PRESE NT ===== ===== ===== ===== ===== ===== ===== ===== ===== ===== ===== ===== ===== === Test Resul t Flag Units Ref Ra nge Creat inine 26 mg/dL >=20 ===== ===== ===== ===== ===== ===== ===== ===== ===== ===== ===== ===== ===== === Decla red Medic ation s: Medic ation list was not provi ded. ===== ===== ===== ===== ===== ===== ===== ===== ===== ===== ===== ===== ===== === For clini krunal consu ltati on, pleas e call [phone]. ===== ===== ===== ===== ===== ===== ===== ===== ===== ===== ===== ===== ===== === Not Available [facility]) [address] [place] [address] [place], [address], 06/23/2024 16:15:30 06/15/20 24 06/23/2024 COMPL IANCE DRUG FRANCES SIS, UR pdf . Perfo rmed at: [facility] [address] [facility] [place] [address] Lab Direc tor: Renetta navarro [facility] , Phone : [phone] Not Available [facility]) [address] [place] [address] [place], [address], 06/23/2024 16:15:30 11/01/19 25 11/01/2024 COMPL IANCE DRUG FRANCES SIS, UR note Unles s other belle noted testi ng perfo rmed at: [facility] [address] [place] [address] Weston mireles MD Not Available [facility]) [facility] [address], [place], [address], 11/09/2024 14:14:58 11/01/1911/09/2024 COMPL IANCE DRUG FRANCES SIS, UR summary FINAL ===== ===== ===== ===== ===== ===== ===== ===== ===== ===== ===== ===== ===== === TOXAS SURE COMP DRUG FRANCES SIS,U R ===== ===== ===== ===== ===== ===== ===== ===== ===== ===== ===== ===== ===== === Test Resul t Flag Uni ts NO DRUGS DETEC THA. ===== ===== ===== ===== ===== ===== ===== ===== ===== ===== ===== ===== ===== === Test Resul t Flag Units Ref Ra nge Creat inine 38 mg/dL >=20 ===== ===== ===== ===== ===== ===== ===== ===== ===== ===== ===== ===== ===== === Decla red Medic ation s: Medic ation list was not provi ded. ===== ===== ===== ===== ===== ===== ===== ===== ===== ===== ===== ===== ===== === For clini krunal consu ltati on, pleas e call [phone]. ===== ===== ===== ===== ===== ===== ===== ===== ===== ===== ===== ===== ===== === Not Available [facility]) [address] [place] [address] [place], [address], 11/09/2024 14:14:58 11/01/19 25 11/09/2024 COMPL IANCE DRUG FRANCES SIS, UR pdf . Perfo rmed at: [employer] [facility] [address] [place] [address] Lab Direc tor: Renetta navarro [facility] , Phone : [phone] Not Available [facility]) [address] [place] [address] [place], [address], 11/09/2024 14:14:58 Result Notes None recorded. Problems Name Problem SNOMED Code Status Onset Date Resolution Date Notes Provider Name and Address Organization Details Recorded Time Difficult y walking 240687767 Active 2020 Difficult y walking Whitney cook [place] - [facility] [place] [facility] [place] 2 11:01:04 Lumbar spondylos is 323086258 Active 2019 Whitney cook ELA[place] - [facility] [place] 2 11:05:33 Lumbar radiculop athy 368348601 Active 2020 Lumbar radiculop athy Whitney cook [place] - [facility] - [place] 2 11:05:30 Chronic pain 77856073 Active 2019 Whitney cook [place] - [facility] - [place] 2 11:00:47 Myofascia l pain 226733092 Active 2020 Whitney cook [place] - [facility] - [place] 2 11:05:37 Irritable bowel syndrome with diarrhea [id number] Active 2019 Irritable bowel syndrome with diarrhea E[place] Grove [facility] [place] 2 11:05:27 Taking high risk medicatio n [id number] 107 Active 2021 [place] [facility] [place] 2 16:08:19 Problem Notes None recorded. Procedures Surgical History Date Name Laterality Status Provider Name and Address Organization Details Recorded Time 05/17/20 22 Date of Last Pap Smear completed Whitney MENDEZ [facility] [place] 10/20/2022 13:48:23 10/17/19 22 Back Surgery completed Whitney MENDEZ [facility] [place] 08/23/2022 11:39:11 05/17/20 21 completed Whitney MENDEZ [facility] [place] 10/20/2022 13:48:23 Dilation and curettage completed Whitney HENRY VANESSA [facility] [place] 06/29/2022 11:08:02 implantation of permanent spinal cord stimulator completed Xiomara Carroll [facility]INE [facility] [place] 05/11/2024 10:33:17 Imaging Results None recorded. Procedure Notes None recorded. Medical Equipment None Reported. Allergies Allergen ID Allergen Name Allergen Category Reaction Reaction Severity Criticality Documentation Date Start Date Code Code System Note Provider Name and Address Organization Details Recorded Time 22575 Substance with sulfonami de structure and antibacte rial mechanism of action (substanc e) medicatio n Not available Not available Not available 07/22/2022 46081 [id number] SNOMED [place] [facility] [place] 2 16:06:13 Medications Name Sig Start Date Stop Date Status Note LastModified by Organization Details LastModified Time BD Luer-Jessica Syringe 3 mL 23 x 1 INJECT 1 SYRINGE INTRAMUSC ULARLY EVERY 7 DAYS active Not Available Not Available No t Available amoxicillin 500 mg capsule TAKE 1 CAPSULE BY MOUTH THREE TIMES A DAY 04/26 completed Not Available Not Available Not Available promethazin e-DM 6.25 mg-15 mg/5 mL oral syrup 02/26 completed Not Available Not Available Not Available prednisone 10 mg tablet 10/20 completed Not Available Not Available Not Available diltiazem ER 180 mg capsule,24 hr,extended release 1 capsule Orally Once a day for 30 day(s) 04/26 completed Not Available Not Available Not Available clindamycin HCl 300 mg capsule TAKE 1 CAPSULE BY MOUTH EVERY 8 HOURS FOR 7 DAYS 10/20 completed Not Available Not Available Not Available azithromyci n 250 mg tablet TAKE 2 TABLETS BY MOUTH TODAY, THEN TAKE 1 TABLET DAILY FOR 4 DAYS DIRECTED 02/26 completed Not Available Not Available Not Available ibuprofen 800 mg tablet TAKE 1 TABLET BY MOUTH TWICE A DAY WITH FOOD active Not Available Not Available No t Available diltiazem CD 180 mg capsule,ext ended release 24 hr TAKE 1 CAPSULE BY MOUTH EVERY DAY active Not Available Not Available No t Available Lidocaine Viscous 2 % mucosal solution APPLY A PEA SIZE AMOUNT TO AFFECTED AREA 4-6 TIMES A DAY FOR PAIN 02/26 completed Not Available Not Available Not Available hydrocodone 5 mg-acetamin ophen 325 mg tablet Take 1 tablet 4 times a day by oral route for 30 days. 02/26 completed Not Available Not Available Not Available meloxicam 15 mg tablet Take 1 tablet every day by oral route for 30 days. 05/10 completed Not Available Not Available Not Available prednisone 20 mg tablet TAKE 2 TABLETS BY MOUTH DAILY FOR 5 DAYS, THEN 1 TABLETS DAILY FOR 5 DAYS 02/26 completed Not Available Not Available Not Available gabapentin 400 mg capsule 1 {capsule} 3 times a day by oral route. 09/22 completed Not Available Not Available Not Available prednisone 5 mg tablet 02/26 completed Not Available Not Available Not Available diphenoxyla te-atropine 2.5 mg-0.025 mg tablet 1 tablet as needed Orally Four times a day for 30 days 11/15 completed Not Available Not Available Not Available leflunomide 10 mg tablet active Not Available Not Available Not Available leflunomide 20 mg tablet 1 tablet Orally Once a day for 30 day(s) active Not Available Not Available No t Available gabapentin 800 mg tablet TAKE 1 TABLET BY MOUTH THREE TIMES A DAY active Not Available Not Available No t Available hydrocodone 7.5 mg-acetamin ophen 325 mg tablet Take 1 tablet every day by oral route for 30 days. active Not Available Not Available No t Available pantoprazol e 40 mg tablet,delfin yed release TAKE 1 TABLET BY MOUTH EVERY DAY active Not Available Not Available No t Available erythromyci n 5 mg/gram (0.5 %) eye ointment 10/20 completed Not Available Not Available Not Available cyanocobala min (vit B-12) 1,000 mcg/mL injection solution INJECT 1 ML DIRECTED ONCE A MONTH active Not Available Not Available No t Available nitroglycer in 0.4 mg sublingual tablet PLEASE SEE ATTACHED FOR DETAILED DIRECTION S active Not Available Not Available No t Available pyridoxine (vitamin B6) 50 mg tablet TAKE 1 TABLET BY MOUTH EVERY DAY active Not Available Not Available No t Available omeprazole 20 mg capsule,del ayed release TAKE 1 CAPSULE BY MOUTH EVERY DAY 05/04 completed Not Available Not Available Not Available montelukast 10 mg tablet TAKE 1 TABLET BY MOUTH EVERY DAY AT NIGHT active Not Available Not Available No t Available mupirocin 2 % topical ointment 10/20 completed Not Available Not Available Not Available zolpidem 5 mg tablet 1 tablet at bedtime Orally Once a day 11/15 completed Not Available Not Available Not Available hydroxychlo roquine 200 mg tablet active Not Available Not Available No t Available levofloxaci n 500 mg tablet 04/26 completed Not Available Not Available Not Available methylpredn isolone 4 mg tablets in a dose pack TAKE 6 TABLETS ON DAY 1 DIRECTED ON PACKAGE AND DECREASE BY 1 TAB EACH DAY FOR A TOTAL OF 6 DAYS 02/26 completed Not Available Not Available Not Available propranolol 20 mg tablet 1 tablet on an empty stomach Orally Once a day for 30 day(s) 11/15 completed Not Available Not Available Not Available oxybutynin chloride 5 mg tablet 1 tablet Orally Twice a day for 30 day(s) 03/08 completed Not Available Not Available Not Available hydroxyzine HCl 10 mg tablet TAKE 1 TABLET BY MOUTH TWICE A DAY AT 9 AM AND 9 PM NEEDED FOR ANXIETY/P ANIC 03/08 completed Not Available Not Available Not Available fluticasone propionate 50 mcg/actuati on nasal spray,suspe nsion SPRAY 1 SPRAY INTO EACH NOSTRIL EVERY DAY active Not Available Not Available No t Available cholecalcif danyn (vitamin D3) 125 mcg (5,000 unit) capsule TAKE 1 CAPSULE BY MOUTH TWICE A DAY active Not Available Not Available No t Available loratadine 10 mg tablet TAKE 1 TABLET BY MOUTH TWICE A DAY active Not Available Not Available No t Available rosuvastati n 5 mg tablet 1 tablet Orally Once a day for 30 day(s) 04/26 completed Not Available Not Available Not Available rosuvastati n 20 mg tablet TAKE 1 TABLET (20 MG TOTAL) BY MOUTH IN THE MORNING FOR 90 DAYS. active Not Available Not Available No t Available DILT-XR 180 mg capsule, extended release TAKE 1 CAPSULE BY MOUTH EVERY DAY 02/26 completed Not Available Not Available Not Available duloxetine 60 mg capsule,del ayed release TAKE 2 CAPSULES BY MOUTH EVERY DAY 11/15 completed Not Available Not Available Not Available chlorhexidi ne gluconate 0.12 % mouthwash RINSE AND SPIT 15 ML'S TWICE DAILY AFTER BREAKFAST /BEFORE BEDTIME FOLLOWING BRUSHING AND FLOSSING 02/26 completed Not Available Not Available Not Available desvenlafax ine succinate ER 50 mg tablet,exte nded release 24 hr TAKE 1 TABLET BY MOUTH ONCE DAILY. TAKE WITH 100 MG TAB 11/15 completed Not Available Not Available Not Available desvenlafax ine succinate ER 100 mg tablet,exte nded release 24 hr TAKE 2 TABLETS BY MOUTH DAILY 03/08 completed Not Available Not Available Not Available Senexon-S 8.6 mg-50 mg tablet TAKE 1 TABLET BY MOUTH TWICE DAILY NEEDED FOR CONSTIPAT ION active Not Available Not Available No t Available pramipexole ER 1.5 mg tablet,exte nded release 24 hr 1 tablet Orally Once a day for 30 day(s) 03/08 completed Not Available Not Available Not Available sodium,pota ssium,mag sulfates 17.5 gram-3.13 gram-1.6 gram oral soln TAKE 177 MLS BY MOUTH 2 (TWO) TIMES DAILY FOR 1 DAY. 05/04 completed Not Available Not Available Not Available Antiseptic Skin Cleanser (chlorhexid ine) 4 % liquid SHOWER EACH DAY WITH SOLUTION FOR 5 DAYS BEGINNING 5 DAYS BEFORE SURGERY. 10/20 completed Not Available Not Available Not Available Viibryd 40 mg tablet 1 tablet with food Orally Once a day for 30 day(s) 10/20 completed Not Available Not Available Not Available Movantik 25 mg tablet Take 1 tablet every day by oral route for 30 days. 2023 active Not Available Not Available Not Avai lable Narcan 4 mg/actuatio n nasal spray 1 spray per nasal inhalatio n as directed for suspected opioid overdose. CALL 911 if used! 11/15 completed Not Available Not Available Not Available Orencia ClickJect 125 mg/mL subcutaneou s auto-inject or active Not Available Not Available Not Available Enbrel Mini 50 mg/mL (1 mL) subcutaneou s cartridge 10/20 completed Not Available Not Available Not Available Kevzara 150 mg/1.14 mL subcutaneou s pen injector 11/15 completed Not Available Not Available Not Available Vitals Date Recorded Body height Body mass index (BMI) Body weight Body temperature Heart rate Oxygen saturation Oxygen saturation in Arterial blood by Pulse oximetry Systolic And Diastolic Provider Name and Address Organization Details Last Updated DateTime 5 162.56 cm 28.8 kg/m2 07094.5 2 g 97.9 [degF] 72 /min 97 % 97 % 125/83 mm[Hg] [facility] [place] 5 10:48:14 Date Recorded Body height Body mass index (BMI) Body weight Body temperature Heart rate Oxygen saturation Oxygen saturation in Arterial blood by Pulse oximetry Systolic And Diastolic Provider Name and Address Organization Details Last Updated DateTime 4 162.56 cm 28.2 kg/m2 25419.5 9 g 97.3 [degF] 66 /min 97 % 97 % 118/81 mm[Hg] [facility] [place] 4 08:42:42 Date Recorded Body height Body mass index (BMI) Body weight Body temperature Heart rate Oxygen saturation Oxygen saturation in Arterial blood by Pulse oximetry Respiratory rate Systolic And Diastolic Provider Name and Address Organization Details Last Updated DateTime 4 162.56 cm 27.6 kg/m2 10172.3 7 g 96.3 [degF] 74 /min 97 % 97 % 18 /min 117/77 mm[Hg] Xiomara [facility] [place] 4 10:32:27 Date Recorded Body height Body mass index (BMI) Body weight Body temperature Oxygen saturation Oxygen saturation in Arterial blood by Pulse oximetry Systolic And Diastolic Provider Name and Address Organization Details Last Updated DateTime 4 162.56 cm 28.1 kg/m2 38324.4 3 g 97 [degF] 96 % 96 % 153/84 mm[Hg] Kamila Sinha [facility] [place] 4 11:10:17 Date Recorded Body height Body mass index (BMI) Body weight Body temperature Heart rate Oxygen saturation Oxygen saturation in Arterial blood by Pulse oximetry Systolic And Diastolic Provider Name and Address Organization Details Last Updated DateTime 4 162.56 cm 28.3 kg/m2 79848.0 2 g 97.5 [degF] 80 /min 96 % 96 % 129/83 mm[Hg] Lilly Moscoso [facility] [place] 4 10:27:54 Social History Question Answer Notes LastModified by [employer] Details LastModified Time Tobacco Smoking Status [facility] [place] 08/23/2022 11:39:11 Do You Have An Advance Directive? No Information not available 08/23/2022 Are You Blind Or Do You Have Difficulty Seeing? No Information not available 08/23/2022 What Was The Date Of Your Most Recent Tobacco Screening? 08/23/2022 Information not available 08/23/2022 Are You Passively Exposed To Smoke? Yes Information not available 08/23/2022 How Much Tobacco Do You Smoke? 1 PPD Information not available 08/23/2022 How Many Years Have You Smoked Tobacco? 24 Information not available 08/23/2022 Sex: Female Functional Status Question Answer Note LastModified by [facility] ion Details LastModified Time Do you use any illicit or recreational drugs? No Information not available 06/29/2022 What is your level of alcohol consumption? None Information not available 06/29/2022 Do you or have you ever used smokeless tobacco? Never used smokeless tobacco Information not available 08/23/2022 What is your exercise level? Occasional Information not available 08/23/2022 Mental Status Question Answer Note LastModified by Organization D etails LastModified Time Do you feel stressed (tense, restless, nervous, or anxious, or unable to sleep at night)? [id number] Information not available 08/23/2022 Family History Relationship Description Onset Age of this Age Resolved Age Notes LastModified by Organization Details LastModified Time Father No current problems or disability diagno sed with Hypert ension , Hyperl ipidem ia Not available 11/01/2024 10:40:20 Father Allergy pt. added direct ly (08/23) [email or web address]-13 Not available 08/23/2022 11:02:17 Father Hypercholest erolemia pt. added direct ly (08/23) API-13 Not available 08/23/2022 11:04:24 Father Hypertensive disorder pt. added direct ly (08/23) API-13 Not available 08/23/2022 11:04:44 Mother No current problems or disability diagno sed with Hypert ension , Hyperl ipidem ia Not available 11/01/2024 10:40:20 Mother Allergy pt. added direct ly (08/23) [email or web address]-13 Not available 08/23/2022 11:02:17 Mother Anemia pt. added direct ly (08/23) API-13 Not available 08/23/2022 11:02:24 Mother Disorder of endocrine system pt. added direct ly (08/23) API-13 Not available 08/23/2022 11:02:48 Mother Gastroesopha geal reflux disease pt. added direct ly (08/23) API-13 Not available 08/23/2022 11:03:11 Mother Hypercholest erolemia pt. added direct ly (08/23) API-13 Not available 08/23/2022 11:04:24 Mother Hypertensive disorder pt. added direct ly (08/23) API-13 Not available 08/23/2022 11:04:44 Mother Rheumatoid arthritis pt. added direct ly (08/23) API-13 Not available 08/23/2022 11:05:19 Mother Disorder of thyroid gland pt. added direct ly (08/23) API-13 Not available 08/23/2022 11:05:40 Brother No current problems or disability diagno sed with Hypert ension , Hyperl ipidem ia Not available 11/01/2024 10:40:20 Brother Allergy pt. added direct ly (08/23) API-13 Not available 08/23/2022 11:02:17 Brother Gastroesopha geal reflux disease pt. added direct ly (08/23) API-13 Not available 08/23/2022 11:03:11 Brother Hypercholest erolemia pt. added direct ly (08/23) API-13 Not available 08/23/2022 11:04:24 Brother Hypertensive disorder pt. added direct ly (08/23) API-13 Not available 08/23/2022 11:04:44 Maternal Grandmother Allergy pt. added direct ly (08/23) API-13 Not available 08/23/2022 11:02:17 Maternal Grandmother Chronic obstructive pulmonary disease pt. added direct ly (08/23) API-13 Not available 08/23/2022 11:02:40 Maternal Grandmother Gastroesopha geal reflux disease pt. added direct ly (08/23) API-13 Not available 08/23/2022 11:03:11 Maternal Grandmother Hearing loss pt. added direct ly (08/23) API-13 Not available 08/23/2022 11:03:24 Maternal Grandmother Heart disease pt. added direct ly (08/23) API-13 Not available 08/23/2022 11:04:06 Maternal Grandmother Hypercholest erolemia pt. added direct ly (08/23) API-13 Not available 08/23/2022 11:04:24 Maternal Grandmother Hypertensive disorder pt. added direct ly (08/23) API-13 Not available 08/23/2022 11:04:44 Maternal Grandmother Rheumatoid arthritis pt. added direct ly (08/23) API-13 Not available 08/23/2022 11:05:19 Maternal Grandmother Disorder of thyroid gland pt. added direct ly (08/23) API-13 Not available 08/23/2022 11:05:40 Paternal Grandmother Allergy pt. added direct ly (08/23) API-13 Not available 08/23/2022 11:02:17 Paternal Grandmother Hearing loss pt. added direct ly (08/23) API-13 Not available 08/23/2022 11:03:24 Paternal Grandmother Myocardial infarction pt. added direct ly (08/23) API-13 Not available 08/23/2022 11:03:47 Paternal Grandmother Heart disease pt. added direct ly (08/23) API-13 Not available 08/23/2022 11:04:06 Paternal Grandmother Hypercholest erolemia pt. added direct ly (08/23) API-13 Not available 08/23/2022 11:04:24 Paternal Grandmother Hypertensive disorder pt. added direct ly (08/23) API-13 Not available 08/23/2022 11:04:44 Paternal Grandfather Allergy pt. added direct ly (08/23) API-13 Not available 08/23/2022 11:02:17 Paternal Grandfather Hearing loss pt. added direct ly (08/23) API-13 Not available 08/23/2022 11:03:24 Paternal Grandfather Myocardial infarction pt. added direct ly (08/23) API-13 Not available 08/23/2022 11:03:47 Paternal Grandfather Heart disease pt. added direct ly (08/23) API-13 Not available 08/23/2022 11:04:06 Paternal Grandfather Hypercholest erolemia pt. added direct ly (08/23) API-13 Not available 08/23/2022 11:04:24 Paternal Grandfather Hypertensive disorder pt. added direct ly (08/23) API-13 Not available 08/23/2022 11:04:44 Maternal Grandfather Myocardial infarction pt. added direct ly (08/23) API-13 Not available 08/23/2022 11:03:47 Maternal Grandfather Heart disease pt. added direct ly (08/23) API-13 Not available 08/23/2022 11:04:06 Maternal Grandfather Hypercholest erolemia pt. added direct ly (08/23) API-13 Not available 08/23/2022 11:04:24 Maternal Grandfather Hypertensive disorder pt. added direct ly (08/23) API-13 Not available 08/23/2022 11:04:44 Medical History Condition Response Obstructive Sleep Apnea Y Autoimmune disease Y Arthritis Y Acid Reflux (GERD) Y High Cholesterol Y Rheumatoid Arthritis Y Anemia Y Back Problems Y Reflux/GERD Y Hypertension Y Gynecological History Statement/Question Response Abnormal Pap N 05/17/2021 Sexually Active? N Menses Monthly N Date of Last Pap Smear 05/17/2022 Current Control Method None Obstetrics History GPAL:G 0 P 0 0 0 0 Past Encounters Encounter ID Performer Location Encounter Start Date Encounter Closed Date Diagnosis/Indication Diagnosis SNOMED-CT Code Diagnosis ICD10 Code Diagnosis Note [id number] Milla Smith NP [facility] [address] [place] [address] 06/29/2022 10:15:32 06/29/2022 11:53:23 Taking high risk medication 2076200777 96883 Z79.899 [facility] # [id number] reviewed and appropriat e.Pain inventory reviewed and scanned into chart.CAGE : 0ORT: 1 LOW risk. Pill count: 12/11/2020 , 06/05/2021 , 01/11/2022 appropriat e No aberrant behaviors. Denies significan t psychiatri c or substance abuse history.De nies overdose.D enies history of addiction or rehabilita tion treatment. Denies legal issues with illegal or controlled substances . The FDA currently recommends that all patients on opiates have Narcan for emergency use in the case of an overdose. To be in compliance a narcan prescripti on has been provided to the patient. The patient has been educated on how to appropriat que use the reversal agent, and verbalizes understand ing that using Narcan would necessitat e being evaluated by emergency medical care. Discussed the risks versus benefits of utilizing medication s, including those that are controlled , for chronic pain management . Discussed potential side effects of the medication s being used. Advised patient to take medication s exactly as prescribed . Advised patient to not mix current medication s with illicit, controlled , depressant or sedative type medication s/substanc es as this could result in overdose and/or . Counselled on safe usage and storage. Advised that if there are questions or concerns regarding the medication or treatment plan to contact our office immediatel y. Controlled substance contract on file. Patient verbalizes understand ing Lumbar radiculopathy 128 M54.16 Most recent LESI at L5/S1 only gave benefit for 1 day. Continue current medication regimen Continue home exercise program Continue conservati ve treatments , to include: 1. OTC analgesics as appropriat e 2. Rest 3. Ice-Wrap ice pack in towel and apply to area for 20 minutes 3 times a day 4. Heat 5. OTC pain relieving creams/mus jey rubs Lumbar spondylosis 03116 0009 M47.816 Continue current medication regimen Continue home exercise program Continue conservati ve treatments , to include: 1. OTC analgesics as appropriat e 2. Rest 3. Ice-Wrap ice pack in towel and apply to area for 20 minutes 3 times a day 4. Heat 5. OTC pain relieving creams/mus jey rubs Myofascial pain 29530000 9 M79.18 Continue current medication regimen.St retch the affected area.Massa ge the affected area with your hands or a massage roller.Sta nd up and walk around.Avila ly heat or ice. Chronic pain 72219555 G8 9.29 Continue current medication regimen Continue home exercise program [id number] Milla Smith NP [facility] [address] [place], [place] [address] 07/22/2022 16:10:41 07/22/2022 17:54:26 Taking high risk medication [id number] 75120 Z91.89 Continue current medication regimen Continue current home exercise program Chronic pain 74140421 G8 9.29 Continue current medication regimen Continue current home exercise program Lumbar radiculopathy 128 M54.16 Most recent LESI at L5/S1 only gave benefit for 1 day. Continue current medication regimen Continue home exercise program Continue conservati ve treatments , to include: 1. OTC analgesics as appropriat e 2. Rest 3. Ice-Wrap ice pack in towel and apply to area for 20 minutes 3 times a day 4. Heat 5. OTC pain relieving creams/mus jey rubs Lumbar spondylosis 35334 0009 M47.816 Continue current medication regimen Continue home exercise program Continue conservati ve treatments , to include: 1. OTC analgesics as appropriat e 2. Rest 3. Ice-Wrap ice pack in towel and apply to area for 20 minutes 3 times a day 4. Heat 5. OTC pain relieving creams/mus jey rubs Myofascial pain 75736114 9 M79.18 Continue current medication regimen.St retch the affected area.Massa ge the affected area with your hands or a massage roller.Sta nd up and walk around.Avila ly heat or ice. Difficulty walking 70244 2002 R26.2 Continue current medication regimen Continue home exercise program [id number] [facility] [address] [place], [place] [address] 08/23/2022 11:10:54 08/23/2022 12:12:58 Lumbar radiculopathy 129447633 M54.16 Most recent LESI at L5/S1 only gave benefit for 1 day. Continue current medication regimen Continue home exercise program Continue conservati ve treatments , to include: 1. OTC analgesics as appropriat e 2. Rest 3. Ice-Wrap ice pack in towel and apply to area for 20 minutes 3 times a day 4. Heat 5. OTC pain relieving creams/mus jey rubs Lumbar spondylosis 35271 0009 M47.816 Continue current medication regimen Continue home exercise program Continue conservati ve treatments , to include: 1. OTC analgesics as appropriat e 2. Rest 3. Ice-Wrap ice pack in towel and apply to area for 20 minutes 3 times a day 4. Heat 5. OTC pain relieving creams/mus jey rubs Myofascial pain 26812614 9 M79.18 Continue current medication regimen.St retch the affected area.Massa ge the affected area with your hands or a massage roller.Sta nd up and walk around.Avila ly heat or ice. Taking hig h risk medication [id number] 05083 Z79.899 Continue current medication regimen Continue home exercise program Chronic pain 23733988 G8 9.29 Continue current medication regimen Continue home exercise program [id number] Milla Luis, CRUST SORTER [facility] [address] [place] [address] 09/23/2022 13:17:36 09/24/2022 10:35:25 Lumbar radiculopathy 936168945 M54.16 Most recent LESI at L5/S1 only gave benefit for 1 day. Stopped mobic-caus ing GI issues. Continue current medication regimenCon tinue home exercise programCon tinue conservati ve treatments , to include:1. OTC analgesics as appropriat e2. Rest3. Ice-Wrap ice pack in towel and apply to area for 20 minutes 3 times a day4. Heat5. OTC pain relieving creams/mus jey rubs Lumbar spondylosis 57282 0009 M47.816 Continue current medication regimen Continue home exercise program Continue conservati ve treatments , to include: 1. OTC analgesics as appropriat e 2. Rest 3. Ice-Wrap ice pack in towel and apply to area for 20 minutes 3 times a day 4. Heat 5. OTC pain relieving creams/mus jey rubs Myofascial pain 95402190 9 M79.18 Continue current medication regimen.St retch the affected area.Massa ge the affected area with your hands or a massage roller.Sta nd up and walk around.Avila ly heat or ice. Taking hig h risk medication [id number] 66382 Z79.899 Continue current medication regimen Continue home exercise program Chronic pain 29849896 G8 9.29 Continue current medication regimen Continue home exercise program [id number] [facility] [address] [place] [address] 10/20/2022 13:35:46 10/20/2022 14:23:39 Chronic pain 01987522 G89.29 Continue current medication regimen Continue home exercise program Lumbar radiculopathy 128 [id number] M54.16 Most recent LESI at L5/S1 only gave benefit for 1 day.Patien t interested in possibly pursuing spinal cord stimulator . Will have patient follow up with Dr. Mike to discuss. Continue current medication regimenCon tinue home exercise programCon tinue conservati ve treatments , to include:1. OTC analgesics as appropriat e2. Rest3. Ice-Wrap ice pack in towel and apply to area for 20 minutes 3 times a day4. Heat5. OTC pain relieving creams/mus jey rubs Lumbar spondylosis 56716 0009 M47.816 Continue current medication regimen Continue home exercise program Continue conservati ve treatments , to include: 1. OTC analgesics as appropriat e 2. Rest 3. Ice-Wrap ice pack in towel and apply to area for 20 minutes 3 times a day 4. Heat 5. OTC pain relieving creams/mus jey rubs Myofascial pain 12611701 9 M79.18 Continue current medication regimen.St retch the affected area.Massa ge the affected area with your hands or a massage roller.Sta nd up and walk around.Avila ly heat or ice. Taking hig h risk medication [id number] 26116 Z79.899 Continue current medication regimen Continue home exercise program [id number] Jc Mike MD [facility] [address] [place] [address] 11/16/2022 13:31:08 11/16/2022 14:42:34 Lumbar radiculopathy [id number] M54.16 Lumbar radiculiti sBilateral L5 S1 radiculiti sExaminati on history consistent with lumbar radiculiti s. Patient hashistory of lower back pain radiating down the legs bilaterall y,examinat ion has positive SLR, recent MRI of lumbar spine also supportsth e diagnosis. Patient has failed1 Conservati ve management for more than six months2 Oral opioids, hydrocodon e3 Topical diclofenac gel4 Gabapentin 5 NSAID6 Home physical therapy- For the last 4 months without much benefit7 Patient does not like to take long-term oral opioids. [facility] Right L4-L5 epidural steroid injection as soonas possible.M eanwhile treat the patient right oral opioids and membrane stabilizer s.if she does not benefit we might consider stimulator trial in the future. Chronic pain 36600502 G8 9.29 Continue current medication regimen Continue home exercise program Lumbar spondylosis 41065 0009 M47.816 Continue current medication regimenCon tinue home exercise programCon tinue conservati ve treatments , to include: Taking hig h risk medication [id number] 24812 Z79.899 Continue current medication regimen Continue home exercise program [id number] MD Jignesh [facility] [address] [place] [address] 01/13/2023 13:15:02 01/13/2023 14:09:40 Lumbar radiculopathy [id number] M54.16 Lumbar radiculiti sRight L5 S1 radiculiti sExaminati on history consistent with lumbar radiculiti s. Patient hashistory of lower back pain radiating down the legs bilaterall y,examinat ion has positive SLR, recent MRI of lumbar spine also supportsth e diagnosis. Patient has failed1 Conservati ve management for more than six months2 Oral opioids, hydrocodon e3 Topical diclofenac gel4 Gabapentin 5 NSAID6 Home physical therapy- For the last 3 months without much benefit , October 20 Patient does not like to take long-term oral opioids. Would like tracy Murray schedule a patient for Right L4-L5 epidural steroid injection as soonas possible.Raven walker treat the patient right oral opioids and membrane stabilizer s. if she does not benefit we might consider stimulator trial in the future. Chronic pain 19630592 G8 9.29 Continue current medication regimen Continue home exercise program Lumbar spondylosis 59212 0009 M47.816 Continue current medication regimenCon tinue home exercise programCon tinue conservati ve treatments , to include: Taking hig h risk medication [id number] 37239 Z79.899 Continue current medication regimen Continue home exercise program [id number] MD Jignesh [facility] [address] [place] [address] 03/08/2023 13:33:34 03/08/2023 14:36:47 Lumbar radiculopathy [id number] M54.16 Lumbar radiculiti sRight L5 S1 radiculiti s > Left lumbar radiculiti sExaminati on history consistent with lumbar radiculiti s. Patient hashistory of lower back pain radiating down the legs bilaterall y,examinat ion has positive SLR, recent MRI of lumbar spine also supportsth e diagnosis. Patient has failed1 Conservati ve management for more than six months2 Oral opioids, hydrocodon e3 Topical diclofenac gel4 Gabapentin 5 NSAID6 Home physical therapy- For the last 3 months without much benefit , October 20 Patient does not like to take long-term oral opioids. Would like tracy Murray schedule a patient for bilateral L4-L5 epidural steroid injection as soonas possible.Raven walker treat the patient right oral opioids and membrane stabilizer s. if she does not benefit we might consider stimulator trial in the future. Chronic pain 97335675 G8 9.29 Continue current medication regimen Continue home exercise program Lumbar spondylosis 85622 0009 M47.816 Continue current medication regimenCon tinue home exercise programCon tinue conservati ve treatments , to include: Taking hig h risk medication [id number] 95346 Z79.899 Continue current medication regimen Continue home exercise program Irritable bowel syndrome with diarrhea 927420212 K58.0 [id number] Jc Mike MD [facility] [address] [place] [address] 04/26/2023 15:34:24 04/26/2023 16:52:57 Lumbar radiculopathy 285144295 M54.16 Lumbar radiculiti sRight L5 S1 radiculiti s > Left lumbar radiculiti sExaminati on history consistent with lumbar radiculiti s. Patient hashistory of lower back pain radiating down the legs bilaterall y,examinat ion has positive SLR, recent MRI of lumbar spine also supportsth e diagnosis. Patient has failed1 Conservati ve management for more than six months2 Oral opioids, hydrocodon e3 Topical diclofenac gel4 Gabapentin 5 NSAID6 Home physical therapy- For the last 3 months without much benefit , October 20 Patient does not like to take long-term oral opioids. Would like tracy Murray schedule a patient for caudal epidural steroid injection as soonas possible.Raven walker treat the patient right oral opioids and membrane stabilizer s. if she does not benefit we might consider stimulator trial in the future.if no response we might consider spinal cord stimulator trial versus intratheca l pain pump Chronic pain 90359015 G8 9.29 Continue current medication regimen Continue home exercise program Lumbar spondylosis 62580 0009 M47.816 Continue current medication regimenCon tinue home exercise programCon tinue conservati ve treatments , to include: Taking hig h risk medication [id number] 35655 Z79.899 Continue current medication regimen Continue home exercise program Irritable bowel syndrome with diarrhea 008025608 K58.0 [id number] MD [facility] [address] [facility] [place] [address] 06/30/2023 13:25:50 06/30/2023 14:59:12 Lumbar radiculopathy 510401087 M54.16 Lumbar radiculiti sRight L5 S1 radiculiti s > Left lumbar radiculiti sExaminati on history consistent with lumbar radiculiti s. Patient hashistory of lower back pain radiating down the legs bilaterall y,examinat ion has positive SLR, recent MRI of lumbar spine also supportsth e diagnosis. Patient has failed1 Conservati ve management for more than six months2 Oral opioids, hydrocodon e3 Topical diclofenac gel4 Gabapentin 5 NSAID6 Home physical therapy- For the last 3 months without much benefit , October 20 Patient does not like to take long-term oral opioids. Would like toconsider interventi onsPatient has failed epidural steroid injection without long-term benefit.Gi joey her radicular pain, age, might be an ideal candidate for spinal cord stimulator trial.We will consider spinal cord stimulator trial with [employer]. Will refer the patient for psychologi krunal clearanceW ill refer the patient for psychologi krunal clearance for the stimulator and pump. Chronic pain 64332293 G8 9.29 Continue current medication regimenCon tinue home exercise program Lumbar spondylosis 48850 0009 M47.816 Continue current medication regimenCon tinue home exercise programCon tinue conservati ve treatments , to include: Long-term drug therapy [id number] Z79.891 Continue current medication regimenCon tinue home exercise program [id number] MD [facility] - [address] [facility] [address] [place] [address] 08/01/2023 13:37:06 08/01/2023 14:24:34 Lumbar radiculopathy 842147728 M54.16 Lumbar radiculiti sRight L5 S1 radiculiti s > Left lumbar radiculiti sExaminati on history consistent with lumbar radiculiti s. Patient hashistory of lower back pain radiating down the legs bilaterall y,examinat ion has positive SLR, recent MRI of lumbar spine also supportsth e diagnosis. Patient has failed1 Conservati ve management for more than six months2 Oral opioids, hydrocodon e3 Topical diclofenac gel4 Gabapentin 5 NSAID6 Home physical therapy- For the last 3 months without much benefit , October 20 Patient does not like to take long-term oral opioids. Would like toconsider interventi onsPatient has failed epidural steroid injection without long-term benefit.Gi joey her radicular pain, age, might be an ideal candidate for spinal cord stimulator trial.We will consider spinal cord stimulator trial with [employer]. patient was provided with the informatio n and literature of stimulator . Common complicati ons associated with spinal cord stimulator trial including bleeding, infection, risk of nerve injury, failed trial was explained to her at length. Chronic pain 10102307 G8 9.29 Continue current medication regimenCon tinue home exercise program Lumbar spondylosis 16376 0009 M47.816 Continue current medication regimenCon tinue home exercise programCon tinue conservati ve treatments , to include: Long-term drug therapy 955776560 Z79.891 Chronic opioid therapy: narcotic pain medication s is one of the number of treatment options for chronic pain patients and has been shown to be beneficial when used in conjugatio n with other treatment modalities . Narcotic pain medication s allow the patient with chronic pain to function and perform their activities of daily living, which may include, sleep, and physical activity like walking, sitting for prolonged, and to improve their overall quality of life. Narcotic pain medication s are known to have high abuse and addiction potential and have a narrow therapeuti c range. The goal of our treatment is to find the right balance of maximizing pain control and minimizing the adverse effects of narcotic use which including dependence , tolerance and addiction and other side effects. This was very clearly explained to the patient in detail. Significan t amount of time was spent explaining the uses, complicati ons, limitation s of the treatment. Her AST and ALT were elevated. Patient is on multiple medication s for her rheumatoid arthritis. She is awaiting ultrasound . She was encouraged to obtain a repeat liver functions shortly [id number] Jc Mike MD [facility] - [address] [place] [address] 08/22/2023 11:20:51 08/22/2023 12:55:24 Lumbar radiculopathy [id number] M54.16 Lumbar radiculiti sRight L5 S1 radiculiti s > Left lumbar radiculiti sExaminati on history consistent with lumbar radiculiti s. Patient hashistory of lower back pain radiating down the legs bilaterall y,examinat ion has positive SLR, recent MRI of lumbar spine also supportsth e diagnosis. Patient has failed1 Conservati ve management for more than six months2 Oral opioids, hydrocodon e3 Topical diclofenac gel4 Gabapentin 5 NSAID6 Home physical therapy- For the last 3 months without much benefit , October 20 Patient does not like to take long-term oral opioids. Would like toconsider interventi onsPatient has failed epidural steroid injection without long-term benefit.Gi joey her radicular pain, age, might be an ideal candidate for spinal cord stimulator trial.We will consider spinal cord stimulator trial with [employer]. patient was provided with the informatio n and literature of stimulator . Common complicati ons associated with spinal cord stimulator trial including bleeding, infection, risk of nerve injury, failed trial was explained to her at length. Chronic pain 28807292 G8 9.29 Continue current medication regimenCon tinue home exercise program Lumbar spondylosis 18246 0009 M47.816 Continue current medication regimenCon tinue home exercise programCon tinue conservati ve treatments , to include: Long-term drug therapy 898267697 Z79.891 Chronic opioid therapy: narcotic pain medication s is one of the number of treatment options for chronic pain patients and has been shown to be beneficial when used in conjugatio n with other treatment modalities . Narcotic pain medication s allow the patient with chronic pain to function and perform their activities of daily living, which may include, sleep, and physical activity like walking, sitting for prolonged, and to improve their overall quality of life. Narcotic pain medication s are known to have high abuse and addiction potential and have a narrow therapeuti c range. The goal of our treatment is to find the right balance of maximizing pain control and minimizing the adverse effects of narcotic use which including dependence , tolerance and addiction and other side effects. This was very clearly explained to the patient in detail. Significan t amount of time was spent explaining the uses, complicati ons, limitation s of the treatment. Her AST and ALT were elevated. Patient is on multiple medication s for her rheumatoid arthritis. She is awaiting ultrasound . She was encouraged to obtain a repeat liver functions shortly [id number] Jc Mike MD [facility] - [facility] [address] [place] [address] 11/11/2023 11:14:28 11/11/2023 12:05:22 Lumbar radiculopathy [id number] M54.16 Lumbar radiculiti sRight L5 S1 radiculiti s > Left lumbar radiculiti sExaminati on history consistent with lumbar radiculiti s. Patient hashistory of lower back pain radiating down the legs bilaterall y,examinat ion has positive SLR, recent MRI of lumbar spine also supportsth e diagnosis. Patient has failed1 Conservati ve management for more than six months2 Oral opioids, hydrocodon e3 Topical diclofenac gel4 Gabapentin 5 NSAID6 Home physical therapy- For the last 3 months without much benefit , October 20 Patient does not like to take long-term oral opioids. Would like toconsider interventi onsPatient has failed epidural steroid injection without long-term benefit.Gi joey her radicular pain, age, might be an ideal candidate for spinal cord stimulator trial.We will consider spinal cord stimulator trial with [employer]. patient was provided with the informatio n and literature of stimulator . Common complicati ons associated with spinal cord stimulator trial including bleeding, infection, risk of nerve injury, failed trial was explained to her at length.We will refer the patient back to Neurosurge ry for clearance for the stimulator . Patient was in fact referred to us by neurosurge on Dr. Pope in [facility]. Patient was last assessed by the Neurosurge ry in July 2022. Chronic pain 69210428 G8 9.29 Continue current medication regimenCon tinue home exercise program Lumbar spondylosis 64857 0009 M47.816 Continue current medication regimenCon tinue home exercise programCon tinue conservati ve treatments , to include: Long-term drug therapy 336725997 Z79.891 Chronic opioid therapy: narcotic pain medication s is one of the number of treatment options for chronic pain patients and has been shown to be beneficial when used in conjugatio n with other treatment modalities . Narcotic pain medication s allow the patient with chronic pain to function and perform their activities of daily living, which may include, sleep, and physical activity like walking, sitting for prolonged, and to improve their overall quality of life. Narcotic pain medication s are known to have high abuse and addiction potential and have a narrow therapeuti c range. The goal of our treatment is to find the right balance of maximizing pain control and minimizing the adverse effects of narcotic use which including dependence , tolerance and addiction and other side effects. This was very clearly explained to the patient in detail. Significan t amount of time was spent explaining the uses, complicati ons, limitation s of the treatment. Her AST and ALT were elevated. Patient is on multiple medication s for her rheumatoid arthritis. She is awaiting ultrasound . She was encouraged to obtain a repeat liver functions shortly [id number] Jc Mike MD [facility] - [address] [address] 01/06/2024 10:23:22 01/06/2024 10:48:58 Lumbar radiculopathy [id number] M54.16 Lumbar radiculiti sRight L5 S1 radiculiti s > Left lumbar radiculiti sExaminati on history consistent with lumbar radiculiti s. Patient hashistory of lower back pain radiating down the legs bilaterall y,examinat ion has positive SLR, recent MRI of lumbar spine also supportsth e diagnosis. Patient has failed1 Conservati ve management for more than six months2 Oral opioids, hydrocodon e3 Topical diclofenac gel4 Gabapentin 5 NSAID6 Home physical therapy- For the last 3 months without much benefit , October 20 Patient does not like to take long-term oral opioids. Would like toconsider interventi onsPatient has failed epidural steroid injection without long-term benefit.Gi joey her radicular pain, age, might be an ideal candidate for spinal cord stimulator trial.We will consider spinal cord stimulator trial with [employer]. patient was provided with the informatio n and literature of stimulator . Common complicati ons associated with spinal cord stimulator trial including bleeding, infection, risk of nerve injury, failed trial was explained to her at length.Connie fong had clearance from the neurosurge ry. Currently does not have any surgically reversible causes for her low back pain. Will consider spinal cord stimulator trial with about. Chronic pain 37234361 G8 9.29 Continue current medication regimenCon tinue home exercise program Lumbar spondylosis 61182 0009 M47.816 Continue current medication regimenCon tinue home exercise programCon tinue conservati ve treatments , to include: Long-term drug therapy 922159236 Z79.891 Chronic opioid therapy: narcotic pain medication s is one of the number of treatment options for chronic pain patients and has been shown to be beneficial when used in conjugatio n with other treatment modalities . Narcotic pain medication s allow the patient with chronic pain to function and perform their activities of daily living, which may include, sleep, and physical activity like walking, sitting for prolonged, and to improve their overall quality of life. Narcotic pain medication s are known to have high abuse and addiction potential and have a narrow therapeuti c range. The goal of our treatment is to find the right balance of maximizing pain control and minimizing the adverse effects of narcotic use which including dependence , tolerance and addiction and other side effects. This was very clearly explained to the patient in detail. Significan t amount of time was spent explaining the uses, complicati ons, limitation s of the treatment. Her AST and ALT were elevated. Patient is on multiple medication s for her rheumatoid arthritis. She is awaiting ultrasound . She was encouraged to obtain a repeat liver functions shortly [id number] Jc Mike MD [facility] - [address] [place] [address] 02/27/2024 09:16:31 02/27/2024 09:54:32 Lumbar radiculopathy 084555461 M54.16 Lumbar spondylosis 95749 0009 M47.816 Long-term drug therapy 531677088 Z79.891 Lumbar post-laminectomy syndrome 975493121 M96.1 - History of lumbar discectomy in 2019- Patient had SCS trial with [employer] on 02/22. Patient reports about 80% overall relief throughout the duration of the trial. Patient would like to proceed with SCS implantati on- Leads pulled during todays visit, patient tolerated well- The benefits, risks and limitation s of a SCS implantati on were discussed with the patient extensivel y including the risk of infection, bleeding, radiation exposure, nerve injury, etc.- Providing medication refills today Chronic pain syndrome 37 2706696 G89.4 [id number] MD [facility] - [address] [place] [address] 04/23/2024 09:50:00 04/23/2024 10:49:43 Pre-surgery evaluation 249241879 Z01.818 Patient was given Hibclens Foam Soap along with instructio ns on how to use. Patient was instructed to use this three days in a row before surgery on 04/30/24. Patient was given lab orders to be done today. Patient was advised to not remove the bandages after the surgery until he comes back for a post op visit in 5-7 days after surgery. Patient was instructed to not get the bandages wet. Patient was advised if he has any symptoms like fever, chills, redness, swelling, headaches or signs of infection to call the office [facility]. Patient acknowledg e and understand s all instructio ns. [id number] MD [facility] - [facility] [address] [place] [address] 05/04/2024 08:30:40 05/04/2024 09:21:28 Lumbar post-laminectomy syndrome 268905755 M96.1 - History of lumbar discectomy in 2019- Patient had SCS trial with [employer] on 02/22. Patient reported about 80% overall relief throughout the duration of the trial- Patient had SCS implant on 04/30/24, reports significan t relief from stimulator . [employer] rep was present today and provided programmin g for patient Lumbar radiculopathy 128 257587 M54.16 Lumbar spondylosis 27574 0009 M47.816 Chronic pain syndrome 37 1309614 G89.4 Long-term drug therapy 206438840 Z79.891 Postoperative visit 1832 06139 Z48.89 - Patient presents for postoperat maria e follow up visit today- Patient reports following postop instructio ns- Patient reports postoperat maria e pain has been manageable . Patient denies any fevers, redness/wa rmth/drain age at incision sites or other signs of infection- Dressings were removed, incisions were inspected and cleaned with ChloraPrep . Once dried, incisions were redressed. Extra dressings and Chloraprep was provided to patient should dressing become wet or soiled however patient was instructed to keep the incision site as clean and dry as possible.- Will follow up in one week for dressing change and staple removal [id number] [facility] - [address] [place] [address] 05/11/2024 10:19:55 05/11/2024 11:16:18 Postoperative visit 101601352 Z48.89 - Patient presents for postoperat maria e follow up visit today- Patient reports following postop instructio ns- Patient reports postoperat maria e pain has been manageable . Patient denies any fevers, redness/wa rmth/drain age at incision sites or other signs of infection- Dressings were removed, incisions were inspected and cleaned with ChloraPrep . Once dried, incisions were left uncovered. Patient was instructed they may leave the incision sites uncovered and may resume normal bathing, however recommend not soaking the incision and keeping sites as clean and dry as possible- Will follow up in one month for medication management follow up visit Lumbar post-laminectomy syndrome [id number] M96.1 - History of lumbar discectomy in 2019- Patient had SCS trial with Rodriguez on 02/22. Patient reported about 80% overall relief throughout the duration of the trial- Patient had SCS implant on 04/30/24, reports significan t relief from stimulator . [employer] rep was present today and provided programmin g for patient- Does not need medication refills today Lumbar radiculopathy 128 187016 M54.16 Lumbar spondylosis 90103 0009 M47.816 Chronic pain syndrome 37 8208881 G89.4 Long-term drug therapy [id number] Z79.555 [id number] MD [facility] - [facility] [address] [place] [address] 06/15/2024 10:56:40 06/15/2024 11:35:43 Lumbar post-laminectomy syndrome [id number] M96.1 - History of lumbar discectomy in 2019- Patient has tried the following conservati ve treatments with minimal improvemen ts: OTC analgesics , NSAIDs, muscle relaxers, physical therapy, home exercise plan (completed since 08/2023)- Patient reports the following activities are difficult to complete because of their pain: bending, prolonged sitting, lying down- Patient had SCS implant on 04/30/24, reports 80% ongoing relief- Patient has actually been able to reduce her pain medication to BID dosing. We will reduce her prescripti on today Lumbar radiculopathy 128 M54.16 Lumbar spondylosis 50833 0009 M47.816 Chronic pain syndrome 37 1129799 G89.4 Long-term current use of opiate analgesic drug [id number] 32396 Z79.891 Drug-induc ed constipation 05693685 K59.03 - Patient has tried multiple OTC medication s including miralax and senna without relief. Will trial [employer] Degenerati on of lumbar intervertebral disc 69135088 M51.36 [id number] Jc Mike MD [facility] - [address] [address] 08/10/2024 10:10:09 08/10/2024 10:40:03 Lumbar post-laminectomy syndrome 930098999 M96.1 - History of lumbar discectomy in 2019- Patient has tried the following conservati ve treatments with minimal improvemen ts: OTC analgesics , NSAIDs, muscle relaxers, physical therapy, home exercise plan (completed since 08/2023)- Patient reports the following activities are difficult to complete because of their pain: bending, prolonged sitting, lying down- Patient has had multiple procedures including LESI, LMBBs, RFA in the past with little benefit- Patient had SCS implant on 04/30/24, reports 80% ongoing relief- Patient has actually been able to reduce her pain medication to only taking PRN. Will further reduce to QD dosing and plan for a 3 months follow up. Patient is in agreement with treatment plan Lumbar radiculopathy 128 M54.16 Lumbar spondylosis 96162 0009 M47.816 Degenerati on of lumbar intervertebral disc 50359043 M51.362 Drug-induc ed constipation 80464155 K59.03 - Patient has tried multiple OTC medication s including miralax and senna without relief. Reports her PCP has been prescribin g medication for this, will defer treatment to them Chronic pain syndrome 37 4155267 G89.4 Long-term current use of opiate analgesic drug [id number] 15379 Z79.488 [id number] EMERY ESTRADA [facility] - [facility] [address] [place] [address] 11/01/2024 10:32:49 11/01/2024 11:28:00 Lumbar post-laminectomy syndrome [id number] M96.1 - History of lumbar discectomy in 2019- Patient has tried the following conservati ve treatments with minimal improvemen ts: OTC analgesics , NSAIDs, muscle relaxers, physical therapy, home exercise plan (completed since 08/2023)- Patient reports the following activities are difficult to complete because of their pain: bending, prolonged sitting, lying down- Patient has had multiple procedures including LESI, LMBBs, RFA in the past with little benefit- Patient had SCS implant on 04/30/24, reports 80% ongoing relief- Patient states she only needs to take her hydrocodon e as needed, does not need any refills today. States she would like to follow up as needed Lumbar radiculopathy 128 049755 M54.16 Lumbar spondylosis 83353 0009 M47.816 Degenerati on of lumbar intervertebral disc 67896424 M51.362 Drug-induc ed constipation 25083660 K59.03 - Patient has tried multiple OTC medication s including miralax and senna without relief. Reports her PCP has been prescribin g medication for this, will defer treatment to them Chronic pain syndrome 37 3809048 G89.4 Long-term current use of opiate analgesic drug [id number] 26891 Z79.891 Health Concerns Section Related Observation LastModified by Organization Detai ls LastModified Time None Recorded Concern Status LastModified by Organization Details LastModified Time None Recorded Advance Directives Directive N: Payers Insurance Date Sequence Insurance Name Policy Number Policy Garcia Covered Member ID Garcia Member ID Guarantor Name 11/12/2022 1 [employer] (PPO) [id number] Huong Garcia [id number] 11/09/2024 1 [employer] [place] (MEDICAID HMO) Huong Garcia [id number] Huong Garcia Notes Date Note Type Note Provider Name and Address Organization Details Recorded Time 05/04/2024 text/html Ms. Huong milligan is a 49-year-old female with a known longstanding history of degenerative disc disease, osteoarthritis, myofascial pain, lumbar diskectomy 2019, complaints of severe pain in the back radiating down the right leg. Has tried the following conservative therapies: OTC analgesics (tylenol), anti-inflammatories (naproxen), muscle relaxers, physical therapy, home exercise program, pain medications (tramadol, David, gabapentin), injections--LESI, LMB RFA in the past. Follow up Visit 02/27/24Ms. Garcia presents today for a post operative follow up visit. Patient had a SCS implant with Rodriguez on 04/30. Patient reports she is receiving significant relief from her stimulator. She denies any fever, chills or drainage from the incisions. Reports some mild itching and soreness around her incision sites. Reports following post op instructions. [employer] rep was present today and provided programming for patient.Procedural HistorySCS implantation 04/30/24 -SCS trial with Rodriguez - 80% reduction of painRight L4-S1 transforaminal epidural steroid injection January 2023 - helped right-sided leg pain about 70% for 6 weeks ImagingPrevious evaluations MRI lumbar spine without contrast 11/[id number], L2-3, L3-4, L4-5: No significant canal stenosis or neural foraminal narrowing; L5-S1 annular bulge; right paracentral disc protrusion with right S1 nerve root compromise and mild bilateral neural foraminal narrowing noted. X-ray lumbar spine from December 2021No evidence of fracture or dislocation. Mild disc space narrowing at L5-S1. Tiny disc osteophytes at L1-L2 and L2-L3. EMERY ESTRADA [address] [place] [address], [address], [place], [address], [facility] - [facility] - [place] & [place] 05/04/2024 11:15:51 05/11/2024 text/html Ms. Huong milligan is a 49-year-old female with a known longstanding history of degenerative disc disease, osteoarthritis, myofascial pain, lumbar diskectomy 2019, complaints of severe pain in the back radiating down the right leg. Has tried the following conservative therapies: OTC analgesics (tylenol), anti-inflammatories (naproxen), muscle relaxers, physical therapy, home exercise program, pain medications (tramadol, David, gabapentin), injections--LESI, LMB RFA in the past. Follow up Visit 05/11/24MsShahana Garcia presents today for a post operative follow up visit. Patient had a SCS implant with Rodriguez on 04/30. Patient reports she is receiving significant relief from her stimulator, states she has actually been taking less pain medication. She denies any fever, chills or drainage from the incisions. Reports some mild itching and soreness around her incision sites. Reports she is following post op instructions. Rodriguez was present today and provided programming for patient.Procedural HistorySCS implantation 04/30/24 -SCS trial with Rodriguez - 80% reduction of painRight L4-S1 transforaminal epidural steroid injection January 2023 - helped right-sided leg pain about 70% for 6 weeks ImagingPrevious evaluations MRI lumbar spine without contrast 11/[id number], L2-3, L3-4, L4-5: No significant canal stenosis or neural foraminal narrowing; L5-S1 annular bulge; right paracentral disc protrusion with right S1 nerve root compromise and mild bilateral neural foraminal narrowing noted. X-ray lumbar spine from December 2021No evidence of fracture or dislocation. Mild disc space narrowing at L5-S1. Tiny disc osteophytes at L1-L2 and L2-L3. EMERY ESTRADA [address] [place] [address], [address], [place], [address], [facility] - [facility] - [place] 05/11/2024 11:02:54 06/15/2024 text/html Ms. Huong milligan is a 48-year-old female with a known longstanding history of degenerative disc disease, osteoarthritis, myofascial pain, lumbar diskectomy 2018, complaints of severe pain in the back radiating down the right leg. Has tried the following conservative therapies: OTC analgesics (tylenol), anti-inflammatories (naproxen), muscle relaxers, physical therapy, home exercise program, pain medications (tramadol, David, gabapentin), injections--LESI, LMB RFA in the past. Follow up Visit 06/15/24Ms. Garcia presents today for a medication management follow up visit. Patient reports her primary complaints remain chronic low back and knee pain. She describes her low back pain as a constant dull, aching pain. Prior to her SCS she did have radiation of pain into the legs but this has improved. She reports numbness in the right foot. Patient reports her pain is aggravated with bending, prolonged sitting, lying down however reports these have all improved following the stimulator. Patient reports current medication regimen continues to provide adequate relief, she has actually been able to reduce her pain medication since getting the stimulator placed. Denies any related side effects including constipation or oversedation. They have no other new changes or concerns to report today.Procedural HistorySCS implantation 04/30/24 - 80% relief, ongoingSCS Trial w/ Rodriguez 02/23/24 - 80% reliefRight L4-S1 transforaminal epidural steroid injection January 2023 - helped right-sided leg pain about 70% for 6 weeks ImagingMRI lumbar spine without contrast 11/[id number], L2-3, L3-4, L4-5: No significant canal stenosis or neural foraminal narrowing; L5-S1 annular bulge; right paracentral disc protrusion with right S1 nerve root compromise and mild bilateral neural foraminal narrowing noted. X-ray lumbar spine from December 2021No evidence of fracture or dislocation. Mild disc space narrowing at L5-S1. Tiny disc osteophytes at L1-L2 and L2-L3. EMERY ESTRADA [address] [place] [address], [address], [place], [address], [facility] - [place] 06/15/2024 15:41:34 08/10/2024 text/html Ms. Huong milligan is a 49-year-old female with a known longstanding history of degenerative disc disease, osteoarthritis, myofascial pain, lumbar diskectomy 2018, complaints of severe pain in the back radiating down the right leg. Has tried the following conservative therapies: OTC analgesics (tylenol), anti-inflammatories (naproxen), muscle relaxers, physical therapy, home exercise program, pain medications (tramadol, David, gabapentin), injections- -LESI, LMBBs, RFA in the past. Follow up Visit 08/10/24Ms. Garcia presents today for a medication management follow up visit. Patient reports her primary complaints remain chronic low back pain. She describes her low back pain as a constant dull, aching pain. Prior to her SCS she did have radiation of pain into the legs but this has improved. She reports numbness in the right foot. Patient reports her pain is aggravated with bending, prolonged sitting, lying down however reports these have all improved following the stimulator. Patient reports current medication regimen continues to provide adequate relief, she has actually been able to reduce her pain medication to just taking as needed since getting the stimulator placed. She does have constipation that is managed by her PCP. She denies any other related side effects including dizziness or drowsiness. They have no other new changes or concerns to report today.Procedural HistorySCS implantation 04/30/24 - 80% relief, ongoingSCS Trial w/ Rodriguez 02/23/24 - 80% reliefRight L4-S1 transforaminal epidural steroid injection January 2023 - helped right-sided leg pain about 70% for 6 weeks ImagingMRI lumbar spine without contrast 11/[id number], L2-3, L3-4, L4-5: No significant canal stenosis or neural foraminal narrowing; L5-S1 annular bulge; right paracentral disc protrusion with right S1 nerve root compromise and mild bilateral neural foraminal narrowing noted. X-ray lumbar spine from December 2021No evidence of fracture or dislocation. Mild disc space narrowing at L5-S1. Tiny disc osteophytes at L1-L2 and L2-L3. EMEYR ESTRADA [address] [place] [address], [address], [place], [address], [facility] - [place] 08/10/2024 13:43:49 11/01/2024 text/html Ms. Huong milligan is a 49-year-old female with a known longstanding history of degenerative disc disease, osteoarthritis, myofascial pain, lumbar diskectomy 2018, complaints of severe pain in the back radiating down the right leg. Has tried the following conservative therapies: OTC analgesics (tylenol), anti-inflammatories (naproxen), muscle relaxers, physical therapy, home exercise program, pain medications (tramadol, David, gabapentin), injections- -LESI, LMBBs, RFA in the past. Follow up Visit 11/01/24Ms. Garcia presents today for a medication management follow up visit. Patient states she recently slipped and fell on ice, states this has been the only time recently she had to take her pain medication. States she also had to adjust her stimulator. Patient states she only needs to take her hydrocodone as needed, does not need any refills today. States she would like to follow up as needed. Patient reports her primary complaints remain chronic low back pain. She describes her low back pain as a constant dull, aching pain. Prior to her SCS she did have radiation of pain into the legs but this has improved. She reports numbness in the right foot. Patient reports her pain is aggravated with bending, prolonged sitting, lying down however reports these have all improved following the stimulator. She does have constipation that is managed by her PCP. She denies any other related side effects including dizziness or drowsiness. They have no other new changes or concerns to report today.Procedural HistorySCS implantation 04/30/24 - 80% relief, ongoingSCS Trial w/ Rodriguez 02/23/24 - 80% reliefRight L4-S1 transforaminal epidural steroid injection January 2023 - helped right-sided leg pain about 70% for 6 weeks ImagingMRI lumbar spine without contrast 11/[id number], L2-3, L3-4, L4-5: No significant canal stenosis or neural foraminal narrowing; L5-S1 annular bulge; right paracentral disc protrusion with right S1 nerve root compromise and mild bilateral neural foraminal narrowing noted. X-ray lumbar spine from December 2021No evidence of fracture or dislocation. Mild disc space narrowing at L5-S1. Tiny disc osteophytes at L1-L2 and L2-L3. EMERY ESTRADA [address] [place] [address], [address], [place], [address], [facility] - [place] 11/01/2024 11:18:01 OBGyn Episode No OBEpisode recorded.
--- OUTSIDE RECORDS SUMMARY | 2025-04-30 14:40 | XMS_ITS | Encounter Summary ---
Author Organization [employer] ([place], [place], [place], [place]) Address [address] [place] [address] Care Team Providers Care Service Or Work Dispatcher Name Role Phone Kalin Rob MD Primary Care Provider [phone] Ann Pizano APRN Primary Care Provider [phone] Reason for Visit * Reason Onset Date Comments Medication Refill 06/29/2023 Encounter Details Date Type Department Care Team (Late st Contact Info) Description 06/29/2023 Refill [facility] Primary Care - [facility] [address] [place] [address] Kalin Rob MD [address] [place] [address] Personal history of other diseases [...] Info) Description 07/22/2025 1:00 PM EDT Appointment [facility] Imaging [address] [place] [address] Adela Watson MD [address] [place] [address] 07/24/2025 10:30 AM EDT Office Visit [facility] Primary Care - [facility] [address] [place] [phone] Ann Pizano APRN [address] [place] [address] 07/26/2025 1:30 PM EDT Office Visit [facility] Pulm & Critical Care Medicine [address] [facility] [address] [address] Adela Watson MD [address] [address] 07/29/2025 9:00 AM EDT Appointment [facility] Breast Imaging [address] [place] [address] 04/15/2026 9:30 AM EDT Office Visit [facility] Gastroenterology [address] [place] [address] Rex Stoll MD [address] [facility] [address] [place] [address] documented as of this encounter Visit Diagnoses Diagnosis Personal history of other diseases of the digestive system documented in this encounter Care Teams Service Or Work Dispatcher Relationship Specialty Start Date End Date Kalin Rob MD PCP - General Family Medicine 10/27/22 12/28/24 Ann Pizano, AMISH [address] [place] [address] PCP - General Family Medicine 01/11/25 documented as of this encounter
--- OUTSIDE RECORDS SUMMARY | 2025-04-30 14:41 | XMS_ITS | Clinical Summary ---
Author Organization [employer] ([place], [place], [place], [place]) Address [address] [place] [address] Care Team Providers Care Shrimp Pond Laborer Name Role Phone Ann Pizano APRN Primary Care Provider [phone]- [phone] Allergies Active Allergy Reactions Criticality Noted Date Comments Cephalexin Rash Low 10/27/2022 Propranolol Itching Medium 10/27/2022 Sulfa (Sulfonamide Antibiotics) Rash Low 05/18 Medications abatacept (Orencia ClickJect) 125 mg/mL AtIn Inject 125 mg subcutaneously once a week Rheumatoid doctor. 022 Active dilTIAZem (CARDIZEM CD) 180 MG 24 hr capsuleIndicatio ns:Essential (primary) hypertension TAKE 1 CAPSULE BY MOUTH EVERY DAY 90 capsule 3 025 Active nitroglycerin (NITROSTAT) 0.4 MG SL tabletIndication s:Chest pain, unspecified type PUT 1 PILL UNDER TONGUE EVERY 5MIN NEEDED FOR CHEST PAIN.NO MORE THAN 3 DOSES IN 15MIN.CALL 911 IF PAIN UNRELIEVED 5MIN AFTER 1ST DOSE. 50 tablet 11 025 Active fluticasone propionate (FLONASE) 50 mcg/actuation nasal sprayIndications :Acute pharyngitis, unspecified 1 spray by each nostril route daily. 48 mL 2 025 Active cholecalciferol (VITAMIN D3) 125 mcg (5,000 unit) capsuleIndicatio ns:Vitamin D deficiency, unspecified TAKE 1 CAPSULE BY MOUTH TWICE A DAY 60 capsule 5 025 Active oxybutynin (DITROPAN-XL) 10 MG 24 hr tabletIndication s:Stress incontinence Take 1 tablet (10 mg total) by mouth nightly. 30 tablet 6 025 2025 Active loratadine (CLARITIN) 10 mg tabletIndication s:Encounter for general adult medical examination without abnormal findings TAKE 1 TABLET BY MOUTH TWICE A DAY 60 tablet 5 025 Active montelukast (SINGULAIR) 10 mg tabletIndication s:Encounter for general adult medical examination without abnormal findings TAKE 1 TABLET BY MOUTH EVERY DAY AT NIGHT 90 tablet 025 Active rosuvastatin (CRESTOR) 20 MG tabletIndication s:Other hyperlipidemia TAKE 1 TABLET BY MOUTH EVERY DAY IN THE MORNING 90 tablet 3 025 Active sennosides-docus ate sodium (Senexon-S) 8.6-50 mg per tabletIndication s:Chronic constipation TAKE 1 TABLET BY MOUTH TWICE DAILY NEEDED FOR CONSTIPATION 60 tablet 025 Active pantoprazole (PROTONIX) 40 MG tabletIndication s:Gastroesophage al reflux disease, unspecified whether esophagitis present Take 1 tablet (40 mg total) by mouth daily. 90 tablet 025 Active cyanocobalamin 1,000 mcg/mL injectionIndicat ions:Deficiency of other specified B group vitamins INJECT 1 ML DIRECTED ONCE A MONTH 3 mL 025 Active folic acid (FOLVITE) 1 MG tablet TAKE 1 TABLET BY MOUTH EVERY DAY 90 tablet 025 Active pantoprazole (PROTONIX) 40 MG tabletIndication s:Gastroesophage al reflux disease, unspecified whether esophagitis present Take 1 tablet (40 mg total) by mouth daily. 180 tablet 3 024 2024 Discontinued(R eorder) Senna Plus 8.6-50 mg per tabletIndication s:Chronic constipation Take 1 tablet by mouth 2 (two) times daily as needed for Constipation (May reduce dose as needed. Goal to have soft BM at least every other day). 60 tablet 5 024 2024 Discontinued cyanocobalamin 1,000 mcg/mL injectionIndicat ions:Deficiency of other specified B group vitamins INJECT 1 ML DIRECTED ONCE A MONTH 3 mL 025 2024 Discontinued folic acid (FOLVITE) 1 MG tablet Take 1 tablet (1 mg total) by mouth daily. 90 tablet 025 2024 Discontinued Active Problems Problem Noted Date Diagnosed Date Encounter for screening colonoscopy 01/09/2024 CPAP (continuous positive airway pressure) [facility] 03/16/2023 Hypercholesteremia 03/15/2023 Hyperlipidemia 03/15/2023 Hypertension 09/21/2021 Anemia 05/18/2021 Anxiety 05/18/2021 Cobalamin deficiency 05/18/2021 Depressive disorder 05/18/2021 Gastroesophageal reflux disease 05/18/2021 Arthritis 05/18/2021 Vitamin D deficiency 05/18/2021 Hordeolum externum 02/04/2021 Allergic rhinitis 11/13/2020 Syncope 11/13/2020 Chest pain 08/18/2020 Abnormal electrocardiography 08/18/2020 Palpitations 07/16/2020 Tachycardia 07/16/2020 Restless legs syndrome 07/10/2020 Paresthesia 02/29/2020 Pain of lumbar spine 09/19/2019 Acute pharyngitis 09/04/2019 Encounters Date Type Department Care Team Description 04/27/2025 Refill [facility] Primary Care - [facility] [address] [place] [address] Ann Pizano APRN 04/20/2025 Refill [facility] Primary Care - [address] [address] Ann Pizano APRN Deficiency of other specified B group vitamins 04/17/2025 Refill [facility] Gastroenterology [address] [place] [address] Rex Stoll MD Chronic constipation; Gastroesophageal reflux disease, unspecified whether esophagitis present 04/17/2025 Refill [facility] Gastroenterology [address] [place] [address] Lia Hobbs PA-C Gastroesophageal reflux disease, unspecified whether esophagitis present 04/09/2025 9:15 AM EDT Office Visit [facility] Gastroenterology [address] [place] [address] Rex Stoll MD Fatty liver (Primary Dx); Folate deficiency; Vitamin D deficiency; Lung nodule 03/07/2025 Refill [facility] Cardiology - [address] [address] Jun Taylor MD Other hyperlipidemia 03/06/2025 Refill [facility] Primary Care - [address] [address] Kalin Rob MD Encounter for general adult medical examination without abnormal findings 02/28/2025 2:30 PM EDT Office Visit [facility] Pulm & Critical Care Medicine [address] [place] [address] [address] Adela Watson MD Pulmonary nodule (Primary Dx); Chronic cough; Dyspnea on exertion; Abnormal chest CT; DEBORA (obstructive sleep apnea); Overweight; Tobacco dependence due to cigarettes 02/28/2025 Travel 02/15/2025 Refill [facility] Urology - [address], [address] [place] [address] Kevin Pena MD Stress incontinence 02/14/2025 1:47 PM EDT - 02/14/2025 11:59 PM EDT Hospital Encounter [facility] Pulmonary Lab [address] [place] [address] Adela Watson MD Chronic cough; Dyspnea on exertion Discharge Disposition: Home or Self Care 02/13/2025 Travel 02/10/2025 Refill [facility] Primary Care - [address] [address] Kalin Rob MD Vitamin D deficiency, unspecified 02/04/2025 Telephone [facility] Pulm & Critical Care Medicine [address] [place] [address] [address] [place] [address] Ruth Aburto CMA Appointment 01/29/2025 Orders Only [facility] Primary Care - [facility] [address] [place] [address] Sukhwinder Lopez 01/29/2025 Orders Only [facility] Primary Care - [facility] [address] [facility] [place] [address] Sukhwinder Lopez from Last 3 Months Immunizations Name Administration Dates Next Due COVID-19 mRNA (PF)(LNP-S BIV ALENT) (Lamb Cap) 12YR+ (PFIZER)([id number] 07/23/2021 Covid-19 Vaccine MRNA (PF) 1 2yr+ (Pfizer/BioNTech)([id number]) 01/13/2021,12/20/2020 Hepatitis A 08/20/2019,11/21/2018 Influenza TIV (IM) 06/28/2022 Pneumococcal Conjugate (Prevnar) 13-Valent 08/20 Tdap 05/25/2019 Family History Medical History Relation Name Comments Hyperlipidemia Brother Hypertension Brother Arthritis Father Earl Garcia Jr Hyperlipidemia Father Earl Garcia Jr Hypertension Father Earl Garcia Jr Heart attack Maternal Grandfather Daron Au Heart disease Maternal Grandfather Daron Au Hypertension Maternal Grandfather Daron Au Stroke Maternal Grandfather Daron Au Arthritis Maternal Grandmother Maxine Au Asthma Maternal Grandmother Maxine Au COPD Maternal Grandmother Maxine Au Heart disease Maternal Grandmother Maxine Au Hyperlipidemia Maternal Grandmother Maxine Au Hypertension Maternal Grandmother Maxine Au Osteoporosis Maternal Grandmother Maxine Au Anemia Mother Sienna Craigmont Arthritis Mother Sienna Craigmont Hypertension Mother Sienna Luis Arthritis Paternal Grandfather Earl Garcia Sr Febrile seizures Paternal Grandfather Earl Garcia Sr Heart attack Paternal Grandfather Earl Garcia Sr Heart disease Paternal Grandfather Earl Garcia Sr Hyperlipidemia Paternal Grandfather Earl Garcia Sr Hypertension Paternal Grandfather Earl Garcia Sr Stroke Paternal Grandfather Earl Garcia Sr Arthritis Paternal Grandmother Bridget Yazmin Garcia Asthma Paternal Grandmother Bridget Yazmin Garcia Heart attack Paternal Grandmother Bridget Yazmin Garcia Heart disease Paternal Grandmother Bridget Yazmin Garcia Hyperlipidemia Paternal Grandmother Bridget Yazmin Garcia Hypertension Paternal Grandmother Bridget Yazmin Garcia Osteoporosis Paternal Grandmother Bridget Yazmin Garcia Relation Name Status Comments Brother Alive Father Earl Garcia Jr Alive Maternal Grandfather Daron Au Maternal Grandmother Maxine Au Mother Sienna Craigmont Alive Paternal Grandfather Earl Garcia Sr Paternal Grandmother Bridget Garcia Social History Tobacco Use Types Packs/Day Years Used Date Smoking Tobacco: Every Day Cigarettes 0.5 15 Smokeless Tobacco: Never Tobacco Cessation:Ready to Q uit: No Alcohol Use Standard Drinks/Week Comments Never 0 (1 standard drink = 0.6 oz pur e alcohol) caffeine use C - Mental Health Answer Date Recorde d [...] Date Cornelius rded Speak language other than Frisian at home Not on file 11/04/2023 Want [...] Info) Description 07/22/2025 1:00 PM EDT Appointment [facility] CT Imaging [address] [place] [address] Adela Watson MD [address] [facility] [address] [address] 07/24/2025 10:30 AM EDT Office Visit [facility] Primary Care - [facility] [address] [place] [address] Ann Pizano APRN [address] [place] [address] 07/26/2025 1:30 PM EDT Office Visit [facility] Pulm & Critical Care Medicine [address] [facility] [address] [address] Adela Watson MD [address] [facility] [address] [address] 07/29/2025 9:00 AM EDT Appointment [facility] Breast Imaging [address] [place] [address] 04/15/2026 9:30 AM EDT Office Visit [facility] Gastroenterology [address] [place] [address] Rex Stoll MD [address] [facility] [address] [place] [address] Health Maintenance Due Date Last Done Comments CT Colonography 1975 FOBT/FIT 1975 Fit-DNA (Cologuard) 1975 Sigmoidoscopy 1975 HIV Screening 1991 Pap Smear 1997 Pneumococcal Vaccine: 0-49 Y ears (2 of 2 - PPSV23) 10/15/2019 08/20/2019 COVID-19 VACCINE (2023-2 5 season) 2024 07/23/2021, 07/23/2021, 01/13/2021, Additional history exists Influenza Vaccine (#1) 2025 06/28/2022, 2021 Tobacco Cessation Counseling and Screening (12+) 11/22/2025 11/22/2024 Statin - ASCVD Risk Prevention 03/07/2026 03/07/2025 Breast Cancer Screening 06/19/2026 06/19/2024 Lipid Panel 10/18/2027 10/18/2024, 12/15, 07/05/2023, Additional history exists DTAP/TDAP/TD VACCINES (2 - T d or Tdap) 05/25/2029 05/25/2019 Colonoscopy 03/08/2034 03/08/2024, 10/16/2019 Colorectal Cancer Screening 03/08/2034 Hepatitis C Screening Completed 07/07/2023 Procedures Procedure Name Priority Date/Time Associated Diagnosis Comments FS_MODEL_IP PFT Routine 02/14/2025 2:41 PM EDT Chronic cough Dyspnea on exertion LIPID PANEL Routine 10/18/2024 11:56 AM EST [...] MD PFT ORDERABLES Final Result * (ABNORMAL) Lipid panel (10/18/2024 11:56 AM EST) Triglycerides 398(H) 15 - 150 mg/dL 10/18/2024 12:51 PM EST [facility] Cholesterol 303(H) 50 - 200 mg/dL 10/18/2024 12:51 PM [facility] Comment: 200 to 239 mg/dL = Moderate (borderline) >239 mg/dL = High HDL Cholesterol 34(L) 40 - 60 mg/dL 10/18/2024 12:51 PM EST [facility] Comment: >=60 mg/dL = Desirable <40 mg/dL = Increased Risk All other components are listed individually or are calculations VLDL Cholesterol 79.6 mg/dL 10/18/19 12:51 PM EST [facility] Cholesterol/HDL ratio 8.9 10/18/2024 12:51 PM [facility] LDl/HDL Ratio 6 10/18/2024 12:51 PM [facility] RISK COMP 9 10/18/2024 12:51 PM [facility] LDL Cholesterol, Calculated 189 mg/dL 10/18/2024 12:51 PM [facility] Blood Venipuncture / Unknown 10/18/2024 11:56 AM EST 10/18/2024 12:05 PM EST Kalin Rob MD LAB BLOOD ORDERABLES Final Result Performing Organization Address City/State/[facility] Co de Phone Number [facility] [address] [place] [address] * (ABNORMAL) MM digital mammo screen with [...] the next mammogram. At our facility, a [place] marker is positioned over a visible skin [...] family history of breast cancer. COMPARISON STUDY: [id number] from [facility] FINDINGS: Craniocaudal and mediolateral oblique images of [...] of computer-aided detection (CAD). Ann Pizano APRN [facility] MAMMOGRAPHY ORDERABLES Final Result * Hepatitis panel, acute (07/07/2023 12:10 PM EDT) Hep A IgM Nonreactive Nonreactive, Equivocal 07/08/2023 1:50 AM EDT [facility] Hep B C IgM Nonreactive Nonreactive 07/08/2023 1:50 AM EDT [facility] Hepatitis B surface antigen Nonreactive Nonreactive, Equivocal 07/08/2023 1:50 AM EDT [facility] Hepatitis C Ab Nonreactive Nonreactive, Equivocal 07/08/2023 1:50 AM EDT [facility] Blood Venipuncture / Unknown 07/07/2023 12:10 PM EDT 07/07/2023 12:38 PM EDT Narrative [facility] - 07/08/2023 1:50 AM EDT Hepatitis [...] Rob MD LAB BLOOD ORDERABLES Final Result [facility] [address] [phone] * HM COLONOSCOPY (10/16/2019) us Historical Provider HEALTH MAINTENANCE Final Result from Last 3 Months or Most Recently Relevant to Health Maintenance Insurance [facility] Care Teams Shrimp Pond Laborer Relationship Specialty Start Date End Date Ann Pizano APRN [address] [place] [address] PCP - General Family Medicine 01/11/25
--- OUTSIDE RECORDS SUMMARY | 2025-04-30 14:41 | XMS_ITS | Encounter Summary ---
Author Organization [employer] ([place], [place], [place], [place]) Address [address] [place] [address] Care Team Providers Care Director Of Pulmonary Unit Name Role Phone Kalin Rob MD Primary Care Provider [phone] Ann Pizano APRN Primary Care Provider [phone]- [phone] Reason for Referral * Mammography (Routine) - Closed Specialty Diagnoses / Procedures Referred By Contac t Referred To Contact Diagnoses Encounter for screening mammogram for malignant neoplasm of breast Procedures MM digital mammo screen bilateral Kalin Rob MD Phone: tel: fax: Referral ID Status Reason Start Date Expiration Date Visits Re quested Visits Authorized [id number] Closed 07/06/2022 01/02/2023 1 1 Encounter Details Date Type Department Care Team (Late st Contact Info) Description 07/06/2022 Outside Orders [facility] Central Scheduling [address] [place] [address] Kalin Rob MD [address] [place] [address] Encounter for screening mammogram for [facility] Imaging [address] [place] [address] Adela Watson MD [address] [address] 07/24/2025 10:30 AM EDT Office Visit [facility] Primary Care - [facility] [address] [place] [address] Ann Pizano APRN [address] [place] [address] 07/26/2025 1:30 PM EDT Office Visit [facility] Pulm & Critical Care Medicine [address] [facility] [address] [address] Adela Watson MD [address] [address] 07/29/2025 9:00 AM EDT Appointment [facility] Breast Imaging [address] [place] [address] 04/15/2026 9:30 AM EDT Office Visit [facility] Gastroenterology [address] [place] [address] Rex Stoll MD [address] [address] Scheduled Orders Name Type Priority Associated Diagnoses Orde r Schedule MM digital mammo screen bilateral Imaging Routine Encounter for screening mammogram for malignant neoplasm of breast Expected: 07/06/2022, Expires: 07/06/2023 documented as of this encounter Visit Diagnoses Diagnosis Encounter for screening mammogram for malignant neoplasm of breast- Primary documented in this encounter Care Teams Director Of Pulmonary Unit Relationship Specialty Start Date End Date Kalin Rob MD PCP - General Family Medicine 10/27/22 12/28/24 Ann Pizano APRN [address] [place] [address] PCP - General Family Medicine 01/11/25 documented as of this encounter
--- OUTSIDE RECORDS SUMMARY | 2025-04-30 14:41 | XMS_ITS | Encounter Summary ---
Author Organization [employer] ([place], [place], [place], [place]) Address [address] [place] [address] Care Team Providers Care Sewing Machine Adjuster Name Role Phone Kalin Rob MD Primary Care Provider [phone] Ann Pizano APRN Primary Care Provider [phone]- [phone] Encounter Details Date Type Department Care Team (Late st Contact Info) Description 03/04/2021 Transcribed Document [facility] Family Medicine [address] [place] [address] ProviderJean-Pierre MD [address] [place] [id number] Social History Tobacco Use Types Packs/Day Years [...] 03/04/2021 10:03 AM CDT [facility] OR PACU Summary Primary Physician: KASEY MONROE MD-FERCHO Finalized Date/Time: 03/04/21 12:02:45 Pt. Name: HUONG GARCIA MARU /Sex: 1975 Female Med Rec #: [id number] Physician: KASEY MONROE MD-FERCHO Financial #: [id number] Pt. Type: O Room/Bed: Admit/Disch: 03/04/21 07:25:00 - Institution: [facility] OR PACU Case Times Entry 1 In PACU I 03/04/21 11:32:00 Ready for PACU 03/04/21 12:02:00 Discharge Discharge from PACU 03/04/21 12:02:00 I Last Modified By: Kat Haley RN 03/04/21 12:02:41 [facility] OR PACU Case Times Audit 03/04/21 12:02:41 Fisheries Diver: [email or web address] Modifier: [email or web address] <+> 1 Ready for PACU Discharge <+> 1 Discharge from PACU I Finalized By: Kat Haley, RN Document Signatures Signed By: Kat Haley RN 03/04/21 12:02 documented in this encounter Plan of Treatment Upcoming Encounters Date Type Department Care Team (Late st Contact Info) Description 07/22/2025 1:00 PM EDT Appointment [facility] CT Imaging [address] [place] [phone] Adela Watson MD [address] [place] [address] [address] 07/24/2025 10:30 AM EDT Office Visit [facility] Primary Care - [facility] [address] [place] [address] Ann Pizano APRN [address] [place] [address] 07/26/2025 1:30 PM EDT Office Visit [facility] Pulm & Critical Care Medicine [address] [place] [address] [address] Adela Watson MD [address] [phone] 07/29/2025 9:00 AM EDT Appointment [facility] Breast Imaging [address] [place] [address] 04/15/2026 9:30 AM EDT Office Visit [facility] Gastroenterology [address] [place] [address] Rex Stoll MD [address] [facility] [address] [place] [address] documented as of this encounter Visit Diagnoses Not on filedocumented in this encounter Care Teams Sewing Machine Adjuster Relationship Specialty Start Date End Date Kalin Rob MD PCP - General Family Medicine 10/27/22 12/28/24 Ann Pizano APRN [address] [place] [address] PCP - General Family Medicine 01/11/25 documented as of this encounter
--- OUTSIDE RECORDS SUMMARY | 2025-04-30 14:41 | XMS_ITS | Encounter Summary ---
Author Organization [employer] ([place], [place], [place], [place]) Address [address] [place] [address] Care Team Providers Care Rice Farmworker Name Role Phone Ann Pizano AMISH Primary Care Provider [phone] Reason for Visit * Reason Comments Medication Refill Encounter Details Date Type Department Care Team (Late st Contact Info) Description 04/17/2025 Refill [facility] Gastroenterology [address] [place] [address] Rex Stoll MD [address] [place] [address] Chronic constipation; Gastroesophageal reflux disease, unspecified whether esophagitis present Social History Tobacco Use Types Packs/Day Years Used Date Smoking Tobacco: Every Day Cigarettes 0.5 15 Smokeless Tobacco: Never Alcohol Use Standard Drinks/Week Comments Never 0 (1 standard drink = 0.6 oz pur e alcohol) caffeine use [facility] - Mental Health Answer Date [...] Date Cornelius rded Speak language other than Japanese at home Not on file 11/04/2023 Want [...] Info) Description 07/22/2025 1:00 PM EDT Appointment [facility] CT Imaging [address] [place] [address] Adela Watson MD [address] [address] 07/24/2025 10:30 AM EDT Office Visit [facility] Primary Care - [facility] [address] [place] [address] Ann Pizano APRN [address] [place] [address] 07/26/2025 1:30 PM EDT Office Visit [facility] Pulm & Critical Care Medicine [address] [facility] [address] [address] Adela Watson MD [address] [address] 07/29/2025 9:00 AM EDT Appointment [facility] Breast Imaging [address] [place] [address] 04/15/2026 9:30 AM EDT Office Visit [facility] Gastroenterology [address] [place] [address] Rex Stoll MD [address] [facility] [address] [place], [place] [phone] documented as of this encounter Visit Diagnoses Diagnosis Chronic constipation Unspecified constipation Gastroesophageal reflux disease, unspecified whether esophagitis present documented in this encounter Care Teams Rice Farmworker Relationship Specialty Start Date End Date Ann Pizano APRN [address] [place] [address] PCP - General Family Medicine 01/11/25 documented as of this encounter
--- OUTSIDE RECORDS SUMMARY | 2025-04-30 14:41 | XMS_ITS | Encounter Summary ---
Author Organization [employer] ([place], [place], [place], [place]) Address [address] [place] [address] Care Team Providers Care Mounter Flutes And Piccolos Name Role Phone Kalin Rob MD Primary Care Provider [phone] nAn Pizano APRN Primary Care Provider [phone]- [phone] Encounter Details Date Type Department Care Team (Late st Contact Info) Description 03/04/2021 Transcribed Document [facility] [place] [address] [place] [address] Jean-Pierre Lovett MD [address] [place] [address] 850481 Social History Tobacco Use Types Packs/Day Years [...] sinus surgery and total ethmoidectomy, CPT code #05840-32. 2. Nasal septoplasty, CPT code #03593-00. 3. Bilateral endoscopic maxillary antrostomy with removal of tissue, CPT code #23526-62, 51. 4. Bilateral endoscopic sphenoid sinus surgery, CPT code #03453-00, 51. 5. Bilateral inferior turbinate reduction, CPT code #61262-53, 51. 6. Image-guided, navigation-assisted surgery, CPT code #05458-89. ANESTHESIA: General. COMPLICATIONS: None immediate. ESTIMATED BLOOD LOSS: 25 to 50 mL. SPECIMENS: Bilateral sinus contents and septal contents sent to pathology. OPERATIVE FINDINGS: A septal spur on the left posteriorly causing over 90% obstruction. A high septal deflection on the right causing 50% obstruction at the level of the middle turbinate. Moderate bilateral inferior turbinate hypertrophy. Nlyu-mk-zifmsebt diffuse sinus inflammation with thick mucosal inflammation [...] CT scan of the sinuses using the [employer] navigation system. This was calibrated to 1 [...] was evaluated using a 30-degree telescope. A Flippstronic 6 mm balloon was used to dilate [...] was no spinal fluid leak. There was iple-yi-aybypnnd mucosal inflammation, which was noted to be [...] left inferior turbinate was medialized with a [place] elevator. Thru-cutting instruments were used to resect [...] Anesthesia, where she was awakened and extubated. /[id number] Chandana Bah MD REW/AQ / REW / MODL /[id number] documented in this encounter Plan of Treatment Upcoming Encounters Date Type Department Care Team (Late st Contact Info) Description 07/22/2025 1:00 PM EDT Appointment [facility] CT Imaging [address] [place] [address] Adela Watson MD [address] [facility] [address] [place] [address] 07/24/2025 10:30 AM EDT Office Visit [facility] Primary Care - [facility] [address] [place] [address] Ann Pizano APRN [address] [place] [address] 07/26/2025 1:30 PM EDT Office Visit [facility] Pulm & Critical Care Medicine 1401 [facility] [address] [address] Adela Watson MD 14[address] [facility] [place] [place] [address] 07/29/2025 9:00 AM EDT Appointment [facility] Breast Imaging [address] [place] [address] 04/15/2026 9:30 AM EDT Office Visit [facility] Gastroenterology [address] [place] [address] Rex Stoll MD [address] [place] [address] documented as of this encounter Visit Diagnoses Not on filedocumented in this encounter Care Teams Mounter Flutes And Piccolos Relationship Specialty Start Date End Date Kalin Rob MD PCP - General Family Medicine 10/27/22 12/28/24 Ann Pizano APRN [address] [place] [address] PCP - General Family Medicine 01/11/25 documented as of this encounter
--- OUTSIDE RECORDS SUMMARY | 2025-04-30 14:41 | XMS_ITS | Encounter Summary ---
Author Organization [employer] ([place], [place], [place], [place]) Address [address] [place] [address] Care Team Providers Care Telehealth Nurse Educator Name Role Phone Kalin Rob MD Primary Care Provider [phone] Ann Pizano APRN Primary Care Provider +- [phone] Encounter Details Date Type Department Care Team (Late st Contact Info) Description 03/04/2021 Transcribed Document [facility] [place] [address] [place] [address] ProviderJean-Pierre MD [address] [place] [address] [id number] Social History Tobacco Use Types Packs/Day Years [...] MARU /Sex: 1975 Female Med Rec #: [id number] Physician: KASEY MONROE MD-FERCHO Financial #: [id number] Pt. Type: O Room/Bed: Admit/Disch: 03/04/21 07:25:00 - Institution: [facility] PreOp Case Times Entry 1 In Preop 03/04/21 07:45:00 Ready for Holding n/a Room Patient Ready for 03/04/21 09:00:00 Surgery Patient Out of Preop 03/04/21 09:45:00 Patient Out of n/a Holding Room Last Modified By: CHARLEY HAMM 03/04/21 11:56:35 [facility] PreOp Case Times Audit 03/04/21 11:56:35 Clothing Consultant: [id number] Modifier: [id number] <+> 1 Patient Out of Preop Finalized By: CHARLEY HAMM Document Signatures Signed By: CHARLEY HAMM 03/04/21 11:56 documented in this encounter Plan of Treatment Upcoming Encounters Date Type Department Care Team (Late st Contact Info) Description 07/22/2025 1:00 PM EDT Appointment [facility] CT Imaging [address] [place] [address] Adela Watson MD [address] [place] [address] [address] 07/24/2025 10:30 AM EDT Office Visit [facility] Primary Care - [facility] [address] [place] [address] Ann Pizano APRN [address] [place] [address] 07/26/2025 1:30 PM EDT Office Visit [facility] Pulm & Critical Care Medicine [address] [place] [address] [address] Adela Watson MD [address] [place] [address] [address] 07/29/2025 9:00 AM EDT Appointment [facility] Breast Imaging [address] [place] [address] 04/15/2026 9:30 AM EDT Office Visit [facility] Gastroenterology [address] [place] [address] Rex Stoll MD [address] [facility] [address] [place] [address] documented as of this encounter Visit Diagnoses Not on filedocumented in this encounter Care Teams Telehealth Nurse Educator Relationship Specialty Start Date End Date Kalin Rob MD PCP - General Family Medicine 10/27/22 12/28/24 Ann Pizano APRN [address] [place] [id number] PCP - General Family Medicine 01/11/25 documented as of this encounter
--- OUTSIDE RECORDS SUMMARY | 2025-04-30 14:41 | XMS_ITS | Encounter Summary ---
Author Organization [employer] ([place], [place], [place], [place]) Address [address] [place] [address] Care Team Providers Care Internet Marketing Manager Name Role Phone Kalin Rob MD Primary Care Provider [phone] Ann Pizano APRN Primary Care Provider +- [phone] Encounter Details Date Type Department Care Team (Late st Contact Info) Description 03/04/2021 Transcribed Document [facility] [place] [facility] [place] [address] ProviderJean-Pierre MD [address] [place] [address] [id number] Social History Tobacco Use Types Packs/Day Years [...] MARU /Sex: 1975 Female Med Rec #: [id number] Physician: KASEY MONROE MD-FERCHO Financial #: [id number] Pt. Type: O Room/Bed: Admit/Disch: 03/04/21 07:25:00 - Institution: [facility] IntraOp Case Attendance Entry 1 Entry 2 Entry 3 Case Attendee KASEY MONROE MD-GERARD DUMONT, Promise Nguyen, RN Role Performed Surgeon/Proceduralist, FLAME HARDENING MACHINE OPERATOR/Nurse Plate Sensitizer Car Tracer, First First Time In 03/04/21 09:49:00 03/04/21 [...] 5 Case Attendee Marian Peoples, OTHER, ATTENDEE Patient Case Manager Role Performed Scrub, First Student Time In 03/04/21 09:49:00 03/04/21 09:49:00 Time Out 03/04/21 11:29:00 03/04/21 11:29:00 Procedure Sinus Surgery Sinus Surgery Endoscopic Septoplasty Endoscopic Septoplasty Tur(Bilateral) Tur(Bilateral) Other Attendee [facility] STUDENT Superficial Wound Closed By: Last Modified By: Promise Trevino, RN Promise Trevino, RN 03/04/21 11:30:01 03/04/21 11:30:01 [facility] IntraOp Case Attendance Audit 03/04/21 11:30:01 Continuous Mining Machine Lode Miner: [id number] Modifier: [id number] 1 <+> Time Out 1 <*> Procedure [...] [facility] IntraOp Case Times Audit 03/04/21 11:30:00 Continuous Mining Machine Lode Miner: [id number] Modifier: [id number] <+> 1 Out Room Time <+> 1 Stop Time 03/04/21 11:29:35 Continuous Mining Machine Lode Miner: [id number] Modifier: [id number] <+> 1 Stop Time 03/04/21 10:44:43 Continuous Mining Machine Lode Miner: [id number] Modifier: [id number] <+> 1 Start Time [facility] IntraOp Communication Entry 1 Communication To Family/Significant other Comment ATTEMPTED TO CALL START- PHONE WENT STRAIGHT TO VOICEMAIL Communication By Promise Trevino, MIRA Date and Time 03/04/21 10:17:00 Last Modified By: Promise Trevino RN 03/04/21 10:17:54 [facility] IntraOp Counts Verification Entry 1 Procedure Sinus Surgery Endoscopic Septoplasty Tur(Bilateral) Count Info Count Type Sponge, Sharps, Miscellaneous Counts Verification Baseline/pre-procedure Sequence Count Results Not Applicable Counts Performed By Count Performed By Marian Peoples, (Scrub) Patient Case Manager Count Performed By Promise Trevino, RN (RN) Last Modified By: Promise Trevino, RN 03/04/21 10:16:51 [facility] IntraOp Counts Final Entry 1 Procedure Sinus Surgery Endoscopic Septoplasty Tur(Bilateral) Final Count Info Count Type Sponge, Sharps, Miscellaneous Counts Verification Skin Closure/end of Sequence procedure Count Results Correct, surgeon notified Counts Performed By Count Performed By Marian Peoples, (Scrub) Patient Case Manager Count Performed By Promise Trevino, RN (RN) [...] Yes Assessment Complete Fire Risk Promise Trevino manager recovery Verified By Fire Risk 03/04/21 09:49:00 Assessment Verified Date/Time Fire Risk High Risk Protocol Yes Implemented Standard Fire Yes Safety Precautions Followed Last Modified By: Promise Trevino RN 03/04/21 10:18:10 [facility] IntraOp General Case Housekeeper Caregiver 1 Case Information OR OR 10 SJE Case Level 1 Room Verified Yes Wound Class II - Clean-Contaminated Specialty ENT Surgery Anesthesia Type General ASA Class 2 Diagnosis Preop Diagnosis CHRONIC SINUSITIS; HYPERTROPHY OF NASAL TURBINATES Postop Same As Preop No Postop Diagnosis SEE MD POSTOP NOTE Last Modified By: Promise Trevino RN 03/04/21 10:19:02 [facility] IntraOp Intraoperative [...] Yes Video No Last Modified By: Promise Trevino RN 03/04/21 10:20:16 [facility] IntraOp Medication Admin Entry 1 Entry 2 Entry 3 Medication/Irrigant lidocaine 1% w/ epinephrine 1mg/ml amp Afrin 0.05% nasal spray epinephrine 1:100,000 - [id number] 15ml - [id number] 30ml vial - [id number] Combo Med List Time Administered Route of LOCAL TOPICAL ON SPONGES TOPICAL Administration Dose Dose 5 15 Unit of Measure ml ml ml Volume Administered By KASEY MONROE MD-FERCHOKASEY ORTEZ MD-FERCHOKASEY ORTEZ MD-FERCHO Procedure Irrigation Irrigant Volume In Irrigant Volume Out Last Modified By: Promise Trevino, RN Promise Trevino, RN Promise Trevino, RN 03/04/21 10:22:19 03/04/21 10:22:19 03/04/21 10:22:19 Entry 4 Medication/Irrigant Bacitracin 15Gm ointment - [id number] Combo Med List Time Administered Route of TOPICAL Administration Dose Dose 15 Unit of Measure gram Volume Administered By KASEY MONROE MD-FERCHO Procedure Irrigation Irrigant Volume In Irrigant Volume Out Last Modified By: Promise Trevino RN 03/04/21 10:22:19 [facility] IntraOp Patient Positioning Entry [...] Intra Op Sign Out Audit 03/04/21 11:29:41 Continuous Mining Machine Lode Miner: [id number] Modifier: [id number] <+> 1 RN Sign Out Signature Date/Time [...] Modified By: Promise Trevino RN 03/04/21 11:29:36 [facility] IntraOp Surgical Procedures Audit 03/04/21 11:29:36 Continuous Mining Machine Lode Miner: [id number] Modifier: [id number] <+> 1 Start <+> 1 Stop SJE [...] RN 03/04/21 11:30 Electronically signed by [employer] [facility] [place] Conversion Manager Project Management Cerner at 02/04/2023 8:34 AM CDT documented in this encounter Plan of Treatment Upcoming Encounters Date Type Department Care Team (Late st Contact Info) Description 07/22/2025 1:00 PM EDT [facility]ointment [facility] CT Imaging [address] [place] [address] Adela Watson MD 1401 [facility] [address] [place] [address] 07/24/2025 10:30 AM EDT Office Visit [facility] Primary Care - [facility] [address] [place] [address] Ann Pizano APRN [address] [place] [address] 07/26/2025 1:30 PM EDT Office Visit [facility] Pulm & Critical Care Medicine 1401 [facility] [address] [place] [address] Adela Watson MD 1401 [facility] [address] [place] [address] 07/29/2025 9:00 AM EDT Appointment [facility] Breast Imaging [address] [place] [address] 04/15/2026 9:30 AM EDT Office Visit [facility] Gastroenterology [address] [place] [address] Rex Stoll MD [address] [facility] [address] [place] [address] documented as of this encounter Visit Diagnoses Not on filedocumented in this encounter Care Teams Internet Marketing Manager Relationship Specialty Start Date End Date Kalin Rob MD PCP - General Family Medicine 10/27/22 12/28/24 Ann Pizano APRN [address] [place] [address] PCP - General Family Medicine 01/11/25 documented as of this encounter
--- OUTSIDE RECORDS SUMMARY | 2025-04-30 14:41 | XMS_ITS | Encounter Summary ---
Author Organization [employer] ([place], [place], [place], [place]) Address [address] [place] [address] Care Team Providers Care Director Career Name Role Phone Kalin Rob MD Primary Care Provider [phone] Ann Pizano APRN Primary Care Provider +- [phone] Encounter Details Date Type Department Care Team (Late st Contact Info) Description 03/04/2021 Transcribed Document [facility] [place] Family [place] [facility] [place] [address] ProviderJean-Pierre MD [address] [place] [address] Social History Tobacco Use Types Packs/Day Years Used Date Smoking Tobacco: Never Assessed Comments Unknown Sex and Gender Information Value Date Recorded Sex Assigned at Not on file Legal Sex Female 1:32 PM CDT Gender Identity Not on file Sexual Orientation Not on file documented as of this encounter Miscellaneous Notes * Cerner Conversion Note - Jean-Pierre ProviderMD - 03/04/2021 12:17 PM CDT [address] [address] ANDREAS GARCIA :1975 Visit Time:03/04/2021 What to [...] for Tuesday or of next week Where: [address] [place] [address]- Medications What How Much When Instructions Next Dose acetaminophen-hydrocodone (acetaminophen-HYDROcodone 325 mg-5 mg oral tablet) 1 Tablet(s) Oral Two Times A Day as needed for for pain acetaminophen-hydrocodone ([place] 5 mg-325 mg oral tablet) 1 Tablet(s) Oral Every 4 Hours as needed for for pain Pickup at [facility]/pharmacy #[id number] cholecalciferol (Vitamin D3 5000 units oral capsule) 1 Capsule(s) Oral Two Times A Day with food clindamycin 300 Milligram(s) Oral Three Times A Day cyanocobalamin (cyanocobalamin 1000 mcg/ mL injectable solution) 1 Milliliter(s) IntraMuscular Once a month DULoxetine 60 Milligram(s) Oral Two Times A Day fluticasone nasal (fluticasone 50 mcg/ inh nasal spray) 1 [place](s) Nasal Two Times A Day gabapentin (gabapentin [...] Milligram(s) SubCutaneous Every Two Weeks Pharmacy Information [facility]/pharmacy #[id number]: [address] [place], [place] [phone] Take your medications faithfully. Do NOT skip [...] activities are safe for you. ??? Take ssuz-akj-ivohxin and prescription medicines only as told by [...] provider. Document Revised: 10/06/2018 Document Reviewed: 05/19/2018 [employer] Patient Education ?? 2020 [employer]. Sinus Endoscopy, Care After This sheet gives [...] at home: Medicines ??? Take or use qndn-ums-kblendp and prescription medicines only as told by [...] discomfort that does not get better with qcdo-nqt-arsbabd medicine. ??? You have a fever. ??? [...] provider. Document Revised: 01/25/2020 Document Reviewed: 02/17/2018 [employer] Patient Education ?? 2020 [employer]. acetaminophen and hydrocodone (a SEET a MIN oh fen and lulu droe KOE done) Hycet, Lorcet, [place], Verdrocet, Vicodin, Xodol, Zamicet What is the [...] may report side effects to FDA at 5-371-EFY-0509. What other drugs will affect acetaminophen and [...] affect acetaminophen and hydrocodone, including prescription and fixb-fnd-mgfpfjz medicines, vitamins, and herbal products. Not all [...] to ensure that the information provided by [employer]. ('[employer]') is accurate, up-to-date, and complete, but no guarantee is made to that effect. Drug information contained herein may be time sensitive. [employer] information has been compiled for use by healthcare practitioners and consumers in the [place] and therefore [employer] does not warrant that uses outside of the [place] are appropriate, unless specifically indicated otherwise. [employer] drug information does not endorse drugs, diagnose patients or recommend therapy. [employer] drug information is an informational resource designed [...] effective or appropriate for any given patient. [employer] does not assume any responsibility for any aspect of healthcare administered with the aid of information [employer] provides. The information contained herein is not intended to cover all possible uses, directions, precautions, warnings, drug interactions, allergic reactions, or adverse effects. If you have questions about the drugs you are taking, check with your doctor, nurse or pharmacist. Copyright 0671-2217 [employer]. Version: 16.03. Revision Date: 11/18/2020. Emergency Awareness [...] Assistance with quitting is available by contacting 1-308-KBUI-NOW. This is a free resource providing counseling, support, and referral. Or you may contact your personal physician. [employer] Suicide Prevention Lifeline: The National Suicide Prevention [...] was given the opportunity to ask questions. Patient/Therapist Occupational Name: Patient/Therapist Occupational Signature: Relationship to Patient: Clinician/Hospital Therapist Occupational Signature: Date: documented in this encounter Plan of Treatment Upcoming Encounters Date Type Department Care Team (Late st Contact Info) Description 07/22/2025 1:00 PM EDT Appointment [facility] CT Imaging [address] [place] [address] Adela Watson MD [address] [place] [address] 07/24/2025 10:30 AM EDT Office Visit [facility] Primary Care - [facility] [address] [place] [address] Ann Pizano APRN [address] [place] [address] 07/26/2025 1:30 PM EDT Office Visit [facility] Pulm & Critical Care Medicine [address] [place] [address] [address] [place] [address] Adela Watson MD [address] [facility] [place] [place] [address] 07/29/2025 9:00 AM EDT Appointment [facility] Breast Imaging [address] [place] [address] 04/15/2026 9:30 AM EDT Office Visit [facility] Gastroenterology [address] [place] [address] Rex Stoll MD [address] [facility] [address] [place] [address] documented as of this encounter Visit Diagnoses Not on filedocumented in this encounter Care Teams Director Career Relationship Specialty Start Date End Date Kalin Rob MD PCP - General Family Medicine 10/27/22 12/28/24 Ann Pizano APRN [address] [place] [address] PCP - General Family Medicine 01/11/25 documented as of this encounter
--- OUTSIDE RECORDS SUMMARY | 2025-04-30 14:41 | XMS_ITS | Encounter Summary ---
Author Organization [employer] ([place], [place], [place], [place]) Address [address] [place] [address] Care Team Providers Care Population Health Manager Name Role Phone Kalin Rob MD Primary Care Provider [phone] Ann Piznao APRN Primary Care Provider +- [phone] Encounter Details Date Type Department Care Team (Late st Contact Info) Description 03/04/2021 Transcribed Document [facility] [place] [address] [place] [address] ProviderJean-Pierre MD [address] [place] [address] [phone] Social History Tobacco Use Types Packs/Day Years [...] MARU /Sex: 1975 Female Med Rec #: [id number] Physician: KASEY MONROE MD-FERCHO Financial #: [id number] Pt. Type: O Room/Bed: Admit/Disch: 03/04/21 07:25:00 - Institution: [facility] PostOp Case Times Entry 1 In PACU II 03/04/21 12:06:00 Ready for PACU II 03/04/21 12:44:00 Discharge Discharge from PACU 03/04/21 12:44:00 II Last Modified By: RAINER WILLINGHAM 03/04/21 13:19:29 Finalized By: RAINER WILLINGHAM Document Signatures Signed By: RAINER WILLINGHAM 03/04/21 13:19 documented in this encounter Plan of Treatment Upcoming Encounters Date Type Department Care Team (Late st Contact Info) Description 07/22/2025 1:00 PM EDT Appointment [facility] CT Imaging [address] [place] [address] [place] [address] [place] [address] [address] 07/24/2025 10:30 AM EDT Office Visit [facility] Primary Care - [facility] [address] [place] [address] Ann Pizano APRN [address] [place] [address] 07/26/2025 1:30 PM EDT Office Visit [facility] Pulm & Critical Care Medicine [address] [place] [address] [address] [place] [address] [place] [address] [address] 07/29/2025 9:00 AM EDT Appointment [facility] Breast Imaging [address] [place] [address] 04/15/2026 9:30 AM EDT Office Visit [facility] Gastroenterology [address] [place] [address] Rex Stoll MD [address] [place] [address] documented as of this encounter Visit Diagnoses Not on filedocumented in this encounter Care Teams Population Health Manager Relationship Specialty Start Date End Date Kalin Rob MD PCP - General Family Medicine 10/27/22 12/28/24 Ann Pizano APRN [address] [place] [address] PCP - General Family Medicine 01/11/25 documented as of this encounter
--- OUTSIDE RECORDS SUMMARY | 2025-04-30 14:41 | XMS_ITS | Encounter Summary ---
Author Organization [employer] ([place], [place], [place], [place]) Address [address] [place] [address] Care Team Providers Care Transportation Security Officer Name Role Phone Ann Pizano AMISH Primary Care Provider +1- [phone] Reason for Visit * Reason Comments Medication Refill Encounter Details Date Type Department Care Team (Late st Contact Info) Description 04/17/2025 Refill [facility] Gastroenterology [address] [place] [address] Lia Hobbs PA-C 227 [facility] [address] [place] [address] Gastroesophageal reflux disease, unspecified whether esophagitis present Social History Tobacco Use Types Packs/Day Years Used Date Smoking Tobacco: Every Day Cigarettes 0.5 15 Smokeless Tobacco: Never Alcohol Use Standard Drinks/Week Comments Never 0 (1 standard drink = 0.6 oz pur e alcohol) caffeine use [facility] - Mental Health Answer Date Recorde [...] 07/22/2025 1:00 PM EDT Appointment [facility] CT Imaging [address] [place] [address] Adela Watson MD [address] [place] [address] [address] 07/24/2025 10:30 AM EDT Office Visit [facility] Primary Care - [facility] [address] [place] [address] Ann Pizano APRN [address] [place] [address] 07/26/2025 1:30 PM EDT Office Visit [facility] Pulm & Critical Care Medicine 1401 [facility] [address] [address] Adela Watson MD [address] [address] 07/29/2025 9:00 AM EDT Appointment [facility] Breast Imaging [address] [place] [address] 04/15/2026 9:30 AM EDT Office Visit [facility] Gastroenterology [address] [place] [address] Rex Stoll MD 227 [facility] [address] [place], [place] [phone] documented as of this encounter Visit Diagnoses Diagnosis Gastroesophageal reflux disease, unspecified whether esophagitis present documented in this encounter Care Teams Transportation Security Officer Relationship Specialty Start Date End Date Ann Pizano APRN [address] [place] [address] PCP - General Family Medicine 01/11/25 documented as of this encounter
--- OUTSIDE RECORDS SUMMARY | 2025-04-30 14:41 | XMS_ITS | Encounter Summary ---
Author Organization [employer] ([place], [place], [place], [place]) Address [address] [place] [address] Care Team Providers Care Cleaner And Trimmer Name Role Phone Kalin Rob MD Primary Care Provider [phone] Ann Pizano APRN Primary Care Provider +- [phone] Encounter Details Date Type Department Care Team (Late st Contact Info) Description 03/04/2021 Transcribed Document [facility] Family Medicine [address] [place] [address] Jean-Pierre Lovett MD [address] [place] [address] [id number] Social History Tobacco Use Types Packs/Day Years [...] at home: Medicines ??? Take or use xztw-bjp-skcmaym and prescription medicines only as told by [...] discomfort that does not get better with jjfc-ydq-rgkekpu medicine. ??? You have a fever. ??? [...] provider. Document Revised: 01/25/2020 Document Reviewed: 02/17/2018 [employer] Patient Education ? 2019 [employer]. Pharmacology General Anesthesia, Adult, Care After This [...] activities are safe for you. ??? Take fgqz-spy-jxfaocr and prescription medicines only as told by [...] provider. Document Revised: 10/06/2018 Document Reviewed: 05/19/2018 [employer] Patient Education ? 2019 [employer] documented in this encounter Plan of Treatment Upcoming Encounters Date Type Department Care Team (Late st Contact Info) Description 07/22/2025 1:00 PM EDT Appointment [facility] CT Imaging [address] [place] [address] Adela Watson MD [address] [place] [address] [place] [address] 07/24/2025 10:30 AM EDT Office Visit [facility] Primary Care - [facility] [address] [place] [address] Ann Pizano APRN [address] [place] [address] 07/26/2025 1:30 PM EDT Office Visit [facility] Pulm & Critical Care Medicine 1401 [facility] [address] [address] Adela Watson MD 1401 [facility] [address] [place] [address] 07/29/2025 9:00 AM EDT Appointment [facility] Breast Imaging [address] [place] [address] 04/15/2026 9:30 AM EDT Office Visit [facility] Gastroenterology [address] [place] [address] Rex Stoll MD [address] [facility] [address] [place] [address] documented as of this encounter Visit Diagnoses Not on filedocumented in this encounter Care Teams Cleaner And Trimmer Relationship Specialty Start Date End Date Kalin Rob MD PCP - General Family Medicine 10/27/22 12/28/24 Ann Pizano, C WEB DEVELOPER [address] [place] [address] PCP - General Family Medicine 01/11/25 documented as of this encounter
--- OUTSIDE RECORDS SUMMARY | 2025-04-30 14:41 | XMS_ITS | Encounter Summary ---
Author Organization [employer] ([place], [place], [place], [place]) Address [address] [place] [address] Care Team Providers Care District Agent Name Role Phone Kalin Rob MD Primary Care Provider [phone] Ann Pizano APRN Primary Care Provider +1- [phone] Encounter Details Date Type Department Care Team (Late st Contact Info) Description 03/04/2021 Transcribed Document [facility] Family Medicine [facility] [place] [address] ProviderJean-Pierre MD [address] [place] [address] [id number] Social History Tobacco Use Types Packs/Day Years [...] Source : Stated Height Entry Format : Kimball Height, Feet : 5 ft(Converted to: 152 cm, 60 Inch) Height, Inches : 4 Inch(Converted to: 0 ft 4 Inch, 10.16 cm) Clinical Height : 162.56 cm Weight Source : Standing scale Weight Entry Format : Kimball Clinical Dosing Weight : 69.55 kg Weight, Pounds : 153 lb Body Surface Area (BSA) : 1.75 m2 Body Mass Index : 26.3 kg/m2 (HI) [place] Body Weight : 54 kg Lorena Rob [...] Where was the COVID-19 Testing completed? : [facility] Date of COVID-19 test known? : Yes [...] Lorena Rob RN - 03/04/2021 9:08 EDT [place] Suicide Severity Rating Scale (C-SSRS) CSSRS Past [...] : Patient Preferred Communication Mode : Verbal Loop Sewer Needed : No Objects to Sharing Info w Family : No Currently Lactating : No Status : Patient denies Clinical Trials Participant *Q : None Lorena Rob RN - 03/04/2021 9:08 EDT Emergency Contact #1 : Sienna Smith Emergency Contact #1 Emergency Contact #1 Relationship : Mother Primary Language : Qatari Communication Barrier : None Lorena Rob RN - 03/04/2021 8:34 EDT Gonzalo Scale Gonzalo Sensory Perception : No impairment Gonzalo Moisture : Rarely moist Goznalo Activity : Walks frequently Gonzalo Mobility : [...] Appointment [facility] CT Imaging [address] [place] [address] Adela Watson MD [address] [place] [address] [address] 07/24/2025 10:30 AM EDT Office Visit [facility] Primary Care - [facility] 40 [place] [address] Ann Pizano APRN [address] [place] [address] 07/26/2025 1:30 PM EDT Office Visit [facility] Pulm & Critical Care Medicine [address] [place] [address] [place] [address] Adela Watson MD [address] [place] [address] [address] 07/29/2025 9:00 AM EDT Appointment [facility] Breast Imaging [address] [place] [address] 04/15/2026 9:30 AM EDT Office Visit [facility] Gastroenterology [address] [place] [address] Rex Stoll MD [address] [place] [address] documented as of this encounter Visit Diagnoses Not on filedocumented in this encounter Care Teams District Agent Relationship Specialty Start Date End Date Kalin Rob MD PCP - General Family Medicine 10/27/22 12/28/24 Ann Pizano APRN [address] [place] [address] PCP - General Family Medicine 01/11/25 documented as of this encounter
--- OUTSIDE RECORDS SUMMARY | 2025-04-30 14:41 | XMS_ITS | Referral Summary ---
Author Organization [employer] ([place], [place], [place], [place]) Address [address] [place] [address] Care Team Providers Care Pharmacy Clerk Name Role Phone Ann Pizano APRN Primary Care Provider +1- [phone] Encounters Date Type Department Care Team Description 04/27/2025 Refill [facility] Primary Care - [facility] [address] [place] [address] Ann Pizano APRN 04/20/2025 Refill [facility] Primary Care - [address] [address] Ann Pizano APRN Deficiency of other specified B group vitamins 04/17/2025 Refill [facility] Gastroenterology [address] [place] [address] Rex Stoll MD Chronic constipation; Gastroesophageal reflux disease, unspecified whether esophagitis present 04/17/2025 Refill [facility] Gastroenterology [address] [place] [address] Lia Hobbs PA-C Gastroesophageal reflux disease, unspecified whether esophagitis present 04/09/2025 9:15 AM EDT Office Visit [facility] Gastroenterology [address] [place] [address] Rex Stoll MD Fatty liver (Primary Dx); Folate deficiency; Vitamin D deficiency; Lung nodule 03/07/2025 Refill [facility] Cardiology - [address] [address] Jun Taylor MD Other hyperlipidemia 03/06/2025 Refill [facility] Care - [address] [address] Kalin Rob MD Encounter for general adult medical examination without abnormal findings 02/28/2025 Travel 02/28/2025 2:30 PM EDT Office Visit [facility] Pulm & Critical Care Medicine [address] [place] [address] Adela Watson MD Pulmonary nodule (Primary Dx); Chronic cough; Dyspnea on exertion; Abnormal chest CT; DEBORA (obstructive sleep apnea); Overweight; Tobacco dependence due to cigarettes 02/15/2025 Refill [facility] Urology - [facility] 227 [facility] [place] [address] Kevin Pena MD Stress incontinence 02/14/2025 1:47 PM EDT - 02/14/2025 11:59 PM EDT Hospital Encounter [facility] Pulmonary Lab [address] [place] [address] Adela Watson MD Chronic cough; Dyspnea on exertion Discharge Disposition: Home or Self Care 02/13/2025 Travel 02/10/2025 Refill [facility] - [address] [address] Kalin Rob MD Vitamin D deficiency, unspecified 02/04/2025 Telephone [facility] Pulm & Critical Care Medicine [address] [place] [address] [address] Ruth Aburto CMA Appointment 01/29/2025 Orders Only [facility] Care - [address] [address] Sukhwinder Lopez 01/29/2025 Orders Only [facility] Primary Care - [facility] [address] [place] [address] Sukhwinder Lopez from Last 3 Months Allergies Active Allergy [...] daily. 180 tablet 3 024 2024 Discontinued(R mykel) Senna Plus 8.6-50 mg per tabletIndication s:Chronic [...] mRNA (PF)(LNP-S BIV ALENT) (Lamb Cap) 12YR+ (PFIZER)([id number] 07/23/2021 Covid-19 Vaccine MRNA (PF) 1 2yr+ (Pfizer/BioNTech)([id number]) 01/13/2021,12/20/2020 Hepatitis A 08/20/2019,11/21/2018 Influenza TIV (IM) 06/28/2022 Pneumococcal Conjugate (Prevnar) 13-Valent 08/20 Tdap 05/25/2019 Social History Tobacco Use Types Packs/Day Years Used Date Smoking Tobacco: Every Day Cigarettes 0.5 15 Smokeless Tobacco: Never Tobacco Cessation:Ready to Q uit: No Alcohol Use Standard Drinks/Week Comments Never 0 (1 standard drink = 0.6 oz pur e alcohol) caffeine use [facility] - Mental Health Answer Date Recorde [...] Date Cornelius rded Speak language other than Kittitian at home Not on file 11/04/2023 Want [...] Info) Description 07/22/2025 1:00 PM EDT Appointment [facility] CT Imaging [address] [place] [address] Adela Watson MD [address] [address] 07/24/2025 10:30 AM EDT Office Visit [facility] Primary Care - [facility] [address] [place] [address] Ann Pizano APRN [address] [place] [address] 07/26/2025 1:30 PM EDT Office Visit [facility] Pulm & Critical Care Medicine [address] [place] [address] [address] Adela Watson MD [address] [address] 07/29/2025 9:00 AM EDT Appointment [facility] Breast Imaging [address] [place] [address] 04/15/2026 9:30 AM EDT Office Visit [facility] Gastroenterology [address] [place] [address] Rex Stoll MD 227 [facility] [address] [place] [address] Procedures Procedure Name Priority Date/Time Associated Diagnosis [...] - 150 mg/dL 10/18/2024 12:51 PM EST [facility] Cholesterol 303(H) 50 - 200 mg/dL 10/18/2024 12:51 PM EST [facility] Comment: 200 to 239 mg/dL = Moderate (borderline) >239 mg/dL = High HDL Cholesterol 34(L) 40 - 60 mg/dL 10/18/2024 12:51 PM EST [facility] Comment: >=60 mg/dL = Desirable <40 mg/dL = Increased Risk All other components are listed individually or are calculations VLDL Cholesterol 79.6 mg/dL 10/18/19 25 12:51 PM EST [facility] Cholesterol/HDL ratio 8.9 10/18/2024 12:51 PM EST [facility] LDl/HDL Ratio 6 10/18/2024 12:51 PM EST [facility] RISK COMP 9 10/18/2024 12:51 PM EST [facility] LDL Cholesterol, Calculated 189 mg/dL 10/18/2024 12:51 PM EST [facility] Blood Venipuncture / Unknown 10/18/2024 11:56 AM EST 10/18/2024 12:05 PM EST us Kalin Rob MD LAB BLOOD ORDERABLES Final Result [facility] [address] [place] [id number] [phone] * (ABNORMAL) MM digital mammo screen with [...] the next mammogram. At our facility, a gakona marker is positioned over a visible skin [...] family history of breast cancer. COMPARISON STUDY: [phone] from [facility] FINDINGS: Craniocaudal and mediolateral oblique images [...] of computer-aided detection (CAD). Ann Pizano APRN [facility] MAMMOGRAPHY ORDERABLES Final Result * Hepatitis panel, acute (07/07/2023 12:10 PM EDT) Hep A IgM Nonreactive Nonreactive, Equivocal 07/08/2023 1:[address] [facility] Hep B C IgM Nonreactive Nonreactive 07/08/2023 1:[address] [facility] Hepatitis B surface antigen Nonreactive Nonreactive, Equivocal 07/08/2023 1:[address] [facility] Hepatitis C Ab Nonreactive Nonreactive, Equivocal 07/08/2023 1:[address] [facility] Blood Venipuncture / Unknown 07/07/2023 12:10 PM EDT 07/07/2023 12:38 PM EDT [facility] - 07/08/2023 1:50 AM EDT Hepatitis [...] MD LAB BLOOD ORDERABLES Final Result [facility] [address] [phone] * HM COLONOSCOPY (10/16/2019) Historical Provider HEALTH MAINTENANCE Final Result from Last 3 Months or Most Recently Relevant to Health Maintenance Insurance [facility] Care Teams Pharmacy Clerk Relationship Specialty Start Date End Date Ann Pizano APRN [address] [place] [address] PCP - General Family Medicine 01/11/25
--- OUTSIDE RECORDS SUMMARY | 2025-04-30 14:41 | XMS_ITS | Encounter Summary ---
Author Organization [employer] ([place], [place], [place], [place]) Address [address] [place] [address] Care Team Providers Care Manager Quality Compliance Name Role Phone Kalin Rob MD Primary Care Provider [phone] Ann Pizano APRN Primary Care Provider +1- [phone] Reason for Visit * Reason Comments Med Change Request Encounter Details Date Type Department Care Team (Late st Contact Info) Description 04/05/2024 [facility] Gastroenterology [address] [place] [address] Rex Stoll MD [address] [facility] [address] [place] [address] Gastroesophageal reflux disease, unspecified whether [...] Date Cornelius rded Speak language other than Afghan at home Not on file 11/04/2023 Want [...] [facility] [address] [phone] Adela Watson MD [address] [place] [address] 07/24/2025 10:30 AM EDT Office Visit [facility] Primary Care - [facility] [address] [place] [address] Ann Pizano APRN [address] [place] [address] 07/26/2025 1:30 PM EDT Office Visit [facility] Pulm & Critical Care Medicine [address] [place] [address] [address] Adela Watson MD [address] [address] 07/29/2025 9:00 AM EDT Appointment [facility] Breast Imaging [address] [place] [address] 04/15/2026 9:30 AM EDT Office Visit [facility] Gastroenterology [address] [place] [address] Rex Stoll MD 227 [facility] [address] [place] [address] documented as of this encounter Visit Diagnoses Diagnosis Gastroesophageal reflux disease, unspecified whether esophagitis present documented in this encounter Care Teams Manager Quality Compliance Relationship Specialty Start Date End Date Kalin Rob MD PCP - General Family Medicine 10/27/22 12/28/24 Ann Pizano APRN [address] [place] [address] PCP - General Family Medicine 01/11/25 documented as of this encounter
--- NOTE | 2025-04-30 15:00 | CT_ITS ---
FINAL REPORT TECHNIQUE: Axial imaging of the left wrist was obtained without contrast. Reformatted images were also obtained and reviewed. This study was performed with techniques to keep radiation doses as low as reasonably achievable (ALARA). Individualized dose reduction techniques using automated exposure control or adjustment of mA and/or kV according to the patient's size were employed. CLINICAL HISTORY: left wrist fx COMPARISON: 04/11/2025 FINDINGS: There is a comminuted, buckle fracture involving the dorsal cortex of the radial epiphysis extending to the radiocarpal joint. There is up to 2 mm of displacement. No significant step-off is seen at the articular surface. Ulna and carpus are intact. IMPRESSION: Mildly displaced, comminuted fracture of the dorsal radial epiphysis with extension to the joint. Reviewed, Interpreted and Dictated by Benedict Aguirre MD Transcribed by Quita Gallegos Authenticated and [facility]
== END 2025-04-30 23:59 | disposition home or self-care (01) ==
LOC: RAD 14:37
PROVIDERS: Visit Provider Orthopaedic Surgery
DX: S52.522A Torus fracture of lower end of left radius, initial encounter for closed fracture
CPT/HCPCS: 73200

== ENCOUNTER 2025-05-27 09:11 | Outpatient (CLI) | payer MEDICAID, SELFPAY ==
--- NOTE | 2025-05-27 09:11 | XR_ITS ---
FINAL REPORT CLINICAL HISTORY: fx f/u COMPARISON: 04/11/[address] 04/30/2025 FINDINGS: LEFT WRIST Four views show a comminuted fracture with minimal displacement of the distal radius with extension into the radiocarpal joint. The appearance has not significantly changed from the prior CT scan. There is some sclerosis which would indicate early fracture healing. No further displacement is noted. The joint spaces otherwise appear normal. IMPRESSION: Healing distal radius fracture. Reviewed, Interpreted and Dictated by Benedict Aguirre MD Transcribed by Kasey Egan Authenticated and . [facility]
== END 2025-05-27 23:59 | disposition home or self-care (01) ==
LOC: RAD 09:11
PROVIDERS: Visit Provider Physician Assistant
DX: S52.502D Unspecified fracture of the lower end of left radius, subsequent encounter for closed fracture with routine healing (principal); X58.XXXD Exposure to other specified factors, subsequent encounter
CPT/HCPCS: 73110

== ENCOUNTER 2025-06-18 09:13 | Outpatient (CLI) | payer MEDICAID, SELFPAY ==
--- NOTE | 2025-06-18 09:15 | XR_ITS ---
PROCEDURE INFORMATION: Exam: XR Left Wrist Exam date and time: 06/18/2025 9:09 AM Age: 50 years old Clinical indication: Pain; Wrist; Additional info: Left wrist pain TECHNIQUE: Imaging protocol: Radiologic exam of the left wrist. Views: 3 or more views. COMPARISON: CR XR WRIST LT W SCAPHOID 05/27/2025 9:06 AM FINDINGS: Bones/joints: Redemonstration of a fracture deformity involving the distal radius with progressive healing and only vague residual sclerosis. No discrete fracture line. Mild residual irregularity of the dorsal cortex. No new fractures. Joint spaces are preserved. No significant arthritic change. Soft tissues: Mild soft tissue swelling. IMPRESSION: Distal radius fracture deformity with progressive healing.
--- OUTSIDE RECORDS SUMMARY | 2025-06-18 09:34 | XMS_ITS | Encounter Summary ---
Author Organization [employer] ([place], [place], [place], [place]) Address [address] [place] [address] Care Team Providers Care Telegraph Mechanic Name Role Phone Ann Pizano AMISH Primary Care Provider [phone]- [phone] Reason for Visit * Reason Comments Medication Refill Encounter Details Date Type Department Care Team (Late st Contact Info) Description 06/16/2025 Refill [facility] Gastroenterology [address] [place] [address] Rex Stoll MD [address] [place] [address] Chronic constipation Social History Tobacco Use Types Packs/Day Years Used Date Smoking Tobacco: Every Day Cigarettes 0.5 15 Smokeless Tobacco: Never Alcohol Use Standard Drinks/Week Comments Never 0 (1 standard drink = 0.6 oz pur e alcohol) caffeine use [facility] - Mental Health Answer Date Recorde [...] Date Cornelius rded Speak language other than Rwandan at home Not on file 11/04/2023 Want [...] [facility] CT Imaging [address] [place] [address] Adela Watson MD [address] [address] 07/24/2025 10:30 AM EDT Office Visit [facility] Primary Care - [facility] [address] [place] [address] Ann Pizano APRN [address] [place] [address] 07/26/2025 1:30 PM EDT Office Visit [facility] Pulm & Critical Care Medicine 1401 [facility] [address] [address] Adela Watson MD [address] [address] 07/29/2025 9:00 AM EDT Appointment [facility] Breast Imaging [address] [place] [address] 04/15/2026 9:30 AM EDT Office Visit [facility] Gastroenterology [address] [place] [address] Rex Stoll MD [address] [facility] [address] [place] [address] documented as of this encounter Visit Diagnoses Diagnosis Chronic constipation Unspecified constipation documented in this encounter Care Teams Telegraph Mechanic Relationship Specialty Start Date End Date Ann Pizano APRN [address] [place] [address] PCP - General Family Medicine 01/11/25 documented as of this encounter
--- OUTSIDE RECORDS SUMMARY | 2025-06-18 09:34 | XMS_ITS | Encounter Summary ---
Author Organization [employer] ([place], [place], [place], [place]) Address [address] [place] [address] Care Team Providers Care Franchise Broker Name Role Phone Kalin Rob MD Primary Care Provider [phone] Ann Pizano APRN Primary Care Provider +- [phone] Reason for Visit * Reason Onset Date Comments Medication Refill 06/29/2023 Encounter Details Date Type Department Care Team (Late st Contact Info) Description 06/29/2023 Refill [facility] Primary Care - [facility] [address] [place] [address] Kalin Rob MD [address] [place] [address] Personal history of other diseases [...] on file documented as of this encounter Functional Status documented as of this encounter Plan of Treatment Upcoming Encounters Date Type Department Care Team (Late st Contact Info) Description 07/22/2025 1:00 PM EDT Appointment [facility] Imaging [address] [place] [address] Adela Watson MD 1401 [facility] [address] [place] [address] 07/24/2025 10:30 AM EDT Office Visit [facility] Primary Care - [facility] [address] [place] [phone] Ann Pizano APRN [address] [place] [address] 07/26/2025 1:30 PM EDT Office Visit [facility] Pulm & Critical Care Medicine 1401 [facility] [address] [address] Adela Watson MD 1401 [facility] [address] [address] 07/29/2025 9:00 AM EDT Appointment [facility] Breast Imaging [address] [place] [address] 04/15/2026 9:30 AM EDT Office Visit [facility] Gastroenterology [address] [place] [address] Rex Stoll MD 227 [facility] [address] [place], [place] [id number] documented as of this encounter Visit Diagnoses Diagnosis Personal history of other diseases of the digestive system documented in this encounter Care Teams Franchise Broker Relationship Specialty Start Date End Date Kalin Rob MD PCP - General Family Medicine 10/27/22 12/28/24 Ann Pizano APRN [address] [place] [address] PCP - General Family Medicine 01/11/25 documented as of this encounter
--- OUTSIDE RECORDS SUMMARY | 2025-06-18 09:34 | XMS_ITS | Patient Health Record ---
Author Organization [facility] [place] Address [address] [place] [address] Care Team Providers Care Bean Snipper Name Role Phone [facility] Primary Care Provider [phone] Reason For Referral No Information Plan Of Treatment No Information Insurance Providers Payer Name Payer Address Payer Phone Subscriber Number Group Number Insured Name Patient Relationship to Insured Coverage Start Date Coverage End Date [employer] Encounters [address] [address] [facility] [place], [place] [address] [id number] Huong Garcia Self - patient is the insured
--- OUTSIDE RECORDS SUMMARY | 2025-06-18 09:34 | XMS_ITS | Clinical Summary ---
Author Organization Healthcare Address [address] [place] [address] Care Team Providers Care Job Site Superintendent Name Role Phone Pcp, No Primary Care Provider Unavailabl e Allergies Active Allergy Reactions Criticality Noted Date [...] SIDE OF NOSE 7 Active HYDROcodone-edgardo taminophen (Rochelle) 5-325 MG tablet TAKE 1 TABLET BY [...] Encounters Date Type Department Care Team Description 06/10/2025 Refill [facility] Medicine Specialties [address] [place] [address] Agueda Ferrara APRN Seropositive rheumatoid arthritis of multiple sites ([facility]) 05/31/2025 Refill [facility] Medicine Specialties [address], [address] [place] [address] Agueda Ferrara, SQL SERVER BI DEVELOPER Seropositive rheumatoid arthritis of multiple sites ([facility]) 2025 Telephone [facility] [address] [place] [address] Batch, Yaniv Schuster, PharmD from [...] Maternal Grandmother Maxine Au Arthritis Mother Sienna Linvdwaine Autoimmune disease Mother Sienna Linvdwaine Diabetes Mother Sienna Linvulle Immunodeficiency Mother Sienna Linvulle Arthritis Other 1 Cardiac disorder Other 2 Other cancer Other 3 Arthritis Paternal Grandfather Earl Garcia Sr Heart disease Paternal Grandfather Earl Garcia Sr Stroke Paternal Grandfather Earl Garcia Sr Arthritis Paternal Grandmother Bridget Yazmin Garcia Heart disease Paternal Grandmother Bridget Yazmin Garcia Vision loss Paternal Grandmother Bridget Yazmin Garcia Relation Name Status Comments Father Earl Garcia Maternal Grandmother Maxine Au Mother Sienna Weller Other 1 Other 2 Other 3 Paternal [...] 05/31/2024 2:34 PM EDT Plan of Treatment Upcoming Encounters Date Type Department Care Team (Late st Contact Info) Description 10/31/2025 3:20 PM EST Office Visit [facility] Medicine Specialties [address] [place] [address] Agueda Ferrara, SQL SERVER BI DEVELOPER [address] [place] [address] Health Maintenance Due Date Last Done Comments [facility]-HIV Screening 1975 [facility]-Infant/Child/Adol SDOH Screenings 1976 [facility]- SDOH Screenings 1994 [facility]-Adult SDOH Screenings 1994 [facility]-Hepatitis B Vaccines (1 of 3 - 19+ 3-dose series) 1995 [facility]-Zoster Vaccines (1 of 2) 1995 [facility]-Pap Smear 08/07/2007 08/07/2004, 06/17, 02/16/2002 [facility]-Cervical Cancer Screening 08/07/2009 [facility]-HPV/Cotest 08/07/2009 08/07/2004, 06/17, 02/16/2002 CT Colonography 2021 Colonoscopy 2021 FIT-DNA 2021 FIT 2021 FOBT 2021 Sigmoidoscopy 2021 [facility]-Colorectal Cancer Screening 2021 [id number] Vaccine ( season) 2024 07/23/2021, 07/23/2021, 01/13/2021, [...] Loving MD LAB BLOOD ORDERABLES Final Result [facility] * Cytology (08/07/2004 12:00 AM EDT) 08/07/2004 08/11/2004 1:0 5 PM EDT Narrative [facility] - 08/13/2004 12:55 PM EDT [facility] MR #: [id number] [facility] [place], [place] [address] 1975 (Age: 29) FW Collect Date: 08/07/2004 00:00 Receipt Date: 08/11/2004 13:05 Page 1 DEPARTMENT OF PATHOLOGY AND LABORATORY MEDICINE CYTOPATHOLOGY REPORT Email: [email or web address], [facility]–1983 [id number] ATTENDING MD/Practitioner: Jory Franks MD Service: PAT Location: LAB Reported: 08/13/2004 12:55 Collected: 08/07/2004 00:00 INTERPRETATION [...] results is suggested (please call Microbiology at [phone] for results). CLINICAL INFORMATION: Menstrual History: Cyclic Date of Last Menstrual Period: 07-10-04 SPECIMEN DESCRIPTION: A: THIN PREP (CERVICAL/VAGINAL) THIN PREP PROCESS CELLULAR ENHANCEMENT ICD: V76.2 CERVIX, SPECIAL SCREENING FOR MALIGNANT NEOPLASM F: A; RT IMAGE 12517, RT IMAGE 72219 <CR>, THIN SCRN 14844 SNOMED CODES: A; [id number] In cases where a pathologist has signed out the report, the service has been rendered in part by a resident. The signing pathologist has performed and is responsible for the reported pathologic evaluation. us Historical Provider LAB PATHOLOGY ORDERABLES Fin al Result [facility] from Last 3 Months or Most Recently Relevant to Health Maintenance Insurance [facility] MEDICAID Care Teams Job Site Superintendent Relationship Specialty Start Date End Date PcpRajwinder [address] [place] [address] PCP - General Family Medicine 06/11/25
--- OUTSIDE RECORDS SUMMARY | 2025-06-18 09:34 | XMS_ITS | Encounter Summary ---
Author Organization [employer] ([place], [place], [place], [place]) Address [address] [place] [address] Care Team Providers Care Dixonac Operator Name Role Phone Ann Pizano APRN Primary Care Provider [phone] Reason for Visit * Reason Comments Medication Refill Encounter Details Date Type Department Care Team (Late st Contact Info) Description 04/20/2025 Refill [facility] Primary Care - [facility] [address] [place] [address] Ann Pizano APRN [address] [place] [address] Deficiency of other specified B group vitamins Social History Tobacco Use Types Packs/Day Years Used Date Smoking Tobacco: Every Day Cigarettes 0.5 15 Smokeless Tobacco: Never Alcohol Use Standard Drinks/Week Comments Never 0 (1 standard drink = 0.6 oz pur e alcohol) caffeine use [facility] - Mental Health Answer Date Recorde [...] Date Cornelius rded Speak language other than Trinidadian at home Not on file 11/04/2023 Want [...] Info) Description 07/22/2025 1:00 PM EDT Appointment [facility] CT Imaging [address] [place] [address] Adela Watson MD [address] [address] 07/24/2025 10:30 AM EDT Office Visit [facility] Primary Care - [facility] [address] [place] [address] Ann Pizano APRN [address] [place] [address] 07/26/2025 1:30 PM EDT Office Visit [facility] Pulm & Critical Care Medicine [address] [facility] [address] [address] Adela Watson MD [address] [address] 07/29/2025 9:00 AM EDT Appointment [facility] Breast Imaging [address] [place] [address] 04/15/2026 9:30 AM EDT Office Visit [facility] Gastroenterology [address] [place] [address] Rex Stoll MD [address] [facility] [address] [place] [id number] documented as of this encounter Visit Diagnoses Diagnosis Deficiency of other specified B group vitamins documented in this encounter Care Teams Dixonac Operator Relationship Specialty Start Date End Date Ann Pizano APRN [address] [place] [address] PCP - General Family Medicine 01/11/25 documented as of this encounter
--- OUTSIDE RECORDS SUMMARY | 2025-06-18 09:34 | XMS_ITS | Encounter Summary ---
Author Organization [employer] ([place], [place], [place], [place]) Address [address] [place] [address] Care Team Providers Care Business Economist Name Role Phone Kalin Rob MD Primary Care Provider [phone] Ann Pizano APRN Primary Care Provider Reason for Visit * Reason Comments Medication Refill Encounter Details Date Type Department Care Team (Late st Contact Info) Description 05/20/2023 Refill [facility] Primary Care - [facility] [address] [place] [address] Kalin Rob MD [address] [place] [address] Personal history of other diseases [...] Appointment [facility] CT Imaging [address] [place] [address] Adela Watson MD [address] [address] 07/24/2025 10:30 AM EDT Office Visit [facility] Primary Care - [facility] [address] [place] [address] Ann Pizano APRN [address] [place] [address] 07/26/2025 1:30 PM EDT Office Visit [facility] Pulm & Critical Care Medicine [address] [place] [address] Adela Watson MD [address] [address] 07/29/2025 9:00 AM EDT Appointment [facility] Breast Imaging [address] [place] [address] 04/15/2026 9:30 AM EDT Office Visit [facility] Gastroenterology [address] [place] [address] Rex Stoll MD [address] [facility] [address] [place] [address] documented as of this encounter Visit Diagnoses Diagnosis Personal history of other diseases of the digestive system Encounter for general adult medical examination without abnormal findings documented in this encounter Care Teams Business Economist Relationship Specialty Start Date End Date Kalin Rob MD PCP - General Family Medicine 10/27/22 12/28/24 Ann Pizano APRN [address] [place] [address] PCP - General Family Medicine 01/11/25 documented as of this encounter
--- OUTSIDE RECORDS SUMMARY | 2025-06-18 09:34 | XMS_ITS | Encounter Summary ---
Author Organization Healthcare Address [address] [place] [address] Care Team Providers Care Inspector Machine Cut Glass Name Role Phone Kalin Rob MD Primary Care Provider [phone] Pcp, No Primary Care Provider Unavailabl e Reason for Visit * Reason Onset Date Comments Med Refill 06/10/2025 Encounter Details Date Type Department Care Team (Late st Contact Info) Description 06/10/2025 [facility]ill [facility] Medicine Special[facility] [address] [place] [address] Agueda Ferrara L, SIZER MACHINE [address] [place] [address] Seropositive rheumatoid arthritis of multiple sites (CMS/[facility]) Social History Tobacco Use Types Packs/Day Years [...] Description 10/31/2025 3:20 PM EST [facility] [address] [place] [address] Agueda Ferrara, AMISH [address] [place] [address] documented as of this encounter Visit Diagnoses Diagnosis Seropositive rheumatoid arthritis of multiple sites ([facility]) documented in this encounter Additional Health Concerns Assessment Noted Time PHQ-9 Depression Total Score: 16 023 1:39 PM EST A fall risk assessment has been complete d for the patient 05/31/2024 2:37 PM EDT A Body Mass Index follow-up plan has been documented for the patient 05/31/2024 3:02 PM EDT documented as of this encounter Care Teams Inspector Machine Cut Glass Relationship Specialty Start Date End Date Kalin Rob MD [address] [place] [address] PCP - General 02/27/21 06/10/25 [place] [address] PCP - General Family Medicine 06/11/25 documented as of this encounter
--- OUTSIDE RECORDS SUMMARY | 2025-06-18 09:34 | XMS_ITS | Clinical Summary ---
Author Organization [facility] Address [address] [place] [address] Care Team Providers Care Mechanical Maintenance Worker Name Role Phone Ann Pizano APRN Primary Care Provider [phone]- [phone] Allergies Active Allergy Reactions Criticality Noted Date Comments Cephalexin Unknown (See Comments) Low 02/23/2021 Propranolol Itching Medium 10/27/2022 Sulfa Antibiotics Rash Low 03/02/2022 Medications cyanocobalamin 1000 MCG/ML injection Inject 1 mL under the skin into the appropriate area as directed Every 28 (Twenty-Eight) Days. 2 Active loratadine (CLARITIN) 10 MG tablet Take 1 tablet by mouth 2 (Two) Times a Day. 2 Active montelukast (SINGULAIR) 10 MG tablet Take 1 tablet by mouth Every Night. Active vitamin D3 125 MCG (5000 UT) capsule capsule Take 1 capsule by mouth 2 (Two) Times a Day. Active Abatacept (Orencia ClickJect) 125 MG/ML solution auto-injector Inject 1 mL under the skin into the appropriate area as directed. 2 Active dilTIAZem CD (CARDIZEM CD) 180 MG 24 hr capsule Take 1 capsule by mouth Daily. 2 Active B-D 3CC LUER-DIPIKA SYR 23GX1 23G X 1 3 ML misc 2 Active rosuvastatin (CRESTOR) 20 MG tablet Take 1 tablet by mouth Daily. Active HYDROcodone-edgardo taminophen (NORCO) 7.5-325 MG per tablet 1 tablet. 4 Active nitroglycerin (NITROSTAT) 0.4 MG SL tablet 1 tablet. Please see attached for detailed directions Active ibuprofen (ADVIL,MOTRIN) 800 MG tablet Take 1 tablet by mouth 2 (Two) Times a Day With Meals. 4 Active fluticasone (FLONASE) 50 MCG/ACT nasal spray 1 spray by Each Nare route Daily. Active Senexon-S 8.6-50 MG per tablet TAKE 1 TABLET BY MOUTH TWICE DAILY NEEDED FOR CONSTIPATION Active pantoprazole (PROTONIX) 40 MG EC tablet Take 1 tablet by mouth Daily. Active oxybutynin XL (DITROPAN-XL) 10 MG 24 hr tablet Take 1 tablet by mouth Daily. 5 11/20/19 26 Active Ventolin HFA 108 (90 Base) MCG/ACT inhaler INHALE 2 PUFFS BY MOUTH EVERY 6 (SIX) HOURS NEEDED FOR WHEEZING FOR UP TO 30 DAYS. 5 Active folic acid (FOLVITE) 1 MG tablet Take 1 tablet by mouth Daily. 5 Active Active Problems Problem Noted Date Diagnosed Date Central sleep apnea 01/23/2025 Assessment & Plan (04/03/2025 4:07 PM EDT): Baseline AHI is 20. Increases to 28 in supine position. This was seen on a home sleep test in 2021. And this is moderate sleep apnea. He had a titration study and had the emergence of central sleep apneas. This is complex sleep and she had a trial on CPAP, BiPAP and BiPAP ST but did not fully correct on the night of that study. Her optimal setting was CPAP 8 cm that resulted in an AHI of 9. I have lowered her CPAP pressures to auto CPAP 5-8 cm. We also reviewed all of her risk factors for centrals and she has stopped medications such as Neurontin and Lortabs. CPAP download is reviewed showing good control and good compliance. Noted that her AHI is now within normal limits. She reports that her symptom of excessive daytime sleepiness has improved. She is sleeping somewhere between 7 and 8 hours most nights and she reports that she will nap 2 or 3 times per week. Discussed going back into the sleep lab for a BiPAP ST versus BiPAP ASV titration but unfortunately her father has had a stroke and she is now his primary caregiver. So she reports it is not a good time to go back to the sleep lab at this time Plan: Continue CPAP at the lower pressure 5-8cm Continue to avoid Neurontin and controlled substances as these may be contributing to her complex sleep If excessive daytime sleepiness worsens then she is to return and give consideration to an in-lab study for BiPAP ST versus BiPAP ASV in-lab titration If symptoms worsen then could give consideration to medication such as Provigil or Nuvigil but at this time the patient does not want to be on any habit-forming or controlled substances Assessment & Plan (01/23/2025 2:08 PM EDT): Baseline AHI is 20. Increases to 28 in supine sleep. This was seen on a home sleep test in 2021. This is moderate obstructive sleep apnea. Although on her last titration study, she had the emergence of central sleep apnea. This is complex sleep as CPAP, BiPAP or BiPAP ST did not fully correct her sleep apnea on the night of this study. Her optimal setting was CPAP 8 cm that resulted in an AHI of 9. I lowered her CPAP pressures to 6 to 9 cm and have reviewed a download showing her 30-day average AHI is still about 10. Noted on the day by day AHI that she has days with no sleep apnea and she has other days with more severe centrals. Long discussion with the patient at today's visit that I am completely unsure why she is having central sleep apneas. She is very rarely taking a narcotic medication for pain, she has stopped her gabapentin for restless leg, she has no history of alcohol use, no history of congestive heart failure or atrial fibrillation or stroke. She does follow with Dr. Velasquez neurologist for restless leg syndrome. Restless legs have been improved over the last 6 months. She does follow with the pain specialist Dr. Carbajal and has a spinal cord stimulator. I have called Dr. Carbajal for input as to the cause of her central sleep apnea. Dr. Carbajal's office was able to confer with her spinal cord stimulator access services representative who reports there is no connection with spinal cord stimulator and central sleep apneas. And Dr. Carbajal's office was able to also establish that she is very rarely taking [place] 7.5 mg as she has not needed pills. Patient verbalizes she takes [place] 7 about 2 times per month. Only for extreme pain. Plan: I will again lower her CPAP pressures. CPAP pressures to include 5 to 8 cm. Prescription sent to the DME of patient's choice for pressure adjustment and for PAP supplies. Collaborate with Dr. Velasquez who is the patient's neurologist for further evaluation of central sleep apnea. His input is greatly appreciated. She has a scheduled follow-up with him March 13, 2025. Consideration is given for referral to a sleep neurologist Dr. Gr at [facility] for further evaluation and treatment Consideration is given for a another night titration or BiPAP ST versus ASV titration to treat the centrals Follow-up in 2 months to review the download for control and compliance and evaluate her symptoms Other fatigue 10/31/2024 Assessment & Plan (10/31/2024 4:42 PM EST): She reports that she wakes up from sleeping 7 hours on CPAP and is still tired. She has recently completed labs at her PCP office CBC CMP and lipids. She is on statin for lipids otherwise labs were within normal limits. She has coexisting rheumatoid arthritis and a pain stimulator. She has hyperlipidemia on a statin. She has hypertension, she has fatty liver. She has had a history of vitamin D deficiency on vitamin D supplements. Discussed that her fatigue may be chronic fatigue related to the above discussed chronic disease processes Plan: Check an MSLT to rule out narcolepsy or idiopathic excessive daytime sleepiness Excessive daytime sleepiness 08/29/2024 Assessment & Plan (04/03/2025 4:05 PM EDT): See central sleep apnea for information Excessive daytime sleepiness is persistent but not worsening Reports that she is napping about 3 times per week and she is now using her CPAP for naps. She is aware that she is not to drive if she is sleepy. We discussed medication Provigil or Nuvigil but she is not interested in medications that are habit-forming or controlled substances. Plan follow-up in about 6 months or sooner if increased or worsening Assessment & Plan (01/23/2025 1:16 PM EDT): Her excessive daytime sleepiness is persistent on adjusted CPAP pressures. She is sleeping at least 8 hours a night with her CPAP on. She reports she is napping about 3 times per week and she is now napping with CPAP on also. Titration study is reviewed showing the emergence of central sleep apnea. This is his complex sleep. She is not driving at this time due to daytime sleepiness. She is encouraged to not drive or perform activities that require her to be fully awake such as driving or cooking or monitoring a child as she is having daytime sleepiness. She has been called for jury duty so I have given her an excuse for jury duty as she cannot see it for long hours as she will fall asleep. We did discuss a trial of Provigil or Nuvigil but she is not interested in medications that are habit-forming or controlled substances. I have lowered her pressures on her CPAP and I will see her back in 2 months for download to see if her AHI has continue to improve with lower pressures and how her symptom is. Assessment & Plan (12/13/2024 2:45 PM EST): Excessive daytime sleepiness is persistent Sleeping 7 hours at night with CPAP on. Napping daily 1 to 3 hours. She has increased her naps to CPAP use also. Titration study is reviewed showing the emergence of central sleep apnea. This is complex sleep. Central sleep apnea risk include narcotic pain medication but she reports that she is only taking this medication rarely. She has a spinal cord stimulator stimulator for her chronic back pain. Discussed this may be a risk factor for centrals. She denies any history of stroke, CHF, atrial fibrillation or alcohol use. She reports actually no alcohol use. She is not driving at this time due to daytime sleepiness. She is encouraged to continue not to drive, safety with activities that require her to be fully awake such as driving and cooking. Patient verbalized understanding. Plan: Increase CPAP use to include all hours of sleep plus naps I am giving consideration to a medication such as armodafinil or modafinil for her daytime sleepiness Again adjusting her CPAP pressures Short follow-up to reevaluate her evaluate her symptoms Assessment & Plan (10/31/2024 4:39 PM EST): She has had a persistent complaint of excessive daytime sleepiness that has been present for about 2 years and increasing over the last 1 year but became worse since July 3 months ago. Did discuss possible sleepy side effects of her medications. She is now taking antihistamines and leukotrying inhibitors at bedtime. She reports that she has not been taking her Neurontin because she did think that made her very sleepy. She also only uses as needed pain medications when absolutely necessary. She has a pain stimulator but she does not have narcotic pain pump. She reports her pain stimulator has been beneficial for pain control. She is sleeping 7 hours at night with her CPAP on. She is napping 1 to 3 hours every day with her CPAP on. CPAP download reflects 9 hours and 45 minutes of use per day. Titration study is reviewed in detail showing her sleep apnea is well-controlled on a CPAP 8 cm on the night of the study. Noted that central sleep apnea does not appear to be a problem. Plan: Titration on CPAP 8 cm and MSLT for further evaluation Instructed do not drive if having sleepiness. Patient verbalized understanding. Instructed that MSLT would be invalid if she had pain medicine that is controlled substance in her system. She reports she only uses as needed and does not have frequent or every day use of controlled substance. Advised no controlled substance 1 week prior to MSLT. If she had exacerbation of her RA pain then she is instructed to take her pain medications per her prescribers instructions and to simply reschedule her MSLT. She verbalized understanding. Follow-up after titration MSLT study to review the findings in about 6 weeks Assessment & Plan (08/29/2024 5:12 PM EST): Increased complaint of excessive daytime sleepiness. She reports she has had daytime sleepiness for about 2 years. Increasing over the last 1 year. But becoming worse over the last 1 month. She reports over the last 1 month that she is sleeping at night about 7 hours and then she is napping in the daytime 1 to 3 hours. Discussed medications with possible sleepiness side effect. She is encouraged to have a conversation with her prescribing providers and with her pharmacist as she has multiple medications with daytime sleepiness side effect that she is taking in the daytime. Encouraged to reji medications sleepiness side effects in the evenings. Continue CPAP therapy Plan: Titration study for further evaluation Instructed do not drive if having sleepiness. Patient verbalized understanding and reports that she has not been driving due to sleepiness. DEBORA (obstructive sleep apnea) 08/31/2023 Assessment & Plan (12/13/2024 2:50 PM EST): Baseline AHI is 20. Increases to 28 in supine sleep. This is moderate sleep apnea. Although on her last titration study she had the emergence of central sleep apnea. This is complex sleep as CPAP, BiPAP or BiPAP ST did not correct her sleep apnea on the night of this study. Her optimal setting was CPAP 8 cm that resulted in an AHI of 9. Lower pressures were not attempted on the night of this study. Plan: Lower and adjust her CPAP pressures 6 to 9 cm Prescription to DME of patient's choice for slight pressure adjustment Follow-up in 6 weeks to evaluate download AHI and symptom of excessive daytime sleepiness Consideration is given for referral to sleep neurologist for complex sleep with excessive daytime sleepiness Assessment & Plan (10/31/2024 4:28 PM EST): Baseline AHI is 20. Increases to 28 in supine position. This is moderate sleep apnea. She is on CPAP therapy. Download reviewed with excellent compliance and mildly elevated AHI but improved control. She had an in lab titration study and she had a full correction of her sleep apnea on CPAP 8 cm. She is currently on auto CPAP 8 to 12 cm as her pressure was slightly adjusted. She has had about a month on these pressures and she reports that the pressure adjustment has not improved her daytime sleepiness. She is benefiting from PAP therapy. We plan to continue PAP therapy. Prescription to DME of patient's choice for a another slight pressure adjustment to include 8 to 9 cm of CPAP Follow-up in about 6 weeks to evaluate download AHI and symptom of excessive daytime sleepiness Assessment & Plan (08/29/2024 2:56 PM EST): Baseline AHI is 20. AHI increases to 28 in supine sleep position. This is moderate sleep apnea. She is on CPAP therapy. Download is reviewed with mildly elevated AHI of 6 and good compliance. She is benefiting from PAP therapy. We plan to continue PAP therapy. She has a complaint of coexisting excessive daytime sleepiness and napping for up to 3 hours a day with 7 to 8 hours of sleep at night on CPAP. Plan: Prescription to DME of patient's choice for CPAP supplies In lab titration study for further evaluation and treatment due to having excessive daytime sleepiness on CPAP She is advised sleep apnea precautions and do not drive if sleepy Follow-up after study to review the findings Assessment & Plan (08/31/2023 3:55 PM EST): Baseline AHI is 20 that increases to 28 in supine sleep position. This is moderate sleep apnea. She is on CPAP therapy. Download is reviewed with good control and good compliance. She is benefiting from PAP therapy with plan to continue PAP therapy. Prescription for CPAP supplies to the DME of her choice. Plan follow-up in 1 year in the sleep clinic or sooner for any DEBORA or PAP concerns. HNP (herniated nucleus pulposus), lumbar 022 Encounters Date Type Department Care Team Description 04/03/2025 2:30 PM EDT Office Visit [facility] [address] [place] [address] Carlee Weiss APRN Central sleep apnea (Primary Dx); Excessive daytime sleepiness 04/03/2025 Travel from Last 3 Months Family History Medical History Relation Name Comments Depression Brother Medardo Garcia Hyperlipidemia Brother Medardokeith Garcia Arthritis Father Earl Garcia Jr. Hearing loss Father Earl Garcia Jr. Hyperlipidemia Father Earl Garcia Jr. Early Maternal Grandfather Daron Au Heart disease Maternal Grandfather Daron Au Arthritis Maternal Grandmother Maxine Au COPD Maternal Grandmother Maxine Au Hearing loss Maternal Grandmother Maxine Au Heart disease Maternal Grandmother Maxine Au Hyperlipidemia Maternal Grandmother Maxine Au Anxiety disorder Mother Sienna Leonard Arthritis Mother Sienna Leonard Diabetes Mother Sienna Leonard Heart disease Mother Sienna Leonard Hyperlipidemia Mother Sienna Leonard Arthritis Paternal Grandfather Earl Garcia Sr. Hearing loss Paternal Grandfather Earl Garcia Sr. Heart disease Paternal Grandfather Earl Garcia Sr. Hyperlipidemia Paternal Grandfather Earl Garcia Sr . Stroke Paternal Grandfather Earl Garcia Sr. Arthritis Paternal Grandmother Bridgetoj Garcia Hearing loss Paternal Grandmother Bridget Yazmin Garcia Heart disease Paternal Grandmother Bridgetoj Garcia Hyperlipidemia Paternal Grandmother Bridgetoj Garcia Relation Name Status Comments Brother Medardo Jose Father Earl Garcia Jr. Maternal Grandfather Daron Au Maternal Grandmother Maxine Au Mother Sienna Luis Paternal Grandfather Earl Garcia Sr. Paternal Grandmother Bridget Yazmin Garcia Social History Tobacco Use Types Packs/Day Years Used Date Smoking Tobacco: Former Cigarettes 0.5 20 0 10/2001 - 10/2021 Passive Smoke Exposure: Past Smokeless Tobacco: Never Alcohol Use Standard Drinks/Week Comments Never 0 (1 standard drink = 0.6 oz pur e alcohol) Comments No Sex and Gender Information Value Date Recorded Sex Assigned at Female 12/12/2024 8:03 AM EST Legal Sex Female 12:23 PM EDT Gender Identity Not on file Sexual Orientation Not on file Last Filed Vital Signs Vital Sign Reading Time Taken Comments Blood Pressure 130/86 04/03/2025 2:17 PM EDT Pulse 63 04/03/2025 2:17 PM EDT Temperature 36.2 C (97.1 F) 01/04/2024 12:47 PM EDT Respiratory Rate 16 03/04/2022 2:45 PM EDT Oxygen Saturation 97% 04/03/2025 2:17 PM EDT Inhaled Oxygen Concentration - - Weight 71.9 kg (158 lb 9.6 oz) 04/03/2025 2:17 P M EDT Height 162.6 cm (5' 4 ) 04/03/2025 2:17 PM EDT Body Mass Index 27.22 04/03/2025 2:17 PM EDT Plan of Treatment Upcoming Encounters Date Type Department Care Team (Late st Contact Info) Description 10/02/2025 12:30 PM EST Office Visit [facility] [address] [place] [address] Tara Lewis, CUFF TURNER MACHINE OPERATOR [address] [facility] [place] [address] Health Maintenance Due Date Last Done Comments Annual Gynecologic Pelvic and Breast Exam 1976 PAP SMEAR 1997 COLOGUARD 2021 COLON CANCER SCREENING [address] COLONOGRAPHY 2021 FECAL OCCULT BLOOD TEST 2021 FIT Testing (1 year) 2021 ANNUAL PHYSICAL 02/17/2022 COVID-19 Vaccine ( season) 2024 07/23/2021, 01/13/2021, 12/20/2020 INFLUENZA VACCINE 07/17/2025 06/28/2022, , 08/20/2019, Additional history exists MAMMOGRAM 06/19/2026 06/19/2024, 06/19/2024 TDAP/TD VACCINES (2 - Td or Tdap) 05/25/2029 05/25/2019 COLONOSCOPY 10/16/2029 10/16/2019 COLORECTAL CANCER SCREENING 10/16/2029 Pneumococcal Vaccine 0-49 Aged Out 08/20/2019 No longer eligible based on patient's age to complete this topic HEPATITIS C SCREENING Completed 04/01/2020 Medical Devices Implanted Type Area Soil Sampler Device Identifier Shelf Expiration Date Model / Serial / Lot Hemost Abs Surgifoam Sz100 8x12 10mm - [id number] Implanted:Qty : 1 on 03/04/2022 by David Pope MD at [facility] Implant N/A: Spine Lumbar [employer] 03/05/2022 1974 / / . Kt Seal Hemos Abs Floseal Matrx Fast/Prep 10ml - [id number] Implanted:Qty : 1 on 03/04/2022 by David Pope MD at [facility] Implant Right: Spine Lumbar [employer] 12/29/2023 [id number] / / [id number] Procedures Procedure Name Priority Date/Time Associated Diagnosis Comments SCANNED - PULMONARY RESULTS 04/03/2025 from Last 3 Months Results * Pulmonary Results Scan (04/03/2025) us Carlee Weiss CUFF TURNER MACHINE OPERATOR PFT ORDERABLES Final R esult from Last 3 Months Insurance MEDICAID Care Teams Mechanical Maintenance Worker Relationship Specialty Start Date End Date Ann Pizano APRN [address] [place] [address] PCP - General Nurse Practitioner 01/23/25
--- OUTSIDE RECORDS SUMMARY | 2025-06-18 09:34 | XMS_ITS | Encounter Summary ---
Author Organization [employer] ([place], [place], [place], [place]) Address [address] [place] [address] Care Team Providers Care Diamond Cutter Name Role Phone Ann Pizano APRN Primary Care Provider +1- [phone] Reason for Visit * Reason Comments Medication Refill Encounter Details Date Type Department Care Team (Late st Contact Info) Description 06/02/2025 Refill [facility] Primary Care - [employer] [address] [place] [address] Ann Pizano APRN [address] [place] [address] Encounter for general adult medical examination without abnormal findings Social History Tobacco Use Types Packs/Day Years Used Date Smoking Tobacco: Every Day Cigarettes 0.5 15 Smokeless Tobacco: Never Alcohol Use Standard Drinks/Week Comments Never 0 (1 standard drink = 0.6 oz pur e alcohol) caffeine use [facility] - Mental Health Answer Date [...] Info) Description 07/22/2025 1:00 PM EDT Appointment [facility] CT Imaging [address] [place] [address] Adela Watson MD [address] [address] 07/24/2025 10:30 AM EDT Office Visit [facility] Primary Care - [facility] [address] [place] [address] Ann Pizano APRN [address] [place] [address] 07/26/2025 1:30 PM EDT Office Visit [facility] Pulm & Critical Care Medicine [address] [facility] [address] [address] Adela Watson MD [address] [address] 07/29/2025 9:00 AM EDT Appointment [facility] Breast Imaging [address] [place] [address] 04/15/2026 9:30 AM EDT Office Visit [facility] Gastroenterology [address] [place] [address] Rex Stoll MD [address] [facility] [address] [place] [address] documented as of this encounter Visit Diagnoses Diagnosis Encounter for general adult medical examination without abnormal findings documented in this encounter Care Teams Diamond Cutter Relationship Specialty Start Date End Date Ann Pizano, AMISH [address] [place] [address] PCP - General Family Medicine 01/11/25 documented as of this encounter
--- OUTSIDE RECORDS SUMMARY | 2025-06-18 09:34 | XMS_ITS | Encounter Summary ---
Author Organization [employer] ([place], [place], [place], [place]) Address [address] [place] [address] Care Team Providers Care Cath Lab Manager Name Role Phone Kalin Rob MD Primary Care Provider [phone] Ann Pizano APRN Primary Care Provider +[phone]- [phone] Reason for Visit * Reason Onset Date Comments Medication Refill 12/17/2024 Encounter Details Date Type Department Care Team (Late st Contact Info) Description 12/17/2024 Telephone [facility] Primary Care - [facility] [address] [place] [address] Kalin Rob MD [address] [place] [address] Medication Refill Social History Tobacco [...] Date Cornelius rded Speak language other than Moldovan at home Not on file 11/04/2023 Want [...] PM EST FROM: Suzie Barahona CSN: TO: [facility] 7 CLINICAL [facility] AND G[facility] WELDER [[id number]] SUBJECT: Medication Related Request PROVIDER: KALIN ROB [[id number]] DEPARTMENT: [facility] [[id number]] ENCOUNTER REASON FOR CALL: MEDICATION REFILL [[id number]] ENCOUNTER TYPE: Telephone REASON FOR CALL: Refill request APPOINTMENT OFFERED? Yes LAST VISIT: 2024-10-18 NEXT VISIT: 2025-04-18 MESSAGE PRIORITY: Routine MEDICATION 1: MEDICATION TYPE: Controlled RX MEDICATION NAME: Promethazine dextromethorphan (Promethazine-DM) ORDERING PROVIDER: Kalin Rob MEDICATION DETAILS: Take 5 mLs by mouth 4 (four) times daily as needed for Cough for up to 7 days. PREFERRED PHARMACY? [id number] - [address] [phone] CALLER'S NAME: Huong Garcia RELATION TO PATIENT: Self [1] PREFERRED LANGUAGE: Moldovan BEST CALL BACK PHONE NUMBER: Home Phone: ([phone]) WHAT IS THE BEST WAY FOR THE OFFICE TO CONTACT YOU?: OK to leave message on voicemail ET TILE LAYER documented in this encounter Plan of Treatment Upcoming Encounters Date Type Department Care Team (Late st Contact Info) Description 07/22/2025 1:00 PM EDT Appointment [facility] CT Imaging [address] [place] [address] Adela Watson MD [address] [address] 07/24/2025 10:30 AM EDT Office Visit [facility] Primary Care - [facility] [address] [place] [address] Ann Pizano APRN [address] [place] [address] 07/26/2025 1:30 PM EDT Office Visit [facility] Pulm & Critical Care Medicine [address] [place] [address] [address] Adela Watson MD [address] [address] 07/29/2025 9:00 AM EDT Appointment [facility] Breast Imaging [address] [place] [address] 04/15/2026 9:30 AM EDT Office Visit [facility] Gastroenterology [address] [place] [address] Rex Stoll MD 227 [facility] [address] [place] [address] documented as of this encounter Visit Diagnoses Not on filedocumented in this encounter Care Teams Cath Lab Manager Relationship Specialty Start Date End Date Kalin Rob MD PCP - General Family Medicine 10/27/22 12/28/24 Ann Pizano, AMISH [address] [place] [address] PCP - General Family Medicine 01/11/25 documented as of this encounter
--- OUTSIDE RECORDS SUMMARY | 2025-06-18 09:34 | XMS_ITS | Encounter Summary ---
Author Organization [employer] ([place], [place], [place], [place]) Address [address] [place] [address] Care Team Providers Care Casework Supervisor Name Role Phone Ann Pizano APRN Primary Care Provider [phone]- [phone] Reason for Visit * Reason Comments Medication Refill Encounter Details Date Type Department Care Team (Late st Contact Info) Description 04/27/2025 Refill [facility] Primary Care - [facility] [address] [place] [address] Ann Pizano APRN [address] [place] [address] Social History Tobacco Use Types Packs/Day Years Used Date Smoking Tobacco: Every Day Cigarettes 0.5 15 Smokeless Tobacco: Never Alcohol Use Standard Drinks/Week Comments Never 0 (1 standard drink = 0.6 oz pur e alcohol) caffeine use [facility] - Mental Health Answer Date Recorde d [...] Date Cornelius rded Speak language other than Belgian at home Not on file 11/04/2023 Want [...] Info) Description 07/22/2025 1:00 PM EDT Appointment [facility] CT Imaging [address] [place] [address] Adela Watson MD [address] [address] 07/24/2025 10:30 AM EDT Office Visit [facility] Primary Care - [facility] [address] [place] [address] Ann Pizano APRN [address] [place] [address] 07/26/2025 1:30 PM EDT Office Visit [facility] Pulm & Critical Care Medicine 1401 [facility] [address] [address] Adela Watson MD [address] [address] 07/29/2025 9:00 AM EDT Appointment [facility] Breast Imaging [address] [place] [address] 04/15/2026 9:30 AM EDT Office Visit [facility] Gastroenterology [address] [place] [address] Rex Stoll MD 227 [facility] [address] [place], [place] [address] documented as of this encounter Visit Diagnoses Not on filedocumented in this encounter Care Teams Casework Supervisor Relationship Specialty Start Date End Date Ann Pizano, BIOLOGICAL AIDE [address] [place] [address] PCP - General Family Medicine 01/11/25 documented as of this encounter
--- OUTSIDE RECORDS SUMMARY | 2025-06-18 09:34 | XMS_ITS | Encounter Summary ---
Author Organization [employer] ([place], [place], [place], [place]) Address [address] [place] [address] Care Team Providers Care Cash Management Associate Name Role Phone Kalin Rob MD Primary Care Provider [phone] Ann Pizano APRN Primary Care Provider +- [phone] Encounter Details Date Type Department Care Team (Late st Contact Info) Description 03/04/2021 Transcribed Document [facility] Family Medicine [facility] [place] [address] ProviderJean-Pierre MD [address] [place] [id number] Social History Tobacco Use Types Packs/Day Years [...] MARU /Sex: 1975 Female Med Rec #: [id number] Physician: KASEY MONROE MD-FERCHO Financial #: [id number] Pt. Type: O Room/Bed: Admit/Disch: 03/04/21 07:25:00 - Institution: [facility] IntraOp Case Attendance Entry 1 Entry 2 Entry 3 Case Attendee KASEY MONROE MD-GERARD DUMONT, Promise Nguyen, RN Role Performed Surgeon/Proceduralist, CUSTOMS MANAGER/Nurse Scheduler Conveyor E Commerce Web Developer, First First Time In 03/04/21 09:49:00 03/04/21 [...] 5 Case Attendee Marian Peoples, OTHER, ATTENDEE Senior Buyer Planner Role Performed Scrub, First Student Time In 03/04/21 09:49:00 03/04/21 09:49:00 Time Out 03/04/21 11:29:00 03/04/21 11:29:00 Procedure Sinus Surgery Sinus Surgery Endoscopic Septoplasty Endoscopic Septoplasty Tur(Bilateral) Tur(Bilateral) Other Attendee [facility] STUDENT Superficial Wound Closed By: Last Modified By: Promise Trevino, RN Promise Trevino, RN 03/04/21 11:30:01 03/04/21 11:30:01 [facility] IntraOp Case Attendance Audit 03/04/21 11:30:01 Ski Lift Operator: [id number] Modifier: [id number] 1 <+> Time Out 1 <*> Procedure [...] [facility]JE IntraOp Case Times Audit 03/04/21 11:30:00 Ski Lift Operator: [id number] Modifier: [id number] <+> 1 Out Room Time <+> 1 Stop Time 03/04/21 11:29:35 Ski Lift Operator: [id number] Modifier: [id number] <+> 1 Stop Time 03/04/21 10:44:43 Ski Lift Operator: [id number] Modifier: [id number] <+> 1 Start Time SJE IntraOp Communication [...] By Count Performed By Marian Peoples, (Scrub) Senior Buyer Planner Count Performed By Promise Trevino, RN (RN) Last Modified By: Promise Trevino, RN 03/04/21 10:16:51 S[facility] IntraOp Counts Final Entry 1 Procedure Sinus Surgery Endoscopic Septoplasty Tur(Bilateral) Final Count Info Count Type Sponge, Sharps, Miscellaneous Counts Verification Skin Closure/end of Sequence procedure Count Results Correct, surgeon notified Counts Performed By Count Performed By Marian Peoples, (Scrub) Senior Buyer Planner Count Performed By Promise Trevino, RN (RN) [...] Yes Assessment Complete Fire Risk Promise Trevino team lead Verified By Fire Risk 03/04/21 09:49:00 Assessment Verified Date/Time Fire Risk High Risk Protocol Yes Implemented Standard Fire Yes Safety Precautions Followed Last Modified By: Promise Trevino RN 03/04/21 10:18:10 SJE IntraOp General Case Insurance Commissioner 1 Case Information OR OR 10 SJE [...] Afrin 0.05% nasal spray epinephrine 1:100,000 - [id number] 15ml - [id number] 30ml vial - [id number] Combo Med List Time Administered Route of [...] Entry 4 Medication/Irrigant Bacitracin 15Gm ointment - [id number] Combo Med List Time Administered Route of [...] Intra Op Sign Out Audit 03/04/21 11:29:41 Ski Lift Operator: [id number] Modifier: [id number] <+> 1 RN Sign Out Signature Date/Time [...] BRIAN IntraOp Surgical Procedures Audit 03/04/21 11:29:36 Ski Lift Operator: [id number] Modifier: [id number] <+> 1 Start <+> 1 Stop SJE [...] RN 03/04/21 11:30 Electronically signed by [facility] Conversion Slip Cover Maker Cerner at 02/04/2023 8:34 AM CDT documented in this encounter Plan of Treatment Upcoming Encounters Date Type Department Care Team (Late st Contact Info) Description 07/22/2025 1:00 PM EDT Appointment [facility] CT Imaging [address] [place] [address] Adela Watson MD 1401 [facility] [address] [place] [address] 07/24/2025 10:30 AM EDT Office Visit [facility] Primary Care - [facility] [address] [place] [address] Ann Pizano APRN [address] [place] [address] 07/26/2025 1:30 PM EDT Office Visit [facility] Pulm & Critical Care Medicine 1401 [facility] [address] [place] [address] Adela Watson MD [address] [facility] [address] [place] [address] 07/29/2025 9:00 AM EDT Appointment [facility] Breast Imaging [address] [place] [address] 04/15/2026 9:30 AM EDT Office Visit [facility] Gastroenterology [address] [place] [address] Rex Stoll MD [address] [facility] [address] [place] [address] documented as of this encounter Visit Diagnoses Not on filedocumented in this encounter Care Teams Cash Management Associate Relationship Specialty Start Date End Date Kalin Rob MD PCP - General Family Medicine 10/27/22 12/28/24 Ann Pizano APRN [address] [place] [address] PCP - General Family Medicine 01/11/25 documented as of this encounter
--- OUTSIDE RECORDS SUMMARY | 2025-06-18 09:34 | XMS_ITS | Encounter Summary ---
Author Organization [employer] ([place], [place], [place], [place]) Address [address] [place] [address] Care Team Providers Care Pipe Stripper Name Role Phone Kalin Rob MD Primary Care Provider [phone] Ann Pizano APRN Primary Care Provider + [phone] Reason for Visit * Reason Comments Medication Refill Encounter Details Date Type Department Care Team (Late st Contact Info) Description 06/28/2023 Refill [facility] Primary [facility] - [facility] [address] [place] [address] Kalin Rob MD [address] [place] [address] Personal history of other diseases [...] Info) Description 07/22/2025 1:00 PM EDT Appointment [facility] CT Imaging [address] [place] [address] Adela Watson MD [address] [facility] [address] [place] [address] 07/24/2025 10:30 AM EDT Office Visit [facility] Primary Care - [facility] [address] [place] [address] Ann Pizano APRN [address] [place] [address] 07/26/2025 1:30 PM EDT Office Visit [facility] Pulm & Critical Care Medicine 1401 [facility] [address] [address] Adela Watson MD [address] [facility] [address] [place] [address] 07/29/2025 9:00 AM EDT Appointment [facility] Breast Imaging [address] [place] [address] 04/15/2026 9:30 AM EDT Office Visit [facility] Gastroenterology [address] [place] [address] Rex Stoll MD 227 [facility] [address] [place], [place] [phone] documented as of this encounter Visit Diagnoses Diagnosis Personal history of other diseases of the digestive system Encounter for general adult medical examination without abnormal findings documented in this encounter Care Teams Pipe Stripper Relationship Specialty Start Date End Date Kalin Rob MD PCP - General Family Medicine 10/27/22 12/28/24 Ann Pizano, AMISH [address] [place] [address] PCP - General Family Medicine 01/11/25 documented as of this encounter
--- OUTSIDE RECORDS SUMMARY | 2025-06-18 09:34 | XMS_ITS | Encounter Summary ---
Author Organization [employer] ([place], [place], [place], [place]) Address [address] [place] [address] Care Team Providers Care Conditioner Tender Name Role Phone Ann Pizano AMISH Primary Care Provider [phone] Reason for Visit * Reason Comments Medication Refill Encounter Details Date Type Department Care Team (Late st Contact Info) Description 05/20/2025 Refill [facility] Gastroenterology [address] [place] [address] Rex Stoll MD [address] [place] [address] Chronic constipation Social History Tobacco Use Types Packs/Day Years Used Date Smoking Tobacco: Every Day Cigarettes 0.5 15 Smokeless Tobacco: Never Alcohol Use Standard Drinks/Week Comments Never 0 (1 standard drink = 0.6 oz pur e alcohol) caffeine use [facility] - Mental Health Answer Date Recorde [...] Date Cornelius rded Speak language other than Turkmen at home Not on file 11/04/2023 Want [...] Info) Description 07/22/2025 1:00 PM EDT Appointment [facility] CT Imaging [address] [place] [address] Adela Watson MD [address] [address] 07/24/2025 10:30 AM EDT Office Visit [facility] Primary Care - [facility] [address] [place] [address] Ann Pizano APRN [address] [place] [address] 07/26/2025 1:30 PM EDT Office Visit [facility] Pulm & Critical Care Medicine [address] [facility] [address] [address] Adela Watson MD [address] [address] 07/29/2025 9:00 AM EDT Appointment [facility] Breast Imaging [address] [place] [address] 04/15/2026 9:30 AM EDT Office Visit [facility] Gastroenterology [address] [place] [address] Rex Stoll MD 227 [facility] [address] [place] [address] documented as of this encounter Visit Diagnoses Diagnosis Chronic constipation Unspecified constipation documented in this encounter Care Teams Conditioner Tender Relationship Specialty Start Date End Date Ann Pizano APRN [address] [place] [address] PCP - General Family Medicine 01/11/25 documented as of this encounter
--- OUTSIDE RECORDS SUMMARY | 2025-06-18 09:34 | XMS_ITS | Encounter Summary ---
Author Organization [employer] ([place], [place], [place], [place]) Address [address] [place] [address] Care Team Providers Care Customer Service Officer Name Role Phone Kalin Rob MD Primary Care Provider [phone] Ann Pizano APRN Primary Care Provider +- [phone] Encounter Details Date Type Department Care Team (Late st Contact Info) Description 03/04/2021 Transcribed Document [facility] Family Medicine [address] [place] [address] Jean-Pierre Lovett MD [address] [place] [phone] Social History Tobacco Use Types Packs/Day Years [...] at home: Medicines ??? Take or use enso-tpl-fmmbaau and prescription medicines only as told by [...] discomfort that does not get better with cvbi-vcv-smbwsfz medicine. ??? You have a fever. ??? [...] provider. Document Revised: 01/25/2020 Document Reviewed: 02/17/2018 [employer] Patient Education ? 2019 [employer]. Pharmacology General Anesthesia, Adult, Care After This [...] activities are safe for you. ??? Take lfvr-wyp-rqhekmg and prescription medicines only as told by [...] provider. Document Revised: 10/06/2018 Document Reviewed: 05/19/2018 [employer] Patient Education ? 2019 [employer] documented in this encounter Plan of Treatment Upcoming Encounters Date Type Department Care Team (Late st Contact Info) Description 07/22/2025 1:00 PM EDT Appointment [facility] CT Imaging [address] [place] [address] Adela Watson MD 1401 [facility] [address] [place] [address] 07/24/2025 10:30 AM EDT Office Visit [facility] Primary Care - [facility] [address] [place] [address] Ann Pizano APRN [address] [place] [address] 07/26/2025 1:30 PM EDT Office Visit [facility] Pulm & Critical Care Medicine 1401 [facility] [address] [address] Adela Watson MD 1401 [facility] [address] [place] [address] 07/29/2025 9:00 AM EDT Appointment [facility] Breast Imaging [address] [place] [address] 04/15/2026 9:30 AM EDT Office Visit [facility] Gastroenterology [address] [place] [address] Rex Stoll MD [address] [facility] [address] [place] [address] documented as of this encounter Visit Diagnoses Not on filedocumented in this encounter Care Teams Customer Service Officer Relationship Specialty Start Date End Date Kalin Rob MD PCP - General Family Medicine 10/27/22 12/28/24 Ann Pizano, BULK FILLER [address] [place] [address] PCP - General Family Medicine 01/11/25 documented as of this encounter
--- OUTSIDE RECORDS SUMMARY | 2025-06-18 09:34 | XMS_ITS | Encounter Summary ---
Author Organization [employer] ([place], [place], [place], [place]) Address [address] [place] [address] Care Team Providers Care Consulting Services Associate Name Role Phone Kalin Rob MD Primary Care Provider [phone] Ann Pizano APRN Primary Care Provider +- [phone] Encounter Details Date Type Department Care Team (Late st Contact Info) Description 03/04/2021 Transcribed Document [facility] [place] [address] ProviderJean-Pierre MD [address] [place] [address] Social History Tobacco Use Types Packs/Day [...] Jean-Pierre ProviderMD - 03/04/2021 12:17 PM CDT [address] [address] ANDREAS GARCIA :1975 Visit Time:03/04/2021 [...] for Tuesday or of next week Where: [address] [place] [address]- Medications What How Much When Instructions Next Dose acetaminophen-hydrocodone (acetaminophen-HYDROcodone 325 mg-5 mg oral tablet) 1 Tablet(s) Oral Two Times A Day as needed for for pain acetaminophen-hydrocodone ([place]son 5 mg-325 mg oral tablet) 1 Tablet(s) Oral Every 4 Hours as needed for for pain Pickup at [facility]/pharmacy #[id number] cholecalciferol (Vitamin D3 5000 units oral capsule) 1 Capsule(s) Oral Two Times A Day with food clindamycin 300 Milligram(s) Oral Three Times A Day cyanocobalamin (cyanocobalamin 1000 mcg/ mL injectable solution) 1 Milliliter(s) IntraMuscular Once a month DULoxetine 60 Milligram(s) Oral Two Times A Day fluticasone nasal (fluticasone 50 mcg/ inh nasal spray) 1 Calvin(s) Nasal Two Times A Day gabapentin (gabapentin [...] Milligram(s) SubCutaneous Every Two Weeks Pharmacy Information [facility]/pharmacy #[id number]: [address] [place], [place] [phone] Take your medications faithfully. Do NOT skip [...] activities are safe for you. ??? Take gdpw-cqm-mixuqgt and prescription medicines only as told by [...] provider. Document Revised: 10/06/2018 Document Reviewed: 05/19/2018 [employer] Patient Education ?? 2020 [employer]. Sinus Endoscopy, Care After This sheet gives [...] at home: Medicines ??? Take or use zont-lsh-jwqvtbu and prescription medicines only as told by [...] discomfort that does not get better with cfuh-dky-jnpncoi medicine. ??? You have a fever. ??? [...] provider. Document Revised: 01/25/2020 Document Reviewed: 02/17/2018 [employer] Patient Education ?? 2020 [employer]. acetaminophen and hydrocodone (a SEET a MIN oh fen and lulu droe KOE done) Hycet, Lorcet, [place], Verdrocet, Vicodin, Xodol, Zamicet What is the [...] may report side effects to FDA at 8-071-JVX-5331. What other drugs will affect acetaminophen and [...] affect acetaminophen and hydrocodone, including prescription and vcvx-lhp-pxzdtjg medicines, vitamins, and herbal products. Not all [...] to ensure that the information provided by [employer]. ('[employer]') is accurate, up-to-date, and complete, but no guarantee is made to that effect. Drug information contained herein may be time sensitive. [employer] information has been compiled for use by healthcare practitioners and consumers in the [place] and therefore [employer] does not warrant that uses outside of the [place] are appropriate, unless specifically indicated otherwise. [employer] drug information does not endorse drugs, diagnose patients or recommend therapy. [employer] drug information is an informational resource designed [...] effective or appropriate for any given patient. [employer] does not assume any responsibility for any aspect of healthcare administered with the aid of information [employer] provides. The information contained herein is not intended to cover all possible uses, directions, precautions, warnings, drug interactions, allergic reactions, or adverse effects. If you have questions about the drugs you are taking, check with your doctor, nurse or pharmacist. Copyright 4613-6927 [employer]. Version: 16.03. Revision Date: 11/18/2020. Emergency Awareness [...] Assistance with quitting is available by contacting 0-851-CKJM-NOW. This is a free resource providing counseling, support, and referral. Or you may contact your personal physician. [employer] Suicide Prevention Lifeline: The National Suicide Prevention [...] was given the opportunity to ask questions. Patient/Drill Press Operator Name: Patient/Drill Press Operator Signature: Relationship to Patient: Clinician/Hospital Drill Press Operator Signature: Date: documented in this encounter Plan of Treatment Upcoming Encounters Date Type Department Care Team (Late st Contact Info) Description 07/22/2025 1:00 PM EDT Appointment [facility] CT Imaging [address] [place] [address] Adela Watson MD [address] [place] [address] 07/24/2025 10:30 AM EDT Office Visit [facility] Primary Care - [facility] [address] [place] [address] Ann Pizano APRN [address] [place] [address] 07/26/2025 1:30 PM EDT Office Visit [facility] Pulm & Critical Care Medicine [address] [place] [address] [address] [place] [address] Adela Watson MD 1401 [facility] [address] [place] [address] 07/29/2025 9:00 AM EDT Appointment [facility] Breast Imaging [address] [place] [address] 04/15/2026 9:30 AM EDT Office Visit [facility] Gastroenterology [address] [place] [address] Rex Stoll MD [address] [facility] [address] [place] [address] documented as of this encounter Visit Diagnoses Not on filedocumented in this encounter Care Teams Consulting Services Associate Relationship Specialty Start Date End Date Kalin Rob MD PCP - General Family Medicine 10/27/22 12/28/24 Ann Pizano APRN [address] [place] [address] PCP - General Family Medicine 01/11/25 documented as of this encounter
--- OUTSIDE RECORDS SUMMARY | 2025-06-18 09:34 | XMS_ITS | Encounter Summary ---
Author Organization [employer] ([place], [place], [place], [place]) Address [address] [place] [address] Care Team Providers Care Account Supervisor Name Role Phone Kalin Rob MD Primary Care Provider [phone] Ann Pizano APRN Primary Care Provider +- [phone] Encounter Details Date Type Department Care Team (Late st Contact Info) Description 03/04/2021 Transcribed Document [facility] Family Medicine [address] [place] [address] ProviderJean-Pierre MD [address] [place] [address] [id number] Social History Tobacco Use Types Packs/Day Years [...] MARU /Sex: 1975 Female Med Rec #: [id number] Physician: KASEY MONROE MD-FERCHO Financial #: [id number] Pt. Type: O Room/Bed: Admit/Disch: 03/04/21 07:25:00 [...] Info) Description 07/22/2025 1:00 PM EDT Appointment [facility] CT Imaging [address] [place] [address] [place] [address] [place] [address] [address] 07/24/2025 10:30 AM EDT Office Visit [facility] Primary Care - [facility] [address] [place] [address] Ann Pizano APRN [address] [place] [address] 07/26/2025 1:30 PM EDT Office Visit [facility] Pulm & Critical Care Medicine [address] [place] [address] [address] [place] [address] [place] [address] [address] 07/29/2025 9:00 AM EDT Appointment [facility] Breast Imaging [address] [place] [address] 04/15/2026 9:30 AM EDT Office Visit [facility] Gastroenterology [address] [place] [address] Rex Stoll MD [address] [place] [address] documented as of this encounter Visit Diagnoses Not on filedocumented in this encounter Care Teams Account Supervisor Relationship Specialty Start Date End Date Kalin Rob MD PCP - General Family Medicine 10/27/22 12/28/24 Ann Pizano APRN [address] [place] [address] PCP - General Family Medicine 01/11/25 documented as of this encounter
--- OUTSIDE RECORDS SUMMARY | 2025-06-18 09:34 | XMS_ITS | Encounter Summary ---
Author Organization [employer] ([place], [place], [place], [place]) Address [address] [place] [address] Care Team Providers Care Subject Scientific Research Name Role Phone Kalin Rob MD Primary Care Provider [phone] Ann Pizano APRN Primary Care Provider +1- [phone] Reason for Visit * Reason Onset Date Comments FYI 06/26/2024 Encounter Details Date Type Department Care Team (Late st Contact Info) Description 06/26/2024 Telephone [facility] Primary Care - [facility] [address] [place] [address] Kalin Rob MD [address] [place] [address] FYI Social History Tobacco Use [...] Date Cornelius rded Speak language other than Indonesian at home Not on file 11/04/2023 Want [...] Info) Description 07/22/2025 1:00 PM EDT Appointment [facility] CT Imaging [address] [place] [address] Adela Watson MD [address] [place] [address] 07/24/2025 10:30 AM EDT Office Visit [facility] Primary Care - [facility] [address] [place] [address] Ann Pizano APRN [address] [place] [address] 07/26/2025 1:30 PM EDT Office Visit [facility] Pulm & Critical Care Medicine [address] [place] [address] [address] Adela Watson MD [address] [facility] [address] [place] [address] 07/29/2025 9:00 AM EDT Appointment [facility] Breast Imaging [address] [place] [address] 04/15/2026 9:30 AM EDT Office Visit [facility] Gastroenterology [address] [place] [address] Rex Stoll MD [address] [place] [address] documented as of this encounter Visit Diagnoses Not on filedocumented in this encounter Care Teams Subject Scientific Research Relationship Specialty Start Date End Date Kalin Rob MD PCP - General Family Medicine 10/27/22 12/28/24 Ann Pizano APRN [address] [place] [address] PCP - General Family Medicine 01/11/25 documented as of this encounter
--- OUTSIDE RECORDS SUMMARY | 2025-06-18 09:34 | XMS_ITS | Encounter Summary ---
Author Organization [employer] ([place], [place], [place], [place]) Address [address] [place] [address] Care Team Providers Care Director Transportation Name Role Phone Kalin Rob MD Primary Care Provider [phone] Ann Pizano APRN Primary Care Provider +1- [phone] Reason for Visit * Reason Onset Date Comments Advice Only 12/12/2024 Encounter Details Date Type Department Care Team (Late st Contact Info) Description 12/12/2024 Telephone [facility] Primary Care - [facility] [address] [place] [address] Kalin Rob MD [address] [place] [address] Advice Only Social History Tobacco [...] Date Cornelius rded Speak language other than Marshallese at home Not on file 11/04/2023 Want [...] Dr Rob sent in mediation to pharmacy. 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 Patient advised that she took 2 home Covid test and both were negative. Patient has had a productive cough x 4 days. Asking for something to be called in to pharmacy. 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 7 CLINICAL SHIRT OPERATOR [[id number]] SUBJECT: Medical Advice/Question PROVIDER: KALIN ROB [[id number]] DEPARTMENT: [facility] [[id number]] ENCOUNTER REASON FOR CALL: ADVICE ONLY [[id number]] ENCOUNTER TYPE: Telephone PREFERRED PHARMACY? [id number] - [place], [place] - [address] [place] [address] REASON FOR CALL: Medical Advice for a [...] RELATION TO PATIENT: Self [1] PREFERRED LANGUAGE: Marshallese BEST CALL BACK PHONE NUMBER: Mobile Phone: ([phone]) WHAT IS THE BEST WAY FOR THE OFFICE TO CONTACT YOU?: OK to leave message on voicemail NICAL MANAGER [employer]ANT documented in this encounter Plan of Treatment Upcoming Encounters Date Type Department Care Team (Late st Contact Info) Description 07/22/2025 1:00 PM EDT Appointment [facility] CT Imaging [address] [place] [address] Adela Watson MD [address] [place] [address] 07/24/2025 10:30 AM EDT Office Visit [facility] Primary Care - [facility] [address] [place] [address] Ann Pizano APRN [address] [place] [address] 07/26/2025 1:30 PM EDT Office Visit [facility] Pulm & Critical Care Medicine [address] [place] [address] [place] [address] Adela Watson MD 1401 [facility] [address] [place] [address] 07/29/2025 9:00 AM EDT Appointment [facility] Breast Imaging [address] [place] [address] 04/15/2026 9:30 AM EDT Office Visit [facility] Gastroenterology [address] [place] [address] Rex Stoll MD [address] [facility] [address] [place] [address] documented as of this encounter Visit Diagnoses Not on filedocumented in this encounter Care Teams Director Transportation Relationship Specialty Start Date End Date Kalin Rob MD PCP - General Family Medicine 10/27/22 12/28/24 Ann Pizano APRN [address] [place] [address] PCP - General Family Medicine 01/11/25 documented as of this encounter
--- OUTSIDE RECORDS SUMMARY | 2025-06-18 09:34 | XMS_ITS | Encounter Summary ---
Author Organization [employer] ([place], [place], [place], [place]) Address [address] [place] [address] Care Team Providers Care Waste Disposal Attendant Name Role Phone Kalin Rob MD Primary Care Provider [phone] Ann Pizano APRN Primary Care Provider [phone]- [phone] Reason for Visit * Reason Onset Date Comments Medication Refill 11/17/2024 Encounter Details Date Type Department Care Team (Late st Contact Info) Description 11/17/2024 Refill [facility] Cardiology - [place] [address] [place] [address] Jun Taylor MD 227 [facility] [address] [place] [address] Essential (primary) hypertension Social History [...] Date Cornelius rded Speak language other than Austrian at home Not on file 11/04/2023 Want [...] EDT Appointment [facility] CT Imaging [address] [place] [address] Adela Watson MD [address] [address] 07/24/2025 10:30 AM EDT Office Visit [facility] Primary Care - [facility] [address] [place] [address] Ann Pizano APRN [address] [place] [address] 07/26/2025 1:30 PM EDT Office Visit [facility] Pulm & Critical Care Medicine 14[address] [facility] [address] [address] Adela Watson MD [address] [address] 07/29/2025 9:00 AM EDT Appointment [facility] Breast Imaging [address] [place] [address] 04/15/2026 9:30 AM EDT Office Visit [facility] Gastroenterology [address] [place] [address] Rex Stoll MD 227 [facility] [address] [place] [address] documented as of this encounter Visit Diagnoses Diagnosis Essential (primary) hypertension Unspecified essential hypertension documented in this encounter Care Teams Waste Disposal Attendant Relationship Specialty Start Date End Date Kalin Rob MD PCP - General Family Medicine 10/27/22 12/28/24 Ann Pizano, AMISH [address] [place] [address] PCP - General Family Medicine 01/11/25 documented as of this encounter
--- OUTSIDE RECORDS SUMMARY | 2025-06-18 09:34 | XMS_ITS | Encounter Summary ---
Author Organization [employer] ([place], [place], [place], [place]) Address [address] [place] [address] Care Team Providers Care Business Systems Developer Name Role Phone Kalin Rob MD Primary Care Provider [phone] Ann Pizano APRN Primary Care Provider Reason for Visit * Reason Comments Medication Refill Encounter Details Date Type Department Care Team (Late st Contact Info) Description 06/17/2023 Refill [facility] Primary Care - [facility] [address] [place] [address] Kalin Rob MD [address] [place] [address] Personal history of other diseases [...] Info) Description 07/22/2025 1:00 PM EDT Appointment [facility] CT Imaging [address] [place] [address] Adela Watson MD [address] [address] 07/24/2025 10:30 AM EDT Office Visit [facility] Primary Care - [facility] [address] [place] [address] Ann Pizano APRN [address] [place] [address] 07/26/2025 1:30 PM EDT Office Visit [facility] Pulm & Critical Care Medicine [address] [place] [address] Adela Watson MD [address] [address] 07/29/2025 9:00 AM EDT Appointment [facility] Breast Imaging [address] [place] [address] 04/15/2026 9:30 AM EDT Office Visit [facility] Gastroenterology [address] [place] [address] Rex Stoll MD 227 [facility] [address] [place] [address] documented as of this encounter Visit Diagnoses Diagnosis Personal history of other diseases of the digestive system Encounter for general adult medical examination without abnormal findings documented in this encounter Care Teams Business Systems Developer Relationship Specialty Start Date End Date Kalin Rob MD PCP - General Family Medicine 10/27/22 12/28/24 Ann Pizano APRN [address] [place] [address] PCP - General Family Medicine 01/11/25 documented as of this encounter
--- OUTSIDE RECORDS SUMMARY | 2025-06-18 09:34 | XMS_ITS | Referral Summary ---
Author Organization [employer] ([place], [place], [place], [place]) Address [address] [place] [address] Care Team Providers Care Assistant Dean Of Students Name Role Phone Ann Pizano APRN Primary Care Provider +1- [phone] Encounters Date Type Department Care Team Description 06/16/2025 [facility] Gastroenterology [address] [place] [address] Rex Stoll MD Chronic constipation 06/02/2025 [facility] Care [address] [address] Ann Pizano APRN Encounter for general adult medical examination without abnormal findings 05/20/2025 [facility] Gastroenterology [address] [place] [address] Rex Stoll MD Chronic constipation 04/27/2025 [facility] Care [facility] [address] [place] [address] Ann Pizano APRN 04/20/[address] [address] Ann Pizano APRN Deficiency of other specified B group vitamins 04/17/2025 [facility] Gastroenterology [address] [place] [address] Rex Stoll MD Chronic constipation; Gastroesophageal reflux disease, unspecified whether esophagitis present 04/17/2025 [facility] Gastroenterology [address] [place] [address] Lia Hobbs PA-C Gastroesophageal reflux disease, unspecified whether esophagitis present 04/09/2025 9:15 AM EDT Office Visit [facility] Gastroenterology [address] [place] [address] Rex Stoll MD Fatty liver (Primary Dx); Folate deficiency; Vitamin D deficiency; Lung nodule from Last 3 Months Allergies Active [...] 025 Active nitroglycerin (NITROSTAT) 0.4 MG SL tabletIndications [...] 025 2025 Active loratadine (CLARITIN) 10 mg tabletIndications :Encounter for general adult medical examination without abnormal findings TAKE 1 TABLET BY MOUTH TWICE A DAY 60 tablet 5 025 Active rosuvastatin (CRESTOR) 20 MG tabletIndications :Other hyperlipidemia TAKE 1 TABLET BY MOUTH EVERY DAY IN THE MORNING 90 tablet 3 025 Active pantoprazole (PROTONIX) 40 MG tabletIndications :Gastroesophageal reflux disease, unspecified whether esophagitis present Take 1 tablet (40 mg total) by mouth daily. 90 tablet 025 Active cyanocobalamin 1,000 mcg/mL injectionIndicati ons:Deficiency of other specified B group vitamins INJECT 1 ML DIRECTED ONCE A MONTH 3 mL 025 Active folic acid (FOLVITE) 1 MG tablet TAKE 1 TABLET BY MOUTH EVERY DAY 90 tablet 025 Active Senexon-S 8.6-50 mg per tabletIndications :Chronic constipation TAKE 1 TABLET BY MOUTH TWICE DAILY NEEDED FOR CONSTIPATION 60 tablet 025 Active montelukast (SINGULAIR) 10 mg tabletIndications :Encounter for general adult medical examination without abnormal findings TAKE 1 TABLET BY MOUTH EVERY DAY AT NIGHT 90 tablet 025 Active montelukast (SINGULAIR) 10 mg tabletIndications :Encounter for general adult medical examination without abnormal findings TAKE 1 TABLET BY MOUTH EVERY DAY AT NIGHT 90 tablet 025 2024 Discontinued sennosides-docusa te sodium (Senexon-S) 8.6-50 mg per tabletIndications :Chronic constipation TAKE 1 TABLET BY MOUTH TWICE DAILY NEEDED FOR CONSTIPATION 60 tablet 025 2024 Discontinued Active Problems Problem [...] mRNA (PF)(LNP-S BIV ALENT) (Lamb Cap) 12YR+ (PFIZER)([id number] 07/23/2021 Covid-19 Vaccine MRNA (PF) 1 2yr+ (Pfizer/BioNTech)([id number]) 01/13/2021,12/20/2020 Hepatitis A 08/20/2019,11/21/2018 Influenza TIV (IM) 06/28/2022 Pneumococcal Conjugate (Prevnar) 13-Valent 08/20 Tdap 05/25/2019 Social History Tobacco Use Types Packs/Day Years Used Date Smoking Tobacco: Every Day Cigarettes 0.5 15 Smokeless Tobacco: Never Tobacco Cessation:Ready to Q uit: No Alcohol Use Standard Drinks/Week Comments Never 0 (1 standard drink = 0.6 oz pur e alcohol) caffeine use [facility] - Mental Health Answer Date Recorde [...] Date Cornelius rded Speak language other than Andorran at home Not on file 11/04/2023 Want [...] Info) Description 07/22/2025 1:00 PM EDT Appointment [facility] CT Imaging [address] [place] [address] Adela Watson MD [address] [address] 07/24/2025 10:30 AM EDT Office Visit [facility] Primary Care - [facility] [address] [place] [address] Ann Pizano APRN [address] [place] [address] 07/26/2025 1:30 PM EDT Office Visit [facility] Pulm & Critical Care Medicine [address] [place] [address] [address] [place] [address] [place] [address] 07/29/2025 9:00 AM EDT Appointment [facility] Breast Imaging [address] [place] [address] 04/15/2026 9:30 AM EDT Office Visit [facility] Gastroenterology [address] [place] [address] Rex Stoll MD 227 [facility] [address] [place] [address] Procedures Procedure Name Priority Date/Time Associated Diagnosis Comments LIPID PANEL Routine 10/18/2024 11:56 AM EST Fatty liver MM DIGITAL MAMMO SCREEN WITH NIXON BILATERAL Routine 06/19/2024 1:17 PM EDT Breast screening Encounter for screening mammogram for malignant neoplasm of breast HEPATITIS PANEL, ACUTE Routine 07/07/2023 12:10 PM EDT Hypertension, unspecified type HM COLONOSCOPY Routine 10/16/2019 from Last 3 Months or Most Recently Relevant to Health Maintenance Results * (ABNORMAL) Lipid panel (10/18/2024 11:56 AM EST) Triglycerides 398(H) 15 - 150 mg/dL 10/18/2024 12:51 PM EST [facility] Cholesterol 303(H) 50 - 200 mg/dL 10/18/2024 12:51 PM [facility] Comment: 200 to 239 mg/dL = Moderate (borderline) >239 mg/dL = High HDL Cholesterol 34(L) 40 - 60 mg/dL 10/18/2024 12:51 PM EST [facility] Comment: >=60 mg/dL = Desirable <40 mg/dL = Increased Risk All other components are listed individually or are calculations VLDL Cholesterol 79.6 mg/dL 10/18/19 25 12:51 PM [facility] Cholesterol/HDL ratio 8.9 10/18/2024 12:51 PM [facility] LDl/HDL Ratio 6 10/18/2024 12:51 PM [facility] RISK COMP 9 10/18/2024 12:51 PM [facility] LDL Cholesterol, Calculated 189 mg/dL 10/18/2024 12:51 PM [facility] Blood Venipuncture / Unknown 10/18/2024 11:56 AM EST 10/18/2024 12:05 PM EST Kalin Rob MD LAB BLOOD ORDERABLES Final Result [facility] [address] [phone] * (ABNORMAL) MM digital mammo screen with [...] the next mammogram. At our facility, a [place] marker is positioned over a visible skin [...] family history of breast cancer. COMPARISON STUDY: [id number] from [facility] FINDINGS: Craniocaudal and mediolateral oblique images of [...] benefit of computer-aided detection (CAD). Ann Pizano HORSE GROOMER IM MAMMOGRAPHY ORDERABLES Final Result * Hepatitis panel, acute (07/07/2023 12:10 PM EDT) Hep A IgM Nonreactive Nonreactive, Equivocal 07/08/2023 1:50 AM EDT [facility] Hep B C IgM Nonreactive Nonreactive 07/08/2023 1:50 AM EDT [facility] Hepatitis B surface antigen Nonreactive Nonreactive, Equivocal 07/08/2023 1:50 AM EDT [facility] Hepatitis C Ab Nonreactive Nonreactive, Equivocal 07/08/2023 1:50 AM EDT [facility] Blood Venipuncture / Unknown 07/07/2023 12:10 PM EDT 07/07/2023 12:38 PM EDT Narrative [facility] - 07/08/2023 1:50 AM EDT [...] Rob MD LAB BLOOD ORDERABLES Final Result [facility] [address] [id number] [phone] * HM COLONOSCOPY (10/16/2019) Historical Provider HEALTH MAINTENANCE Final Result from Last 3 Months or Most Recently Relevant to Health Maintenance Insurance [facility] Care Teams Assistant Dean Of Students Relationship Specialty Start Date End Date Ann Pizano APRN [address] [place] [address] PCP - General Family Medicine 01/11/25
--- OUTSIDE RECORDS SUMMARY | 2025-06-18 09:34 | XMS_ITS | Encounter Summary ---
Author Organization Healthcare Address [address] [place] [address] Care Team Providers Care Research Study Assistant Name Role Phone Kalin Rob MD Primary Care Provider +1 -[phone] Pcp, No Primary Care Provider Unavailabl e Reason for Visit * Reason Onset Date Comments Med Refill 04/20/2023 Encounter Details Date Type Department Care Team (Late st Contact Info) Description 04/20/2023 Refill [facility] [address] [place] [address] Agueda Ferrara L, DATA ENTRY COORDINATOR [address] [place] [address] Seropositive rheumatoid arthritis of multiple sites ([facility]) Social History Tobacco Use Types Packs/Day Years [...] Description 10/31/2025 3:[address] PM EST [address] [facility] [address] [place] [address] Agueda Ferrara, DATA ENTRY COORDINATOR [address] [place] [address] documented as of this encounter Visit Diagnoses Diagnosis Seropositive rheumatoid arthritis of multiple sites ([facility]) documented in this encounter Additional Health Concerns Assessment Noted Time PHQ-9 Depression Total Score: 16 023 1:39 PM EST A fall risk assessment has been complete d for the patient 11/23/2022 1:43 PM EST A Body Mass Index follow-up plan has been documented for the patient 11/23/2022 2:15 PM EST documented as of this encounter Care Teams Research Study Assistant Relationship Specialty Start Date End Date Kalin Rob MD [address] [place] [address] PCP - General 02/27/21 06/10/25 Pcp, Rajwinder [address] [place] [address] PCP - General Family Medicine 06/11/25 documented as of this encounter
--- OUTSIDE RECORDS SUMMARY | 2025-06-18 09:34 | XMS_ITS | Encounter Summary ---
Author Organization [employer] ([place], [place], [place], [place]) Address [address] [place] [address] Care Team Providers Care Hot Shot Name Role Phone Kalin Rob MD Primary Care Provider [phone] Ann Pizano APRN Primary Care Provider +- [phone] Encounter Details Date Type Department Care Team (Late st Contact Info) Description 03/04/2021 Transcribed Document [facility] [place] [address] [place] [address] ProviderJean-Pierre MD [address] [place] [address] [id number] Social History Tobacco Use Types Packs/Day Years [...] MARU /Sex: 1975 Female Med Rec #: [id number] Physician: KASEY MONROE MD-FERCHO Financial #: [id number] Pt. Type: O Room/Bed: Admit/Disch: 03/04/21 07:25:00 - Institution: [facility] PreOp Case Times Entry 1 In Preop 03/04/21 07:45:00 Ready for Holding n/a Room Patient Ready for 03/04/21 09:00:00 Surgery Patient Out of Preop 03/04/21 09:45:00 Patient Out of n/a Holding Room Last Modified By: CHARLEY HAMM 03/04/21 11:56:35 [facility] PreOp Case Times Audit 03/04/21 11:56:35 Manager Route: [id number] Modifier: [email or web address] <+> 1 Patient Out of Preop Finalized By: CHARLEY HAMM Document Signatures Signed By: CHARLEY HAMM 03/04/21 11:56 documented in this encounter Plan of Treatment Upcoming Encounters Date Type Department Care Team (Late st Contact Info) Description 07/22/2025 1:00 PM EDT Appointment [facility] Imaging [address] [place] [address] Adela Watson MD [address] [address] 07/24/2025 10:30 AM EDT Office Visit [facility] Primary Care - [facility] [address] [place] [address] Ann Pizano APRN [address] [place] [address] 07/26/2025 1:30 PM EDT Office Visit [facility] Pulm & Critical Care Medicine [address] [place] [address] [address] Adela Watson MD [address] [address] 07/29/2025 9:00 AM EDT Appointment [facility] Imaging [address] [place] [address] 04/15/2026 9:30 AM EDT Office Visit [facility] Gastroenterology [address] [place] [address] Rex Stoll MD [address] [facility] [address] [place] [address] documented as of this encounter Visit Diagnoses Not on filedocumented in this encounter Care Teams Hot Shot Relationship Specialty Start Date End Date Kalin Rob MD PCP - General Family Medicine 10/27/22 12/28/24 Ann Pizano APRN [address] [place] [id number] PCP - General Family Medicine 01/11/25 documented as of this encounter
--- OUTSIDE RECORDS SUMMARY | 2025-06-18 09:35 | XMS_ITS | Encounter Summary ---
Author Organization [employer] ([place], [place], [place], [place]) Address [address] [place] [address] Care Team Providers Care Blunger Loader Name Role Phone Kalin Rob MD Primary Care Provider [phone] Ann Pizano APRN Primary Care Provider [phone]- [phone] Reason for Referral * Mammography (Routine) - Closed Specialty Diagnoses / Procedures Referred By Contac t Referred To Contact Diagnoses Encounter for screening mammogram for malignant neoplasm of breast Procedures MM digital mammo screen bilateral Kalin Rob MD Phone: tel: fax: Referral ID Status Reason Start Date Expiration Date Visits Re quested Visits Authorized [id number] Closed 07/06/2022 01/02/2023 1 1 Encounter Details Date Type Department Care Team (Late st Contact Info) Description 07/06/2022 Outside Orders [facility] Scheduling 1 [place] [address] Kalin Rob MD [address] [place] [address] Encounter for screening mammogram for [...] [facility] Imaging [address] [place] [address] Adela Watson MD [address] [address] 07/24/2025 10:30 AM EDT Office Visit [facility] Primary Care - [facility] 40 [place] [address] Ann Pizano APRN 40 [place] [address] 07/26/2025 1:30 PM EDT Office Visit [facility] Pulm & Critical Care Medicine 1401 [facility] [address] [address] Adela Watson MD [address] [address] 07/29/2025 9:00 AM EDT Appointment [facility] Breast Imaging [address] [place] [address] 04/15/2026 9:30 AM EDT Office Visit [facility] Gastroenterology [address] [place] [address] Rex Stoll MD [address] [address] Scheduled Orders Name Type Priority Associated Diagnoses Orde r Schedule MM digital mammo screen bilateral Imaging Routine Encounter for screening mammogram for malignant neoplasm of breast Expected: 07/06/2022, Expires: 07/06/2023 documented as of this encounter Visit Diagnoses Diagnosis Encounter for screening mammogram for malignant neoplasm of breast- Primary documented in this encounter Care Teams Blunger Loader Relationship Specialty Start Date End Date Kalin Rob MD PCP - General Family Medicine 10/27/22 12/28/24 Ann Pizano APRN 40 [place] [address] PCP - General Family Medicine 01/11/25 documented as of this encounter
--- OUTSIDE RECORDS SUMMARY | 2025-06-18 09:35 | XMS_ITS | Encounter Summary ---
Author Organization [employer] ([place], [place], [place], [place]) Address [address] [place] [address] Care Team Providers Care Roll Dough Divider Name Role Phone Ann Pizano AMISH Primary Care Provider [phone]- [phone] Reason for Visit * Reason Comments Medication Refill Encounter Details Date Type Department Care Team (Late st Contact Info) Description 04/17/2025 Refill [facility] Gastroenterology [address] [place] [address] Lia Hobbs PA-C 227 [facility] [address] [place] [address] Gastroesophageal reflux disease, unspecified whether esophagitis present Social History Tobacco Use Types Packs/Day Years Used Date Smoking Tobacco: Every Day Cigarettes 0.5 15 Smokeless Tobacco: Never Alcohol Use Standard Drinks/Week Comments Never 0 (1 standard drink = 0.6 oz pur e alcohol) caffeine use [facility] - Mental Health Answer Date Recorde [...] Date Cornelius rded Speak language other than Monegasque at home Not on file 11/04/2023 Want [...] 07/22/2025 1:00 PM EDT Appointment [facility] Imaging [address] [place] [address] Adela Watson MD [address] [address] 07/24/2025 10:30 AM EDT Office Visit [facility] Primary Care - [facility] [address] [place] [address] Ann Pizano APRN [address] [place] [address] 07/26/2025 1:30 PM EDT Office Visit [facility] Pulm & Critical Care Medicine 1401 [facility] [address] [address] Adela Watson MD [address] [address] 07/29/2025 9:00 AM EDT Appointment [facility] Imaging [address] [place] [address] 04/15/2026 9:30 AM EDT Office Visit [facility] Gastroenterology [address] [place] [address] Rex Stoll MD 227 [facility] [address] [place], [place] [id number] documented as of this encounter Visit Diagnoses Diagnosis Gastroesophageal reflux disease, unspecified whether esophagitis present documented in this encounter Care Teams Roll Dough Divider Relationship Specialty Start Date End Date Ann Pizano APRN [address] [place] [address] PCP - General Family Medicine 01/11/25 documented as of this encounter
--- OUTSIDE RECORDS SUMMARY | 2025-06-18 09:35 | XMS_ITS | Clinical Summary ---
Author Organization [employer] ([place], [place], [place], [place]) Address [address] [place] [address] Care Team Providers Care Executive Legal Secretary Name Role Phone Ann Pizano APRN Primary Care Provider [phone]- [phone] Allergies Active Allergy Reactions Criticality Noted Date [...] Date Type Department Care Team Description 06/16/2025 Refill [facility] Gastroenterology [address] [place] [address] Rex Stoll MD Chronic constipation 06/02/2025 Refill [facility] Primary Care - [place] [phone] Ann Pizano APRN Encounter for general adult medical examination without abnormal findings 05/20/2025 Refill [facility] Gastroenterology [address] [place], [place] [address] Rex Stoll MD Chronic constipation 04/27/2025 Refill [facility] Primary Care [facility] [address] [place] [address] Ann Pizano APRN 04/20/[address] [address] Ann Pizano, AMISH Deficiency of other specified B group vitamins 04/17/2025 Refill [facility] Gastroenterology [address] [place] [address] Rex Stoll MD Chronic constipation; Gastroesophageal reflux disease, unspecified whether esophagitis present 04/17/2025 Refill [facility] Gastroenterology [address] [place] [address] Lia Hobbs PA-C Gastroesophageal reflux disease, unspecified whether esophagitis present 04/09/2025 9:15 AM EDT Office Visit [facility] Gastroenterology [address] [place] [address] Rex Stoll MD Fatty liver (Primary Dx); Folate deficiency; Vitamin D deficiency; Lung nodule from Last 3 Months Immunizations Name Administration Dates Next Due COVID-19 mRNA (PF)(LNP-S BIV ALENT) (Lamb Cap) 12YR+ (PFIZER)([id number] 07/23/2021 Covid-19 Vaccine MRNA (PF) 1 2yr+ (Pfizer/BioNTech)([id number]) 01/13/2021,12/20/2020 Hepatitis A 08/20/2019,11/21/2018 Influenza TIV (IM) 06/28/2022 Pneumococcal Conjugate (Prevnar) 13-Valent 08/20 Tdap 05/25/2019 Family History Medical History Relation Name Comments Hyperlipidemia Brother Hypertension Brother Arthritis Father Earl Garcia Jr Hyperlipidemia Father Earl Jose Davis Hypertension Father Earl Garcia Jr Heart attack [...] Maternal Grandmother Maxine Au Anemia Mother Sienna Luis Arthritis Mother Sienna Luis Hypertension Mother Sienna Daisy Arthritis Paternal Grandfather Earl Garcia Sr Febrile [...] Name Status Comments Brother Alive Father Earl Jose Jr Alive Maternal Grandfather Daron Au Maternal Grandmother Maxine Au Mother Sienna Daisy Alive Paternal Grandfather Eral Garcia Sr Paternal Grandmother Bridget Yazmin Gonsalesols Social History Tobacco Use Types Packs/Day Years [...] Date Cornelius rded Speak language other than Gabonese at home Not on file 11/04/2023 Want [...] 07/22/2025 1:00 PM EDT Appointment [facility] CT Imaging [address] [place] [address] Adela Waston MD [address] [place] [address] 07/24/2025 10:30 AM EDT Office Visit [facility] Primary Care - [facility] [address] [place] [address] Ann Pizano APRN [address] [place] [address] 07/26/2025 1:30 PM EDT Office Visit [facility] Pulm & Critical Care Medicine [address] [place] [address] [address] Adela Watson MD [address] [place] [address] 07/29/2025 9:00 AM EDT Appointment [facility] Breast Imaging [address] [place] [address] 04/15/2026 9:30 AM EDT Office Visit [facility] Gastroenterology [address] [place] [address] Rex Stoll MD 227 [facility] [address] [place] [address] Health Maintenance Due Date Last Done Comments CT Colonography 1975 FOBT/FIT 1975 Fit-DNA (Cologuard) 1975 Sigmoidoscopy 1975 HIV Screening 1991 Pap Smear 1997 Pneumococcal Vaccine: 0-49 Y ears (2 of 2 - PPSV23) 10/15/2019 08/20/2019 COVID-19 VACCINE (5 - 2023-2 5 season) 2024 07/23/2021, 07/23/2021, 01/13/2021, Additional [...] mg/dL 10/18/2024 12:51 PM EST [facility] Cholesterol 303(H) 50 - 200 mg/dL 10/18/2024 12:51 PM EST [facility] Comment: 200 to 239 mg/dL = Moderate (borderline) >239 mg/dL = High HDL Cholesterol 34(L) 40 - 60 mg/dL 10/18/2024 12:51 PM EST [facility] Comment: >=60 mg/dL = Desirable <40 mg/dL = Increased Risk All other components are listed individually or are calculations VLDL Cholesterol 79.6 mg/dL 10/18/19 12:51 PM EST [facility] Cholesterol/HDL ratio 8.9 10/18/2024 12:51 PM EST [facility] LDl/HDL Ratio 6 10/18/2024 12:51 PM EST [facility] RISK COMP 9 10/18/2024 12:51 PM EST [facility] LDL Cholesterol, Calculated 189 mg/dL 10/18/2024 12:51 PM EST [facility] Blood Venipuncture / Unknown 10/18/2024 11:56 AM EST 10/18/2024 12:05 PM EST us Kalin Rob MD LAB BLOOD ORDERABLES Final Result [facility] [address] [place], [place] [id number] [phone] * (ABNORMAL) MM digital mammo screen with [...] the next mammogram. At our facility, a [place] marker is positioned over a visible skin [...] family history of breast cancer. COMPARISON STUDY: [phone] from [facility] FINDINGS: Craniocaudal and mediolateral oblique images of [...] of computer-aided detection (CAD). Ann Pizano APRN [facility] MAMMOGRAPHY ORDERABLES Final Result * Hepatitis panel, acute (07/07/2023 12:10 PM EDT) Hep A IgM Nonreactive Nonreactive, Equivocal 07/08/2023 1:50 AM EDT [facility] Hep B C IgM Nonreactive Nonreactive 07/08/2023 1:50 AM EDT [facility] Hepatitis B surface antigen Nonreactive Nonreactive, Equivocal 07/08/2023 1:50 AM EDT [facility] Hepatitis C Ab Nonreactive Nonreactive, Equivocal 07/08/2023 1:50 AM EDT [facility] Blood Venipuncture / Unknown 07/07/2023 12:10 PM EDT 07/07/2023 12:38 PM EDT Narrative [facility] - 07/08/2023 1:50 AM EDT [...] Rob MD LAB BLOOD ORDERABLES Final Result [facility] [address] [phone] * HM COLONOSCOPY (10/16/2019) Historical Provider HEALTH MAINTENANCE Final Result from Last 3 Months or Most Recently Relevant to Health Maintenance Insurance [facility] Care Teams Executive Legal Secretary Relationship Specialty Start Date End Date Ann Pizano APRN [address] [place] [address] PCP - General Family Medicine 01/11/25
--- OUTSIDE RECORDS SUMMARY | 2025-06-18 09:35 | XMS_ITS | Encounter Summary ---
Author Organization [email or web address] ([place], [place], [place], [place]) Address [address] [place] [address] Care Team Providers Care Travel Ticketing Reviewer Name Role Phone Ann Pizano AMISH Primary Care Provider [phone]- [phone] Reason for Visit * Reason Comments Medication Refill Encounter Details Date Type Department Care Team (Late st Contact Info) Description 04/17/2025 Refill [facility] Gastroenterology [address] [place] [address] Rex Stoll MD [address] [place] [address] Chronic constipation; Gastroesophageal reflux disease, unspecified whether esophagitis present Social History Tobacco Use Types Packs/Day Years Used Date Smoking Tobacco: Every Day Cigarettes 0.5 15 Smokeless Tobacco: Never Alcohol Use Standard Drinks/Week Comments Never 0 (1 standard drink = 0.6 oz pur e alcohol) caffeine use [facility] - Mental Health Answer Date [...] Date Cornelius rded Speak language other than Australian at home Not on file 11/04/2023 Want [...] Description 07/22/2025 1:00 PM EDT Appointment [facility] CT Imaging [address] [place] [address] Adela Watson MD [address] [address] 07/24/2025 10:30 AM EDT Office Visit [facility] Primary [facility] - [facility] 40 [place] [address] Ann Pizano APRN [address] [place] [address] 07/26/2025 1:30 PM EDT Office Visit [facility] Pulm & Critical Care Medicine 1401 [facility] [address] [address] Adela Watson MD [address] [address] 07/29/2025 9:00 AM EDT Appointment [facility] Breast Imaging [address] [place] [address] 04/15/2026 9:30 AM EDT Office Visit [facility] Gastroenterology [address] [place] [address] Rex Stoll MD 227 [facility] [address] [place], [place] [phone] documented as of this encounter Visit Diagnoses Diagnosis Chronic constipation Unspecified constipation Gastroesophageal reflux disease, unspecified whether esophagitis present documented in this encounter Care Teams Travel Ticketing Reviewer Relationship Specialty Start Date End Date Ann Pizano APRN [address] [place] [address] PCP - General Family Medicine 01/11/25 documented as of this encounter
--- OUTSIDE RECORDS SUMMARY | 2025-06-18 09:35 | XMS_ITS | Encounter Summary ---
Author Organization Healthcare Address [address] [place] [address] Care Team Providers Care [employer] Thread Winder Name Role Phone Kalin Rob MD Primary Care Provider [phone] Reason for Visit * Reason Onset Date Comments Med Refill 05/31/2025 Encounter Details Date Type Department Care Team (Late st Contact Info) Description 05/31/2025 Refill [facility] Medicine Specialties [address] [place] [address] Agueda Ferrara L, COMPLIANCE NURSE [address] [place] [address] Seropositive rheumatoid arthritis of multiple sites (CMS/[facility]) Social History Tobacco Use Types Packs/Day Years [...] as of this encounter Miscellaneous Notes * Progress Notes - Rere Nazario, AdamaD - 06/06/2025 3:15 PM EDT 1 medication(s) has been denied per protocol due to: Patient needs appointment * Telephone Encounter - Carmen Bustamante - 06/06/2025 2:14 PM EDT LVM for PT to reschedule. Possible on 06/19/2025 at 9:20 AM documented in this encounter Plan of Treatment Upcoming Encounters Date Type Department Care Team (Late st Contact Info) Description 10/31/2025 3:20 PM EST Office Visit [facility] Medicine Specialties [address] [place] [address] Agueda Ferrara, COMPLIANCE NURSE [address] [place] [address] documented as of this encounter Visit Diagnoses Diagnosis Seropositive rheumatoid arthritis of multiple sites (CMS/[facility]) documented in this encounter Additional Health Concerns Assessment Noted Time PHQ-9 Depression Total Score: 16 023 1:39 PM EST A fall risk assessment has been complete d for the patient 05/31/2024 2:37 PM EDT A Body Mass Index follow-up plan has been documented for the patient 05/31/2024 3:02 PM EDT documented as of this encounter Care Teams [employer] Thread Winder Relationship Specialty Start Date End Date Kalin Rob MD [address] [place] [address] PCP - General 02/27/21 06/10/25 documented as of this encounter
--- OUTSIDE RECORDS SUMMARY | 2025-06-18 09:35 | XMS_ITS | Encounter Summary ---
Author Organization [employer] ([place], [place], [place], [place]) Address [address] [place] [address] Care Team Providers Care Professor Of Biochemistry Name Role Phone Kalin Rob MD Primary Care Provider [phone] Ann Pizano APRN Primary Care Provider [phone]- [phone] Encounter Details Date Type Department Care Team (Late st Contact Info) Description 03/04/2021 Transcribed Document [facility] [place] [address] [place] [address] Jean-Pierre Lovett MD [address] [place] [id number] Social History Tobacco Use Types Packs/Day Years [...] sinus surgery and total ethmoidectomy, CPT code #97540-20. 2. Nasal septoplasty, CPT code #36360-22. 3. Bilateral endoscopic maxillary antrostomy with removal of tissue, CPT code #37414-48, 51. 4. Bilateral endoscopic sphenoid sinus surgery, CPT code #41187-21, 51. 5. Bilateral inferior turbinate reduction, CPT code #91196-79, 51. 6. Image-guided, navigation-assisted surgery, CPT code #69366-39. ANESTHESIA: General. COMPLICATIONS: None immediate. ESTIMATED BLOOD LOSS: 25 to 50 mL. SPECIMENS: Bilateral sinus contents and septal contents sent to pathology. OPERATIVE FINDINGS: A septal spur on the left posteriorly causing over 90% obstruction. A high septal deflection on the right causing 50% obstruction at the level of the middle turbinate. Moderate bilateral inferior turbinate hypertrophy. Adhu-pp-eiunxzyy diffuse sinus inflammation with thick mucosal inflammation [...] CT scan of the sinuses using the [employer] navigation system. This was calibrated to 1 [...] was evaluated using a 30-degree telescope. A [employer] 6 mm balloon was used to dilate [...] was no spinal fluid leak. There was cnfc-lr-phxkpdke mucosal inflammation, which was noted to be [...] left inferior turbinate was medialized with a [place] elevator. Thru-cutting instruments were used to resect [...] Anesthesia, where she was awakened and extubated. /[id number] Chandana Bah MD REW/AQ / REW / MODL /[id number] documented in this encounter Plan of Treatment Upcoming Encounters Date Type Department Care Team (Late st Contact Info) Description 07/22/2025 1:00 PM EDT Appointment [facility] Imaging [address] [place] [address] Adela Watson MD 1401 [facility] [address] [place] [address] 07/24/2025 10:30 AM EDT Office Visit [facility] Primary Care - [facility] [address] [place] [address] Ann Pizano APRN [address] [place] [address] 07/26/2025 1:30 PM EDT Office Visit [facility] Pulm & Critical Care Medicine 1401 [facility] [address] [address] Adela Watson MD 1401 [facility] [address] [place] [address] 07/29/2025 9:00 AM EDT Appointment [facility] [address] [place] [address] 04/15/2026 9:30 AM EDT Office Visit [facility] Gastroenterology [address] [place] [address] Rex Stoll MD [address] [place] [address] documented as of this encounter Visit Diagnoses Not on filedocumented in this encounter Care Teams Professor Of Biochemistry Relationship Specialty Start Date End Date Kalin Rob MD PCP - General Family Medicine 10/27/22 12/28/24 Ann Pizano APRN [address] [place] [address] PCP - General Family Medicine 01/11/25 documented as of this encounter
--- OUTSIDE RECORDS SUMMARY | 2025-06-18 09:35 | XMS_ITS | Encounter Summary ---
Author Organization [employer] ([place], [place], [place], [place]) Address [address] [place] [address] Care Team Providers Care Customer Service Driver Name Role Phone Kalin Rob MD Primary Care Provider [phone] Ann Pizano APRN Primary Care Provider [phone]- [phone] Reason for Visit * Reason Comments Med Change Request Encounter Details Date Type Department Care Team (Late st Contact Info) Description 04/05/2024 [facility] Gastroenterology [address] [place] [address] Rex Stoll MD [address] [facility] [address] [place] [address] Gastroesophageal reflux disease, unspecified whether [...] Date Cornelius rded Speak language other than Ethiopian at home Not on file 11/04/2023 Want [...] Info) Description 07/22/2025 1:00 PM EDT Appointment [facility] CT Imaging [address] [phone] Adela Watson MD [address] [phone] 07/24/2025 10:30 AM EDT Office Visit [facility] Primary Care - [facility] [address] [place] [address] Ann Pizano APRN [address] [place] [address] 07/26/2025 1:30 PM EDT Office Visit [facility] Pulm & Critical Care Medicine [address] [place] [address] [address] Adela Watson MD [address] [address] 07/29/2025 9:00 AM EDT Appointment [facility] Breast Imaging [address] [place] [address] 04/15/2026 9:30 AM EDT Office Visit [facility] Gastroenterology [address] [place] [address] Rex Stoll MD [address] [facility] [address] [place] [address] documented as of this encounter Visit Diagnoses Diagnosis Gastroesophageal reflux disease, unspecified whether esophagitis present documented in this encounter Care Teams Customer Service Driver Relationship Specialty Start Date End Date Kalin Rob MD PCP - General Family Medicine 10/27/22 12/28/24 Ann Pizano APRN [address] [place] [address] PCP - General Family Medicine 01/11/25 documented as of this encounter
--- OUTSIDE RECORDS SUMMARY | 2025-06-18 09:35 | XMS_ITS | Encounter Summary ---
Author Organization [employer] ([place], [place], [place], [place]) Address [address] [place] [address] Care Team Providers Care Agriculture Instructor Name Role Phone Kalin Rob MD Primary Care Provider [phone] Ann Pizano APRN Primary Care Provider [phone]- [phone] Encounter Details Date Type Department Care Team (Late st Contact Info) Description 03/04/2021 Transcribed Document [facility] [place] Family Medicine [facility] [place] [address] ProviderJean-Pierre MD [address] [place] [id number] Social History Tobacco Use Types Packs/Day Years [...] Source : Stated Height Entry Format : [place] Height, Feet : 5 ft(Converted to: 152 cm, 60 Inch) Height, Inches : 4 Inch(Converted to: 0 ft 4 Inch, 10.16 cm) Clinical Height : 162.56 cm Weight Source : Standing scale Weight Entry Format : [place] Clinical Dosing Weight : 69.55 kg Weight, Pounds : 153 lb Body Surface Area (BSA) : 1.75 m2 Body Mass Index : 26.3 kg/m2 (HI) [place] Body Weight : 54 kg Lorena Rob [...] Lorena Rob RN - 03/04/2021 9:08 EDT [place] Suicide Severity Rating Scale (C-SSRS) CSSRS Past [...] : Patient Preferred Communication Mode : Verbal Animation Producer Needed : No Objects to Sharing Info w Family : No Currently Lactating : No Status : Patient denies Clinical Trials Participant *Q : None Lorena Rob RN - 03/04/2021 9:08 EDT Emergency Contact #1 : Sienna Smith Emergency Contact #1 Emergency Contact #1 Relationship : Mother Primary Language : Fijian Communication Barrier : None Lorena Rob RN [...] Info) Description 07/22/2025 1:00 PM EDT Appointment [facility] CT Imaging [address] [place] [address] Adela Watson MD [address] [place] [address] [address] 07/24/2025 10:30 AM EDT Office Visit [facility] Primary [facility] - [facility] [address] [place] [phone] Ann Pizano APRN [address] [place] [address] 07/26/2025 1:30 PM EDT Office Visit [facility] Pulm & Critical Care Medicine [address] [place] [address] [place] [address] Adela Watson MD [address] [place] [address] [address] 07/29/2025 9:00 AM EDT Appointment [facility] Breast Imaging [address] [place] [address] 04/15/2026 9:30 AM EDT Office Visit [facility] Gastroenterology [address] [place] [address] Rex Stoll MD [address] [place] [address] documented as of this encounter Visit Diagnoses Not on filedocumented in this encounter Care Teams Agriculture Instructor Relationship Specialty Start Date End Date Kalin Rob MD PCP - General Family Medicine 10/27/22 12/28/24 Ann Pizano APRN [address] [place] [address] PCP - General Family Medicine 01/11/25 documented as of this encounter
--- OUTSIDE RECORDS SUMMARY | 2025-06-18 09:35 | XMS_ITS | Encounter Summary ---
Author Organization [employer] ([place], [place], [place], [place]) Address [address] [place] [address] Care Team Providers Care Icing And Glaze Maker Name Role Phone Kalin Rob MD Primary Care Provider [phone] Ann Pizano APRN Primary Care Provider +- [phone] Encounter Details Date Type Department Care Team (Late st Contact Info) Description 03/04/2021 Transcribed Document [facility] [place] [address] [place] [address] ProviderJean-Pierre MD [address] [place] [phone] Social History Tobacco Use Types Packs/Day Years [...] MARU /Sex: 1975 Female Med Rec #: [id number] Physician: KASEY MONROE MD-FERCHO Financial #: [id number] Pt. Type: O Room/Bed: Admit/Disch: 03/04/21 07:25:00 - Institution: [facility] OR PACU Case Times Entry 1 In PACU I 03/04/21 11:32:00 Ready for PACU 03/04/21 12:02:00 Discharge Discharge from PACU 03/04/21 12:02:00 I Last Modified By: Kat Haley RN 03/04/21 12:02:41 [facility] PACU Case Times Audit 03/04/21 12:02:41 Back Padder: [email or web address] Modifier: [email or web address] <+> 1 Ready for PACU Discharge <+> 1 Discharge from PACU I Finalized By: Kta Haley, RN Document Signatures Signed By: Kat Haley RN 03/04/21 12:02 documented in this encounter Plan of Treatment Upcoming Encounters Date Type Department Care Team (Late st Contact Info) Description 07/22/2025 1:00 PM EDT Appointment [facility] CT Imaging [address] [place] [phone] Adela Watson MD [address] [place] [address] [address] 07/24/2025 10:30 AM EDT Office Visit [facility] Primary Care - [facility] [address] [place] [address] Ann Pizano APRN [address] [place] [address] 07/26/2025 1:30 PM EDT Office Visit [facility] Pulm & Critical Care Medicine [address] [place] [address] [address] Adela Watson MD [address] [phone] 07/29/2025 9:00 AM EDT Appointment [facility] Breast Imaging [address] [place] [address] 04/15/2026 9:30 AM EDT Office Visit [facility] Gastroenterology [address] [place] [address] Rex Stoll MD [address] [facility] [address] [place] [address] documented as of this encounter Visit Diagnoses Not on filedocumented in this encounter Care Teams Icing And Glaze Maker Relationship Specialty Start Date End Date Kalin Rob MD PCP - General Family Medicine 10/27/22 12/28/24 Ann Pizano APRN [address] [place] [address] PCP - General Family Medicine 01/11/25 documented as of this encounter
== END 2025-06-18 23:59 | disposition home or self-care (01) ==
LOC: RAD 09:15
PROVIDERS: Visit Provider Physician Assistant
DX: S52.502D Unspecified fracture of the lower end of left radius, subsequent encounter for closed fracture with routine healing (principal)
CPT/HCPCS: 73110